=== PATIENT | male | born 1965 | race Caucasian/White ===

== ENCOUNTER 2018-05-07 17:22 | Inpatient (IN) | payer MEDICAID ==
[~2018-05-07] VITALS: Ht 167.6 cm; Wt 65.1 kg
[~2018-05-07 17:22] MED LIST: ASPI-465; DOCU50CA4; GEMF600T; HYDR-906; INSU100I28 SQ; MULT1TAB59; OXYB5TAB7; POLY17PO; PROSTAT; RTATR; RTPRO5; [UNRECOGNIZED DRUG - CODE]; [UNRECOGNIZED DRUG - OTHER]
[2018-05-07] MEDS ORDERED: SODIUM CHLORIDE 0.9% 1L BAG IV* STA (17:25)
[2018-05-07] MEDS ORDERED: ACETAMINOPHEN 650 MG SUPP PR STA (17:25)
[2018-05-07] MEDS ORDERED: PIPER-TAZO 3.375 GM IV (PMX) 100 ML IVPB STA (17:25)
[2018-05-07] MEDS ORDERED: VANCOMYCIN 1 GM (PMX) 250 ML IVPB STA (17:25)
[2018-05-07] MEDS ORDERED: SOD CHLORIDE 0.9% 1,000 ML IV STA (19:55)
--- NOTE | 2018-05-07 19:58 | ERD ---
ER Documentation Chief Complaint Chief Complaint ALOC FROM SNF. FEBRILE AND TACHYCARDIC HPI This is a 52-year-old male with a traumatic brain injury, full code quadriplegia and neurogenic bladder who presents to the emergency department for fever and abnormal outpatient lab work and a fever that occurred several hours prior to arrival. The patient has been tachycardic. The patient has inability to provide any history due to his underlying medical condition. When reviewing previous records the patient has recurrent absent episodes of sepsis. The patient had outpatient laboratory work collected on May 06, 2018 that indica jocelyn the patient's BUN was 90 and creatinine was 2.84. His serum sodium was 170. His primary care physician Dr. Sahara Santoro was aware and he instructed the patient to be transferred to the hospital for admission and definitive treatment. ROS All systems reviewed and are negative except as per history of present illness. Medications Home Meds Reported Medications Hydrocodone Bit-Acetaminophen ([place]) 1 Tab Tablet, PRN 05/03/12 Oxybutynin Chloride* (Ditropan*) 5 Mg Tab, DAILY 05/03/12 Polyethylene Glycol (Miralax) 17 Gm/Pkt Liq, DAILY 05/03/12 Docusate Sodium* (Colace*) 50 Mg Capsule, 100 MG DAILY 05/03/12 Ascorbic Acid (Ascorbic Acid) 1 Gm Granules, 500 MG DAILY 05/03/12 Gemfibrozil* (Lopid*) 600 Mg Tablet, DAILY 05/03/12 [Prostat] No Conflict Check, 30 ML DAILY 05/03/12 [Multivitamins With Minerals] No Conflict Check, 1 TAB DAILY 05/03/12 Ipratropium [place]* (Atrovent*) 2.5 Ml Nebu, PRN 05/03/12 Albuterol Sulfate* (Proventil* Neb) 0.5 Ml Nebu, PRN 05/03/12 Insulin Detemir* (Levemir*) 100 U/Ml Insuln.pen, 70 UNITS SQ DAILY 05/03/12 Aspirin (Adult Low Dose Aspirin) 81 Mg Tablet., DAILY, 0 Refills 03/09/09 Multivitamins* (Multivitamins*) 1 Tab Tablet 03/09/09 Allergies Allergies: Coded Allergies: imipenem (Verified Allergy, Unknown, 05/07/18) PMhx/Soc History of Surgery: Yes (G tube palcement) Hx Neurological Disorder: Yes (traumatic brain injury) Hx Respiratory Disorders: Yes (resp failure) Hx Cardiac Disorders: Yes Hx Psychiatric Problems: No Hx Miscellaneous Medical Probl: Yes (bedbound, neurogenic bladder S/P suprapubic catheter, S/P trach & removal) Hx Alcohol Use: No Hx Substance Use: No Hx Tobacco Use: No Smoking Status: Unknown if ever smoked Physical Exam Vitals Vital Signs Date Temp Pulse Resp B/P (MAP) Pulse Ox O2 O2 Flow FiO2 Time Delivery Rate 05/07/18 100.0 119 41 97/65 (76) 100 Non 10.0 19:16 Rebreathe r 05/07/18 124 45 94/66 (75) 100 Non 15.0 18:25 Rebreathe r 05/07/18 103.0 18:03 05/07/18 Non 15 17:34 Rebreathe r 05/07/18 103.0 140 38 100/60 93 17:24 (73) Physical Exam Constitutional:Well-developed. Debilitated. HEENT:Normocephalic. Atraumatic.Pupils were equal round reactive to light. Very dry mucous membranes.No tonsillar exudates. Neck: No nuchal rigidity. No lymphadenopathy. No posterior cervical spine tenderness or step-offs. His surgical scar from tracheostomy. However ostomy site was closed Respiratory: Not using accessory muscles of respiration.Lungs were clear to auscultation bilaterally. No rhonchi. No rales. No wheezing. Cardiovascular: Tachycardic with regular rhythm.No murmurs. No rubs were appreciated.S1, S2 normal. Distal pulses are palpable 2+ bilaterally. GI: Abdomen was soft. Nontender. Non Distended. No pulsatile abdominal masses or bruits. No rebound. No guarding. Bowel sounds were present and normal. Tube in place with no surrounding erythremia warmth tenderness fluctuance or induration Muscle skeletal: Muscle atrophy of the bilateral lower extremities. Patient is unable to move the upper or lower extremities. Skin: No petechia, no purpura. No lesions on the palms or the soles of the feet. No maculopapular rash. Stage I sacral decubitus ulcer NEURO: Patient was alert, awake, and open eyes in response to pain. Patient aphasic. Gait not observed. Patient is bedbound. Result Diagram: 05/07/18 3850 05/07/18 1749 Results 24 hrs Laboratory Tests Test 05/07/18 17:49 05/07/18 17:51 05/07/18 18:15 White Blood Count 22.1 10^3/ul Red Blood Count 4.78 10^6/ul Hemoglobin 11.9 g/dl Hematocrit 46.0 % Mean Corpuscular Volume 96.2 fl Mean Corpuscular Hemoglobin 24.9 pg Mean Corpuscular 25.9 g/dl Hemoglobin Concent Red Cell Distribution Width 22.2 % Platelet Count 178 10^3/UL Mean Platelet Volume fl Immature Granulocytes % 1.200 % Neutrophils % 86.4 % Lymphocytes % 8.8 % Monocytes % 3.3 % Eosinophils % 0.0 % Basophils % 0.3 % Nucleated Red Blood Cells % 0.6 /100WBC Immature Granulocytes # 0.260 10^3/ul Neutrophils # 19.1 10^3/ul Lymphocytes # 2.0 10^3/ul Monocytes # 0.7 10^3/ul Eosinophils # 0.0 10^3/ul Basophils # 0.1 10^3/ul Nucleated Red Blood Cells # 0.1 10^3/ul Prothrombin Time 14.5 Sec Prothrombin Time Ratio 1.1 INR International 1.12 Normalized Ratio Activated Partial Thromboplast 33.6 Sec Time Sodium Level 174 mmol/L Potassium Level 4.2 mmol/L Chloride Level 140 mmol/L Carbon Dioxide Level 24 mmol/L Anion Gap 10 Blood Urea Nitrogen 115 mg/dl Creatinine 3.50 mg/dl Est Glomerular Filtrat 19 mL/min Rate mL/min Glucose Level 250 mg/dl Calcium Level 9.4 mg/dl Total Bilirubin 0.3 mg/dl Direct Bilirubin 0.00 mg/dl Indirect Bilirubin 0.3 mg/dl Aspartate Amino 31 IU/L Transf (AST/SGOT) Alanine < 6 IU/L Aminotransferase (ALT/SGPT) Alkaline Phosphatase 89 IU/L Troponin I < 0.012 ng/ml B-Type Natriuretic Peptide 918 PG/ML Total Protein 9.1 g/dl Albumin 3.9 g/dl Globulin 5.20 g/dl Albumin/Globulin Ratio 0.75 Amylase Level 132 U/L Lipase 101 U/L POC Venous Lactate 2.3 mmol/L Urine Color MAHSA Urine Clarity CLOUDY Urine pH 7.0 Urine Specific [place] 1.023 Urine Ketones NEGATIVE mg/dL Urine Nitrite NEGATIVE mg/dL Urine Bilirubin NEGATIVE mg/dL Urine Urobilinogen NEGATIVE mg/dL Urine Leukocyte Esterase 3+ Rahul/ul Urine Microscopic RBC 4 /HPF Urine Microscopic WBC > 182 /HPF Urine Squamous Epithelial Cells FEW /HPF Urine Bacteria MODERATE /HPF Urine Mucus FEW /HPF Urine Hemoglobin 2+ mg/dL Urine Glucose NEGATIVE mg/dL Urine Total Protein 3+ mg/dl Current Medications Medications Dose Sig/Jaye Start Time Status Last (Trade) Ordered Route PRN Stop Time Admin Dose Reason Admin Sodium 2,400 ml BOLUS OVER 2 05/07/18 DC 05/07/18 Chloride HOURS STAT 17:25 18:00 (NS) IV* 05/07/18 17:27 650 mg ONCE STAT 05/07/18 DC 05/07/18 Acetaminophen MT 17:25 18:03 (Tylenol 05/07/18 17:27 Supp) Vancomycin 250 ml @ ONCE STAT 05/07/18 DC 05/07/18 HCl 125 mls/hr IVPB 17:25 18:59 05/07/18 19:24 Piperacillin 100 ml @ ONCE STAT 05/07/18 DC 05/07/18 Sod/ 200 mls/hr IVPB 17:25 18:03 Tazobactam 05/07/18 17:54 Sod Lorazepam 1 mg ONCE ONCE 05/07/18 (Ativan) IV 20:00 05/07/18 20:01 Procedures/MDM This is a 52-year-old male that presented to the emergency department with positive Sirs criteria. The patient appeared severely dehydrated. Patient's infectious symptoms have not stabilized and the patient is at risk of rapid decompensation. The patient will be admitted for careful hydration, antibiotic therapy, and infectious source control. Severe Sepsis Assessment: Infectious Source: pyleonephritis End organ damage indicated by: Lactate > 2.0 mmol/L Hypotension( SBP < 90 or >40 mmHG drop or MAP < 65) Acute Resp Failure (sat < 92% w/o oxygen) Severe Sepsis Managment: Blood Cultures X 2 before broad spectrum antibiotics initiated within 3 hours of recognition. 30 ml/kg NS bolus Completed Initial Lactate: 2.3 Repeat Lactate pending Septic Shock Assessment (1 hour post 30 ml/kg fluid bolus): Hypotension (SBP < 90 or 40 mmHg drop, MAP < 65): No Lactic acid > 4.0 No I considered further perfusion assessment with CVP measurement, SCVO2, bedside ultrasound volume assessment, passive leg raise, trial of further fluid bolus. And preceded with IV fluids 12 Lead EKG tracing ordered and reviewed by myself showed: This tach 130 bpm and no arrhythmia. MT interval normal. QRS duration normal. No ST segment elevation No ST segment depression. No changes consistent with acute ischemia. The patient was febrile which he did feel was exacerbating his tachycardia was given antipyretics. The patient's serum sodium was significantly elevated at 174. This appeared to be a hypovolemic hyponatremia. The patient will continue to receive IV fluids. The patient was in acute renal failure. The patient's BUN was 115 and creatinine was 3.50. The BUN to creatinine ratio is greater than 20 and I did feel this was also likely result of prerenal azotemia from dehydration. The patient's blood glucose was 250 with no evidence of ketosis. The patient was treated with IV fluids. The patient will be admitted in serious condition to the hospitalist. The patient will go to the telemetry service with an anticipated stay of greater than 2 midnights. Critical Care: Time: 85 minutes Treatments/Evaluations: Close monitoring and treatment of unstable vital signs, cardiorespiratory, and neurologic status, while maintaining tight balance of flu id, respiratory, and cardiac interventions. Time does not include performing any of the above billable procedures. Departure Diagnosis: Primary Impression: Pyelonephritis Additional Impressions: Sepsis Sepsis type: sepsis due to unspecified organism Qualified Codes: A41.9 - Sepsis, unspecified organism Renal failure Renal failure chronicity: acute Acute renal failure type: unspecified Qualified Codes: N17.9 - Acute kidney failure, unspecified Hypernatremia Condition: Serious MADAY DEE MD May 07, 2018 19:56
[2018-05-07] MEDS ORDERED: LORAZEPAM 2 MG INJ IV ONE (20:00)
[2018-05-07] MEDS ORDERED: ONDANSETRON 4 MG INJ IV PRN ×2 (20:30→23:30)
[2018-05-07] MEDS ORDERED: ACETAMINOPHEN 325 MG TAB PO PRN (20:30)
--- NOTE | 2018-05-07 23:15 | HP ---
Date/Time of Note Date/Time of Note DATE: 05/07/18 TIME: 23:15 Assessment/Plan VTE Prophylaxis Pharmacological prophylaxis: heparin Lines/Catheters IV Catheter Type (from Nrsg): Mid Line Assessment/Plan Assessment/Plan 1. Sepsis, as evidenced by fever, leukocytosis and tachycardia: Secondary to UTI. Early developing pneumonia is also possibility -IV antibiotic, IV fluid was D5W given hypernatremia -Follow-up culture result 2. Severe hypernatremia: Likely secondary to dehydration -Patient had received NS IVF in the ER -Given hypoglycemia, D5W is not appropriate. Will give free water through his NG tube -Urine electrolytes and osmolality 3. Acute renal insufficiency -will hydrate -Renal ultrasound and nephrology consult 4. Quadriplegia, TBI, bedridden -Supportive care 5. Diabetes: Insulin while in-house 6. Dysphagia: Status post G-tube 7. Neurogenic bladder with suprapubic catheter Result Diagram: 05/07/18 1749 05/07/18 1749 Results 24hrs Laboratory Tests Test 05/07/18 17:49 05/07/18 17:51 05/07/18 18:15 05/07/18 20:22 White Blood Count 22.1 #H Red Blood Count 4.78 # Hemoglobin 11.9 L Hematocrit 46.0 # Mean Corpuscular 96.2 Volume Mean Corpuscular 24.9 L Hemoglobin Mean Corpuscular 25.9 #L Hemoglobin Concent Red Cell 22.2 H Distribution Width Platelet Count 178 Mean Platelet Volume Immature 1.200 H Granulocytes % Neutrophils % 86.4 H Lymphocytes % 8.8 L Monocytes % 3.3 Eosinophils % 0.0 Basophils % 0.3 Nucleated Red Blood 0.6 H Cells % Immature 0.260 H Granulocytes # Neutrophils # 19.1 H Lymphocytes # 2.0 Monocytes # 0.7 Eosinophils # 0.0 Basophils # 0.1 Nucleated Red Blood 0.1 H Cells # Prothrombin Time 14.5 Prothrombin Time 1.1 Ratio INR International 1.12 Normalized Ratio Activated 33.6 Partial Thromboplast Time Sodium Level 174 *H Potassium Level 4.2 Chloride Level 140 H Carbon Dioxide Level 24 Anion Gap 10 Blood Urea Nitrogen 115 H Creatinine 3.50 H Est Glomerular 19 L Filtrat Rate mL/min Glucose Level 250 H Calcium Level 9.4 Total Bilirubin 0.3 Direct Bilirubin 0.00 Indirect Bilirubin 0.3 Aspartate Amino 31 Transf (AST/SGOT) Alanine < 6 L Aminotransferase (AL T/SGPT) Alkaline Phosphatase 89 Troponin I < 0.012 B-Type Natriuretic 918 H Peptide Total Protein 9.1 H Albumin 3.9 Globulin 5.20 H Albumin/Globulin 0.75 Ratio Amylase Level 132 H Lipase 101 POC Venous Lactate 2.3 *H 1.9 Urine Color MAHSA Urine Clarity CLOUDY A Urine pH 7.0 Urine Specific 1.023 [place] Urine Ketones NEGATIVE Urine Nitrite NEGATIVE Urine Bilirubin NEGATIVE Urine Urobilinogen NEGATIVE Urine Leukocyte 3+ H Esterase Urine Microscopic 4 RBC Urine Microscopic > 182 H WBC Urine Squamous FEW Epithelial Cells Urine Bacteria MODERATE Urine Mucus FEW A Urine Hemoglobin 2+ H Urine Glucose NEGATIVE Urine Total Protein 3+ H HPI/ROS Admit Date/Time Admit Date/Time Hx of Present Illness This is a 52-year-old male with a history of traumatic brain injury status post craniotomy, chronic encephalopathy, type 2 diabetes (insulin-dependent), dysphagia with G-tube, history of neurogenic bladder with suprapubic catheter, bedridden, dyslipidemia who was sent for fever, tachycardia and abnormal labs. Patient not able to provide history and as such information gathered from chart review and from the ER physician. When he presented to ER, he was febrile with a temperature of 103, heart rate 140, respiratory rate 38. WBC 22,000. Creatinine 3.5. UA consistent with UTI. Chest x-ray shows interval development of opacification in the right lung. Sodium 174. During last admission here in 2014 his sodium was 162. PMH/Family/Social Past Medical History Medical History: other (See HPI) Medications Current Medications Ondansetron HCl (Zofran Inj) 4 mg ER BRIDGE PRN IV NAUSEA/VOMITING; Start 05/07/18 at 20:30; Stop 05/08/18 at 20:29 Acetaminophen (Tylenol Tab) 650 mg ER BRIDGE PRN PO .MILD PAIN 1-3 OR TEMP; Start 05/07/18 at 20:30; Stop 05/08/18 at 20:29 IV Flush (NS 3 ml) 3 ml PER PROTOCOL IV ; Start 05/07/18 at 23:30 Ondansetron HCl (Zofran Inj) 4 mg Q6H PRN IV NAUSEA/VOMITING; Start 05/07/18 at 23:30 Heparin Sodium (Porcine) (Heparin (5000 Units/1ml)) 5,000 unit Q12 SC ; Start 05/08/18 at 09:00 Albuterol/ Ipratropium (Duoneb) 3 ml Q2H RESP THERAPY PRN HHN SHORTNESS OF BREATH; Start 05/07/18 at 23:30 Dextrose 1,000 ml @ 100 mls/hr Q10H IV ; Start 05/07/18 at 23:30 Coded Allergies: imipenem (Verified Allergy, Unknown, 05/07/18) Past Surgical History Past Surgical Hx: other (See HPI) Family History Significant Family History: other (Unknown) Social History Alcohol Use: other (Unknown) Smoking Status: Unknown if ever smoked Drug Use: other (Unknown) Exam/Review of Systems Vital Signs Vitals Vital Signs Date Temp Pulse Resp B/P (MAP) Pulse Ox O2 O2 Flow FiO2 Time Delivery Rate 05/07/18 99.0 103 36 94/62 (73) 99 Nasal 2.0 23:10 Cannula Exam Constitutional: other (Patient is nonverbal. Eyes open. Seems like breathing through his mouth. Dry oral mucosa noted) Head: other (Craniotomy) Respiratory: other (Decreased breath sounds at the bases) Cardiovascular: other (Tachycardic regular rhythm) Gastrointestinal: other (G-tube in place) Extremities: normal pulses ELLA JACKSON MD May 07, 2018 23:15
[2018-05-07] MEDS ORDERED: ALBUTEROL/IPRATROPIUM (NEB) 3 ML AMP HHN PRN (23:30)
[2018-05-07] MEDS ORDERED: NACL 0.9% 3 ML SYG IV SCH (23:30)
[2018-05-07] MEDS ORDERED: DEXTROSE 5% 1,000 ML IV SCH (23:30)
[2018-05-08] VITALS (17 sets, daily range): BP systolic 90–117; BP diastolic 51–64; PULSE 95–112; RESP 20–35
[2018-05-08] MEDS ORDERED: GLUCAGON 1 MG INJ IM PRN (06:00)
[2018-05-08] MEDS ORDERED: GLUCOSE GEL 15 GRAM TUBE BUCCAL PRN (06:00)
[2018-05-08] MEDS ORDERED: INSULIN ASPART [NOVOLOG] 3 ML PEN SC SCH (06:00)
[2018-05-08] MEDS ORDERED: DEXTROSE 50% 50 ML SYRINGE IV PRN ×3 (06:00→13:30)
[2018-05-08] MEDS ORDERED: GLUCOSE GEL 15 GRAM TUBE PO PRN ×2 (06:00)
[2018-05-08] MEDS ORDERED: INSULIN ASPART [NOVOLOG] 3 ML PEN SC ONE (06:30)
[2018-05-08] MEDS ORDERED: DEXTROSE 5% WATER 500 ML BAG IV ONE (06:30)
[2018-05-08] MEDS ORDERED: VANCOMYCIN IV PER PHARMACY XX SCH (07:00)
[2018-05-08] MEDS ORDERED: INSULIN ASP PROT/ASPART (70/30) PEN SC ONE (07:30)
[2018-05-08] MEDS ORDERED: INSULIN GLARGINE [LANTus] (100 UNITS/ML) SYG SC SCH (08:00)
[2018-05-08] MEDS: CEFEPIME 1GM/50 ML (PMX) 50 ML IVPB SCH (10:40)
[2018-05-08] MEDS: morphine 2 MG INJ IV PRN (10:59)
[2018-05-08] MEDS: HEPARIN 5,000 UNIT/1 ML VIAL SC SCH ×2 (11:41→21:30)
[2018-05-08] MEDS: SOD CHLORIDE 0.9% 1,000 ML IV SCH ×3 (11:48→22:24)
--- NOTE | 2018-05-08 13:23 | PN ---
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 Will first replace with NS then correct sodium when circulating volume restored - Transfer to ICU DMII with hyperglycemia: - Transfer to ICU for insulin drip Anemia of chronic disease TBI, chronic encephelopathy is stable Sepsis; - Continue abx Result Diagram: 05/08/1862605/08/18626 Results 24hrs Laboratory Tests Test 05/07/18 17:49 05/07/18 17:51 05/07/18 18:15 05/07/18 20:22 White Blood Count 22.1 #H Red Blood Count 4.78 # Hemoglobin 11.9 L Hematocrit 46.0 # Mean Corpuscular 96.2 Volume Mean Corpuscular 24.9 L Hemoglobin Mean Corpuscular 25.9 #L Hemoglobin Concent Red Cell 22.2 H Distribution Width Platelet Count 178 Mean Platelet Volume Immature 1.200 H Granulocytes % Neutrophils % 86.4 H Lymphocytes % 8.8 L Monocytes % 3.3 Eosinophils % 0.0 Basophils % 0.3 Nucleated Red Blood 0.6 H Cells % Immature 0.260 H Granulocytes # Neutrophils # 19.1 H Lymphocytes # 2.0 Monocytes # 0.7 Eosinophils # 0.0 Basophils # 0.1 Nucleated Red Blood 0.1 H Cells # Prothrombin Time 14.5 Prothrombin Time 1.1 Ratio INR International 1.12 Normalized Ratio Activated 33.6 Partial Thromboplast Time Sodium Level 174 *H Potassium Level 4.2 Chloride Level 140 H Carbon Dioxide Level 24 Anion Gap 10 Blood Urea Nitrogen 115 H Creatinine 3.50 H Est Glomerular 19 L Filtrat Rate mL/min Glucose Level 250 H Calcium Level 9.4 Total Bilirubin 0.3 Direct Bilirubin 0.00 Indirect Bilirubin 0.3 Aspartate Amino 31 Transf (AST/SGOT) Alanine < 6 L Aminotransferase (AL T/SGPT) Alkaline Phosphatase 89 Troponin I < 0.012 B-Type Natriuretic 918 H Peptide Total Protein 9.1 H Albumin 3.9 Globulin 5.20 H Albumin/Globulin 0.75 Ratio Amylase Level 132 H Lipase 101 POC Venous Lactate 2.3 *H 1.9 Urine Color MAHSA Urine Clarity CLOUDY A Urine pH 7.0 Urine Specific 1.023 [place] Urine Ketones NEGATIVE Urine Nitrite NEGATIVE Urine Bilirubin NEGATIVE Urine Urobilinogen NEGATIVE Urine Leukocyte 3+ H Esterase Urine Microscopic 4 RBC Urine Microscopic > 182 H WBC Urine Squamous FEW Epithelial Cells Urine Bacteria MODERATE Urine Mucus FEW A Urine Hemoglobin 2+ H Urine Glucose NEGATIVE Urine Total Protein 3+ H Test 05/07/18 22:44 05/08/18 06:18 05/08/18 06:27 05/08/18 10:30 Lactic Acid Level 1.5 Bedside Glucose 545 *H White Blood Count 16.2 #H Red Blood Count 2.99 #L Hemoglobin 7.6 #L Hematocrit 29.1 #L Mean Corpuscular 97.3 Volume Mean Corpuscular 25.4 L Hemoglobin Mean Corpuscular 26.1 L Hemoglobin Concent Red Cell 22.0 H Distribution Width Platelet Count 107 #L Mean Platelet Volume Immature 1.500 H Granulocytes % Neutrophils % 83.2 H Lymphocytes % 11.6 L Monocytes % 3.5 Eosinophils % 0.0 Basophils % 0.2 Nucleated Red Blood 0.3 H Cells % Immature 0.240 H Granulocytes # Neutrophils # 13.5 H Lymphocytes # 1.9 Monocytes # 0.6 Eosinophils # 0.0 Basophils # 0.0 Nucleated Red Blood 0.1 H Cells # Sodium Level 170 *H Potassium Level 4.1 Chloride Level 141 H Carbon Dioxide Level 21 Anion Gap 8 Blood Urea Nitrogen 97 H Creatinine 3.04 H Est Glomerular 22 L Filtrat Rate mL/min Glucose Level 576 #*H Hemoglobin A1c 10.1 H Osmolality 409 H Uric Acid 12.1 H Calcium Level 7.3 L Magnesium Level 2.6 H Total Bilirubin 0.2 Direct Bilirubin 0.00 Indirect Bilirubin 0.2 Aspartate Amino 22 Transf (AST/SGOT) Alanine < 6 L Aminotransferase (AL T/SGPT) Alkaline Phosphatase 67 Total Protein 6.3 # Albumin 2.9 #L Globulin 3.40 H Albumin/Globulin 0.85 Ratio Triglycerides Level 400 H Cholesterol Level 96 L LDL Cholesterol, Calculated HDL Cholesterol 19 L Cholesterol/HDL 5.0 Ratio Lab Scanned Report LAB Test 05/08/18 10:45 05/08/18 13:18 Bedside Glucose 522 *H 568 *H Subjective 24 Hr Interval Summary Free Text/Dictation Seems a bit more alert than previous Exam/Review of Systems Exam Vitals Vital Signs Date Temp Pulse Resp B/P (MAP) Pulse Ox O2 O2 Flow FiO2 Time Delivery Rate 05/08/18 98.8 112 20 103/55 98 12:11 (71) 05/08/18 2.0 05:38 05/08/18 Nasal 01:38 Cannula Exam Lethargic Responds to commands RRR Very dry MM Results Results 24hrs Laboratory Tests Test 05/07/18 17:49 05/07/18 17:51 05/07/18 18:15 05/07/18 20:22 White Blood Count 22.1 #H Red Blood Count 4.78 # Hemoglobin 11.9 L Hematocrit 46.0 # Mean Corpuscular 96.2 Volume Mean Corpuscular 24.9 L Hemoglobin Mean Corpuscular 25.9 #L Hemoglobin Concent Red Cell 22.2 H Distribution Width Platelet Count 178 Mean Platelet Volume Immature 1.200 H Granulocytes % Neutrophils % 86.4 H Lymphocytes % 8.8 L Monocytes % 3.3 Eosinophils % 0.0 Basophils % 0.3 Nucleated Red Blood 0.6 H Cells % Immature 0.260 H Granulocytes # Neutrophils # 19.1 H Lymphocytes # 2.0 Monocytes # 0.7 Eosinophils # 0.0 Basophils # 0.1 Nucleated Red Blood 0.1 H Cells # Prothrombin Time 14.5 Prothrombin Time 1.1 Ratio INR International 1.12 Normalized Ratio Activated 33.6 Partial Thromboplast Time Sodium Level 174 *H Potassium Level 4.2 Chloride Level 140 H Carbon Dioxide Level 24 Anion Gap 10 Blood Urea Nitrogen 115 H Creatinine 3.50 H Est Glomerular 19 L Filtrat Rate mL/min Glucose Level 250 H Calcium Level 9.4 Total Bilirubin 0.3 Direct Bilirubin 0.00 Indirect Bilirubin 0.3 Aspartate Amino 31 Transf (AST/SGOT) Alanine < 6 L Aminotransferase (AL T/SGPT) Alkaline Phosphatase 89 Troponin I < 0.012 B-Type Natriuretic 918 H Peptide Total Protein 9.1 H Albumin 3.9 Globulin 5.20 H Albumin/Globulin 0.75 Ratio Amylase Level 132 H Lipase 101 POC Venous Lactate 2.3 *H 1.9 Urine Color MAHSA Urine Clarity CLOUDY A Urine pH 7.0 Urine Specific 1.023 [place] Urine Ketones NEGATIVE Urine Nitrite NEGATIVE Urine Bilirubin NEGATIVE Urine Urobilinogen NEGATIVE Urine Leukocyte 3+ H Esterase Urine Microscopic 4 RBC Urine Microscopic > 182 H WBC Urine Squamous FEW Epithelial Cells Urine Bacteria MODERATE Urine Mucus FEW A Urine Hemoglobin 2+ H Urine Glucose NEGATIVE Urine Total Protein 3+ H Test 05/07/18 22:44 05/08/18 06:18 05/08/18 06:27 05/08/18 10:30 Lactic Acid Level 1.5 Bedside Glucose 545 *H White Blood Count 16.2 #H Red Blood Count 2.99 #L Hemoglobin 7.6 #L Hematocrit 29.1 #L Mean Corpuscular 97.3 Volume Mean Corpuscular 25.4 L Hemoglobin Mean Corpuscular 26.1 L Hemoglobin Concent Red Cell 22.0 H Distribution Width Platelet Count 107 #L Mean Platelet Volume Immature 1.500 H Granulocytes % Neutrophils % 83.2 H Lymphocytes % 11.6 L Monocytes % 3.5 Eosinophils % 0.0 Basophils % 0.2 Nucleated Red Blood 0.3 H Cells % Immature 0.240 H Granulocytes # Neutrophils # 13.5 H Lymphocytes # 1.9 Monocytes # 0.6 Eosinophils # 0.0 Basophils # 0.0 Nucleated Red Blood 0.1 H Cells # Sodium Level 170 *H Potassium Level 4.1 Chloride Level 141 H Carbon Dioxide Level 21 Anion Gap 8 Blood Urea Nitrogen 97 H Creatinine 3.04 H Est Glomerular 22 L Filtrat Rate mL/min Glucose Level 576 #*H Hemoglobin A1c 10.1 H Osmolality 409 H Uric Acid 12.1 H Calcium Level 7.3 L Magnesium Level 2.6 H Total Bilirubin 0.2 Direct Bilirubin 0.00 Indirect Bilirubin 0.2 Aspartate Amino 22 Transf (AST/SGOT) Alanine < 6 L Aminotransferase (AL T/SGPT) Alkaline Phosphatase 67 Total Protein 6.3 # Albumin 2.9 #L Globulin 3.40 H Albumin/Globulin 0.85 Ratio Triglycerides Level 400 H Cholesterol Level 96 L LDL Cholesterol, Calculated HDL Cholesterol 19 L Cholesterol/HDL 5.0 Ratio Lab Scanned Report LAB Test 05/08/18 10:45 05/08/18 13:18 Bedside Glucose 522 *H 568 *H Medications Medication Current Medications Acetaminophen (Tylenol Tab) 650 mg ER BRIDGE PRN PO .MILD PAIN 1-3 OR TEMP Last administered on 05/08/18at 06:00; Admin Dose 650 MG; Start 05/07/18 at 20:30; Stop 05/08/18 at 20:29 IV Flush (NS 3 ml) 3 ml PER PROTOCOL IV ; Start 05/07/18 at 23:30 Ondansetron HCl (Zofran Inj) 4 mg Q6H PRN IV NAUSEA/VOMITING; Start 05/07/18 at 23:30 Heparin Sodium (Porcine) (Heparin (5000 Units/1ml)) 5,000 unit Q12 SC Last administered on 05/08/18at 11:41; Admin Dose 5,000 UNIT; Start 05/08/18 at 09:00 Albuterol/ Ipratropium (Duoneb) 3 ml Q2H RESP THERAPY PRN HHN SHORTNESS OF BREATH; Start 05/07/18 at 23:30 Vancomycin HCl (Vanco Iv Per Pharmacy) VANCOMYCIN PER PHARMACY PER PROTOCOL XX ; Start 05/08/18 at 07:00 Cefepime HCl 50 ml @ 100 mls/hr Q24H IVPB Last administered on 05/08/18at 10:40; Admin Dose 100 MLS/HR; Start 05/08/18 at 09:00 Diagnostic Test (Pha) (Accu-Chek) 1 ea 02 XX ; Start 05/09/18 at 02:00 Insulin Aspart (Novolog Insulin Pen) NOVOLOG *MILD* ALGORI... Q6 SC ; Start 05/08/18 at 06:00 Insulin Glargine (Lantus) 12 units DAILY@0800 SC Last administered on 05/08/18at 11:42; Admin Dose 12 UNITS; Start 05/08/18 at 08:00 Miscellaneous Information 1 ea NOTE XX ; Start 05/08/18 at 06:00 Glucose (Glutose) 15 gm Q15M PRN PO DECREASED GLUCOSE; Start 05/08/18 at 06:00 Glucose (Glutose) 22.5 gm Q15M PRN PO DECREASED GLUCOSE; Start 05/08/18 at 06:00 Dextrose (D50w Syringe) 25 ml Q15M PRN IV DECREASED GLUCOSE; Start 05/08/18 at 06:00 Dextrose (D50w Syringe) 50 ml Q15M PRN IV DECREASED GLUCOSE; Start 05/08/18 at 06:00 Glucagon (Glucagen) 1 mg Q15M PRN IM DECREASED GLUCOSE; Start 05/08/18 at 06:00 Glucose (Glutose) 15 gm Q15M PRN BUCCAL DECREASED GLUCOSE; Start 05/08/18 at 06:00 Sodium Chloride 1,000 ml @ 100 mls/hr Q10H IV Last administered on 05/08/18at 11:48; Admin Dose 100 MLS/HR; Start 05/08/18 at 11:00 Morphine Sulfate (morphine) 2 mg Q4H PRN IV SEVERE PAIN LEVEL 7-10 Last admini stered on 05/08/18at 10:59; Admin Dose 2 MG; Start 05/08/18 at 11:00 Miscellaneous Information (*Rx Drug Level Order Reminder*) RANDOM VANCOMYCIN LEVEL 3... ONCE ONCE XX ; Start 05/09/18 at 05:00; Stop 05/09/18 at 05:01 PEGGY RODRIGUEZ MD May 08, 2018 13:23
[2018-05-08] MEDS: ACCU-CHEK XX SCH ×9 (15:13→23:36)
[2018-05-08] MEDS: INSULIN HUMAN REGULAR 100 UNIT in SOD CHLORIDE 0.9% 99 ML IV SCH ×3 (15:29→22:27)
[2018-05-09] VITALS (24 sets, daily range): BP systolic 85–131; BP diastolic 51–77; PULSE 73–101; RESP 19–32
[2018-05-09] MEDS: ACCU-CHEK XX SCH ×14 (00:25→13:16)
[2018-05-09] MEDS ORDERED: DEXTROSE 5% 1,000 ML IV SCH (01:30)
[2018-05-09] MEDS: POTASSIUM CHLORIDE 50 ML IVPB PRN ×3 (01:40→05:33)
[2018-05-09] MEDS ORDERED: ACCU-CHEK XX SCH (02:00)
[2018-05-09] MEDS: ACETAMINOPHEN 650MG/20.3ML CUP GTB PRN ×2 (02:18→12:02)
[2018-05-09] MEDS: SOD CHLORIDE 0.45% 1,000 ML IV SCH ×4 (07:50→23:24)
[2018-05-09] MEDS ORDERED: LIDOCAINE 1% (MPF) 5 ML VIAL SC ONE (09:30)
[2018-05-09] MEDS: CEFEPIME 1GM/50 ML (PMX) 50 ML IVPB SCH (09:40)
[2018-05-09] MEDS: HEPARIN 5,000 UNIT/1 ML VIAL SC SCH ×2 (09:43→20:25)
--- NOTE | 2018-05-09 10:23 | PN ---
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 Will continue 1/2 NS infusion. Serial BMP NINA: - Certainly with prerenal azotemia which we are correcting. Where he settles out is to be determined. May have some ATN DMII with hyperglycemia: - Can transition now to basal insulin with correctional scale Anemia of chronic disease TBI, chronic encephelopathy - stable Sepsis; - Continue abx, monitor cultures Unstageable pressure ulcer present Chronic dysphagia; - Continue tube feeds Result Diagram: 05/09/18 0441 05/09/18 0646 Results 24hrs Laboratory Tests Test 05/08/18 10:30 05/08/18 10:45 05/08/18 13:18 05/08/18 13:50 Lab Scanned Report LAB Bedside Glucose 522 *H 568 *H Urine Osmolality 513 Urine Random Sodium 54 Urine Random 24.6 L Potassium Test 05/08/18 14:09 05/08/18 15:07 05/08/18 15:30 05/08/18 16:26 Sodium Level 167 *H Potassium Level 4.4 Chloride Level 138 H Carbon Dioxide Level 22 Anion Gap 7 Blood Urea Nitrogen 90 H Creatinine 2.72 H Est Glomerular 25 L Filtrat Rate mL/min Glucose Level 573 *H Calcium Level 7.7 L Bedside Glucose 487 *H 502 *H 450 *H Test 05/08/18 17:19 05/08/18 18:20 05/08/18 19:24 05/08/18 20:14 Bedside Glucose 416 *H 348 H 287 H 243 H Test 05/08/18 20:19 05/08/18 21:24 05/08/18 22:35 05/08/18 23:35 Sodium Level 169 *H Potassium Level 3.4 L Chloride Level 141 H Carbon Dioxide Level 24 Anion Gap 4 L Blood Urea Nitrogen 81 H Creatinine 2.53 H Est Glomerular 27 L Filtrat Rate mL/min Glucose Level 258 #H Calcium Level 7.7 L Bedside Glucose 165 126 116 Test 05/09/18 00:24 05/09/18 00:29 05/09/18 01:33 05/09/18 04:28 Bedside Glucose 119 111 154 Sodium Level 172 *H Potassium Level 3.3 L Chloride Level 145 H Carbon Dioxide Level 23 Anion Gap 4 L Blood Urea Nitrogen 73 H Creatinine 2.39 H Est Glomerular 29 L Filtrat Rate mL/min Glucose Level 118 # Calcium Level 7.6 L Test 05/09/18 04:41 05/09/18 05:18 05/09/18 05:55 05/09/18 06:46 White Blood Count 13.2 H Red Blood Count 2.57 L Hemoglobin 6.5 *L Hematocrit 24.5 L Mean Corpuscular 95.3 Volume Mean Corpuscular 25.3 L Hemoglobin Mean Corpuscular 26.5 L Hemoglobin Concent Red Cell 21.9 H Distribution Width Platelet Count 104 L Mean Platelet Volume Immature 1.100 H Granulocytes % Neutrophils % Segmented 54 Neutrophils % (Manual) Band Neutrophils % 28 H (Manual) Lymphocytes % Lymphocytes % 16 (Manual) Monocytes % Monocytes % (Manual) 1 Eosinophils % Eosinophils % 1 (Manual) Basophils % Nucleated Red Blood 0.6 H Cells % Immature 0.150 H Granulocytes # Neutrophils # Neutrophils # 7.6 H (Manual) Band Neutrophils # 3.6 H Lymphocytes (Manual) 2.1 Lymphocytes # Monocytes # Monocytes # (Manual) 0.1 L Eosinophils # Basophils # Nucleated Red Blood Cells # Platelet Estimate DECREASED Platelet Morphology @See below Comment Polychromasia 3+ Poikilocytosis 1+ Anisocytosis 3+ Microcytosis 3+ Stomatocytes 1+ Random Vancomycin 5.5 Level Bedside Glucose 155 151 Sodium Level 163 *H Potassium Level 3.5 Chloride Level 138 H Carbon Dioxide Level 21 Anion Gap 4 L Blood Urea Nitrogen 62 H Creatinine 2.26 H Est Glomerular 31 L Filtrat Rate mL/min Glucose Level 144 Calcium Level 6.9 L Test 05/09/18 06:48 05/09/18 08:13 05/09/18 09:10 05/09/18 10:01 Bedside Glucose 144 138 134 136 Subjective 24 Hr Interval Summary Free Text/Dictation Sugars are improved on insulin drip Sodium level also improving Creatinine coming down UOP increasing to about 40 cc/hr Patient is a bit more alert now. Keeps moaning repeatedly but uanble to converse Exam/Review of Systems Exam Vitals Vital Signs Date Temp Pulse Resp B/P (MAP) Pulse Ox O2 O2 Flow FiO2 Time Delivery Rate 05/09/18 87 26 97/54 (68) 99 Nasal 4.0 09:00 Cannula 05/09/18 98.8 08:00 Intake and Output 05/08/18 05/08/18 05/09/18 1515:00 23:00 07:00 IntakeIntake Total 0 ml 2231 ml 2407 ml OutputOutput Total 200 ml 650 ml 350 ml BalanceBalance -200 ml 1581 ml 2057 ml Exam Alert Unable to converse much. Knows his name Continues to groan repeatedly MM moist now RRR Breathign comfortably Prior trach evident Abd soft nt nd, G tube Ext contracted, atrophied Results Results 24hrs Laboratory Tests Test 05/08/18 10:30 05/08/18 10:45 05/08/18 13:18 05/08/18 13:50 Lab Scanned Report LAB Bedside Glucose 522 *H 568 *H Urine Osmolality 513 Urine Random Sodium 54 Urine Random 24.6 L Potassium Test 05/08/18 14:09 05/08/18 15:07 05/08/18 15:30 05/08/18 16:26 Sodium Level 167 *H Potassium Level 4.4 Chloride Level 138 H Carbon Dioxide Level 22 Anion Gap 7 Blood Urea Nitrogen 90 H Creatinine 2.72 H Est Glomerular 25 L Filtrat Rate mL/min Glucose Level 573 *H Calcium Level 7.7 L Bedside Glucose 487 *H 502 *H 450 *H Test 05/08/18 17:19 05/08/18 18:20 05/08/18 19:24 05/08/18 20:14 Bedside Glucose 416 *H 348 H 287 H 243 H Test 05/08/18 20:19 05/08/18 21:24 05/08/18 22:35 05/08/18 23:35 Sodium Level 169 *H Potassium Level 3.4 L Chloride Level 141 H Carbon Dioxide Level 24 Anion Gap 4 L Blood Urea Nitrogen 81 H Creatinine 2.53 H Est Glomerular 27 L Filtrat Rate mL/min Glucose Level 258 #H Calcium Level 7.7 L Bedside Glucose 165 126 116 Test 05/09/18 00:24 05/09/18 00:29 05/09/18 01:33 05/09/18 04:28 Bedside Glucose 119 111 154 Sodium Level 172 *H Potassium Level 3.3 L Chloride Level 145 H Carbon Dioxide Level 23 Anion Gap 4 L Blood Urea Nitrogen 73 H Creatinine 2.39 H Est Glomerular 29 L Filtrat Rate mL/min Glucose Level 118 # Calcium Level 7.6 L Test 05/09/18 04:41 05/09/18 05:18 05/09/18 05:55 05/09/18 06:46 White Blood Count 13.2 H Red Blood Count 2.57 L Hemoglobin 6.5 *L Hematocrit 24.5 L Mean Corpuscular 95.3 Volume Mean Corpuscular 25.3 L Hemoglobin Mean Corpuscular 26.5 L Hemoglobin Concent Red Cell 21.9 H Distribution Width Platelet Count 104 L Mean Platelet Volume Immature 1.100 H Granulocytes % Neutrophils % Segmented 54 Neutrophils % (Manual) Band Neutrophils % 28 H (Manual) Lymphocytes % Lymphocytes % 16 (Manual) Monocytes % Monocytes % (Manual) 1 Eosinophils % Eosinophils % 1 (Manual) Basophils % Nucleated Red Blood 0.6 H Cells % Immature 0.150 H Granulocytes # Neutrophils # Neutrophils # 7.6 H (Manual) Band Neutrophils # 3.6 H Lymphocytes (Manual) 2.1 Lymphocytes # Monocytes # Monocytes # (Manual) 0.1 L Eosinophils # Basophils # Nucleated Red Blood Cells # Platelet Estimate DECREASED Platelet Morphology @See below Comment Polychromasia 3+ Poikilocytosis 1+ Anisocytosis 3+ Microcytosis 3+ Stomatocytes 1+ Random Vancomycin 5.5 Level Bedside Glucose 155 151 Sodium Level 163 *H Potassium Level 3.5 Chloride Level 138 H Carbon Dioxide Level 21 Anion Gap 4 L Blood Urea Nitrogen 62 H Creatinine 2.26 H Est Glomerular 31 L Filtrat Rate mL/min Glucose Level 144 Calcium Level 6.9 L Test 05/09/18 06:48 05/09/18 08:13 05/09/18 09:10 05/09/18 10:01 Bedside Glucose 144 138 134 136 Medications Medication Current Medications IV Flush (NS 3 ml) 3 ml PER PROTOCOL IV ; Start 05/07/18 at 23:30 Ondansetron HCl (Zofran Inj) 4 mg Q6H PRN IV NAUSEA/VOMITING; Start 05/07/18 at 23:30 Heparin Sodium (Porcine) (Heparin (5000 Units/1ml)) 5,000 unit Q12 SC Last administered on 05/09/18 09:43; Admin Dose 5,000 UNIT; Start 05/08/18 at 09:00 Albuterol/ Ipratropium (Duoneb) 3 ml Q2H RESP THERAPY PRN HHN SHORTNESS OF BREATH; Start 05/07/18 at 23:30 Vancomycin HCl (Vanco Iv Per Pharmacy) VANCOMYCIN PER PHARMACY PER PROTOCOL XX ; Start 05/08/18 at 07:00 Cefepime HCl 50 ml @ 100 mls/hr Q24H IVPB Last administered on 05/09/18 09:40; Admin Dose 100 MLS/HR; Start 05/08/18 at 09:00 Morphine Sulfate (morphine) 2 mg Q4H PRN IV SEVERE PAIN LEVEL 7-10 Last administered on 05/08/18 10:59; Admin Dose 2 MG; Start 05/08/18 at 11:00 Diagnostic Test (Pha) (Accu-Chek) 1 ea Q1H XX Last administered on 05/09/18 10:02; Admin Dose 1 EA; Start 05/08/18 at 15:00 Miscellaneous Information (* Miscellaneous Pharmacy Order) Treatment of Hypoglycemia: 1.BG 51... Per protocol XX ; Start 05/08/18 at 13:30 Dextrose (D50w Syringe) 25 ml Q15M PRN IV .DECREASED GLUCOSE; Start 05/08/18 at 13:30 Potassium Chloride 50 ml @ 50 mls/hr K PROTOCOL PRN IVPB PENDING LAB VALUE Last administered on 05/09/18 05:33; Admin Dose 50 MLS/HR; Start 05/09/18 at 01:30 Acetaminophen (Tylenol Liquid) 650 mg Q4H PRN GTB FEVER Last administered on 05/09/18 02:18; Admin Dose 650 MG; Start 05/09/18 at 01:30 Sodium Chloride 1,000 ml @ 150 mls/hr Q6H40M IV Last administered on 05/09/18 07:50; Admin Dose 150 MLS/HR; Start 05/09/18 at 08:00 Insulin Glargine (Lantus) 25 units DAILY@0800 SC ; Start 05/09/18 at 10:30; Status UNV PEGGY RODRIGUEZ MD May 09, 2018 10:23
[2018-05-09] MEDS: morphine 2 MG INJ IV PRN ×2 (10:45→16:48)
[2018-05-09] MEDS ORDERED: GLUCOSE GEL 15 GRAM TUBE BUCCAL PRN (11:00)
[2018-05-09] MEDS ORDERED: GLUCOSE GEL 15 GRAM TUBE PO PRN ×2 (11:00)
[2018-05-09] MEDS ORDERED: DEXTROSE 50% 50 ML SYRINGE IV PRN (11:00)
[2018-05-09] MEDS ORDERED: GLUCAGON 1 MG INJ IM PRN (11:00)
[2018-05-09] MEDS ORDERED: INSULIN GLARGINE [LANTus] (100 UNITS/ML) SYG SC SCH ×2 (11:30→23:30)
[2018-05-09] MEDS: INSULIN ASPART [NOVOLOG] 3 ML PEN SC SCH ×3 (11:30→20:31)
[2018-05-09] MEDS ORDERED: VANCOMYCIN 1 GM 250 ML IVPB SCH (13:00)
[2018-05-09] MEDS ORDERED: INSULIN ASPART [NOVOLOG] 3 ML PEN SC ONE (17:00)
[2018-05-09] MEDS: COLLAGENASE 5 GM (UD JAR) TOP SCH (20:24)
[2018-05-09] MEDS: BALSAM PERU/CASTOR OIL 60 GM TUBE TOP SCH (20:24)
[2018-05-10] VITALS (12 sets, daily range): BP systolic 97–128; BP diastolic 54–79; PULSE 77–86; RESP 15–22
[2018-05-10] MEDS: INSULIN ASPART [NOVOLOG] 3 ML PEN SC SCH ×6 (01:33→21:06)
[2018-05-10] MEDS: SOD CHLORIDE 0.45% 1,000 ML IV SCH ×3 (07:41→17:20)
[2018-05-10] MEDS: COLLAGENASE 5 GM (UD JAR) TOP SCH (09:46)
[2018-05-10] MEDS: BALSAM PERU/CASTOR OIL 60 GM TUBE TOP SCH ×2 (09:46→21:35)
[2018-05-10] MEDS: HEPARIN 5,000 UNIT/1 ML VIAL SC SCH ×2 (09:47→21:06)
[2018-05-10] MEDS: CEFEPIME 1GM/50 ML (PMX) 50 ML IVPB SCH ×2 (09:50→20:49)
[2018-05-10] MEDS: morphine 2 MG INJ IV PRN ×2 (11:02→15:49)
[2018-05-10] MEDS: INSULIN GLARGINE [LANTus] (100 UNITS/ML) SYG SC SCH (12:24)
[2018-05-10] MEDS: VANCOMYCIN HCL 1.25 GM in SOD CHLORIDE 0.9% 250 ML IVPB SCH (12:56)
[2018-05-10] MEDS ORDERED: VANCOMYCIN HCL 1.5 GM in SOD CHLORIDE 0.9% 250 ML IVPB SCH (13:00)
[2018-05-10] MEDS: POTASSIUM CHLORIDE 100 ML IVPB SCH ×2 (16:27→21:35)
--- NOTE | 2018-05-10 17:28 | PN ---
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 Serial BMP NINA: - Certainly with prerenal azotemia which we are correcting. Where he settles out is to be determined. May have some ATN - continue NS unitl this evening, devleoping pulmonary edema on XR DMII with hyperglycemia: - Increase basal insulin with correctional scale given continued hyperglycemia Anemia of chronic disease TBI, chronic encephelopathy - stable Sepsis from UTI. - Continue abx and complete 1 week course of same given clinical imporvement. Has MRSA in urine Unstageable pressure ulcer present Chronic dysphagia; - Continue tube feeds Dc to NH when stable Result Diagram: 05/10/18 0650 05/10/18 1359 Results 24hrs Laboratory Tests Test 05/09/18 19:24 05/09/18 19:26 05/09/18 20:28 05/09/18 23:28 White Blood Count 11.6 H Red Blood Count 2.81 L Hemoglobin 7.3 L Hematocrit 26.5 L Mean Corpuscular 94.3 Volume Mean Corpuscular 26.0 L Hemoglobin Mean Corpuscular 27.5 L Hemoglobin Concent Red Cell 20.3 H Distribution Width Platelet Count 91 L Mean Platelet Volume Immature 1.100 H Granulocytes % Neutrophils % Segmented 77 Neutrophils % (Manual) Band Neutrophils % 8 H (Manual) Lymphocytes % Lymphocytes % 13 L (Manual) Monocytes % Monocytes % (Manual) 2 Eosinophils % Basophils % Nucleated Red Blood 1 H Cells % Immature 0.130 H Granulocytes # Neutrophils # Neutrophils # 9.0 H (Manual) Band Neutrophils # 0.9 H Lymphocytes (Manual) 1.5 Lymphocytes # Monocytes # Monocytes # (Manual) 0.2 L Eosinophils # Basophils # Nucleated Red Blood Cells # Platelet Estimate NORMAL Hypochromasia 2+ Anisocytosis 1+ Microcytosis 1+ Sodium Level 159 H Potassium Level 3.7 Chloride Level 129 H Carbon Dioxide Level 21 Anion Gap 9 Blood Urea Nitrogen 55 H Creatinine 1.82 H Est Glomerular 40 L Filtrat Rate mL/min Glucose Level 295 H Calcium Level 6.5 L Bedside Glucose 287 H 223 H Test 05/10/18 00:36 05/10/18 01:19 05/10/18 05:27 05/10/18 06:50 Sodium Level 158 H 158 H Potassium Level 3.7 3.5 Chloride Level 129 H 133 H Carbon Dioxide Level 22 21 Anion Gap 7 4 L Blood Urea Nitrogen 51 H 46 H Creatinine 1.63 H 1.55 H Est Glomerular 45 L 48 L Filtrat Rate mL/min Glucose Level 213 213 Calcium Level 6.7 L 6.8 L Bedside Glucose 213 227 H White Blood Count 9.0 # Red Blood Count 2.67 L Hemoglobin 7.0 L Hematocrit 24.5 L Mean Corpuscular 91.8 Volume Mean Corpuscular 26.2 L Hemoglobin Mean Corpuscular 28.6 L Hemoglobin Concent Red Cell 20.0 H Distribution Width Platelet Count 87 L Mean Platelet Volume Immature 1.200 H Granulocytes % Neutrophils % 83.2 H Lymphocytes % 10.4 L Monocytes % 3.9 Eosinophils % 1.2 Basophils % 0.1 Nucleated Red Blood 0.7 H Cells % Immature 0.110 H Granulocytes # Neutrophils # 7.5 Lymphocytes # 0.9 Monocytes # 0.4 Eosinophils # 0.1 Basophils # 0.0 Nucleated Red Blood 0.1 H Cells # Test 05/10/18 09:22 05/10/18 11:55 05/10/18 13:59 05/10/18 17:19 Bedside Glucose 266 H 247 H 240 H Sodium Level 157 H Potassium Level 3.2 L Chloride Level 130 H Carbon Dioxide Level 22 Anion Gap 5 Blood Urea Nitrogen 42 H Creatinine 1.44 H Est Glomerular 52 L Filtrat Rate mL/min Glucose Level 205 Calcium Level 7.0 L Subjective 24 Hr Interval Summary Free Text/Dictation Again more alert today. Interactive but cannot participate in conversation Exam/Review of Systems Exam Vitals Vital Signs Date Temp Pulse Resp B/P (MAP) Pulse Ox O2 O2 Flow FiO2 Time Delivery Rate 05/10/18 83 16:13 05/10/18 101.2 17 107/57 90 15:32 (74) 05/10/18 Nasal 2.0 08:00 Cannula Intake and Output 05/09/18 05/09/18 05/10/18 1515:00 23:00 07:00 IntakeIntake Total 775 ml 1465 ml 1190 ml OutputOutput Total 310 ml 480 ml 200 ml BalanceBalance 465 ml 985 ml 990 ml Exam Alert, interactive tracks Unable to converse Appears comfortable Breahting comfortalby RRR Paraplegia Results Results 24hrs Laboratory Tests Test 05/09/18 19:24 05/09/18 19:26 05/09/18 20:28 05/09/18 23:28 White Blood Count 11.6 H Red Blood Count 2.81 L Hemoglobin 7.3 L Hematocrit 26.5 L Mean Corpuscular 94.3 Volume Mean Corpuscular 26.0 L Hemoglobin Mean Corpuscular 27.5 L Hemoglobin Concent Red Cell 20.3 H Distribution Width Platelet Count 91 L Mean Platelet Volume Immature 1.100 H Granulocytes % Neutrophils % Segmented 77 Neutrophils % (Manual) Band Neutrophils % 8 H (Manual) Lymphocytes % Lymphocytes % 13 L (Manual) Monocytes % Monocytes % (Manual) 2 Eosinophils % Basophils % Nucleated Red Blood 1 H Cells % Immature 0.130 H Granulocytes # Neutrophils # Neutrophils # 9.0 H (Manual) Band Neutrophils # 0.9 H Lymphocytes (Manual) 1.5 Lymphocytes # Monocytes # Monocytes # (Manual) 0.2 L Eosinophils # Basophils # Nucleated Red Blood Cells # Platelet Estimate NORMAL Hypochromasia 2+ Anisocytosis 1+ Microcytosis 1+ Sodium Level 159 H Potassium Level 3.7 Chloride Level 129 H Carbon Dioxide Level 21 Anion Gap 9 Blood Urea Nitrogen 55 H Creatinine 1.82 H Est Glomerular 40 L Filtrat Rate mL/min Glucose Level 295 H Calcium Level 6.5 L Bedside Glucose 287 H 223 H Test 05/10/18 00:36 05/10/18 01:19 05/10/18 05:27 05/10/18 06:50 Sodium Level 158 H 158 H Potassium Level 3.7 3.5 Chloride Level 129 H 133 H Carbon Dioxide Level 22 21 Anion Gap 7 4 L Blood Urea Nitrogen 51 H 46 H Creatinine 1.63 H 1.55 H Est Glomerular 45 L 48 L Filtrat Rate mL/min Glucose Level 213 213 Calcium Level 6.7 L 6.8 L Bedside Glucose 213 227 H White Blood Count 9.0 # Red Blood Count 2.67 L Hemoglobin 7.0 L Hematocrit 24.5 L Mean Corpuscular 91.8 Volume Mean Corpuscular 26.2 L Hemoglobin Mean Corpuscular 28.6 L Hemoglobin Concent Red Cell 20.0 H Distribution Width Platelet Count 87 L Mean Platelet Volume Immature 1.200 H Granulocytes % Neutrophils % 83.2 H Lymphocytes % 10.4 L Monocytes % 3.9 Eosinophils % 1.2 Basophils % 0.1 Nucleated Red Blood 0.7 H Cells % Immature 0.110 H Granulocytes # Neutrophils # 7.5 Lymphocytes # 0.9 Monocytes # 0.4 Eosinophils # 0.1 Basophils # 0.0 Nucleated Red Blood 0.1 H Cells # Test 05/10/18 09:22 05/10/18 11:55 05/10/18 13:59 05/10/18 17:19 Bedside Glucose 266 H 247 H 240 H Sodium Level 157 H Potassium Level 3.2 L Chloride Level 130 H Carbon Dioxide Level 22 Anion Gap 5 Blood Urea Nitrogen 42 H Creatinine 1.44 H Est Glomerular 52 L Filtrat Rate mL/min Glucose Level 205 Calcium Level 7.0 L Medications Medication Current Medications IV Flush (NS 3 ml) 3 ml PER PROTOCOL IV ; Start 05/07/18 at 23:30 Ondansetron HCl (Zofran Inj) 4 mg Q6H PRN IV NAUSEA/VOMITING; Start 05/07/18 at 23:30 Heparin Sodium (Porcine) (Heparin (5000 Units/1ml)) 5,000 unit Q12 SC Last administered on 05/10/18at 09:47; Admin Dose 5,000 UNIT; Start 05/08/18 at 09:00 Albuterol/ Ipratropium (Duoneb) 3 ml Q2H RESP THERAPY PRN HHN SHORTNESS OF BREATH; Start 05/07/18 at 23:30 Vancomycin HCl (Vanco Iv Per Pharmacy) VANCOMYCIN PER PHARMACY PER PROTOCOL XX ; Start 05/08/18 at 07:00 Morphine Sulfate (morphine) 2 mg Q4H PRN IV SEVERE PAIN LEVEL 7-10 Last administered on 05/10/18at 15:49; Admin Dose 2 MG; Start 05/08/18 at 11:00 Miscellaneous Information (* Miscellaneous Pharmacy Order) Treatment of Hyp oglycemia: 1.BG 51... Per protocol XX ; Start 05/08/18 at 13:30 Potassium Chloride 50 ml @ 50 mls/hr K PROTOCOL PRN IVPB PENDING LAB VALUE Last administered on 05/09/18 05:33; Admin Dose 50 MLS/HR; Start 05/09/18 at 01:30 Acetaminophen (Tylenol Liquid) 650 mg Q4H PRN GTB FEVER Last administered on 05/09/18 12:02; Admin Dose 650 MG; Start 05/09/18 at 01:30 Sodium Chloride 1,000 ml @ 150 mls/hr Q6H40M IV Last administered on 05/10/18 07:41; Admin Dose 150 MLS/HR; Start 05/09/18 at 08:00 Miscellaneous Information 1 ea NOTE XX ; Start 05/09/18 at 11:00 Glucose (Glutose) 15 gm Q15M PRN PO DECREASED GLUCOSE; Start 05/09/18 at 11:00 Glucose (Glutose) 22.5 gm Q15M PRN PO DECREASED GLUCOSE; Start 05/09/18 at 11:00 Dextrose (D50w Syringe) 25 ml Q15M PRN IV DECREASED GLUCOSE; Start 05/09/18 at 11:00 Dextrose (D50w Syringe) 50 ml Q15M PRN IV DECREASED GLUCOSE; Start 05/09/18 at 11:00 Glucagon (Glucagen) 1 mg Q15M PRN IM DECREASED GLUCOSE; Start 05/09/18 at 11:00 Glucose (Glutose) 15 gm Q15M PRN BUCCAL DECREASED GLUCOSE; Start 05/09/18 at 11:00 IV Flush (NS 10 ml) 10 ml PRN PRN IV IV PROTOCOL; Start 05/09/18 at 12:30 Collagenase (Santyl) 1 applic DAILY TOP Last administered on 05/10/18at 09:46; Admin Dose 1 APPLIC; Start 05/09/18 at 21:00 Insulin Aspart (Novolog Insulin Pen) NOVOLOG *MODERATE* ALGORI... Q4 SC Last administered on 05/10/18 12:24; Admin Dose 6 UNIT; Start 05/09/18 at 21:00 Insulin Glargine (Lantus) 30 units Q12H SC Last administered on 05/10/18at 12:24; Admin Dose 30 UNITS; Start 05/10/18 at 11:30 Vancomycin HCl 1.25 gm/Sodium Chloride 250 ml @ 83.333 mls/ hr Q24H IVPB Last administered on 05/10/18at 12:56; Admin Dose 83.333 MLS/HR; Start 05/10/18 at 13: 00 Potassium Chloride 100 ml @ 50 mls/hr Q2H IVPB Last administered on 05/10/18at 16:27; Admin Dose 50 MLS/HR; Start 05/10/18 at 15:30; Stop 05/10/18 at 19:29 Cefepime HCl 50 ml @ 100 mls/hr Q12 IVPB ; Start 05/10/18 at 21:00 PEGGY RODRIGUEZ MD May 10, 2018 17:28
[2018-05-11] VITALS (11 sets, daily range): BP systolic 104–118; BP diastolic 58–62; PULSE 72–94; RESP 17–20
[2018-05-11] MEDS: INSULIN ASPART [NOVOLOG] 3 ML PEN SC SCH ×6 (00:35→21:05)
[2018-05-11] MEDS: INSULIN GLARGINE [LANTus] (100 UNITS/ML) SYG SC SCH ×3 (00:35→23:31)
[2018-05-11] MEDS: CEFEPIME 1GM/50 ML (PMX) 50 ML IVPB SCH ×2 (08:44→20:41)
[2018-05-11] MEDS: BALSAM PERU/CASTOR OIL 60 GM TUBE TOP SCH ×2 (08:45→20:42)
[2018-05-11] MEDS: COLLAGENASE 5 GM (UD JAR) TOP SCH (08:45)
[2018-05-11] MEDS: HEPARIN 5,000 UNIT/1 ML VIAL SC SCH (08:59)
[2018-05-11] MEDS: DEXTROSE 5% 1,000 ML IV ONE ×2 (10:00→10:55)
--- NOTE | 2018-05-11 13:23 | PN ---
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 Where he settles out is to be determined. May have some ATN - Will stop NS unitl this evening, appears euvolemic now DMII with hyperglycemia: - Increase basal insulin with correctional scale given continued hyperglycemia, add metfomrin Anemia of chronic disease TBI, chronic encephelopathy - stable Sepsis from UTI. - Continue abx and complete 1 week course of same given clinical imporvement. Has MRSA in urine Unstageable pressure ulcer present Chronic dysphagia; - Continue tube feeds Dc to NH when stable Result Diagram: 05/11/18 0543 05/11/18 0543 Results 24hrs Laboratory Tests Test 05/10/18 13:59 05/10/18 17:19 05/10/18 20:57 05/11/18 00:30 Sodium Level 157 H Potassium Level 3.2 L Chloride Level 130 H Carbon Dioxide 22 Level Anion Gap 5 Blood Urea 42 H Nitrogen Creatinine 1.44 H Est Glomerular 52 L Filtrat Rate mL/min Glucose Level 205 Calcium Level 7.0 L Bedside Glucose 240 H 220 204 Test 05/11/18 05:43 05/11/18 05:55 05/11/18 08:25 05/11/18 08:44 White Blood Count 6.8 # Red Blood Count 3.51 #L Hemoglobin 9.0 #L Hematocrit 31.6 #L Mean Corpuscular 90.0 Volume Mean Corpuscular 25.6 L Hemoglobin Mean Corpuscular 28.5 L Hemoglobin Concen t Red Cell 19.1 H Distribution Width Platelet Count 78 L Mean Platelet Volume Immature 1.200 H Granulocytes % Neutrophils % Segmented 59 Neutrophils % (Manual) Band Neutrophils 15 H % (Manual) Lymphocytes % Lymphocytes % 24 (Manual) Monocytes % Monocytes % 1 (Manual) Eosinophils % Basophils % Promyelocytes % 1 H (Manual) Nucleated Red 1.0 H Blood Cells % Immature 0.080 H Granulocytes # Neutrophils # Neutrophils # 4.1 (Manual) Band Neutrophils 1.0 H # Lymphocytes 1.6 (Manual) Lymphocytes # Monocytes # Monocytes # 0.0 L (Manual) Eosinophils # Basophils # Promyelocytes # 0.0 Nucleated Red Blood Cells # Platelet Estimate DECREASED Giant Platelets 1 H Polychromasia 1+ Hypochromasia 1+ Anisocytosis 2+ Microcytosis 2+ Spherocytes 1+ Sodium Level 159 H Potassium Level 3.7 Chloride Level 134 H Carbon Dioxide 23 Level Anion Gap 2 L Blood Urea 36 H Nitrogen Creatinine 1.21 Est Glomerular > 60 Filtrat Rate mL/min Glucose Level 202 Calcium Level 8.1 L Bedside Glucose 230 H 248 H Lab Scanned BLOOD TRANSFUSIO Report N Test 05/11/18 10:53 Bedside Glucose 242 H Subjective 24 Hr Interval Summary Free Text/Dictation Renal function continues to improve Remains hypernatremic He is comfortable, nonconversant Sugars remain elevated Exam/Review of Systems Exam Vitals Vital Signs Date Temp Pulse Resp B/P (MAP) Pulse Ox O2 O2 Flow FiO2 Time Delivery Rate 05/11/18 90 12:02 05/11/18 Nasal 2.0 08:00 Cannula 05/11/18 97.9 19 104/58 92 07:21 (73) Intake and Output 05/10/18 05/10/18 05/11/18 1515:00 23:00 07:00 IntakeIntake Total 440 ml 3590 ml 686 ml OutputOutput Total 200 ml 1600 ml 1450 ml BalanceBalance 240 ml 1990 ml -764 ml Exam Alert interactive Appears comfortably Breathing comfortably No distress Looks happy RRR Quadraplegia, contracted limbs G tube, klein Results Results 24hrs Laboratory Tests Test 05/10/18 13:59 05/10/18 17:19 05/10/18 20:57 05/11/18 00:30 Sodium Level 157 H Potassium Level 3.2 L Chloride Level 130 H Carbon Dioxide 22 Level Anion Gap 5 Blood Urea 42 H Nitrogen Creatinine 1.44 H Est Glomerular 52 L Filtrat Rate mL/min Glucose Level 205 Calcium Level 7.0 L Bedside Glucose 240 H 220 204 Test 05/11/18 05:43 05/11/18 05:55 05/11/18 08:25 05/11/18 08:44 White Blood Count 6.8 # Red Blood Count 3.51 #L Hemoglobin 9.0 #L Hematocrit 31.6 #L Mean Corpuscular 90.0 Volume Mean Corpuscular 25.6 L Hemoglobin Mean Corpuscular 28.5 L Hemoglobin Concen t Red Cell 19.1 H Distribution Width Platelet Count 78 L Mean Platelet Volume Immature 1.200 H Granulocytes % Neutrophils % Segmented 59 Neutrophils % (Manual) Band Neutrophils 15 H % (Manual) Lymphocytes % Lymphocytes % 24 (Manual) Monocytes % Monocytes % 1 (Manual) Eosinophils % Basophils % Promyelocytes % 1 H (Manual) Nucleated Red 1.0 H Blood Cells % Immature 0.080 H Granulocytes # Neutrophils # Neutrophils # 4.1 (Manual) Band Neutrophils 1.0 H # Lymphocytes 1.6 (Manual) Lymphocytes # Monocytes # Monocytes # 0.0 L (Manual) Eosinophils # Basophils # Promyelocytes # 0.0 Nucleated Red Blood Cells # Platelet Estimate DECREASED Giant Platelets 1 H Polychromasia 1+ Hypochromasia 1+ Anisocytosis 2+ Microcytosis 2+ Spherocytes 1+ Sodium Level 159 H Potassium Level 3.7 Chloride Level 134 H Carbon Dioxide 23 Level Anion Gap 2 L Blood Urea 36 H Nitrogen Creatinine 1.21 Est Glomerular > 60 Filtrat Rate mL/min Glucose Level 202 Calcium Level 8.1 L Bedside Glucose 230 H 248 H Lab Scanned BLOOD TRANSFUSIO Report N Test 05/11/18 10:53 Bedside Glucose 242 H Medications Medication Current Medications IV Flush (NS 3 ml) 3 ml PER PROTOCOL IV ; Start 05/07/18 at 23:30 Ondansetron HCl (Zofran Inj) 4 mg Q6H PRN IV NAUSEA/VOMITING; Start 05/07/18 at 23:30 Heparin Sodium (Porcine) (Heparin (5000 Units/1ml)) 5,000 unit Q12 SC Last administered on 05/11/18at 08:59; Admin Dose 5,000 UNIT; Start 05/08/18 at 09:00 Albuterol/ Ipratropium (Duoneb) 3 ml Q2H RESP THERAPY PRN HHN SHORTNESS OF BREATH; Start 05/07/18 at 23:30 Vancomycin HCl (Vanco Iv Per Pharmacy) VANCOMYCIN PER PHARMACY PER PROTOCOL XX ; Start 05/08/18 at 07:00 Morphine Sulfate (morphine) 2 mg Q4H PRN IV SEVERE PAIN LEVEL 7-10 Last administered on 05/10/18 15:49; Admin Dose 2 MG; Start 05/08/18 at 11:00 Miscellaneous Information (* Miscellaneous Pharmacy Order) Treatment of Hypoglycemia: 1.BG 51... Per protocol XX ; Start 05/08/18 at 13:30 Potassium Chloride 50 ml @ 50 mls/hr K PROTOCOL PRN IVPB PENDING LAB VALUE Last administered on 05/09/18at 05:33; Admin Dose 50 MLS/HR; Start 05/09/18 at 01:30 Acetaminophen (Tylenol Liquid) 650 mg Q4H PRN GTB FEVER Last administered on 05/09/18 12:02; Admin Dose 650 MG; Start 05/09/18 at 01:30 Miscellaneous Information 1 ea NOTE XX ; Start 05/09/18 at 11:00 Glucose (Glutose) 15 gm Q15M PRN PO DECREASED GLUCOSE; Start 05/09/18 at 11:00 Glucose (Glutose) 22.5 gm Q15M PRN PO DECREASED GLUCOSE; Start 05/09/18 at 11:00 Dextrose (D50w Syringe) 25 ml Q15M PRN IV DECREASED GLUCOSE; Start 05/09/18 at 11:00 Dextrose (D50w Syringe) 50 ml Q15M PRN IV DECREASED GLUCOSE; Start 05/09/18 at 11:00 Glucagon (Glucagen) 1 mg Q15M PRN IM DECREASED GLUCOSE; Start 05/09/18 at 11:00 Glucose (Glutose) 15 gm Q15M PRN BUCCAL DECREASED GLUCOSE; Start 05/09/18 at 11:00 IV Flush (NS 10 ml) 10 ml PRN PRN IV IV PROTOCOL; Start 05/09/18 at 12:30 Collagenase (Santyl) 1 applic DAILY TOP Last administered on 05/11/18at 08:45; Admin Dose 1 APPLIC; Start 05/09/18 at 21:00 Insulin Aspart (Novolog Insulin Pen) NOVOLOG *MODERATE* ALGORI... Q4 SC Last administered on 05/11/18at 08:59; Admin Dose 6 UNIT; Start 05/09/18 at 21:00 Vancomycin HCl 1.25 gm/Sodium Chloride 250 ml @ 83.333 mls/ hr Q24H IVPB Last administered on 05/10/18at 12:56; Admin Dose 83.333 MLS/HR; Start 05/10/18 at 13:00 Cefepime HCl 50 ml @ 100 mls/hr Q12 IVPB Last administered on 05/11/18at 08:44; Admin Dose 100 MLS/HR; Start 05/10/18 at 21:00 Insulin Glargine (Lantus) 35 units Q12H SC ; Start 05/11/18 at 23:30 Metformin HCl (Glucophage) 500 mg BID WITH MEALS PO ; Start 05/11/18 at 13:00 PEGGY RODRIGUEZ MD May 11, 2018 13:23
[2018-05-11] MEDS: metFORMIN 500 MG TAB PO SCH ×2 (13:25→17:19)
[2018-05-11] MEDS: VANCOMYCIN HCL 1.25 GM in SOD CHLORIDE 0.9% 250 ML IVPB SCH (13:25)
[2018-05-11] MEDS: MUPIROCIN 2% 22 GM OINT TOP SCH (20:41)
[2018-05-12] VITALS (11 sets, daily range): BP systolic 96–115; BP diastolic 55–63; PULSE 56–79; RESP 17–20
[2018-05-12] MEDS: INSULIN ASPART [NOVOLOG] 3 ML PEN SC SCH ×6 (01:21→20:27)
[2018-05-12] MEDS: COLLAGENASE 5 GM (UD JAR) TOP SCH (08:15)
[2018-05-12] MEDS: metFORMIN 500 MG TAB PO SCH ×2 (08:15→17:55)
[2018-05-12] MEDS: CEFEPIME 1GM/50 ML (PMX) 50 ML IVPB SCH ×2 (08:16→20:21)
[2018-05-12] MEDS: BALSAM PERU/CASTOR OIL 60 GM TUBE TOP SCH ×2 (08:16→20:21)
[2018-05-12] MEDS ORDERED: INSULIN GLARGINE [LANTus] (100 UNITS/ML) SYG SC SCH ×2 (08:30→23:30)
[2018-05-12] MEDS: INSULIN GLARGINE [LANTus] (100 UNITS/ML) SYG SC SCH (08:38)
[2018-05-12] MEDS: MUPIROCIN 2% 22 GM OINT TOP SCH ×2 (08:39→20:21)
[2018-05-12] MEDS ORDERED: DEXTROSE 5% 1,000 ML IV ONE (10:00)
[2018-05-12] MEDS: VANCOMYCIN 750 MG in DEXTROSE 5% 250 ML IVPB SCH (12:52)
[2018-05-12] MEDS ORDERED: VANCOMYCIN 750 MG (PMX) 250 ML IVPB SCH (13:00)
--- NOTE | 2018-05-12 15:41 | PN ---
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 Where he settles out is to be determined. May have some ATN - Will stop NS unitl this evening, appears euvolemic now DMII with hyperglycemia: - Increase basal insulin with correctional scale given continued hyperglycemia, add metfomrin Anemia of chronic disease TBI, chronic encephelopathy - stable Sepsis from UTI. - Continue abx and complete 1 week course of same given clinical imporvement. Has MRSA in urine Unstageable pressure ulcer present Chronic dysphagia; - Continue tube feeds Dc to NH when stable Result Diagram: 05/12/18 0835 05/12/18 0835 Results 24hrs Laboratory Tests Test 05/11/18 17:18 05/11/18 20:47 05/11/18 23:27 05/12/18 01:16 Bedside Glucose 228 H 213 199 236 H Test 05/12/18 04:34 05/12/18 06:58 05/12/18 08:18 05/12/18 08:35 Bedside Glucose 163 204 Lab Scanned Report REFERENCE LAB White Blood Count 8.2 # Red Blood Count 3.28 L Hemoglobin 8.6 L Hematocrit 29.1 L Mean Corpuscular 88.7 Volume Mean Corpuscular 26.2 L Hemoglobin Mean Corpuscular 29.6 L Hemoglobin Concent Red Cell 18.5 H Distribution Width Platelet Count 118 #L Mean Platelet 13.4 H Volume Immature 1.500 H Granulocytes % Neutrophils % 74.7 Lymphocytes % 16.4 Monocytes % 4.6 Eosinophils % 2.7 Basophils % 0.1 Nucleated Red 0.7 H Blood Cells % Immature 0.120 H Granulocytes # Neutrophils # 6.1 Lymphocytes # 1.3 Monocytes # 0.4 Eosinophils # 0.2 Basophils # 0.0 Nucleated Red 0.1 H Blood Cells # Sodium Level 156 H Potassium Level 3.5 Chloride Level 125 H Carbon Dioxide 26 Level Anion Gap 5 Blood Urea 30 H Nitrogen Creatinine 0.95 Est Glomerular > 60 Filtrat Rate mL/min Glucose Level 198 Calcium Level 8.9 Test 05/12/18 12:47 Bedside Glucose 333 H Subjective 24 Hr Interval Summary Free Text/Dictation Renal function normalized Patient comfortable Exam/Review of Systems Exam Vitals Vital Signs Date Temp Pulse Resp B/P (MAP) Pulse Ox O2 O2 Flow FiO2 Time Delivery Rate 05/12/18 97.5 64 18 113/63 96 15:24 (80) 05/12/18 Nasal 2.0 08:15 Cannula Intake and Output 05/11/18 05/11/18 05/12/18 1515:00 23:00 07:00 IntakeIntake Total 1340 ml 1205 ml OutputOutput Total 1820 ml 1500 ml BalanceBalance -480 ml -295 ml Exam Alert interactive Nonconversant No distress MMM RRR Breathing comfortably Abd soft nt nd, G tube Results Results 24hrs Laboratory Tests Test 05/11/18 17:18 05/11/18 20:47 05/11/18 23:27 05/12/18 01:16 Bedside Glucose 228 H 213 199 236 H Test 05/12/18 04:34 05/12/18 06:58 05/12/18 08:18 05/12/18 08:35 Bedside Glucose 163 204 Lab Scanned Report REFERENCE LAB White Blood Count 8.2 # Red Blood Count 3.28 L Hemoglobin 8.6 L Hematocrit 29.1 L Mean Corpuscular 88.7 Volume Mean Corpuscular 26.2 L Hemoglobin Mean Corpuscular 29.6 L Hemoglobin Concent Red Cell 18.5 H Distribution Width Platelet Count 118 #L Mean Platelet 13.4 H Volume Immature 1.500 H Granulocytes % Neutrophils % 74.7 Lymphocytes % 16.4 Monocytes % 4.6 Eosinophils % 2.7 Basophils % 0.1 Nucleated Red 0.7 H Blood Cells % Immature 0.120 H Granulocytes # Neutrophils # 6.1 Lymphocytes # 1.3 Monocytes # 0.4 Eosinophils # 0.2 Basophils # 0.0 Nucleated Red 0.1 H Blood Cells # Sodium Level 156 H Potassium Level 3.5 Chloride Level 125 H Carbon Dioxide 26 Level Anion Gap 5 Blood Urea 30 H Nitrogen Creatinine 0.95 Est Glomerular > 60 Filtrat Rate mL/min Glucose Level 198 Calcium Level 8.9 Test 05/12/18 12:47 Bedside Glucose 333 H Medications Medication Current Medications IV Flush (NS 3 ml) 3 ml PER PROTOCOL IV ; Start 05/07/18 at 23:30 Ondansetron HCl (Zofran Inj) 4 mg Q6H PRN IV NAUSEA/VOMITING; Start 05/07/18 at 23:30 Heparin Sodium (Porcine) (Heparin (5000 Units/1ml)) 5,000 unit Q12 SC Last administered on 05/11/18at 08:59; Admin Dose 5,000 UNIT; Start 05/08/18 at 09:00; Status Hold Albuterol/ Ipratropium (Duoneb) 3 ml Q2H RESP THERAPY PRN HHN SHORTNESS OF BREATH; Start 05/07/18 at 23:30 Vancomycin HCl (Vanco Iv Per Pharmacy) VANCOMYCIN PER PHARMACY PER PROTOCOL XX ; Start 05/08/18 at 07:00 Morphine Sulfate (morphine) 2 mg Q4H PRN IV SEVERE PAIN LEVEL 7-10 Last administered on 05/10/18at 15:49; Admin Dose 2 MG; Start 05/08/18 at 11:00 Miscellaneous Information (* Miscellaneous Pharmacy Order) Treatment of Hypoglycemia: 1.BG 51... Per protocol XX ; Start 05/08/18 at 13:30 Potassium Chloride 50 ml @ 50 mls/hr K PROTOCOL PRN IVPB PENDING LAB VALUE Last administered on 05/09/18at 05:33; Admin Dose 50 MLS/HR; Start 05/09/18 at 01:30 Acetaminophen (Tylenol Liquid) 650 mg Q4H PRN GTB FEVER Last administered on 05/09/18at 12:02; Admin Dose 650 MG; Start 05/09/18 at 01:30 Miscellaneous Information 1 ea NOTE XX ; Start 05/09/18 at 11:00 Glucose (Glutose) 15 gm Q15M PRN PO DECREASED GLUCOSE; Start 05/09/18 at 11:00 Glucose (Glutose) 22.5 gm Q15M PRN PO DECREASED GLUCOSE; Start 05/09/18 at 11:00 Dextrose (D50w Syringe) 25 ml Q15M PRN IV DECREASED GLUCOSE; Start 05/09/18 at 11:00 Dextrose (D50w Syringe) 50 ml Q15M PRN IV DECREASED GLUCOSE; Start 05/09/18 at 11:00 Glucagon (Glucagen) 1 mg Q15M PRN IM DECREASED GLUCOSE; Start 05/09/18 at 11:00 Glucose (Glutose) 15 gm Q15M PRN BUCCAL DECREASED GLUCOSE; Start 05/09/18 at 11:00 IV Flush (NS 10 ml) 10 ml PRN PRN IV IV PROTOCOL; Start 05/09/18 at 12:30 Collagenase (Santyl) 1 applic DAILY TOP Last administered on 05/12/18 08:15; Admin Dose 1 APPLIC; Start 05/09/18 at 21:00 Insulin Aspart (Novolog Insulin Pen) NOVOLOG *MODERATE* ALGORI... Q4 SC Last administered on 05/12/18 13:01; Admin Dose 10 UNIT; Start 05/09/18 at 21:00 Cefepime HCl 50 ml @ 100 mls/hr Q12 IVPB Last administered on 05/12/18 08:16; Admin Dose 100 MLS/HR; Start 05/10/18 at 21:00 Metformin HCl (Glucophage) 500 mg BID WITH MEALS PO Last administered on 05/12/18 08:15; Admin Dose 500 MG; Start 05/11/18 at 13:00 Mupirocin (Bactroban) 1 applic BID TOP Last administered on 05/12/18 08:39; Admin Dose 1 APPLIC; Start 05/11/18 at 21:00 Miscellaneous Information (*Rx Drug Level Order Reminder*) 1 ONCE ONCE XX ; Start 05/13/18 at 12:00; Stop 05/13/18 at 12:01 Vancomycin HCl 750 mg/Dextrose 250 ml @ 125 mls/hr Q12H IVPB Last administered on 05/12/18 12:52; Admin Dose 125 MLS/HR; Start 05/12/18 at 13:00 Insulin Glargine (Lantus) 40 units Q12H SC ; Start 05/12/18 at 23:30 PEGGY RODRIGUEZ MD May 12, 2018 15:41
[2018-05-12] MEDS ORDERED: ALTEPLASE (CATHFLO) 2 MG INJ CATHETER ONE (20:30)
[2018-05-12] MEDS ORDERED: INSULIN GLARGINE [LANTus] (100 UNITS/ML) SYG SC ONE (23:00)
[2018-05-13] VITALS (10 sets, daily range): BP systolic 101–124; BP diastolic 59–63; PULSE 65–77; RESP 17–20
[2018-05-13] MEDS: VANCOMYCIN 750 MG in DEXTROSE 5% 250 ML IVPB SCH ×2 (00:48→13:45)
[2018-05-13] MEDS: INSULIN ASPART [NOVOLOG] 3 ML PEN SC SCH ×6 (00:48→21:00)
[2018-05-13] MEDS: COLLAGENASE 5 GM (UD JAR) TOP SCH (08:14)
[2018-05-13] MEDS: metFORMIN 500 MG TAB PO SCH ×2 (08:14→18:56)
[2018-05-13] MEDS: CEFEPIME 1GM/50 ML (PMX) 50 ML IVPB SCH (08:14)
[2018-05-13] MEDS: BALSAM PERU/CASTOR OIL 60 GM TUBE TOP SCH ×2 (08:15→21:47)
[2018-05-13] MEDS: MUPIROCIN 2% 22 GM OINT TOP SCH ×2 (08:15→21:47)
[2018-05-13] MEDS ORDERED: INSULIN GLARGINE [LANTus] (100 UNITS/ML) SYG SC SCH (09:00)
[2018-05-13] MEDS ORDERED: DEXTROSE 5% 1,000 ML IV ONE (10:30)
--- NOTE | 2018-05-13 14:50 | PN ---
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 - Continue abx and complete 1 week course of same given clinical imporvement. Has MRSA in urine Unstageable pressure ulcer present Chronic dysphagia; - Continue tube feeds Dc to NH when stable Result Diagram: 05/13/1861305/13/18613 Results 24hrs Laboratory Tests Test 05/12/18 17:54 05/12/18 20:27 05/12/18 22:10 05/13/18 00:47 Bedside Glucose 135 70 80 83 Test 05/13/18 04:57 05/13/18 06:14 05/13/18 08:08 05/13/18 12:13 Bedside Glucose 115 115 White Blood Count 6.5 # Red Blood Count 3.18 L Hemoglobin 8.4 L Hematocrit 28.2 L Mean Corpuscular 88.7 Volume Mean Corpuscular 26.4 L Hemoglobin Mean Corpuscular 29.8 L Hemoglobin Concent Red Cell 18.2 H Distribution Width Platelet Count 135 L Mean Platelet Volume Immature 2.000 H Granulocytes % Neutrophils % 64.2 Lymphocytes % 23.8 Monocytes % 6.0 Eosinophils % 3.8 Basophils % 0.2 Nucleated Red Blood 1.1 H Cells % Immature 0.130 H Granulocytes # Neutrophils # 4.2 Lymphocytes # 1.6 Monocytes # 0.4 Eosinophils # 0.3 Basophils # 0.0 Nucleated Red Blood 0.1 H Cells # Sodium Level 150 H Potassium Level 3.5 Chloride Level 115 H Carbon Dioxide Level 28 Anion Gap 7 Blood Urea Nitrogen 29 H Creatinine 0.81 Est Glomerular > 60 Filtrat Rate mL/min Glucose Level 92 # Calcium Level 8.8 Vancomycin Level 14.6 Trough Test 05/13/18 12:14 05/13/18 13:50 Bedside Glucose 244 H 234 H Subjective 24 Hr Interval Summary Free Text/Dictation Sodium almost normalized patinet doing well Exam/Review of Systems Exam Vitals Vital Signs Date Temp Pulse Resp B/P (MAP) Pulse Ox O2 O2 Flow FiO2 Time Delivery Rate 05/13/18 73 12:01 05/13/18 97.7 17 107/62 98 11:13 (77) 05/13/18 2.0 10:00 05/13/18 Nasal 07:44 Cannula Intake and Output 05/12/18 05/12/18 05/13/18 1414:59 22:59 06:59 IntakeIntake Total 245 ml 1590 ml 2250 ml OutputOutput Total 1400 ml 2200 ml BalanceBalance 245 ml 190 ml 50 ml Constitutional: alert, oriented, well developed Psych: no complaints, nl mood/affect Head: normocephalic, atraumatic Eyes: nl conjunctiva, EOMI, nl lids, nl sclera, PERRL ENMT: nl external ears & nose, nl lips & teeth, nl nasal mucosa & septum Neck: supple, non-tender Respiratory: clear to auscultation, normal air movement Cardiovascular: regular rate and rhythm, nl pulses Gastrointestinal: soft, nl liver, spleen, non-tender Musculoskeletal: nl extremities to inspection, nl gait and stance Extremities: normal pulses 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000 H Granulocytes % Neutrophils % 64.2 Lymphocytes % 23.8 Monocytes % 6.0 Eosinophils % 3.8 Basophils % 0.2 Nucleated Red Blood 1.1 H Cells % Immature 0.130 H Granulocytes # Neutrophils # 4.2 Lymphocytes # 1.6 Monocytes # 0.4 Eosinophils # 0.3 Basophils # 0.0 Nucleated Red Blood 0.1 H Cells # Sodium Level 150 H Potassium Level 3.5 Chloride Level 115 H Carbon Dioxide Level 28 Anion Gap 7 Blood Urea Nitrogen 29 H Creatinine 0.81 Est Glomerular > 60 Filtrat Rate mL/min Glucose Level 92 # Calcium Level 8.8 Vancomycin Level 14.6 Trough Test 05/13/18 12:14 05/13/18 13:50 Bedside Glucose 244 H 234 H Medications Medication Current Medications IV Flush (NS 3 ml) 3 ml PER PROTOCOL IV ; Start 05/07/18 at 23:30 Ondansetron HCl (Zofran Inj) 4 mg Q6H PRN IV NAUSEA/VOMITING; Start 05/07/18 at 23:30 Heparin Sodium (Porcine) (Heparin (5000 Units/1ml)) 5,000 unit Q12 SC Last administered on 05/11/18at 08:59; Admin Dose 5,000 UNIT; Start 05/08/18 at 09:00; Status Hold Albuterol/ Ipratropium (Duoneb) 3 ml Q2H RESP THERAPY PRN HHN SHORTNESS OF BREATH; Start 05/07/18 at 23:30 Vancomycin HCl (Vanco Iv Per Pharmacy) VANCOMYCIN PER PHARMACY PER PROTOCOL XX ; Start 05/08/18 at 07:00 Morphine Sulfate (morphine) 2 mg Q4H PRN IV SEVERE PAIN LEVEL 7-10 Last administered on 05/10/18at 15:49; Admin Dose 2 MG; Start 05/08/18 at 11:00 Miscellaneous Information (* Miscellaneous Pharmacy Order) Treatment of Hypoglycemia: 1.BG 51... Per protocol XX ; Start 05/08/18 at 13:30 Potassium Chloride 50 ml @ 50 mls/hr K PROTOCOL PRN IVPB PENDING LAB VALUE Last administered on 05/09/18at 05:33; Admin Dose 50 MLS/HR; Start 05/09/18 at 01:30 Acetaminophen (Tylenol Liquid) 650 mg Q4H PRN GTB FEVER Last administered on 05/09/18at 12:02; Admin Dose 650 MG; Start 05/09/18 at 01:30 Miscellaneous Information 1 ea NOTE XX ; Start 05/09/18 at 11:00 Glucose (Glutose) 15 gm Q15M PRN PO DECREASED GLUCOSE; Start 05/09/18 at 11:00 Glucose (Glutose) 22.5 gm Q15M PRN PO DECREASED GLUCOSE; Start 05/09/18 at 11:00 Dextrose (D50w Syringe) 25 ml Q15M PRN IV DECREASED GLUCOSE; Start 05/09/18 at 11:00 Dextrose (D50w Syringe) 50 ml Q15M PRN IV DECREASED GLUCOSE; Start 05/09/18 at 11:00 Glucagon (Glucagen) 1 mg Q15M PRN IM DECREASED GLUCOSE; Start 05/09/18 at 11:00 Glucose (Glutose) 15 gm Q15M PRN BUCCAL DECREASED GLUCOSE; Start 05/09/18 at 11:00 IV Flush (NS 10 ml) 10 ml PRN PRN IV IV PROTOCOL; Start 05/09/18 at 12:30 Collagenase (Santyl) 1 applic DAILY TOP Last administered on 05/13/18 08:14; Admin Dose 1 APPLIC; Start 05/09/18 at 21:00 Insulin Aspart (Novolog Insulin Pen) NOVOLOG *MODERATE* ALGORI... Q4 SC Last administered on 05/13/18 13:55; Admin Dose 6 UNIT; Start 05/09/18 at 21:00 Cefepime HCl 50 ml @ 100 mls/hr Q12 IVPB Last administered on 05/13/18 08:14; Admin Dose 100 MLS/HR; Start 05/10/18 at 21:00 Metformin HCl (Glucophage) 500 mg BID WITH MEALS PO Last administered on 05/13/18 08:14; Admin Dose 500 MG; Start 05/11/18 at 13:00 Mupirocin (Bactroban) 1 applic BID TOP Last administered on 05/13/18 08:15; Admin Dose 1 APPLIC; Start 05/11/18 at 21:00 Vancomycin HCl 750 mg/Dextrose 250 ml @ 125 mls/hr Q12H IVPB Last administered on 05/13/18 13:45; Admin Dose 125 MLS/HR; Start 05/12/18 at 13:00 Insulin Glargine (Lantus) 35 units Q12H SC ; Start 05/13/18 at 21:00 PEGGY RODRIGUEZ MD May 13, 2018 14:49
[2018-05-13] MEDS: INSULIN GLARGINE [LANTus] (100 UNITS/ML) SYG SC SCH (21:54)
[2018-05-14] VITALS (11 sets, daily range): BP systolic 98–104; BP diastolic 51–70; PULSE 60–80; RESP 2–22
[2018-05-14] MEDS: INSULIN ASPART [NOVOLOG] 3 ML PEN SC SCH ×6 (01:00→21:00)
[2018-05-14] MEDS: metFORMIN 500 MG TAB PO SCH ×2 (08:27→16:59)
[2018-05-14] MEDS: MUPIROCIN 2% 22 GM OINT TOP SCH ×2 (08:28→21:56)
[2018-05-14] MEDS: BALSAM PERU/CASTOR OIL 60 GM TUBE TOP SCH ×2 (08:28→21:56)
[2018-05-14] MEDS: COLLAGENASE 5 GM (UD JAR) TOP SCH (08:28)
[2018-05-14] MEDS: INSULIN GLARGINE [LANTus] (100 UNITS/ML) SYG SC SCH ×2 (08:56→21:52)
[2018-05-14] MEDS: ACETAMINOPHEN 650MG/20.3ML CUP GTB PRN (13:23)
--- NOTE | 2018-05-14 15:04 | PN ---
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 - Completed abx course. Observe off of abx Unstageable pressure ulcer present Chronic dysphagia; - Continue tube feeds Ready for dicahrge to NH when hypernatremia is resolved Result Diagram: 05/13/1814 05/13/1814 Results 24hrs Laboratory Tests Test 05/13/18 17:39 05/13/18 21:16 05/14/18 02:17 05/14/18 02:39 Bedside Glucose 175 140 73 81 Test 05/14/18 03:20 05/14/18 06:19 05/14/18 08:25 05/14/18 13:21 Bedside Glucose 89 163 162 117 Subjective 24 Hr Interval Summary Free Text/Dictation No change to clinical stauts Patient appears comfortable Labs apparently not drawn today Exam/Review of Systems Exam Vitals Vital Signs Date Temp Pulse Resp B/P (MAP) Pulse Ox O2 O2 Flow FiO2 Time Delivery Rate 05/14/18 2.0 13:54 05/14/18 80 12:12 05/14/18 98.3 18 102/51 96 Nasal 11:49 (68) Cannula Intake and Output 05/13/18 05/13/18 05/14/18 1515:00 23:00 07:00 IntakeIntake Total 1050 ml 1050 ml OutputOutput Total 1800 ml 2000 ml BalanceBalance -750 ml -950 ml Constitutional: alert, oriented, well developed Psych: no complaints, nl mood/affect Head: normocephalic, atraumatic Eyes: nl conjunctiva, EOMI, nl lids, nl sclera, PERRL ENMT: nl external ears & nose, nl lips & teeth, nl nasal mucosa & septum Neck: supple, non-tender Respiratory: clear to auscultation, normal air movement Cardiovascular: regular rate and rhythm, nl pulses Gastrointestinal: soft, nl liver, spleen, non-tender Musculoskeletal: nl extremities to inspection, nl gait and stance Extremities: normal pulses 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, nl mental status, nl speech, nl strength Skin: nl turgor; No rash or lesions Lymph: nl lymph nodes Results Results 24hrs Laboratory Tests Test 05/13/18 17:39 05/13/18 21:16 05/14/18 02:17 05/14/18 02:39 Bedside Glucose 175 140 73 81 Test 05/14/18 03:20 05/14/18 06:19 05/14/18 08:25 05/14/18 13:21 Bedside Glucose 89 163 162 117 Medications Medication Current Medications IV Flush (NS 3 ml) 3 ml PER PROTOCOL IV ; Start 05/07/18 at 23:30 Ondansetron HCl (Zofran Inj) 4 mg Q6H PRN IV NAUSEA/VOMITING; Start 05/07/18 at 23:30 Heparin Sodium (Porcine) (Heparin (5000 Units/1ml)) 5,000 unit Q12 SC Last administered on 05/11/18at 08:59; Admin Dose 5,000 UNIT; Start 05/08/18 at 09:00; Status Hold Albuterol/ Ipratropium (Duoneb) 3 ml Q2H RESP THERAPY PRN HHN SHORTNESS OF BREATH; Start 05/07/18 at 23:30 Morphine Sulfate (morphine) 2 mg Q4H PRN IV SEVERE PAIN LEVEL 7-10 Last admin istered on 05/10/18at 15:49; Admin Dose 2 MG; Start 05/08/18 at 11:00 Miscellaneous Information (* Miscellaneous Pharmacy Order) Treatment of Hypoglycemia: 1.BG 51... Per protocol XX ; Start 05/08/18 at 13:30 Potassium Chloride 50 ml @ 50 mls/hr K PROTOCOL PRN IVPB PENDING LAB VALUE Last administered on 05/09/18at 05:33; Admin Dose 50 MLS/HR; Start 05/09/18 at 01:30 Acetaminophen (Tylenol Liquid) 650 mg Q4H PRN GTB FEVER Last administered on 05/14/18 13:23; Admin Dose 650 MG; Start 05/09/18 at 01:30 Miscellaneous Information 1 ea NOTE XX ; Start 05/09/18 at 11:00 Glucose (Glutose) 15 gm Q15M PRN PO DECREASED GLUCOSE; Start 05/09/18 at 11:00 Glucose (Glutose) 22.5 gm Q15M PRN PO DECREASED GLUCOSE; Start 05/09/18 at 11:00 Dextrose (D50w Syringe) 25 ml Q15M PRN IV DECREASED GLUCOSE; Start 05/09/18 at 11:00 Dextrose (D50w Syringe) 50 ml Q15M PRN IV DECREASED GLUCOSE; Start 05/09/18 at 11:00 Glucagon (Glucagen) 1 mg Q15M PRN IM DECREASED GLUCOSE; Start 05/09/18 at 11:00 Glucose (Glutose) 15 gm Q15M PRN BUCCAL DECREASED GLUCOSE; Start 05/09/18 at 11:00 IV Flush (NS 10 ml) 10 ml PRN PRN IV IV PROTOCOL; Start 05/09/18 at 12:30 Collagenase (Santyl) 1 applic DAILY TOP Last administered on 05/14/18 08:28; Admin Dose 1 APPLIC; Start 05/09/18 at 21:00 Insulin Aspart (Novolog Insulin Pen) NOVOLOG *MODERATE* ALGORI... Q4 SC Last administered on 05/14/18 08:56; Admin Dose 2 UNIT; Start 05/09/18 at 21:00 Metformin HCl (Glucophage) 500 mg BID WITH MEALS PO Last administered on 04/22 08:27; Admin Dose 500 MG; Start 05/11/18 at 13:00 Mupirocin (Bactroban) 1 applic BID TOP Last administered on 05/14/18 08:28; Admin Dose 1 APPLIC; Start 05/11/18 at 21:00 Insulin Glargine (Lantus) 35 units Q12H SC Last administered on 05/14/18 08:56; Admin Dose 35 UNITS; Start 05/13/18 at 21:00 PEGGY RODRIGUEZ MD May 14, 2018 15:04
[2018-05-15] VITALS (12 sets, daily range): BP systolic 95–113; BP diastolic 51–63; PULSE 60–82; RESP 18–19
[2018-05-15] MEDS: INSULIN ASPART [NOVOLOG] 3 ML PEN SC SCH ×6 (01:00→21:59)
[2018-05-15] MEDS: DEXTROSE 50% 50 ML SYRINGE IV PRN (02:28)
[2018-05-15] MEDS: metFORMIN 500 MG TAB PO SCH ×2 (08:44→16:59)
[2018-05-15] MEDS: COLLAGENASE 5 GM (UD JAR) TOP SCH (08:44)
[2018-05-15] MEDS: BALSAM PERU/CASTOR OIL 60 GM TUBE TOP SCH ×2 (08:45→21:56)
[2018-05-15] MEDS: MUPIROCIN 2% 22 GM OINT TOP SCH ×2 (08:46→21:57)
[2018-05-15] MEDS: INSULIN GLARGINE [LANTus] (100 UNITS/ML) SYG SC SCH ×2 (08:58→21:58)
[2018-05-15] MEDS: DEXTROSE 5% 1,000 ML IV SCH ×2 (11:33→23:49)
[2018-05-15] MEDS ORDERED: LORAZEPAM 2 MG INJ IV PRN (12:00)
[2018-05-15] MEDS: morphine 2 MG INJ IV PRN ×2 (12:35→23:49)
[2018-05-15] MEDS: POTASSIUM CHLORIDE 50 ML IVPB PRN ×2 (15:03→16:10)
--- NOTE | 2018-05-15 15:32 | PN ---
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 - Completed abx course. 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 Result Diagram: 05/15/18 0644 05/15/18 0644 Results 24hrs Laboratory Tests Test 05/14/18 16:58 05/14/18 21:23 05/15/18 02:13 05/15/18 02:34 Bedside Glucose 79 76 62 L 134 Test 05/15/18 02:41 05/15/18 05:21 05/15/18 06:44 05/15/18 08:43 Bedside Glucose 159 165 127 White Blood Count 6.6 Red Blood Count 3.25 L Hemoglobin 8.6 L Hematocrit 28.9 L Mean Corpuscular 88.9 Volume Mean Corpuscular 26.5 L Hemoglobin Mean Corpuscular 29.8 L Hemoglobin Concent Red Cell 18.2 H Distribution Width Platelet Count 238 # Mean Platelet Volume 12.1 H Immature 3.400 H Granulocytes % Neutrophils % 58.6 Lymphocytes % 29.6 Monocytes % 5.8 Eosinophils % 2.3 Basophils % 0.3 Nucleated Red Blood 0.3 H Cells % Immature 0.220 H Granulocytes # Neutrophils # 3.8 Lymphocytes # 1.9 Monocytes # 0.4 Eosinophils # 0.2 Basophils # 0.0 Nucleated Red Blood 0.0 Cells # Sodium Level 147 H Potassium Level 3.5 Chloride Level 110 Carbon Dioxide Level 28 Anion Gap 9 Blood Urea Nitrogen 28 H Creatinine 0.94 Est Glomerular > 60 Filtrat Rate mL/min Glucose Level 124 Calcium Level 9.0 Test 05/15/18 12:25 Bedside Glucose 148 Subjective 24 Hr Interval Summary Constitutional: disoriented Exam/Review of Systems Exam Vitals Vital Signs Date Temp Pulse Resp B/P (MAP) Pulse Ox O2 O2 Flow FiO2 Time Delivery Rate 05/15/18 97.6 81 18 113/58 97 12:03 (76) 05/15/18 Nasal 08:00 Cannula 05/14/18 2.0 13:54 Intake and Output 05/14/18 05/14/18 05/15/18 1515:00 23:00 07:00 IntakeIntake Total 1500 ml 1700 ml OutputOutput Total 1600 ml 1200 ml BalanceBalance -100 ml 500 ml Psych: confusion Respiratory: clear to auscultation Cardiovascular: regular rate and rhythm Gastrointestinal: soft; No distended Musculoskeletal: nl extremities to inspection Results Results 24hrs Laboratory Tests Test 05/14/18 16:58 05/14/18 21:23 05/15/18 02:13 05/15/18 02:34 Bedside Glucose 79 76 62 L 134 Test 05/15/18 02:41 05/15/18 05:21 05/15/18 06:44 05/15/18 08:43 Bedside Glucose 159 165 127 White Blood Count 6.6 Red Blood Count 3.25 L Hemoglobin 8.6 L Hematocrit 28.9 L Mean Corpuscular 88.9 Volume Mean Corpuscular 26.5 L Hemoglobin Mean Corpuscular 29.8 L Hemoglobin Concent Red Cell 18.2 H Distribution Width Platelet Count 238 # Mean Platelet Volume 12.1 H Immature 3.400 H Granulocytes % Neutrophils % 58.6 Lymphocytes % 29.6 Monocytes % 5.8 Eosinophils % 2.3 Basophils % 0.3 Nucleated Red Blood 0.3 H Cells % Immature 0.220 H Granulocytes # Neutrophils # 3.8 Lymphocytes # 1.9 Monocytes # 0.4 Eosinophils # 0.2 Basophils # 0.0 Nucleated Red Blood 0.0 Cells # Sodium Level 147 H Potassium Level 3.5 Chloride Level 110 Carbon Dioxide Level 28 Anion Gap 9 Blood Urea Nitrogen 28 H Creatinine 0.94 Est Glomerular > 60 Filtrat Rate mL/min Glucose Level 124 Calcium Level 9.0 Test 05/15/18 12:25 Bedside Glucose 148 Medications Medication Current Medications IV Flush (NS 3 ml) 3 ml PER PROTOCOL IV ; Start 05/07/18 at 23:30 Ondansetron HCl (Zofran Inj) 4 mg Q6H PRN IV NAUSEA/VOMITING; Start 05/07/18 at 23:30 Heparin Sodium (Porcine) (Heparin (5000 Units/1ml)) 5,000 unit Q12 SC Last administered on 05/11/18at 08:59; Admin Dose 5,000 UNIT; Start 05/08/18 at 09:00; Status Hold Albuterol/ Ipratropium (Duoneb) 3 ml Q2H RESP THERAPY PRN HHN SHORTNESS OF BREATH; Start 05/07/18 at 23:30 Morphine Sulfate (morphine) 2 mg Q4H PRN IV SEVERE PAIN LEVEL 7-10 Last administered on 05/15/18at 12:35; Admin Dose 2 MG; Start 05/08/18 at 11:00 Miscellaneous Information (* Miscellaneous Pharmacy Order) Treatment of Hy poglycemia: 1.BG 51... Per protocol XX ; Start 05/08/18 at 13:30 Potassium Chloride 50 ml @ 50 mls/hr K PROTOCOL PRN IVPB PENDING LAB VALUE Last administered on 05/15/18 15:03; Admin Dose 50 MLS/HR; Start 05/09/18 at 01:30 Acetaminophen (Tylenol Liquid) 650 mg Q4H PRN GTB FEVER Last administered on 05/14/18 13:23; Admin Dose 650 MG; Start 05/09/18 at 01:30 Miscellaneous Information 1 ea NOTE XX ; Start 05/09/18 at 11:00 Glucose (Glutose) 15 gm Q15M PRN PO DECREASED GLUCOSE; Start 05/09/18 at 11:00 Glucose (Glutose) 22.5 gm Q15M PRN PO DECREASED GLUCOSE; Start 05/09/18 at 11:00 Dextrose (D50w Syringe) 25 ml Q15M PRN IV DECREASED GLUCOSE Last administered on 05/15/18at 02:28; Admin Dose 25 ML; Start 05/09/18 at 11:00 Dextrose (D50w Syringe) 50 ml Q15M PRN IV DECREASED GLUCOSE; Start 05/09/18 at 11:00 Glucagon (Glucagen) 1 mg Q15M PRN IM DECREASED GLUCOSE; Start 05/09/18 at 11:00 Glucose (Glutose) 15 gm Q15M PRN BUCCAL DECREASED GLUCOSE; Start 05/09/18 at 11:00 IV Flush (NS 10 ml) 10 ml PRN PRN IV IV PROTOCOL; Start 05/09/18 at 12:30 Collagenase (Santyl) 1 applic DAILY TOP Last administered on 05/15/18 08:44; Admin Dose 1 APPLIC; Start 05/09/18 at 21:00 Insulin Aspart (Novolog Insulin Pen) NOVOLOG *MODERATE* ALGORI... Q4 SC Last administered on 05/15/18 12:32; Admin Dose 2 UNIT; Start 05/09/18 at 21:00 Metformin HCl (Glucophage) 500 mg BID WITH MEALS PO Last administered on 05/15/18 08:44; Admin Dose 500 MG; Start 05/11/18 at 13:00 Mupirocin (Bactroban) 1 applic BID TOP Last administered on 05/15/18 08:46; Admin Dose 1 APPLIC; Start 05/11/18 at 21:00 Insulin Glargine (Lantus) 35 units Q12H SC Last administered on 05/15/18 08:58; Admin Dose 35 UNITS; Start 05/13/18 at 21:00 Dextrose 1,000 ml @ 75 mls/hr [id number] IV Last administered on 05/15/18 11:33; Admin Dose 75 MLS/HR; Start 05/15/18 at 10:30 Lorazepam (Ativan) 0.5 mg DAILY PRN IV ANXIETY/AGITATION Last administered on 05/15/18 11:49; Admin Dose 0.5 MG; Start 05/15/18 at 12:00 HARINI VALLE May 15, 2018 15:32
[2018-05-16] VITALS (12 sets, daily range): BP systolic 106–139; BP diastolic 58–65; PULSE 60–80; RESP 18–20
[2018-05-16] MEDS: INSULIN ASPART [NOVOLOG] 3 ML PEN SC SCH ×6 (01:00→21:00)
[2018-05-16] MEDS: COLLAGENASE 5 GM (UD JAR) TOP SCH (09:11)
[2018-05-16] MEDS: MUPIROCIN 2% 22 GM OINT TOP SCH ×2 (09:11→21:58)
[2018-05-16] MEDS: metFORMIN 500 MG TAB PO SCH ×2 (09:11→17:48)
[2018-05-16] MEDS: BALSAM PERU/CASTOR OIL 60 GM TUBE TOP SCH ×2 (09:11→21:58)
[2018-05-16] MEDS: INSULIN GLARGINE [LANTus] (100 UNITS/ML) SYG SC SCH ×2 (10:15→22:20)
[2018-05-16] MEDS: morphine 2 MG INJ IV PRN (11:48)
[2018-05-16] MEDS: DEXTROSE 5% 1,000 ML IV SCH ×2 (13:10→21:57)
--- NOTE | 2018-05-16 15:45 | PN ---
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 - Completed abx course. 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 Result Diagram: 05/15/18 0644 05/16/18 0643 Results 24hrs Laboratory Tests Test 05/15/18 17:02 05/15/18 21:56 05/16/18 01:24 05/16/18 05:13 Bedside Glucose 176 170 83 81 Test 05/16/18 06:43 05/16/18 09:10 05/16/18 10:15 05/16/18 11:47 Sodium Level 145 H Potassium Level 3.8 Chloride Level 108 Carbon Dioxide Level 28 Anion Gap 9 Blood Urea Nitrogen 27 H Creatinine 0.97 Est Glomerular > 60 Filtrat Rate mL/min Glucose Level 89 Calcium Level 8.9 Bedside Glucose 101 85 69 L Test 05/16/18 12:30 Bedside Glucose 77 Subjective 24 Hr Interval Summary Constitutional: disoriented Exam/Review of Systems Exam Vitals Vital Signs Date Temp Pulse Resp B/P (MAP) Pulse Ox O2 O2 Flow FiO2 Time Delivery Rate 05/16/18 73 12:01 05/16/18 98.7 18 124/61 99 Nasal 10:58 (82) Cannula 05/16/18 2.0 09:11 05/16/18 28 01:07 Intake and Output 05/15/18 05/15/18 05/16/18 1515:00 23:00 07:00 IntakeIntake Total 2345 ml 3445 ml OutputOutput Total 1100 ml 2900 ml BalanceBalance 1245 ml 545 ml Psych: confusion Respiratory: clear to auscultation Cardiovascular: regular rate and rhythm Gastrointestinal: soft Musculoskeletal: nl extremities to inspection Results Results 24hrs Laboratory Tests Test 05/15/18 17:02 05/15/18 21:56 05/16/18 01:24 05/16/18 05:13 Bedside Glucose 176 170 83 81 Test 05/16/18 06:43 05/16/18 09:10 05/16/18 10:15 05/16/18 11:47 Sodium Level 145 H Potassium Level 3.8 Chloride Level 108 Carbon Dioxide Level 28 Anion Gap 9 Blood Urea Nitrogen 27 H Creatinine 0.97 Est Glomerular > 60 Filtrat Rate mL/min Glucose Level 89 Calcium Level 8.9 Bedside Glucose 101 85 69 L Test 05/16/18 12:30 Bedside Glucose 77 Medications Medication Current Medications IV Flush (NS 3 ml) 3 ml PER PROTOCOL IV ; Start 05/07/18 at 23:30 Ondansetron HCl (Zofran Inj) 4 mg Q6H PRN IV NAUSEA/VOMITING; Start 05/07/18 at 23:30 Heparin Sodium (Porcine) (Heparin (5000 Units/1ml)) 5,000 unit Q12 SC Last administered on 05/11/18at 08:59; Admin Dose 5,000 UNIT; Start 05/08/18 at 09:00; Status Hold Albuterol/ Ipratropium (Duoneb) 3 ml Q2H RESP THERAPY PRN HHN SHORTNESS OF BREATH; Start 05/07/18 at 23:30 Morphine Sulfate (morphine) 2 mg Q4H PRN IV SEVERE PAIN LEVEL 7-10 Last administered on 05/16/18at 11:48; Admin Dose 2 MG; Start 05/08/18 at 11:00 Miscellaneous Information (* Miscellaneous Pharmacy Order) Treatment of Hypoglycemia: 1.BG 51... Per protocol XX ; Start 05/08/18 at 13:30 Potassium Chloride 50 ml @ 50 mls/hr K PROTOCOL PRN IVPB PENDING LAB VALUE Last administered on 05/15/18at 16:10; Admin Dose 50 MLS/HR; Start 05/09/18 at 01:30 Acetaminophen (Tylenol Liquid) 650 mg Q4H PRN GTB FEVER Last administered on 05/14/18at 13:23; Admin Dose 650 MG; Start 05/09/18 at 01:30 Miscellaneous Information 1 ea NOTE XX ; Start 05/09/18 at 11:00 Glucose (Glutose) 15 gm Q15M PRN PO DECREASED GLUCOSE; Start 05/09/18 at 11:00 Glucose (Glutose) 22.5 gm Q15M PRN PO DECREASED GLUCOSE; Start 05/09/18 at 11: 00 Dextrose (D50w Syringe) 25 ml Q15M PRN IV DECREASED GLUCOSE Last administered on 05/15/18 02:28; Admin Dose 25 ML; Start 05/09/18 at 11:00 Dextrose (D50w Syringe) 50 ml Q15M PRN IV DECREASED GLUCOSE; Start 05/09/18 at 11:00 Glucagon (Glucagen) 1 mg Q15M PRN IM DECREASED GLUCOSE; Start 05/09/18 at 11:00 Glucose (Glutose) 15 gm Q15M PRN BUCCAL DECREASED GLUCOSE; Start 05/09/18 at 11:00 IV Flush (NS 10 ml) 10 ml PRN PRN IV IV PROTOCOL; Start 05/09/18 at 12:30 Collagenase (Santyl) 1 applic DAILY TOP Last administered on 05/16/18 09:11; Admin Dose 1 APPLIC; Start 05/09/18 at 21:00 Insulin Aspart (Novolog Insulin Pen) NOVOLOG *MODERATE* ALGORI... Q4 SC Last administered on 05/15/18 21:59; Admin Dose 2 UNIT; Start 05/09/18 at 21:00 Metformin HCl (Glucophage) 500 mg BID WITH MEALS PO Last administered on 05/16/18 09:11; Admin Dose 500 MG; Start 05/11/18 at 13:00 Mupirocin (Bactroban) 1 applic BID TOP Last administered on 05/16/18 09:11; Admin Dose 1 APPLIC; Start 05/11/18 at 21:00 Insulin Glargine (Lantus) 35 units Q12H SC Last administered on 05/16/18 10:15; Admin Dose 35 UNITS; Start 05/13/18 at 21:00 Dextrose 1,000 ml @ 75 mls/hr [id number] IV Last administered on 05/15/18 23:49; Admin Dose 75 MLS/HR; Start 05/15/18 at 10:30 Lorazepam (Ativan) 0.5 mg Q8H PRN IV ANXIETY/AGITATION; Start 3/26/19 at 12:00 HARINI VALLE May 16, 2018 15:45
[2018-05-17] MEDS: INSULIN ASPART [NOVOLOG] 3 ML PEN SC SCH ×6 (01:00→21:00)
[2018-05-17] MEDS: DEXTROSE 5% 1,000 ML IV SCH ×2 (01:22→11:38)
[2018-05-17 01:44] VITALS: BP 101/57; PULSE 89; RESP 18
[2018-05-17] MEDS: morphine 2 MG INJ IV PRN ×2 (05:29→10:25)
[2018-05-17] MEDS: LORAZEPAM 2 MG INJ IV PRN (06:20)
[2018-05-17 07:47] VITALS: BP_SYST 114; BP_SYST 83; BP_DIAS 49; BP_DIAS 61; PULSE 79; PULSE 80; RESP 20
[2018-05-17] MEDS: metFORMIN 500 MG TAB PO SCH ×2 (09:18→18:16)
[2018-05-17] MEDS: MUPIROCIN 2% 22 GM OINT TOP SCH ×2 (09:22→21:03)
[2018-05-17] MEDS: INSULIN GLARGINE [LANTus] (100 UNITS/ML) SYG SC SCH ×2 (09:22→21:00)
--- NOTE | 2018-05-17 13:48 | PN ---
Date/Time of Note Date/Time of Note DATE: 05/17/18 TIME: 13:47 Assessment/Plan VTE [place]axis [place] [facility] [place]: 7 [place] applied [place] 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 - Completed abx course. 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 Result Diagram: 05/15/18 0644 05/17/18 0451 Results 24hrs Laboratory Tests Test 05/16/18 17:25 05/16/18 22:00 05/17/18 01:09 05/17/18 04:51 Bedside Glucose 82 91 119 Sodium Level 141 Potassium Level 4.1 Chloride Level 108 Carbon Dioxide Level 27 Anion Gap 6 Blood Urea Nitrogen 27 H Creatinine 0.99 Est Glomerular > 60 Filtrat Rate mL/min Glucose Level 126 Calcium Level 9.1 Test 05/17/18 05:23 05/17/18 09:17 05/17/18 13:37 Bedside Glucose 145 160 127 Subjective 24 Hr Interval Summary Constitutional: disoriented Exam/Review of Systems Exam Vitals Vital Signs Date Temp Pulse Resp B/P (MAP) Pulse Ox O2 O2 Flow FiO2 Time Delivery Rate 05/17/18 98.7 79 20 114/61 96 Nasal 07:47 (78) Cannula 05/17/18 2.0 05:11 05/16/18 28 01:07 Intake and Output 05/16/18 05/16/18 05/17/18 1515:00 23:00 07:00 IntakeIntake Total 2270 ml 525 ml OutputOutput Total 2000 ml 1100 ml BalanceBalance 270 ml -575 ml Psych: confusion Respiratory: clear to auscultation Cardiovascular: regular rate and rhythm Gastrointestinal: soft; No distended Musculoskeletal: nl extremities to inspection Results Results 24hrs Laboratory Tests Test 05/16/18 17:25 05/16/18 22:00 05/17/18 01:09 05/17/18 04:51 Bedside Glucose 82 91 119 Sodium Level 141 Potassium Level 4.1 Chloride Level 108 Carbon Dioxide Level 27 Anion Gap 6 Blood Urea Nitrogen 27 H Creatinine 0.99 Est Glomerular > 60 Filtrat Rate mL/min Glucose Level 126 Calcium Level 9.1 Test 05/17/18 05:23 05/17/18 09:17 05/17/18 13:37 Bedside Glucose 145 160 127 Medications Medication Current Medications IV Flush (NS 3 ml) 3 ml PER PROTOCOL IV ; Start 05/07/18 at 23:30 Ondansetron HCl (Zofran Inj) 4 mg Q6H PRN IV NAUSEA/VOMITING; Start 05/07/18 at 23:30 Heparin Sodium (Porcine) (Heparin (5000 Units/1ml)) 5,000 unit Q12 SC Last administered on 05/11/18 08:59; Admin Dose 5,000 UNIT; Start 05/08/18 at 09:00; Status Hold Albuterol/ Ipratropium (Duoneb) 3 ml Q2H RESP THERAPY PRN HHN SHORTNESS OF BREATH; Start 05/07/18 at 23:30 Morphine Sulfate (morphine) 2 mg Q4H PRN IV SEVERE PAIN LEVEL 7-10 Last administered on 05/17/18at 10:25; Admin Dose 2 MG; Start 05/08/18 at 11:00 Miscellaneous Information (* Miscellaneous Pharmacy Order) Treatment of Hypoglycemia: 1.BG 51... Per protocol XX ; Start 05/08/18 at 13:30 Acetaminophen (Tylenol Liquid) 650 mg Q4H PRN GTB FEVER Last administered on 05/14/18at 13:23; Admin Dose 650 MG; Start 05/09/18 at 01:30 Miscellaneous Information 1 ea NOTE XX ; Start 05/09/18 at 11:00 Glucose (Glutose) 15 gm Q15M PRN PO DECREASED GLUCOSE; Start 05/09/18 at 11:00 Glucose (Glutose) 22.5 gm Q15M PRN PO DECREASED GLUCOSE; Start 05/09/18 at 11:00 Dextrose (D50w Syringe) 25 ml Q15M PRN IV DECREASED GLUCOSE Last administered on 05/15/18at 02:28; Admin Dose 25 ML; Start 05/09/18 at 11:00 Dextrose (D50w Syringe) 50 ml Q15M PRN IV DECREASED GLUCOSE; Start 05/09/18 at 11:00 Glucagon (Glucagen) 1 mg Q15M PRN IM DECREASED GLUCOSE; Start 05/09/18 at 11:00 Glucose (Glutose) 15 gm Q15M PRN BUCCAL DECREASED GLUCOSE; Start 05/09/18 at 11:00 IV Flush (NS 10 ml) 10 ml PRN PRN IV IV PROTOCOL; Start 05/09/18 at 12:30 Collagenase (Santyl) 1 applic DAILY TOP Last administered on 05/16/18 09:11; Admin Dose 1 APPLIC; Start 05/09/18 at 21:00 Insulin Aspart (Novolog Insulin Pen) NOVOLOG *MODERATE* ALGORI... Q4 SC Last administered on 05/17/18 09:20; Admin Dose 2 UNIT; Start 05/09/18 at 21:00 Metformin HCl (Glucophage) 500 mg BID WITH MEALS PO Last administered on 05/17/18 09:18; Admin Dose 500 MG; Start 05/11/18 at 13:00 Mupirocin (Bactroban) 1 applic BID TOP Last administered on 05/17/18 09:22; Admin Dose 1 APPLIC; Start 05/11/18 at 21:00 Insulin Glargine (Lantus) 35 units Q12H SC Last administered on 05/17/18 09:22; Admin Dose 35 UNITS; Start 05/13/18 at 21:00 Dextrose 1,000 ml @ 75 mls/hr [id number] IV Last administered on 05/17/18 11:38; Admin Dose 75 MLS/HR; Start 05/15/18 at 10:30 Lorazepam (Ativan) 0.5 mg Q8H PRN IV ANXIETY/AGITATION Last administered on 05/17/18 06:20; Admin Dose 0.5 MG; Start 05/16/18 at 12:00 HARINI VALLE May 17, 2018 13:48
[2018-05-17 14:03] VITALS: BP 96/51; PULSE 82; RESP 24
[2018-05-17] MEDS: BALSAM PERU/CASTOR OIL 60 GM TUBE TOP SCH ×2 (17:39→21:02)
[2018-05-17] MEDS: COLLAGENASE 5 GM (UD JAR) TOP SCH (17:39)
[2018-05-17 20:06] VITALS: BP 104/57; PULSE 80; RESP 16
[2018-05-18 02:00] VITALS: BP 93/55; PULSE 70; RESP 18
[2018-05-18] MEDS: INSULIN ASPART [NOVOLOG] 3 ML PEN SC SCH ×6 (02:00→22:11)
[2018-05-18] MEDS: DEXTROSE 5% 1,000 ML IV SCH ×3 (02:02→18:11)
[2018-05-18 08:30] VITALS: BP 102/52; PULSE 83; RESP 20
[2018-05-18] MEDS: MUPIROCIN 2% 22 GM OINT TOP SCH ×2 (08:54→22:05)
[2018-05-18] MEDS: COLLAGENASE 5 GM (UD JAR) TOP SCH (08:54)
[2018-05-18] MEDS: BALSAM PERU/CASTOR OIL 60 GM TUBE TOP SCH ×2 (08:54→22:11)
[2018-05-18] MEDS: metFORMIN 500 MG TAB PO SCH ×2 (08:54→16:57)
[2018-05-18] MEDS: INSULIN GLARGINE [LANTus] (100 UNITS/ML) SYG SC SCH ×2 (08:57→22:07)
[2018-05-18 14:08] VITALS: BP 108/61; PULSE 78
--- NOTE | 2018-05-18 14:36 | PN ---
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 - Completed abx course. 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 Result Diagram: 05/15/18 0644 05/17/18 0451 Results 24hrs Laboratory Tests Test 05/17/18 17:37 05/17/18 20:58 05/18/18 02:05 05/18/18 02:25 Bedside Glucose 126 127 102 98 Test 05/18/18 05:18 05/18/18 08:53 05/18/18 13:53 Bedside Glucose 94 111 80 Subjective 24 Hr Interval Summary Constitutional: disoriented Exam/Review of Systems Exam Vitals Vital Signs Date Temp Pulse Resp B/P (MAP) Pulse Ox O2 O2 Flow FiO2 Time Delivery Rate 05/18/18 98.9 78 108/61 94 Nasal 14:08 (77) Cannula 05/18/18 20 08:30 05/18/18 2.0 08:00 05/16/18 28 01:07 Intake and Output 05/17/18 05/17/18 05/18/18 1515:00 23:00 07:00 IntakeIntake Total 445 ml 2520 ml 3095 ml OutputOutput Total 1000 ml 1000 ml 2000 ml BalanceBalance -555 ml 1520 ml 1095 ml Psych: confusion Respiratory: clear to auscultation Cardiovascular: regular rate and rhythm Gastrointestinal: soft; No distended Musculoskeletal: nl extremities to inspection Results Results 24hrs Laboratory Tests Test 05/17/18 17:37 05/17/18 20:58 05/18/18 02:05 05/18/18 02:25 Bedside Glucose 126 127 102 98 Test 05/18/18 05:18 05/18/18 08:53 05/18/18 13:53 Bedside Glucose 94 111 80 Medications Medication Current Medications IV Flush (NS 3 ml) 3 ml PER PROTOCOL IV ; Start 05/07/18 at 23:30 Ondansetron HCl (Zofran Inj) 4 mg Q6H PRN IV NAUSEA/VOMITING; Start 05/07/18 at 23:30 Heparin Sodium (Porcine) (Heparin (5000 Units/1ml)) 5,000 unit Q12 SC Last administered on 05/11/18at 08:59; Admin Dose 5,000 UNIT; Start 05/08/18 at 09:00; Status Hold Albuterol/ Ipratropium (Duoneb) 3 ml Q2H RESP THERAPY PRN HHN SHORTNESS OF BREATH; Start 05/07/18 at 23:30 Morphine Sulfate (morphine) 2 mg Q4H PRN IV SEVERE PAIN LEVEL 7-10 Last administered on 05/17/18at 10:25; Admin Dose 2 MG; Start 05/08/18 at 11:00 Miscellaneous Information (* Miscellaneous Pharmacy Order) Treatment of Hypoglycemia: 1.BG 51... Per protocol XX ; Start 05/08/18 at 13:30 Acetaminophen (Tylenol Liquid) 650 mg Q4H PRN GTB FEVER Last administered on 05/14/18at 13:23; Admin Dose 650 MG; Start 05/09/18 at 01:30 Miscellaneous Information 1 ea NOTE XX ; Start 05/09/18 at 11:00 Glucose (Glutose) 15 gm Q15M PRN PO DECREASED GLUCOSE; Start 05/09/18 at 11:00 Glucose (Glutose) 22.5 gm Q15M PRN PO DECREASED GLUCOSE; Start 05/09/18 at 11: 00 Dextrose (D50w Syringe) 25 ml Q15M PRN IV DECREASED GLUCOSE Last administered on 05/15/18at 02:28; Admin Dose 25 ML; Start 05/09/18 at 11:00 Dextrose (D50w Syringe) 50 ml Q15M PRN IV DECREASED GLUCOSE; Start 05/09/18 at 11:00 Glucagon (Glucagen) 1 mg Q15M PRN IM DECREASED GLUCOSE; Start 05/09/18 at 11:00 Glucose (Glutose) 15 gm Q15M PRN BUCCAL DECREASED GLUCOSE; Start 05/09/18 at 11:00 IV Flush (NS 10 ml) 10 ml PRN PRN IV IV PROTOCOL; Start 05/09/18 at 12:30 Collagenase (Santyl) 1 applic DAILY TOP Last administered on 05/18/18 08:54; Admin Dose 1 APPLIC; Start 05/09/18 at 21:00 Insulin Aspart (Novolog Insulin Pen) NOVOLOG *MODERATE* ALGORI... Q4 SC Last administered on 05/17/18 09:20; Admin Dose 2 UNIT; Start 05/09/18 at 21:00 Metformin HCl (Glucophage) 500 mg BID WITH MEALS PO Last administered on 05/18/18 08:54; Admin Dose 500 MG; Start 05/11/18 at 13:00 Mupirocin (Bactroban) 1 applic BID TOP Last administered on 05/18/18 08:54; Admin Dose 1 APPLIC; Start 05/11/18 at 21:00 Insulin Glargine (Lantus) 35 units Q12H SC Last administered on 05/18/18 08:57; Admin Dose 35 UNITS; Start 05/13/18 at 21:00 Dextrose 1,000 ml @ 75 mls/hr [id number] IV Last administered on 05/18/18 02:02; Admin Dose 75 MLS/HR; Start 05/15/18 at 10:30 Lorazepam (Ativan) 0.5 mg Q8H PRN IV ANXIETY/AGITATION Last administered on 05/17/18 06:20; Admin Dose 0.5 MG; Start 05/16/18 at 12:00 Nystatin (Nystatin Powder) 1 applic BID TOP ; Start 05/18/18 at 21:00 HARINI VALLE May 18, 2018 14:36
[2018-05-18] MEDS: LORAZEPAM 2 MG INJ IV PRN (17:07)
[2018-05-18] MEDS ORDERED: LORAZEPAM 2 MG INJ IV ONE (19:00)
[2018-05-18 20:15] VITALS: BP 114/60; PULSE 86; RESP 16
[2018-05-18] MEDS: NYSTATIN 30 GM POWDER BTL TOP SCH (22:04)
[2018-05-18] MEDS: ACETAMINOPHEN 650MG/20.3ML CUP GTB PRN (22:04)
[2018-05-19] MEDS: INSULIN ASPART [NOVOLOG] 3 ML PEN SC SCH ×6 (01:00→22:20)
[2018-05-19 02:00] VITALS: BP 99/64; PULSE 66; RESP 16
[2018-05-19] MEDS: LORAZEPAM 2 MG INJ IV PRN ×2 (06:18→15:03)
[2018-05-19 07:32] VITALS: BP 112/68; PULSE 74; RESP 17
[2018-05-19] MEDS: MUPIROCIN 2% 22 GM OINT TOP SCH ×2 (08:21→22:22)
[2018-05-19] MEDS: metFORMIN 500 MG TAB PO SCH ×2 (08:21→18:15)
[2018-05-19] MEDS: COLLAGENASE 5 GM (UD JAR) TOP SCH (08:22)
[2018-05-19] MEDS: BALSAM PERU/CASTOR OIL 60 GM TUBE TOP SCH ×2 (08:22→23:47)
[2018-05-19] MEDS: NYSTATIN 30 GM POWDER BTL TOP SCH ×2 (08:22→22:17)
[2018-05-19] MEDS: INSULIN GLARGINE [LANTus] (100 UNITS/ML) SYG SC SCH ×3 (08:26→22:19)
--- NOTE | 2018-05-19 11:49 | PN ---
Date/Time of Note Date/Time of Note DATE: 05/19/18 TIME: 11:49 Assessment/Plan VTE Prophylaxis Risk score (from [facility] [place])>0 risk: 7 SCD applied (from 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 - Completed abx course. 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 [facility] Result Diagram: 05/15/18 0644 05/17/18 0451 Results 24hrs Laboratory Tests Test 05/18/18 13:53 05/18/18 16:57 05/18/18 21:58 05/19/18 01:16 Bedside Glucose 80 97 145 124 Test 05/19/18 05:47 05/19/18 08:12 Bedside Glucose 135 151 Subjective 24 Hr Interval Summary Constitutional: disoriented Exam/Review of Systems Exam Vitals Vital Signs Date Temp Pulse Resp B/P (MAP) Pulse Ox O2 O2 Flow FiO2 Time Delivery Rate 05/19/18 Nasal 2.0 08:00 Cannula 05/19/18 98.0 74 17 112/68 98 07:32 (83) 05/16/18 28 01:07 Intake and Output 05/18/18 05/18/18 05/19/18 1515:00 23:00 07:00 IntakeIntake Total 2345 ml 1220 ml OutputOutput Total 3150 ml 900 ml BalanceBalance -3150 ml 1445 ml 1220 ml Psych: confusion Respiratory: clear to auscultation Cardiovascular: regular rate and rhythm Gastrointestinal: soft; No distended Musculoskeletal: nl extremities to inspection Results Results 24hrs Laboratory Tests Test 05/18/18 13:53 05/18/18 16:57 05/18/18 21:58 05/19/18 01:16 Bedside Glucose 80 97 145 124 Test 05/19/18 05:47 05/19/18 08:12 Bedside Glucose 135 151 Medications Medication Current Medications IV Flush (NS 3 ml) ml PER PROTOCOL IV ; Start 05/07/18 at 23:30 Ondansetron HCl (Zofran Inj) 4 mg Q6H PRN IV NAUSEA/VOMITING; Start 05/07/18 at 23:30 Heparin Sodium (Porcine) (Heparin (5000 Units/1ml)) 5,000 unit Q12 SC Last administered on 05/11/18 08:59; Admin Dose 5,000 UNIT; Start 05/08/18 at 09:00; Status Hold Albuterol/ Ipratropium (Duoneb) 3 ml Q2H RESP THERAPY PRN HHN SHORTNESS OF BREATH; Start 05/07/18 at 23:30 Morphine Sulfate (morphine) 2 mg Q4H PRN IV SEVERE PAIN LEVEL 7-10 Last administered on 05/17/18 10:25; Admin Dose 2 MG; Start 05/08/18 at 11:00 Miscellaneous Information (* Miscellaneous Pharmacy Order) Treatment of Hypoglycemia: 1.BG 51... Per protocol XX ; Start 05/08/18 at 13:30 Acetaminophen (Tylenol Liquid) 650 mg Q4H PRN GTB FEVER Last administered on 05/18/18 22:04; Admin Dose 650 MG; Start 05/09/18 at 01:30 Miscellaneous Information 1 ea NOTE XX ; Start 05/09/18 at 11:00 Glucose (Glutose) 15 gm Q15M PRN PO DECREASED GLUCOSE; Start 05/09/18 at 11:00 Glucose (Glutose) 22.5 gm Q15M PRN PO DECREASED GLUCOSE; Start 05/09/18 at 11:00 Dextrose (D50w Syringe) 25 ml Q15M PRN IV DECREASED GLUCOSE Last administered on 05/15/18at 02:28; Admin Dose 25 ML; Start 05/09/18 at 11:00 Dextrose (D50w Syringe) 50 ml Q15M PRN IV DECREASED GLUCOSE; Start 05/09/18 at 11:00 Glucagon (Glucagen) 1 mg Q15M PRN IM DECREASED GLUCOSE; Start 05/09/18 at 11:00 Glucose (Glutose) 15 gm Q15M PRN BUCCAL DECREASED GLUCOSE; Start 05/09/18 at 11:00 IV Flush (NS 10 ml) 10 ml PRN PRN IV IV PROTOCOL; Start 05/09/18 at 12:30 Collagenase (Santyl) 1 applic DAILY TOP Last administered on 05/19/18 08:22; Admin Dose 1 APPLIC; Start 05/09/18 at 21:00 Insulin Aspart (Novolog Insulin Pen) NOVOLOG *MODERATE* ALGORI... Q4 SC Last administered on 05/19/18 08:26; Admin Dose 2 UNIT; Start 05/09/18 at 21:00 Metformin HCl (Glucophage) 500 mg BID WITH MEALS PO Last administered on 05/19/18 08:21; Admin Dose 500 MG; Start 05/11/18 at 13:00 Mupirocin (Bactroban) 1 applic BID TOP Last administered on 05/19/18 08:21; Admin Dose 1 APPLIC; Start 05/11/18 at 21:00 Insulin Glargine (Lantus) 35 units Q12H SC Last administered on 05/19/18 08:26; Admin Dose 35 UNITS; Start 05/13/18 at 21:00 Nystatin (Nystatin Powder) 1 applic BID TOP Last administered on 05/19/18 08:22; Admin Dose 1 APPLIC; Start 05/18/18 at 21:00 Lorazepam (Ativan) 1 mg Q4H PRN IV AGITATION; Start 05/19/18 at 11:00 HARINI VALLE May 19, 2018 11:49
[2018-05-19] MEDS: DEXTROSE 50% 50 ML SYRINGE IV PRN (12:41)
[2018-05-19 13:56] VITALS: BP 92/52; PULSE 83; RESP 17
[2018-05-19 19:55] VITALS: BP 113/65; PULSE 97; RESP 16
[2018-05-20] MEDS: INSULIN ASPART [NOVOLOG] 3 ML PEN SC SCH ×6 (01:00→21:33)
[2018-05-20 02:00] VITALS: BP 99/55; PULSE 86; RESP 16
[2018-05-20 07:53] VITALS: BP 101/55; PULSE 84; RESP 20
[2018-05-20] MEDS: MUPIROCIN 2% 22 GM OINT TOP SCH ×2 (08:46→20:47)
[2018-05-20] MEDS: NYSTATIN 30 GM POWDER BTL TOP SCH ×2 (08:46→20:47)
[2018-05-20] MEDS: BALSAM PERU/CASTOR OIL 60 GM TUBE TOP SCH ×2 (08:46→20:47)
[2018-05-20] MEDS: metFORMIN 500 MG TAB PO SCH ×2 (08:46→17:57)
[2018-05-20] MEDS: COLLAGENASE 5 GM (UD JAR) TOP SCH (08:47)
[2018-05-20] MEDS: morphine 2 MG INJ IV PRN (09:42)
[2018-05-20] MEDS: LORAZEPAM 2 MG INJ IV PRN (10:08)
--- NOTE | 2018-05-20 11:28 | PN ---
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 - Completed abx course. 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 Result Diagram: 05/17/18 0451 Results 24hrs Laboratory Tests Test 05/19/18 12:35 05/19/18 13:07 05/19/18 17:37 05/19/18 22:16 Bedside Glucose 61 L 170 90 111 Test 05/20/18 01:38 05/20/18 05:54 05/20/18 08:43 Bedside Glucose 107 149 169 Subjective 24 Hr Interval Summary Constitutional: disoriented Exam/Review of Systems Exam Vitals Vital Signs Date Temp Pulse Resp B/P (MAP) Pulse Ox O2 O2 Flow FiO2 Time Delivery Rate 05/20/18 Nasal 2.0 07:54 Cannula 05/20/18 98.9 84 20 101/55 94 07:53 (70) Intake and Output 05/19/18 05/19/18 05/20/18 1515:00 23:00 07:00 IntakeIntake Total 1520 ml OutputOutput Total 1900 ml 900 ml BalanceBalance -1900 ml -900 ml 1520 ml Psych: confusion Respiratory: clear to auscultation Cardiovascular: regular rate and rhythm Gastrointestinal: soft Musculoskeletal: nl extremities to inspection Results Results 24hrs Laboratory Tests Test 05/19/18 12:35 05/19/18 13:07 05/19/18 17:37 05/19/18 22:16 Bedside Glucose 61 L 170 90 111 Test 05/20/18 01:38 05/20/18 05:54 05/20/18 08:43 Bedside Glucose 107 149 169 Medications Medication Current Medications IV Flush (NS 3 ml) 3 ml PER PROTOCOL IV ; Start 05/07/18 at 23:30 Ondansetron HCl (Zofran Inj) 4 mg Q6H PRN IV NAUSEA/VOMITING; Start 05/07/18 at 23:30 Heparin Sodium (Porcine) (Heparin (5000 Units/1ml)) 5,000 unit Q12 SC Last administered on 05/11/18 08:59; Admin Dose 5,000 UNIT; Start 05/08/18 at 09:00; Status Hold Albuterol/ Ipratropium (Duoneb) 3 ml Q2H RESP THERAPY PRN HHN SHORTNESS OF BREATH; Start 05/07/18 at 23:30 Morphine Sulfate (morphine) 2 mg Q4H PRN IV SEVERE PAIN LEVEL 7-10 Last administered on 05/20/18 09:42; Admin Dose 2 MG; Start 05/08/18 at 11:00 Miscellaneous Information (* Miscellaneous Pharmacy Order) Treatment of Hyp oglycemia: 1.BG 51... Per protocol XX ; Start 05/08/18 at 13:30 Acetaminophen (Tylenol Liquid) 650 mg Q4H PRN GTB FEVER Last administered on 05/18/18 22:04; Admin Dose 650 MG; Start 05/09/18 at 01:30 Miscellaneous Information 1 ea NOTE XX ; Start 05/09/18 at 11:00 Glucose (Glutose) 15 gm Q15M PRN PO DECREASED GLUCOSE; Start 05/09/18 at 11:00 Glucose (Glutose) 22.5 gm Q15M PRN PO DECREASED GLUCOSE; Start 05/09/18 at 11:00 Dextrose (D50w Syringe) 25 ml Q15M PRN IV DECREASED GLUCOSE Last administered on 05/19/18at 12:41; Admin Dose 25 ML; Start 05/09/18 at 11:00 Dextrose (D50w Syringe) 50 ml Q15M PRN IV DECREASED GLUCOSE; Start 05/09/18 at 11:00 Glucagon (Glucagen) 1 mg Q15M PRN IM DECREASED GLUCOSE; Start 05/09/18 at 11:00 Glucose (Glutose) 15 gm Q15M PRN BUCCAL DECREASED GLUCOSE; Start 05/09/18 at 11:00 IV Flush (NS 10 ml) 10 ml PRN PRN IV IV PROTOCOL; Start 05/09/18 at 12:30 Collagenase (Santyl) 1 applic DAILY TOP Last administered on 05/20/18 08:47; Admin Dose 1 APPLIC; Start 05/09/18 at 21:00 Insulin Aspart (Novolog Insulin Pen) NOVOLOG *MODERATE* ALGORI... Q4 SC Last ad ministered on 05/20/18 08:50; Admin Dose 2 UNIT; Start 05/09/18 at 21:00 Metformin HCl (Glucophage) 500 mg BID WITH MEALS PO Last administered on 05/20/18 08:46; Admin Dose 500 MG; Start 05/11/18 at 13:00 Mupirocin (Bactroban) 1 applic BID TOP Last administered on 05/20/18 08:46; Admin Dose 1 APPLIC; Start 05/11/18 at 21:00 Insulin Glargine (Lantus) 35 units Q12H SC Last administered on 05/19/18 22:19; Admin Dose 35 UNITS; Start 05/13/18 at 21:00 Nystatin (Nystatin Powder) 1 applic BID TOP Last administered on 05/20/18 08:46; Admin Dose 1 APPLIC; Start 05/18/18 at 21:00 Lorazepam (Ativan) 1 mg Q4H PRN IV AGITATION Last administered on 05/20/18 10:08; Admin Dose 1 MG; Start 05/19/18 at 11:00 HARINI VALLE May 20, 2018 11:28
[2018-05-20 13:46] VITALS: BP 108/63; PULSE 86; RESP 20
[2018-05-20 20:14] VITALS: BP 105/56; PULSE 90; RESP 20
[2018-05-20] MEDS: INSULIN GLARGINE [LANTus] (100 UNITS/ML) SYG SC SCH (20:46)
[2018-05-21] MEDS: INSULIN ASPART [NOVOLOG] 3 ML PEN SC SCH ×6 (01:00→21:00)
[2018-05-21] MEDS: morphine 2 MG INJ IV PRN (01:32)
[2018-05-21] MEDS: LORAZEPAM 2 MG INJ IV PRN ×3 (01:37→21:04)
[2018-05-21 02:00] VITALS: BP 90/56; PULSE 87; RESP 19
[2018-05-21 07:39] VITALS: BP 103/58; PULSE 83; RESP 20
[2018-05-21] MEDS: COLLAGENASE 5 GM (UD JAR) TOP SCH (09:08)
[2018-05-21] MEDS: NYSTATIN 30 GM POWDER BTL TOP SCH ×2 (09:08→22:00)
[2018-05-21] MEDS: metFORMIN 500 MG TAB PO SCH ×2 (09:08→18:13)
[2018-05-21] MEDS: BALSAM PERU/CASTOR OIL 60 GM TUBE TOP SCH ×2 (09:09→22:01)
[2018-05-21] MEDS: INSULIN GLARGINE [LANTus] (100 UNITS/ML) SYG SC SCH ×2 (09:09→21:59)
[2018-05-21] MEDS: MUPIROCIN 2% 22 GM OINT TOP SCH ×2 (09:13→22:00)
[2018-05-21 14:27] VITALS: BP 112/61; PULSE 81; RESP 20
--- NOTE | 2018-05-21 16:11 | PN ---
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 - Completed abx course. 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 Result Diagram: 05/17/18 0451 Results 24hrs Laboratory Tests Test 05/20/18 17:35 05/20/18 20:43 05/20/18 21:30 05/21/18 01:32 Bedside Glucose 152 151 165 112 Test 05/21/18 05:37 05/21/18 09:04 05/21/18 13:23 Bedside Glucose 195 181 165 Subjective 24 Hr Interval Summary Constitutional: disoriented Exam/Review of Systems Exam Vitals Vital Signs Date Temp Pulse Resp B/P (MAP) Pulse Ox O2 O2 Flow FiO2 Time Delivery Rate 05/21/18 98.8 81 20 112/61 97 14:27 (78) 05/21/18 2.0 01:36 05/20/18 Nasal 21:41 Cannula Intake and Output 05/20/18 05/20/18 05/21/18 1515:00 23:00 07:00 IntakeIntake Total 1120 ml 1220 ml OutputOutput Total 650 ml 650 ml 600 ml BalanceBalance -650 ml 470 ml 620 ml Psych: confusion Respiratory: clear to auscultation Cardiovascular: regular rate and rhythm Gastrointestinal: soft; No distended Musculoskeletal: nl extremities to inspection Results Results 24hrs Laboratory Tests Test 05/20/18 17:35 05/20/18 20:43 05/20/18 21:30 05/21/18 01:32 Bedside Glucose 152 151 165 112 Test 05/21/18 05:37 05/21/18 09:04 05/21/18 13:23 Bedside Glucose 195 181 165 Medications Medication Current Medications IV Flush (NS 3 ml) 3 ml PER PROTOCOL IV ; Start 05/07/18 at 23:30 Ondansetron HCl (Zofran Inj) 4 mg Q6H PRN IV NAUSEA/VOMITING; Start 05/07/18 at 23:30 Heparin Sodium (Porcine) (Heparin (5000 Units/1ml)) 5,000 unit Q12 SC Last administered on 05/11/18at 08:59; Admin Dose 5,000 UNIT; Start 05/08/18 at 09:00; Status Hold Albuterol/ Ipratropium (Duoneb) 3 ml Q2H RESP THERAPY PRN HHN SHORTNESS OF SUNSHINE ATH; Start 05/07/18 at 23:30 Morphine Sulfate (morphine) 2 mg Q4H PRN IV SEVERE PAIN LEVEL 7-10 Last administered on 05/21/18at 01:32; Admin Dose 2 MG; Start 05/08/18 at 11:00 Miscellaneous Information (* Miscellaneous Pharmacy Order) Treatment of Hypoglycemia: 1.BG 51... Per protocol XX ; Start 05/08/18 at 13:30 Acetaminophen (Tylenol Liquid) 650 mg Q4H PRN GTB FEVER Last administered on 05/18/18at 22:04; Admin Dose 650 MG; Start 05/09/18 at 01:30 Miscellaneous Information 1 ea NOTE XX ; Start 05/09/18 at 11:00 Glucose (Glutose) 15 gm Q15M PRN PO DECREASED GLUCOSE; Start 05/09/18 at 11:00 Glucose (Glutose) 22.5 gm Q15M PRN PO DECREASED GLUCOSE; Start 05/09/18 at 11:00 Dextrose (D50w Syringe) 25 ml Q15M PRN IV DECREASED GLUCOSE Last administered on 05/19/18at 12:41; Admin Dose 25 ML; Start 05/09/18 at 11:00 Dextrose (D50w Syringe) 50 ml Q15M PRN IV DECREASED GLUCOSE; Start 05/09/18 at 11:00 Glucagon (Glucagen) 1 mg Q15M PRN IM DECREASED GLUCOSE; Start 05/09/18 at 11:00 Glucose (Glutose) 15 gm Q15M PRN BUCCAL DECREASED GLUCOSE; Start 05/09/18 at 11:00 IV Flush (NS 10 ml) 10 ml PRN PRN IV IV PROTOCOL; Start 05/09/18 at 12:30 Collagenase (Santyl) 1 applic DAILY TOP Last administered on 05/21/18 09:08; Admin Dose 1 APPLIC; Start 05/09/18 at 21:00 Insulin Aspart (Novolog Insulin Pen) NOVOLOG *MODERATE* ALGORI... Q4 SC Last administered on 05/21/18 13:25; Admin Dose 2 UNIT; Start 05/09/18 at 21:00 Metformin HCl (Glucophage) 500 mg BID WITH MEALS PO Last administered on 05/21/18 09:08; Admin Dose 500 MG; Start 05/11/18 at 13:00 Mupirocin (Bactroban) 1 applic BID TOP Last administered on 05/21/18 09:13; Admin Dose 1 APPLIC; Start 05/11/18 at 21:00 Insulin Glargine (Lantus) 35 units Q12H SC Last administered on 05/21/18 09:09; Admin Dose 35 UNITS; Start 05/13/18 at 21:00 Nystatin (Nystatin Powder) 1 applic BID TOP Last administered on 05/21/18 09:08; Admin Dose 1 APPLIC; Start 05/18/18 at 21:00 Lorazepam (Ativan) 1 mg Q4H PRN IV AGITATION Last administered on 05/21/18 11:12; Admin Dose 1 MG; Start 05/19/18 at 11:00 HARINI VALLE May 21, 2018 16:11
[2018-05-21 19:30] VITALS: BP 111/65; PULSE 73; RESP 18
[2018-05-21 20:15] VITALS: BP 107/64; PULSE 74; RESP 20
[2018-05-22] MEDS: INSULIN ASPART [NOVOLOG] 3 ML PEN SC SCH ×4 (01:00→18:00)
[2018-05-22 02:20] VITALS: BP 118/60; PULSE 68; RESP 20
[2018-05-22] MEDS ORDERED: PENDING SANTYL ORDER FOR WOUND CARE XX PRN (04:30)
[2018-05-22] MEDS: LORAZEPAM 2 MG INJ IV PRN ×2 (06:45→15:25)
[2018-05-22 08:40] VITALS: BP 116/60; PULSE 75; RESP 20
[2018-05-22] MEDS: metFORMIN 500 MG TAB PO SCH ×2 (09:21→18:51)
[2018-05-22] MEDS: COLLAGENASE 5 GM (UD JAR) TOP SCH (09:21)
[2018-05-22] MEDS: MULTIVITAMINS 30 ML CUP GTB SCH (09:21)
[2018-05-22] MEDS: BALSAM PERU/CASTOR OIL 60 GM TUBE TOP SCH ×2 (09:22→20:35)
[2018-05-22] MEDS: ZINC SULFATE 220 MG CAP GTB SCH (09:22)
[2018-05-22] MEDS: NYSTATIN 30 GM POWDER BTL TOP SCH ×2 (09:22→20:34)
[2018-05-22] MEDS: FOLIC ACID 1 MG TAB GTB SCH (09:22)
[2018-05-22] MEDS: ASCORBIC ACID 250 MG TAB GTB SCH (09:22)
[2018-05-22] MEDS: MUPIROCIN 2% 22 GM OINT TOP SCH ×2 (09:22→20:35)
[2018-05-22] MEDS: INSULIN GLARGINE [LANTus] (100 UNITS/ML) SYG SC SCH ×2 (09:23→20:33)
--- NOTE | 2018-05-22 14:25 | PN ---
Date/Time of Note Date/Time of Note DATE: 05/22/18 TIME: 14:25 Assessment/Plan VTE Prophylaxis Risk score (from [facility])>0 risk: 4 SCD applied (from [facility]): Yes Pharmacological prophylaxis: heparin Lines/Catheters IV Catheter Type (from Nrsg): PICC Line Central line still needed: Yes Assessment/Plan Hospital Course 52 yo male with chronic encephelopathy from TBI, DMII who presents with sepsis, NINA, marked hypernatremia and hyperglycemia Hypernatremia: - Resolved NINA: - Resolved DMII with hyperglycemia: - Continue basal insulin Anemia of chronic disease TBI, chronic encephelopathy - stable Sepsis from UTI. - Completed abx course. Observe off of abx Unstageable pressure ulcer present Chronic dysphagia; - Continue tube feeds Ready for dicahrge to [place] when hypernatremia is resolved Results 24hrs Laboratory Tests Test 05/21/18 18:14 05/21/18 21:57 05/22/18 01:25 05/22/18 06:09 Bedside Glucose 111 125 114 161 Test 05/22/18 12:14 Bedside Glucose 156 Subjective 24 Hr Interval Summary Free Text/Dictation Comfortable Awaiting placement Exam/Review of Systems Exam Vitals Vital Signs Date Temp Pulse Resp B/P (MAP) Pulse Ox O2 O2 Flow FiO2 Time Delivery Rate 05/22/18 97.9 75 20 116/60 97 Nasal 2.0 08:40 (78) Cannula Intake and Output 05/21/18 05/21/18 05/22/18 1515:00 23:00 07:00 IntakeIntake Total 1120 ml OutputOutput Total 950 ml 1100 ml BalanceBalance 170 ml -1100 ml Constitutional: alert, oriented, well developed Psych: no complaints, nl mood/affect Head: normocephalic, atraumatic Eyes: nl conjunctiva, EOMI, nl lids, nl sclera, PERRL ENMT: nl external ears & nose, nl lips & teeth, nl nasal mucosa & septum Neck: supple, non-tender Respiratory: clear to auscultation, normal air movement Cardiovascular: regular rate and rhythm, nl pulses Gastrointestinal: soft, nl liver, spleen, non-tender Musculoskeletal: nl extremities to inspection, nl gait and stance Extremities: normal pulses 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, nl mental status, nl speech, nl strength Skin: nl turgor; No rash or lesions Lymph: nl lymph nodes Results Results 24hrs Laboratory Tests Test 05/21/18 18:14 05/21/18 21:57 05/22/18 01:25 05/22/18 06:09 Bedside Glucose 111 125 114 161 Test 05/22/18 12:14 Bedside Glucose 156 Medications Medication Current Medications IV Flush (NS 3 ml) 3 ml PER PROTOCOL IV ; Start 05/07/18 at 23:30 Ondansetron HCl (Zofran Inj) 4 mg Q6H PRN IV NAUSEA/VOMITING; Start 05/07/18 at 23:30 Heparin Sodium (Porcine) (Heparin (5000 Units/1ml)) 5,000 unit Q12 SC Last administered on 05/11/18at 08:59; Admin Dose 5,000 UNIT; Start 05/08/18 at 09:00; Status Hold Albuterol/ Ipratropium (Duoneb) 3 ml Q2H RESP THERAPY PRN HHN SHORTNESS OF BREATH; Start 05/07/18 at 23:30 Morphine Sulfate (morphine) 2 mg Q4H PRN IV SEVERE PAIN LEVEL 7-10 Last administered on 05/21/18at 01:32; Admin Dose 2 MG; Start 05/08/18 at 11:00 Miscellaneous Information (* Miscellaneous Pharmacy Order) Treatment of Hypoglycemia: 1.BG 51... Per protocol XX ; Start 05/08/18 at 13:30 Acetaminophen (Tylenol Liquid) 650 mg Q4H PRN GTB FEVER Last administered on 05/18/18at 22:04; Admin Dose 650 MG; Start 05/09/18 at 01:30 Miscellaneous Information 1 ea NOTE XX ; Start 05/09/18 at 11:00 Glucose (Glutose) 15 gm Q15M PRN PO DECREASED GLUCOSE; Start 05/09/18 at 11:00 Glucose (Glutose) 22.5 gm Q15M PRN PO DECREASED GLUCOSE; Start 05/09/18 at 11:00 Dextrose (D50w Syringe) 25 ml Q15M PRN IV DECREASED GLUCOSE Last administered on 05/19/18at 12:41; Admin Dose 25 ML; Start 05/09/18 at 11:00 Dextrose (D50w Syringe) 50 ml Q15M PRN IV DECREASED GLUCOSE; Start 05/09/18 at 11:00 Glucagon (Glucagen) 1 mg Q15M PRN IM DECREASED GLUCOSE; Start 05/09/18 at 11:00 Glucose (Glutose) 15 gm Q15M PRN BUCCAL DECREASED GLUCOSE; Start 05/09/18 at 11:00 IV Flush (NS 10 ml) 10 ml PRN PRN IV IV PROTOCOL; Start 05/09/18 at 12:30 Collagenase (Santyl) 1 applic DAILY TOP Last administered on 05/22/18 09:21; Admin Dose 1 APPLIC; Start 05/09/18 at 21:00 Metformin HCl (Glucophage) 500 mg BID WITH MEALS PO Last administered on 05/22/18 09:21; Admin Dose 500 MG; Start 05/11/18 at 13:00 Mupirocin (Bactroban) 1 applic BID TOP Last administered on 05/22/18:22; Admin Dose 1 APPLIC; Start 05/11/18 at 21:00 Insulin Glargine (Lantus) 35 units Q12H SC Last administered on 05/22/18:23; Admin Dose 35 UNITS; Start 05/13/18 at 21:00 Nystatin (Nystatin Powder) 1 applic BID TOP Last administered on 05/22/18:22; Admin Dose 1 APPLIC; Start 05/18/18 at 21:00 Lorazepam (Ativan) 1 mg Q4H PRN IV AGITATION Last administered on 05/22/18 06:45; Admin Dose 1 MG; Start 05/19/18 at 11:00 Multivitamins (Multivitamin) 30 ml DAILY GTB Last administered on 05/22/18 09:21; Admin Dose 30 ML; Start 05/22/18 at 09:00 Folic Acid (Folic Acid) 1 mg DAILY GTB Last administered on 05/22/18:22; Admin Dose 1 MG; Start 05/22/18 at 09:00 Zinc Sulfate (Zinc Sulfate) 220 mg DAILY GTB Last administered on 05/22/18:22; Admin Dose 220 MG; Start 05/22/18 at 09:00 Ascorbic Acid (Vitamin C) 250 mg DAILY GTB Last administered on 05/22/18 09:22; Admin Dose 250 MG; Start 05/22/18 at 09:00 Insulin Aspart (Novolog Insulin Pen) NOVOLOG *MODERATE* ALGORI... Q6 SC Last administered on 05/22/18at 12:59; Admin Dose 2 UNIT; Start 05/22/18 at 06:00 Miscellaneous Information (Pending Santyl Order For Wound Care) This patient young... PRN PRN XX WOUND CARE; Start 05/22/18 at 04:30 PEGGY RODRIGUEZ MD May 22, 2018 14:25
[2018-05-22 15:04] VITALS: BP 118/60; PULSE 78; RESP 20
[2018-05-22] MEDS: ACETAMINOPHEN 650MG/20.3ML CUP GTB PRN (15:25)
[2018-05-22 20:25] VITALS: BP 97/55; PULSE 71; RESP 17
[2018-05-23 02:13] VITALS: BP 120/69; PULSE 76; RESP 18
[2018-05-23] MEDS: LORAZEPAM 2 MG INJ IV PRN ×4 (02:40→22:55)
[2018-05-23] MEDS: INSULIN ASPART [NOVOLOG] 3 ML PEN SC SCH ×4 (05:50→17:49)
[2018-05-23 08:10] VITALS: BP 131/65; PULSE 74; RESP 20
[2018-05-23] MEDS: ASCORBIC ACID 250 MG TAB GTB SCH (08:16)
[2018-05-23] MEDS: metFORMIN 500 MG TAB PO SCH ×2 (08:16→17:49)
[2018-05-23] MEDS: MULTIVITAMINS 30 ML CUP GTB SCH (08:16)
[2018-05-23] MEDS: FOLIC ACID 1 MG TAB GTB SCH (08:16)
[2018-05-23] MEDS: ZINC SULFATE 220 MG CAP GTB SCH (08:16)
[2018-05-23] MEDS: MUPIROCIN 2% 22 GM OINT TOP SCH ×2 (08:17→20:49)
[2018-05-23] MEDS: COLLAGENASE 5 GM (UD JAR) TOP SCH (08:17)
[2018-05-23] MEDS: BALSAM PERU/CASTOR OIL 60 GM TUBE TOP SCH ×2 (08:17→20:48)
[2018-05-23] MEDS: NYSTATIN 30 GM POWDER BTL TOP SCH ×2 (08:17→20:48)
[2018-05-23] MEDS: INSULIN GLARGINE [LANTus] (100 UNITS/ML) SYG SC SCH ×2 (08:21→20:53)
[2018-05-23 14:43] VITALS: BP 128/64; PULSE 78; RESP 20
--- NOTE | 2018-05-23 17:08 | PN ---
Date/Time of Note Date/Time of Note DATE: 05/23/18 TIME: 17:08 Assessment/Plan VTE Prophylaxis Risk score (from Nsg)>0 risk: 7 SCD applied (from Nsg): Yes Pharmacological prophylaxis: heparin Lines/Catheters IV Catheter Type (from Nrsg): PICC Line Central line still needed: Yes Assessment/Plan Hospital Course 52 yo male with chronic encephelopathy from TBI, DMII who presents with sepsis, NINA, marked hypernatremia and hyperglycemia Hypernatremia: - Resolved NINA: - Resolved DMII with hyperglycemia: - Continue basal insulin Anemia of chronic disease TBI, chronic encephelopathy - stable Sepsis from UTI. - Completed abx course. Observe off of abx Unstageable pressure ulcer present Chronic dysphagia; - Continue tube feeds Ready for dicahrge to [place] when arranged Results 24hrs Laboratory Tests Test 05/22/18 18:15 05/22/18 20:31 05/23/18 00:30 05/23/18 05:50 Bedside Glucose 126 134 107 107 Test 05/23/18 08:13 05/23/18 11:38 Bedside Glucose 134 129 Subjective 24 Hr Interval Summary Free Text/Dictation No change to clinical status Awaiting placement Exam/Review of Systems Exam Vitals Vital Signs Date Temp Pulse Resp B/P (MAP) Pulse Ox O2 O2 Flow FiO2 Time Delivery Rate 05/23/18 98.0 78 20 128/64 97 Nasal 2.0 14:43 (85) Cannula Intake and Output 05/22/18 05/22/18 05/23/18 1515:00 23:00 07:00 OutputOutput Total 375 ml 350 ml BalanceBalance -375 ml -350 ml Constitutional: alert, oriented, well developed Psych: no complaints, nl mood/affect Head: normocephalic, atraumatic Eyes: nl conjunctiva, EOMI, nl lids, nl sclera, PERRL ENMT: nl external ears & nose, nl lips & teeth, nl nasal mucosa & septum Neck: supple, non-tender Respiratory: clear to auscultation, normal air movement Cardiovascular: regular rate and rhythm, nl pulses Gastrointestinal: soft, nl liver, spleen, non-tender Musculoskeletal: nl extremities to inspection, nl gait and stance Extremities: normal pulses 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, nl mental status, nl speech, nl strength Skin: nl turgor; No rash or lesions Lymph: nl lymph nodes Results Results 24hrs Laboratory Tests Test 05/22/18 18:15 05/22/18 20:31 05/23/18 00:30 05/23/18 05:50 Bedside Glucose 126 134 107 107 Test 05/23/18 08:13 05/23/18 11:38 Bedside Glucose 134 129 Medications Medication Current Medications IV Flush (NS 3 ml) 3 ml PER PROTOCOL IV ; Start 05/07/18 at 23:30 Ondansetron HCl (Zofran Inj) 4 mg Q6H PRN IV NAUSEA/VOMITING; Start 05/07/18 at 23:30 Albuterol/ Ipratropium (Duoneb) 3 ml Q2H RESP THERAPY PRN HHN SHORTNESS OF BREATH; Start 05/07/18 at 23:30 Morphine Sulfate (morphine) 2 mg Q4H PRN IV SEVERE PAIN LEVEL 7-10 Last administered on 05/21/18at 01:32; Admin Dose 2 MG; Start 05/08/18 at 11:00 Miscellaneous Information (* Miscellaneous Pharmacy Order) Treatment of Hypoglycemia: 1.BG 51... Per protocol XX ; Start 05/08/18 at 13:30 Acetaminophen (Tylenol Liquid) 650 mg Q4H PRN GTB FEVER Last administered on 05/22/18at 15:25; Admin Dose 650 MG; Start 05/09/18 at 01:30 Miscellaneous Information 1 ea NOTE XX ; Start 05/09/18 at 11:00 Glucose (Glutose) 15 gm Q15M PRN PO DECREASED GLUCOSE; Start 05/09/18 at 11:00 Glucose (Glutose) 22.5 gm Q15M PRN PO DECREASED GLUCOSE; Start 05/09/18 at 11:00 Dextrose (D50w Syringe) 25 ml Q15M PRN IV DECREASED GLUCOSE Last administered on 05/19/18at 12:41; Admin Dose 25 ML; Start 05/09/18 at 11:00 Dextrose (D50w Syringe) 50 ml Q15M PRN IV DECREASED GLUCOSE; Start 05/09/18 at 11:00 Glucagon (Glucagen) 1 mg Q15M PRN IM DECREASED GLUCOSE; Start 05/09/18 at 11:00 Glucose (Glutose) 15 gm Q15M PRN BUCCAL DECREASED GLUCOSE; Start 05/09/18 at 11:00 IV Flush (NS 10 ml) 10 ml PRN PRN IV IV PROTOCOL; Start 05/09/18 at 12:30 Collagenase (Santyl) 1 applic DAILY TOP Last administered on 05/23/18 08:17; Admin Dose 1 APPLIC; Start 05/09/18 at 21:00 Metformin HCl (Glucophage) 500 mg BID WITH MEALS PO Last administered on 05/23/18 08:16; Admin Dose 500 MG; Start 05/11/18 at 13:00 Mupirocin (Bactroban) 1 applic BID TOP Last administered on 05/23/18 08:17; Admin Dose 1 APPLIC; Start 05/11/18 at 21:00 Insulin Glargine (Lantus) 35 units Q12H SC Last administered on 05/23/18 08:21; Admin Dose 35 UNITS; Start 05/13/18 at 21:00 Nystatin (Nystatin Powder) 1 applic BID TOP Last administered on 05/23/18 08:17; Admin Dose 1 APPLIC; Start 05/18/18 at 21:00 Lorazepam (Ativan) 1 mg Q4H PRN IV AGITATION Last administered on 05/23/18 15:36; Admin Dose 1 MG; Start 05/19/18 at 11:00 Multivitamins (Multivitamin) 30 ml DAILY GTB Last administered on 05/23/18 08:16; Admin Dose 30 ML; Start 05/22/18 at 09:00 Folic Acid (Folic Acid) 1 mg DAILY GTB Last administered on 05/23/18 08:16; Admin Dose 1 MG; Start 05/22/18 at 09:00 Zinc Sulfate (Zinc Sulfate) 220 mg DAILY GTB Last administered on 05/23/18 08:16; Admin Dose 220 MG; Start 05/22/18 at 09:00 Ascorbic Acid (Vitamin C) 250 mg DAILY GTB Last administered on 05/23/18 08:16; Admin Dose 250 MG; Start 05/22/18 at 09:00 Insulin Aspart (Novolog Insulin Pen) NOVOLOG *MODERATE* ALGORI... Q6 SC Last administered on 05/22/18 12:59; Admin Dose 2 UNIT; Start 05/22/18 at 06:00 Miscellaneous Information (Pending Santyl Order For Wound Care) This patient young... PRN PRN XX WOUND CARE; Start 05/22/18 at 04:30 PEGGY RODRIGUEZ MD May 23, 2018 17:08
[2018-05-23] MEDS: ACETAMINOPHEN 650MG/20.3ML CUP GTB PRN (18:37)
[2018-05-23 20:00] VITALS: BP 120/58; PULSE 77
[2018-05-24 02:00] VITALS: BP 115/57; PULSE 76; RESP 18
[2018-05-24] MEDS: INSULIN ASPART [NOVOLOG] 3 ML PEN SC SCH ×4 (06:00→17:55)
[2018-05-24 08:00] VITALS: BP 115/61; PULSE 68; RESP 18
[2018-05-24] MEDS: metFORMIN 500 MG TAB PO SCH ×2 (08:31→17:59)
[2018-05-24] MEDS: FOLIC ACID 1 MG TAB GTB SCH (08:32)
[2018-05-24] MEDS: ZINC SULFATE 220 MG CAP GTB SCH (08:33)
[2018-05-24] MEDS: COLLAGENASE 5 GM (UD JAR) TOP SCH (08:33)
[2018-05-24] MEDS: MULTIVITAMINS 30 ML CUP GTB SCH (08:33)
[2018-05-24] MEDS: INSULIN GLARGINE [LANTus] (100 UNITS/ML) SYG SC SCH ×2 (08:34→21:37)
[2018-05-24] MEDS: MUPIROCIN 2% 22 GM OINT TOP SCH ×2 (08:36→21:38)
[2018-05-24] MEDS: BALSAM PERU/CASTOR OIL 60 GM TUBE TOP SCH ×2 (08:37→21:38)
[2018-05-24] MEDS: NYSTATIN 30 GM POWDER BTL TOP SCH ×2 (08:37→21:38)
[2018-05-24] MEDS: LORAZEPAM 2 MG INJ IV PRN (09:33)
[2018-05-24] MEDS ORDERED: SOD CHLORIDE 0.9% 1,000 ML IV ONE (11:00)
[2018-05-24] MEDS: ASCORBIC ACID 250 MG TAB GTB SCH (12:20)
[2018-05-24 14:00] VITALS: BP 120/64; PULSE 96; RESP 18
--- NOTE | 2018-05-24 16:56 | PN ---
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 - Completed abx course. Observe off of abx pressure ulcer present Chronic dysphagia; - Continue tube feeds Ready for discharge to [place] when arranged Result Diagram: 05/24/18 0610 05/24/18 0610 Results 24hrs Laboratory Tests Test 05/23/18 17:48 05/23/18 20:46 05/24/18 00:04 05/24/18 06:01 Bedside Glucose 106 143 101 113 Test 05/24/18 06:10 05/24/18 12:05 White Blood Count 8.4 # Red Blood Count 3.54 L Hemoglobin 9.1 L Hematocrit 31.0 L Mean Corpuscular Volume 87.6 Mean Corpuscular 25.7 L Hemoglobin Mean Corpuscular 29.4 L Hemoglobin Concent Red Cell Distribution 17.0 H Width Platelet Count 215 Mean Platelet Volume 12.4 H Immature Granulocytes % 1.200 H Neutrophils % 60.8 Lymphocytes % 28.2 Monocytes % 6.6 Eosinophils % 2.6 Basophils % 0.6 Nucleated Red Blood 0.0 Cells % Immature Granulocytes # 0.100 H Neutrophils # 5.1 Lymphocytes # 2.4 Monocytes # 0.6 Eosinophils # 0.2 Basophils # 0.1 Nucleated Red Blood 0.0 Cells # Sodium Level 142 Potassium Level 4.8 Chloride Level 107 Carbon Dioxide Level 23 Anion Gap 12 Blood Urea Nitrogen 38 H Creatinine 0.96 Est Glomerular Filtrat > 60 Rate mL/min Glucose Level 96 Calcium Level 9.2 Bedside Glucose 103 Subjective 24 Hr Interval Summary Free Text/Dictation No change to clinical status Awaiting placement Continuously groaning Exam/Review of Systems Exam Vitals Vital Signs Date Temp Pulse Resp B/P (MAP) Pulse Ox O2 O2 Flow FiO2 Time Delivery Rate 05/24/18 98.6 96 18 120/64 96 14:00 (82) 05/24/18 Nasal 2.0 08:35 Cannula Intake and Output 05/23/18 05/23/18 05/24/18 1414:59 22:59 06:59 IntakeIntake Total 1320 ml 800 ml OutputOutput Total 1400 ml 800 ml 1000 ml BalanceBalance -1400 ml 520 ml -200 ml Constitutional: alert, oriented, well developed Psych: no complaints, nl mood/affect Head: normocephalic, atraumatic Eyes: nl conjunctiva, EOMI, nl lids, nl sclera, PERRL ENMT: nl external ears & nose, nl lips & teeth, nl nasal mucosa & septum Neck: supple, non-tender Respiratory: clear to auscultation, normal air movement Cardiovascular: regular rate and rhythm, nl pulses Gastrointestinal: soft, nl liver, spleen, non-tender Musculoskeletal: nl extremities to inspection, nl gait and stance Extremities: normal pulses 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, nl mental status, nl speech, nl strength Skin: nl turgor; No rash or lesions Lymph: nl lymph nodes Results Results 24hrs Laboratory Tests Test 05/23/18 17:48 05/23/18 20:46 05/24/18 00:04 05/24/18 06:01 Bedside Glucose 106 143 101 113 Test 05/24/18 06:10 05/24/18 12:05 White Blood Count 8.4 # Red Blood Count 3.54 L Hemoglobin 9.1 L Hematocrit 31.0 L Mean Corpuscular Volume 87.6 Mean Corpuscular 25.7 L Hemoglobin Mean Corpuscular 29.4 L Hemoglobin Concent Red Cell Distribution 17.0 H Width Platelet Count 215 Mean Platelet Volume 12.4 H Immature Granulocytes % 1.200 H Neutrophils % 60.8 Lymphocytes % 28.2 Monocytes % 6.6 Eosinophils % 2.6 Basophils % 0.6 Nucleated Red Blood 0.0 Cells % Immature Granulocytes # 0.100 H Neutrophils # 5.1 Lymphocytes # 2.4 Monocytes # 0.6 Eosinophils # 0.2 Basophils # 0.1 Nucleated Red Blood 0.0 Cells # Sodium Level 142 Potassium Level 4.8 Chloride Level 107 Carbon Dioxide Level 23 Anion Gap 12 Blood Urea Nitrogen 38 H Creatinine 0.96 Est Glomerular Filtrat > 60 Rate mL/min Glucose Level 96 Calcium Level 9.2 Bedside Glucose 103 Medications Medication Current Medications IV Flush (NS 3 ml) 3 ml PER PROTOCOL IV ; Start 05/07/18 at 23:30 Ondansetron HCl (Zofran Inj) 4 mg Q6H PRN IV NAUSEA/VOMITING; Start 05/07/18 at 23:30 Albuterol/ Ipratropium (Duoneb) 3 ml Q2H RESP THERAPY PRN HHN SHORTNESS OF BREATH; Start 05/07/18 at 23:30 Morphine Sulfate (morphine) 2 mg Q4H PRN IV SEVERE PAIN LEVEL 7-10 Last administered on 05/21/18at 01:32; Admin Dose 2 MG; Start 05/08/18 at 11:00 Miscellaneous Information (* Miscellaneous Pharmacy Order) Treatment of Hypoglycemia: 1.BG 51... Per protocol XX ; Start 05/08/18 at 13:30 Acetaminophen (Tylenol Liquid) 650 mg Q4H PRN GTB FEVER Last administered on 05/23/18at 18:37; Admin Dose 650 MG; Start 05/09/18 at 01:30 Miscellaneous Information 1 ea NOTE XX ; Start 05/09/18 at 11:00 Glucose (Glutose) 15 gm Q15M PRN PO DECREASED GLUCOSE; Start 05/09/18 at 11:00 Glucose (Glutose) 22.5 gm Q15M PRN PO DECREASED GLUCOSE; Start 05/09/18 at 11:00 Dextrose (D50w Syringe) 25 ml Q15M PRN IV DECREASED GLUCOSE Last administered on 05/19/18at 12:41; Admin Dose 25 ML; Start 05/09/18 at 11:00 Dextrose (D50w Syringe) 50 ml Q15M PRN IV DECREASED GLUCOSE; Start 05/09/18 at 11:00 Glucagon (Glucagen) 1 mg Q15M PRN IM DECREASED GLUCOSE; Start 05/09/18 at 11:00 Glucose (Glutose) 15 gm Q15M PRN BUCCAL DECREASED GLUCOSE; Start 05/09/18 at 11:00 IV Flush (NS 10 ml) 10 ml PRN PRN IV IV PROTOCOL; Start 05/09/18 at 12:30 Collagenase (Santyl) 1 applic DAILY TOP Last administered on 05/24/18at 08:33; Admin Dose 1 APPLIC; Start 05/09/18 at 21:00 Metformin HCl (Glucophage) 500 mg BID WITH MEALS PO Last administered on 05/24/18 08:31; Admin Dose 500 MG; Start 05/11/18 at 13:00 Mupirocin (Bactroban) 1 applic BID TOP Last administered on 05/24/18 08:36; Admin Dose 1 APPLIC; Start 05/11/18 at 21:00 Insulin Glargine (Lantus) 35 units Q12H SC Last administered on 05/24/18 08:34; Admin Dose 35 UNITS; Start 05/13/18 at 21:00 Nystatin (Nystatin Powder) 1 applic BID TOP Last administered on 05/24/18 08:37; Admin Dose 1 APPLIC; Start 05/18/18 at 21:00 Multivitamins (Multivitamin) 30 ml DAILY GTB Last administered on 05/24/18 08:33; Admin Dose 30 ML; Start 05/22/18 at 09:00 Folic Acid (Folic Acid) 1 mg DAILY GTB Last administered on 05/24/18 08:32; Admin Dose 1 MG; Start 05/22/18 at 09:00 Zinc Sulfate (Zinc Sulfate) 220 mg DAILY GTB Last administered on 05/24/18 08:33; Admin Dose 220 MG; Start 05/22/18 at 09:00 Ascorbic Acid (Vitamin C) 250 mg DAILY GTB Last administered on 05/24/18 12:20; Admin Dose 250 MG; Start 05/22/18 at 09:00 Insulin Aspart (Novolog Insulin Pen) NOVOLOG *MODERATE* ALGORI... Q6 SC Last administered on 05/22/18 12:59; Admin Dose 2 UNIT; Start 05/22/18 at 06:00 Miscellaneous Information (Pending Santyl Order For Wound Care) This patient young... PRN PRN XX WOUND CARE; Start 05/22/18 at 04:30 Lorazepam (Ativan) 1 mg Q4H PRN IV agitation Last administered on 05/24/18 09:33; Admin Dose 1 MG; Start 05/23/18 at 23:00 PEGGY RODRIGUEZ MD May 24, 2018 16:56
[2018-05-24 20:00] VITALS: BP 100/62; PULSE 95; RESP 18
[2018-05-24] MEDS: morphine 2 MG INJ IV PRN (21:43)
[2018-05-25 02:00] VITALS: BP 130/70; PULSE 80; RESP 17
[2018-05-25] MEDS: INSULIN ASPART [NOVOLOG] 3 ML PEN SC SCH ×4 (06:00→17:09)
[2018-05-25 08:38] VITALS: BP 107/64; PULSE 80; RESP 17
[2018-05-25] MEDS: ASCORBIC ACID 250 MG TAB GTB SCH (09:57)
[2018-05-25] MEDS: COLLAGENASE 5 GM (UD JAR) TOP SCH (09:57)
[2018-05-25] MEDS: FOLIC ACID 1 MG TAB GTB SCH (09:57)
[2018-05-25] MEDS: ZINC SULFATE 220 MG CAP GTB SCH (09:58)
[2018-05-25] MEDS: metFORMIN 500 MG TAB PO SCH ×2 (09:58→17:09)
[2018-05-25] MEDS: MULTIVITAMINS 30 ML CUP GTB SCH (09:58)
[2018-05-25] MEDS: INSULIN GLARGINE [LANTus] (100 UNITS/ML) SYG SC SCH (09:59)
[2018-05-25] MEDS: BALSAM PERU/CASTOR OIL 60 GM TUBE TOP SCH ×2 (10:00→21:18)
[2018-05-25] MEDS: MUPIROCIN 2% 22 GM OINT TOP SCH ×2 (10:01→21:19)
[2018-05-25] MEDS: NYSTATIN 30 GM POWDER BTL TOP SCH ×2 (10:01→21:18)
[2018-05-25 13:56] VITALS: BP 103/59; PULSE 77; RESP 18
[2018-05-25] MEDS: morphine 2 MG INJ IV PRN (15:20)
[2018-05-25 16:28] VITALS: Ht 167.6 cm; Wt 65.1 kg
--- NOTE | 2018-05-25 16:32 | PN ---
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 - Completed abx course. Observe off of abx pressure ulcer present Chronic dysphagia; - Continue tube feeds Ready for discharge to [place] when arranged Result Diagram: 05/24/1860905/24/1810 Results 24hrs Laboratory Tests Test 05/24/18 16:56 05/24/18 21:35 05/25/18 00:49 05/25/18 05:48 Bedside Glucose 104 93 109 77 Test 05/25/18 09:57 05/25/18 11:45 Bedside Glucose 109 116 Subjective 24 Hr Interval Summary Free Text/Dictation No change to condition Comfortable Exam/Review of Systems Exam Vitals Vital Signs Date Temp Pulse Resp B/P (MAP) Pulse Ox O2 O2 Flow FiO2 Time Delivery Rate 05/25/18 97.6 77 18 103/59 96 13:56 (74) 05/25/18 2.0 06:13 05/24/18 Nasal 21:00 Cannula Intake and Output 05/24/18 05/24/18 05/25/18 1515:00 23:00 07:00 IntakeIntake Total 1000 ml OutputOutput Total 1200 ml 300 ml BalanceBalance 1000 ml -1200 ml -300 ml Results Results 24hrs Laboratory Tests Test 05/24/18 16:56 05/24/18 21:35 05/25/18 00:49 05/25/18 05:48 Bedside Glucose 104 93 109 77 Test 05/25/18 09:57 05/25/18 11:45 Bedside Glucose 109 116 Medications Medication Current Medications IV Flush (NS 3 ml) 3 ml PER PROTOCOL IV ; Start 05/07/18 at 23:30 Ondansetron HCl (Zofran Inj) 4 mg Q6H PRN IV NAUSEA/VOMITING; Start 05/07/18 at 23:30 Albuterol/ Ipratropium (Duoneb) 3 ml Q2H RESP THERAPY PRN HHN SHORTNESS OF BREATH; Start 05/07/18 at 23:30 Morphine Sulfate (morphine) 2 mg Q4H PRN IV SEVERE PAIN LEVEL 7-10 Last admin istered on 05/25/18 15:20; Admin Dose 2 MG; Start 05/08/18 at 11:00 Miscellaneous Information (* Miscellaneous Pharmacy Order) Treatment of Hypoglycemia: 1.BG 51... Per protocol XX ; Start 05/08/18 at 13:30 Acetaminophen (Tylenol Liquid) 650 mg Q4H PRN GTB FEVER Last administered on 05/23/18 18:37; Admin Dose 650 MG; Start 05/09/18 at 01:30 Miscellaneous Information 1 ea NOTE XX ; Start 05/09/18 at 11:00 Glucose (Glutose) 15 gm Q15M PRN PO DECREASED GLUCOSE; Start 05/09/18 at 11:00 Glucose (Glutose) 22.5 gm Q15M PRN PO DECREASED GLUCOSE; Start 05/09/18 at 11:00 Dextrose (D50w Syringe) 25 ml Q15M PRN IV DECREASED GLUCOSE Last administered on 05/19/18 12:41; Admin Dose 25 ML; Start 05/09/18 at 11:00 Dextrose (D50w Syringe) 50 ml Q15M PRN IV DECREASED GLUCOSE; Start 05/09/18 at 11:00 Glucagon (Glucagen) 1 mg Q15M PRN IM DECREASED GLUCOSE; Start 05/09/18 at 11:00 Glucose (Glutose) 15 gm Q15M PRN BUCCAL DECREASED GLUCOSE; Start 05/09/18 at 11:00 IV Flush (NS 10 ml) 10 ml PRN PRN IV IV PROTOCOL; Start 05/09/18 at 12:30 Collagenase (Santyl) 1 applic DAILY TOP Last administered on 05/25/18 09:57; Admin Dose 1 APPLIC; Start 05/09/18 at 21:00 Metformin HCl (Glucophage) 500 mg BID WITH MEALS PO Last administered on 05/25/18 09:58; Admin Dose 500 MG; Start 05/11/18 at 13:00 Mupirocin (Bactroban) 1 applic BID TOP Last administered on 05/25/18 10:01; Admin Dose 1 APPLIC; Start 05/11/18 at 21:00 Insulin Glargine (Lantus) 35 units Q12H SC Last administered on 05/25/18 09:59; Admin Dose 35 UNITS; Start 05/13/18 at 21:00 Nystatin (Nystatin Powder) 1 applic BID TOP Last administered on 05/25/18 10:01; Admin Dose 1 APPLIC; Start 05/18/18 at 21:00 Multivitamins (Multivitamin) 30 ml DAILY GTB Last administered on 05/25/18 09:58; Admin Dose 30 ML; Start 05/22/18 at 09:00 Folic Acid (Folic Acid) 1 mg DAILY GTB Last administered on 05/25/18 09:57; Admin Dose 1 MG; Start 05/22/18 at 09:00 Zinc Sulfate (Zinc Sulfate) 220 mg DAILY GTB Last administered on 05/25/18 09:58; Admin Dose 220 MG; Start 05/22/18 at 09:00 Ascorbic Acid (Vitamin C) 250 mg DAILY GTB Last administered on 05/25/18 09:57; Admin Dose 250 MG; Start 05/22/18 at 09:00 Insulin Aspart (Novolog Insulin Pen) NOVOLOG *MODERATE* ALGORI... Q6 SC Last administered on 05/22/18 12:59; Admin Dose 2 UNIT; Start 05/22/18 at 06:00 Miscellaneous Information (Pending [facility] Order For Wound Care) This patient young... PRN PRN XX WOUND CARE; Start 05/22/18 at 04:30 Lorazepam (Ativan) 1 mg Q4H PRN IV agitation Last administered on 05/24/18 09:33; Admin Dose 1 MG; Start 05/23/18 at 23:00 PEGGY RODRIGUEZ MD May 25, 2018 16:32
[2018-05-25 20:43] VITALS: BP 112/64; PULSE 83; RESP 18
[2018-05-26] MEDS: INSULIN GLARGINE [LANTus] (100 UNITS/ML) SYG SC SCH ×3 (00:03→22:16)
[2018-05-26 02:00] VITALS: BP 118/66; PULSE 69; RESP 18
[2018-05-26] MEDS: INSULIN ASPART [NOVOLOG] 3 ML PEN SC SCH ×4 (06:00→18:00)
[2018-05-26] MEDS: morphine 2 MG INJ IV PRN (06:31)
[2018-05-26 08:26] VITALS: BP 124/67; PULSE 71; RESP 17
[2018-05-26] MEDS: ASCORBIC ACID 250 MG TAB GTB SCH (08:38)
[2018-05-26] MEDS: COLLAGENASE 5 GM (UD JAR) TOP SCH (08:38)
[2018-05-26] MEDS: MULTIVITAMINS 30 ML CUP GTB SCH (08:38)
[2018-05-26] MEDS: ZINC SULFATE 220 MG CAP GTB SCH (08:39)
[2018-05-26] MEDS: FOLIC ACID 1 MG TAB GTB SCH (08:39)
[2018-05-26] MEDS: metFORMIN 500 MG TAB PO SCH ×2 (08:39→18:27)
[2018-05-26] MEDS: BALSAM PERU/CASTOR OIL 60 GM TUBE TOP SCH ×2 (08:41→22:17)
[2018-05-26] MEDS: NYSTATIN 30 GM POWDER BTL TOP SCH ×2 (08:41→22:17)
[2018-05-26] MEDS: MUPIROCIN 2% 22 GM OINT TOP SCH ×2 (08:41→22:17)
--- NOTE | 2018-05-26 12:36 | PN ---
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 - Completed abx course. Observe off of abx pressure ulcer present Chronic dysphagia; - Continue tube feeds Ready for discharge to [place] when arranged Result Diagram: 05/24/18 0610 05/24/18 0610 Results 24hrs Laboratory Tests Test 05/25/18 17:08 05/26/18 00:01 05/26/18 05:34 05/26/18 08:37 Bedside Glucose 137 122 123 117 Test 05/26/18 11:57 Bedside Glucose 90 Subjective 24 Hr Interval Summary Free Text/Dictation Moaning in pain, requests to be turned frequently Exam/Review of Systems Exam Vitals Vital Signs Date Temp Pulse Resp B/P (MAP) Pulse Ox O2 O2 Flow FiO2 Time Delivery Rate 05/26/18 98.0 71 17 124/67 96 08:26 (86) 05/26/18 2.0 05:45 05/24/18 Nasal 21:00 Cannula Intake and Output 05/25/18 05/25/18 05/26/18 1515:00 23:00 07:00 IntakeIntake Total 1060 ml OutputOutput Total 700 ml 800 ml BalanceBalance -700 ml 260 ml Results Results 24hrs Laboratory Tests Test 05/25/18 17:08 05/26/18 00:01 05/26/18 05:34 05/26/18 08:37 Bedside Glucose 137 122 123 117 Test 05/26/18 11:57 Bedside Glucose 90 Medications Medication Current Medications IV Flush (NS 3 ml) 3 ml PER PROTOCOL IV ; Start 05/07/18 at 23:30 Ondansetron HCl (Zofran Inj) 4 mg Q6H PRN IV NAUSEA/VOMITING; Start 05/07/18 at 23:30 Albuterol/ Ipratropium (Duoneb) 3 ml Q2H RESP THERAPY PRN HHN SHORTNESS OF BREATH; Start 05/07/18 at 23:30 Morphine Sulfate (morphine) 2 mg Q4H PRN IV SEVERE PAIN LEVEL 7-10 Last administered on 05/26/18 06:31; Admin Dose 2 MG; Start 05/08/18 at 11:00 Miscellaneous Information (* Miscellaneous Pharmacy Order) Treatment of Hypoglycemia: 1.BG 51... Per protocol XX ; Start 05/08/18 at 13:30 Acetaminophen (Tylenol Liquid) 650 mg Q4H PRN GTB FEVER Last administered on 05/23/18 18:37; Admin Dose 650 MG; Start 05/09/18 at 01:30 Miscellaneous Information 1 ea NOTE XX ; Start 05/09/18 at 11:00 Glucose (Glutose) 15 gm Q15M PRN PO DECREASED GLUCOSE; Start 05/09/18 at 11:00 Glucose (Glutose) 22.5 gm Q15M PRN PO DECREASED GLUCOSE; Start 05/09/18 at 11:00 Dextrose (D50w Syringe) 25 ml Q15M PRN IV DECREASED GLUCOSE Last administered on 05/19/18 12:41; Admin Dose 25 ML; Start 05/09/18 at 11:00 Dextrose (D50w Syringe) 50 ml Q15M PRN IV DECREASED GLUCOSE; Start 05/09/18 at 11:00 Glucagon (Glucagen) 1 mg Q15M PRN IM DECREASED GLUCOSE; Start 05/09/18 at 11:00 Glucose (Glutose) 15 gm Q15M PRN BUCCAL DECREASED GLUCOSE; Start 05/09/18 at 11:00 IV Flush (NS 10 ml) 10 ml PRN PRN IV IV PROTOCOL; Start 05/09/18 at 12:30 Collagenase (Santyl) 1 applic DAILY TOP Last administered on 05/26/18 08:38; Admin Dose 1 APPLIC; Start 05/09/18 at 21:00 Metformin HCl (Glucophage) 500 mg BID WITH MEALS PO Last administered on 05/26/18 08:39; Admin Dose 500 MG; Start 05/11/18 at 13:00 Mupirocin (Bactroban) 1 applic BID TOP Last administered on 05/26/18 08:41; Admin Dose 1 APPLIC; Start 05/11/18 at 21:00 Insulin Glargine (Lantus) 35 units Q12H SC Last administered on 05/26/18 08:40; Admin Dose 35 UNITS; Start 05/13/18 at 21:00 Nystatin (Nystatin Powder) 1 applic BID TOP Last administered on 05/26/18 08:41; Admin Dose 1 APPLIC; Start 05/18/18 at 21:00 Multivitamins (Multivitamin) 30 ml DAILY GTB Last administered on 05/26/18 08:38; Admin Dose 30 ML; Start 05/22/18 at 09:00 Folic Acid (Folic Acid) 1 mg DAILY GTB Last administered on 05/26/18 08:39; Admin Dose 1 MG; Start 05/22/18 at 09:00 Zinc Sulfate (Zinc Sulfate) 220 mg DAILY GTB Last administered on 05/26/18 08:39; Admin Dose 220 MG; Start 05/22/18 at 09:00 Ascorbic Acid (Vitamin C) 250 mg DAILY GTB Last administered on 05/26/18 08:38; Admin Dose 250 MG; Start 05/22/18 at 09:00 Insulin Aspart (Novolog Insulin Pen) NOVOLOG *MODERATE* ALGORI... Q6 SC Last administered on 05/22/18 12:59; Admin Dose 2 UNIT; Start 05/22/18 at 06:00 Miscellaneous Information (Pending Santyl Order For Wound Care) This patient young... PRN PRN XX WOUND CARE; Start 05/22/18 at 04:30 Lorazepam (Ativan) 1 mg Q4H PRN IV agitation Last administered on 05/24/18 09:33; Admin Dose 1 MG; Start 05/23/18 at 23:00 PEGGY RODRIGUEZ MD May 26, 2018 12:35
[2018-05-26 14:59] VITALS: BP 118/62; PULSE 86; RESP 18
[2018-05-26 20:00] VITALS: BP 124/59; PULSE 77; RESP 18
[2018-05-27] MEDS: LORAZEPAM 2 MG INJ IV PRN (00:49)
[2018-05-27 02:00] VITALS: BP 98/60; PULSE 76; RESP 18
[2018-05-27] MEDS: INSULIN ASPART [NOVOLOG] 3 ML PEN SC SCH ×3 (06:27→12:19)
[2018-05-27 08:00] VITALS: BP 122/65; PULSE 61; RESP 18
[2018-05-27] MEDS: INSULIN GLARGINE [LANTus] (100 UNITS/ML) SYG SC SCH (08:46)
[2018-05-27] MEDS: COLLAGENASE 5 GM (UD JAR) TOP SCH (08:47)
[2018-05-27] MEDS: ZINC SULFATE 220 MG CAP GTB SCH (08:47)
[2018-05-27] MEDS: metFORMIN 500 MG TAB PO SCH (08:47)
[2018-05-27] MEDS: MULTIVITAMINS 30 ML CUP GTB SCH (08:47)
[2018-05-27] MEDS: FOLIC ACID 1 MG TAB GTB SCH (08:47)
[2018-05-27] MEDS: ASCORBIC ACID 250 MG TAB GTB SCH (08:47)
[2018-05-27] MEDS: BALSAM PERU/CASTOR OIL 60 GM TUBE TOP SCH (08:48)
[2018-05-27] MEDS: MUPIROCIN 2% 22 GM OINT TOP SCH (08:48)
[2018-05-27] MEDS: NYSTATIN 30 GM POWDER BTL TOP SCH (08:49)
[2018-05-27] MEDS ORDERED: POLYETHYLENE GLYCOL 17 GM PACKET GTB SCH (11:00)
[2018-05-27 14:54] VITALS: BP 130/74; PULSE 72; RESP 18
--- NOTE | 2018-05-27 16:39 | DS ---
Date/Time of Note Date/Time of Note DATE: 05/27/18 TIME: 16:38 Discharge Summary Admission/Discharge Info Admit Date/Time May 07, 2018 at 20:23 Discharge Date/Time Discharge Diagnosis Hypernatremia NINA Hyperglycemia Sacral decubitus ulceration Encephelopathy Paraplegia Patient Condition: Stable Hospital Course Presented with sepsis and foudn to be with severe hyperglycemia, hypernatremia, and NINA. He was treated wtih IV NS and antibitoics. His NINA and sepsis resolved. He remained hypernatremic and this eventually resolved with D5W infusion. He was found to have severe sacral decubitus ulceration causing pain. Wound care was provided. He was conintued on insulin for diabetes. He received tube feeds. [facility] Meds Reported Medications Hydrocodone Bit-Acetaminophen ([place]) 1 Tab Tablet, PRN 05/03/12 Oxybutynin Chloride* (Ditropan*) 5 Mg Tab, DAILY 05/03/12 Polyethylene Glycol (Miralax) 17 Gm/Pkt Liq, DAILY 05/03/12 Docusate Sodium* (Colace*) 50 Mg Capsule, 100 MG DAILY 05/03/12 Ascorbic Acid (Ascorbic Acid) 1 Gm Granules, 500 MG DAILY 05/03/12 Gemfibrozil* (Lopid*) 600 Mg Tablet, DAILY 05/03/12 [Prostat] No Conflict Check, 30 ML DAILY 05/03/12 [Multivitamins With Minerals] No Conflict Check, 1 TAB DAILY 05/03/12 Ipratropium [place]* (Atrovent*) 2.5 Ml Nebu, PRN 05/03/12 Albuterol Sulfate* (Proventil* Neb) 0.5 Ml Nebu, PRN 05/03/12 Insulin Detemir* (Levemir*) 100 U/Ml Insuln.pen, 70 UNITS SQ DAILY 05/03/12 Aspirin (Adult Low Dose Aspirin) 81 Mg Tablet.dr, DAILY, 0 Refills 03/09/09 Multivitamins* (Multivitamins*) 1 Tab Tablet 03/09/09 Primary Care Provider Juan Wyman MD Pending Labs Laboratory Tests Test 05/26/18 18:26 05/26/18 22:13 05/27/18 00:51 05/27/18 06:19 Bedside 100 107 140 184 Glucose mg/dL (70-220) mg/dL (70-220) mg/dL (70-220) mg/dL (70-220) Test 05/27/18 12:09 Bedside 155 Glucose mg/dL (70-220) PEGGY RODRIGUEZ MD May 27, 2018 16:39
== END 2018-05-27 16:33 | DRG 871 ==
LOC: E/R 17:22 → TEL 20:23 → ICU 23:47 → TEL 05-10 01:44 → 2NE 05-16 20:18 → PP2 05-21 19:51
PROVIDERS: ADMIT Internal Medicine; ATTEND Internal Medicine
PROC: 02HV33Z Insertion of Infusion Device into Superior Vena Cava, Percutaneous Approach (ICD-10-PCS; principal; 2018-05-09)
PROC: 30233N1 Transfusion of Nonautologous Red Blood Cells into Peripheral Vein, Percutaneous Approach (ICD-10-PCS; 2018-05-09)
DX: A41.9 Sepsis, unspecified organism (principal); L89.153 Pressure ulcer of sacral region, stage 3; G82.50 Quadriplegia, unspecified; N39.0 Urinary tract infection, site not specified; E87.0 Hyperosmolality and hypernatremia; N17.9 Acute kidney failure, unspecified; G93.49 Other encephalopathy; E11.65 Type 2 diabetes mellitus with hyperglycemia; N31.9 Neuromuscular dysfunction of bladder, unspecified; B96.20 Unspecified Escherichia coli [E. coli] as the cause of diseases classified elsewhere; D63.8 Anemia in other chronic diseases classified elsewhere; R65.20 Severe sepsis without septic shock; R13.10 Dysphagia, unspecified; Z74.01 Bed confinement status; Z93.1 Gastrostomy status; Z87.820 Personal history of traumatic brain injury
CPT/HCPCS: 36430; 36569; 71045; 76775; 80048; 80053; 80061; 80202; 81001; 82150; 82436; 82962; 83036; 83605; 83690; 83735; 83880; 83930; 83935; 84133; 84300; 84484; 84560; 85025; 85610; 85730; 86850; 86900; 86901; 86920; 87070; 87081; 87086; 87400; 93005; 96365; 96366; 96368; 96375; C1769; J0692; J1644; J1815; J1817; J2060; J2270; J2543; J2997; J3370; J3480; J7030; J7050; J7060; J7070; P9016

== ENCOUNTER 2018-07-17 21:51 | Inpatient (IN) | payer MEDICAID, OTHER ==
[~2018-07-17] VITALS: Ht 172.7 cm; Wt 67.0 kg
[2018-07-17] MEDS ORDERED: SOD CHLORIDE 0.9% 500 ML IV STA (22:03)
[2018-07-17] MEDS ORDERED: SODIUM CHLORIDE 0.9% 1L BAG IV* STA (23:35)
[2018-07-17] MEDS ORDERED: LORAZEPAM 2 MG INJ ONE (23:36)
[2018-07-18] VITALS (32 sets, daily range): BP systolic 80–134; BP diastolic 51–78; PULSE 70–98; RESP 15–37; Ht 172.7 cm; Wt 67.0 kg
[2018-07-18] MEDS ORDERED: LORAZEPAM 2 MG INJ IM ONE
[2018-07-18] MEDS ORDERED: ACETAMINOPHEN 650MG/20.3ML CUP NGT ONE
[2018-07-18] MEDS ORDERED: SOD CHLORIDE 0.9% IV ONE
[2018-07-18] MEDS ORDERED: AZTREONAM 2 GM in DEXTROSE 5% 100 ML IVPB ONE ×2
[2018-07-18] MEDS ORDERED: SOD CHLORIDE 0.9% 1,000 ML IV SCH (01:05)
[2018-07-18] MEDS ORDERED: VANCOMYCIN IV PER PHARMACY XX SCH (01:30)
[2018-07-18] MEDS ORDERED: MEROPENEM 1 GM/50ML(PMX) 50 ML IVPB SCH (01:30)
[2018-07-18] MEDS ORDERED: ONDANSETRON 4 MG INJ IV PRN (01:30)
[2018-07-18] MEDS ORDERED: morphine 2 MG INJ IV STA (01:32)
--- NOTE | 2018-07-18 01:36 | HP ---
Date/Time of Note Date/Time of Note DATE: 07/18/18 TIME: 01:34 Assessment/Plan VTE Prophylaxis SCD applied (from Nsg): Yes Pharmacological prophylaxis: NA/contraindicated Pharm contraindication: low risk/ambulating Lines/Catheters IV Catheter Type (from Nrsg): Saline Lock Assessment/Plan Hospital Course This is a 52-year-old male being admitted to the ICU floor for: 1. Septic shock: Likely secondary to underlying urinary tract infection, possible pneumonia. Patient initially presented with normotensive blood pressures however throughout his course in the ICU he did become hypotensive. Patient had a central line placed. He did receive IV fluid resuscitation and required initiation of levophed for blood pressure support. Initial lactate on presentation was 6. Will trend lactic acid. IV fluid hydration currently with D5 water given patient's hyponatremia. Broad-spectrum antibiotics of vancomycin and aztreonam. Will consult infectious disease Dr. schroeder. 2. Suspect catheter related urinary tract infection: We will need to obtain urinalysis and urine culture. Broad-spectrum robotics of vancomycin and aztreonam at the current time. Will consult ID 3. Suspect healthcare associated pneumonia: Chest x-ray shows signs of possible pneumonia. Vancomycin and aztreonam at the current time. Will consult ID 4. Severe hypernatremia: Likely secondary to dehydration, underlying infection. D5 water. 5. Abdominal distention: Given patient's abdominal distention along with hematuria we will also order a CT of the abdomen pelvis without contrast to further evaluate. 6. Acute renal insufficiency: Likely secondary to underlying dehydration, septic shock. IV fluid hydration. 7. Hematuria: From suprapubic catheter, will consult urology for further evaluation and management. 8. 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 Supportive care. Will check a CT of the brain given 9. Quadriplegia, TBI: Supportive care 10. Diabetes: Insulin sliding scale, nutrition consult. 11. Dysphagia: Status post G-tube, dietary consult for G-tube recommendations 12. Neurogenic bladder with suprapubic catheter: Hematuria in the suprapubic catheter, will consult urology for further evaluation. DVT GI prophylaxis: SCDs, Protonix Further treatment strategy will be implemented as per the clinical course Greater than 45 minutes of critical care time was spent on the care management this patient. Result Diagram: 07/17/18222807/17/189 Results 24hrs Laboratory Tests Test 07/17/18 22:29 07/18/18 00:23 White Blood Count 10.8 # Red Blood Count 5.37 # Hemoglobin 13.9 #L Hematocrit 47.1 # Mean Corpuscular Volume 87.7 Mean Corpuscular Hemoglobin 25.9 L Mean Corpuscular Hemoglobin Concent 29.5 L Red Cell Distribution Width 16.8 H Platelet Count 190 Mean Platelet Volume 11.3 H Immature Granulocytes % 0.700 H Neutrophils % 94.6 H Lymphocytes % 4.2 L Monocytes % 0.2 Eosinophils % 0.0 Basophils % 0.3 Nucleated Red Blood Cells % 0.0 Immature Granulocytes # 0.080 H Neutrophils # 10.3 H Lymphocytes # 0.5 L Monocytes # 0.0 L Eosinophils # 0.0 Basophils # 0.0 Nucleated Red Blood Cells # 0.0 Prothrombin Time 12.8 Prothrombin Time Ratio 1.0 INR International Normalized Ratio 0.95 Activated Partial Thromboplast Time 26.6 Sodium Level 149 H Potassium Level 4.6 Chloride Level 110 Carbon Dioxide Level 26 Anion Gap 13 Blood Urea Nitrogen 45 H Creatinine 1.18 Est Glomerular Filtrat Rate mL/min > 60 Glucose Level 106 Calcium Level 9.8 Total Bilirubin 0.6 Direct Bilirubin 0.00 Indirect Bilirubin 0.6 Aspartate Amino Transf (AST/SGOT) 23 Alanine Aminotransferase (ALT/SGPT) 26 Alkaline Phosphatase 140 H Troponin I 0.014 Total Protein 8.3 H Albumin 4.3 Globulin 4.00 H Albumin/Globulin Ratio 1.07 Lipase 130 POC Venous Lactate 6.1 *H HPI/ROS Admit Date/Time Admit Date/Time Hx of Present Illness Chief complaint: Brought in from [place] for hematuria via suprapubic catheter History is limited secondary to patient's traumatic brain injury and clinical condition. 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 Patient was noted to have blood in his catheter. He is a quadriplegic with a gastrostomy tube, history of tracheostomy roodhouse for hematuria via the suprapubic catheter. Hx of quadraplegia with suprapubic catheter for neurogenic bladder, g tube, history of tracheostomy. Patient has multiple decubitus ulcers. Allergies: Imipenem Medications: See MAR ROS Const: Negative for fever, chills, weight gain or weight loss, fatigue, or diaphoresis Eyes : No pain discharge or redness or change in visual acuity ENT: No pain, sore throat, congestion, congestion, dysphagia or discharge Respiratory: No shortness of breath, cough, sputum, wheezing, or pleuritic pain Cardiovascular: No chest pain, palpitation, PND, or edema GI : no change in appetite, abdominal pain, nausea, vomiting, diarrhea, con stipation, or change in the color his stool Genitourinary: No dysuria, hematuria, flank pain , discharge or CVA tenderness Musculoskeletal: No joint pain, back pain, neck pain, restricted range of motion in neck or joints Skin: No rash, bruising or hives Neuro: No headache, dizziness, syncope, seizure, focal weakness Endocrine: No polyuria, polydipsia, temperature intolerance Psych: No hallucination, depression, anxiety or suicidal ideation Subjective hx not possible: other (Encephalopathy secondary to TBI) PMH/Family/Social Past Medical History Traumatic brain injury resulting in quadriplegia, chronic encephalopathy, dysphagia, respiratory failure, neurogenic bladder, DM Medications Current Medications Vancomycin HCl 250 ml @ 125 mls/hr ONCE ONCE IVPB ; Start 07/18/18 at 00:00; Stop 07/18/18 at 01:59 Sodium Chloride 1,000 ml @ 70 mls/hr [id number] IV ; Start 07/18/18 at 01:05 Ondansetron HCl (Zofran Inj) 4 mg Q6H PRN IV NAUSEA AND/OR VOMITING; Start 07/18/18 at 01:30 Acetaminophen (Tylenol Liquid) 650 mg Q6H PRN GTB PAIN LEVEL 1-3 OR FEVER; Start 07/18/18 at 01:30 Morphine Sulfate (morphine) 2 mg Q4H PRN IV PAIN LEVEL 7-10; Start 07/18/18 at 01:30 Pantoprazole (Protonix Iv) 40 mg DAILY@06 IV ; Start 07/18/18 at 06:00 Dextrose 1,000 ml @ 80 mls/hr [id number] IV ; Start 07/18/18 at 01:30; Stop 07/19/18 at 01:29 Meropenem/Sodium Chloride 50 ml @ 100 mls/hr Q12 IVPB ; Start 07/18/18 at 01:30; Status UNV Vancomycin HCl (Vanco Iv Per Pharmacy) VANCOMYCIN PER PHARMACY PER PROTOCOL XX ; Start 07/18/18 at 01:30; Status UNV Morphine Sulfate (morphine) 1 mg ONCE STAT IV ; Start 07/18/18 at 01:32; Stop 07/18/18 at 01:33; Status UNV Coded Allergies: imipenem (Verified Allergy, Unknown, 07/18/18) Past Surgical History Ventriculoperitoneal shunt?, History of tracheostomy, G-tube, suprapubic cat heter Past Surgical Hx: other Family History Significant Family History: other (Unknown, unable to obtain) Social History Unknown, unable to obtain Smoking Status: Unknown if ever smoked Exam/Review of Systems Vital Signs Vitals Vital Signs Date Temp Pulse Resp B/P (MAP) Pulse Ox O2 O2 Flow FiO2 Time Delivery Rate 07/18/18 145 26 142/68 99 Room Air 00:44 (92) 07/18/18 101.3 00:41 Exam Exam General: Patient is currently lying in bed he does appear to be moaning on and off, mucous membranes dry HEENT: Atraumatic, normocephalic. The pupils are equal, round and reactive. Extraocular motor are intact, mucous membranes dry Neck: Supple with full range of motion. No rigidity or meningismus Chest: Nontender Lungs: Clear to auscultation bilaterally no crackles rales or wheezing Heart: Normal S1-S2, Regular rhythm and rate. No murmur, S3, or S4 Abdomen: Distended, G-tube in place, suprapubic catheter in place draining hematuria Extremities: Bilateral lower extremity boots Neurologic: Altered, moaning Limited neurological exam given patient's chronic encephalopathy secondary to TBI Additional Comments PROCEDURE: Single view chest. CLINICAL INDICATION: Sepsis TECHNIQUE: Single view of the chest was obtained COMPARISON: CR CHEST 05/22/2014; CR CHEST 05/18/2014; CR CHEST 05/17/2014 FINDINGS: There is mild heterogeneous opacity in the left lung base. No definite effusion or evidence of a pneumothorax. The right lung is clear. Cardiac silhouette and mediastinal contours are unremarkable. The pulmonary vasculature appears normal. There is focal discontinuity in catheter tubing overlying the right thorax. Regional bones are unremarkable. IMPRESSION: 1. Mild heterogeneous density in the left lung base compatible with atelectasis or pneumonia. 2. Discontinuity in catheter tubing overlying the right hemithorax, possibly indicating a disrupted ventriculoperitoneal shunt. RPTAT: [facility] Physician Asha Date Time Electronically viewed and signed by Physician Asha on 07/18/2018 02:42 xB/ CC: ELLA BERGER [phone] Telemetry monitoring: Sinus tachycardia MERARY SORENSEN July 18, 2018 01:36
[2018-07-18] MEDS ORDERED: NORepinephrine 8MG/250 ML (PMX 250 ML IV SCH (02:30)
[2018-07-18] MEDS: VANCOMYCIN 1 GM (PMX) 250 ML IVPB ONE ×2 (03:00)
[2018-07-18] MEDS: DEXTROSE 5% 1,000 ML IV SCH ×2 (03:29→13:41)
--- NOTE | 2018-07-18 04:16 | ERD ---
ER Documentation Chief Complaint Chief Complaint bib private amb from [facility]; blood in urine(klein); quadraplegic HPI This is a 52-year-old quadriplegic brought in from [facility] with complaints of hematuria today. Patient denies any medical history significant anoxic brain injury.. History is per EMS run sheet and halfway transfer sheet. History is obviously very limited. ROS All systems reviewed and are negative except as per history of present illness. Medications Home Meds Reported Medications Hydrocodone Bit-Acetaminophen ([place]) 1 Tab Tablet, PRN 05/03/12 Oxybutynin Chloride* (Ditropan*) 5 Mg Tab, DAILY 05/03/12 Polyethylene Glycol (Miralax) 17 Gm/Pkt Liq, DAILY 05/03/12 Docusate Sodium* (Colace*) 50 Mg Capsule, 100 MG DAILY 05/03/12 Ascorbic Acid (Ascorbic Acid) 1 Gm Granules, 500 MG DAILY 05/03/12 Gemfibrozil* (Lopid*) 600 Mg Tablet, DAILY 05/03/12 [Prostat] No Conflict Check, 30 ML DAILY 05/03/12 [Multivitamins With Minerals] No Conflict Check, 1 TAB DAILY 05/03/12 Ipratropium Orange* (Atrovent*) 2.5 Ml Nebu, PRN 05/03/12 Albuterol Sulfate* (Proventil* Neb) 0.5 Ml Nebu, PRN 05/03/12 Insulin Detemir* (Levemir*) 100 U/Ml Insuln.pen, 70 UNITS SQ DAILY 05/03/12 Aspirin (Adult Low Dose Aspirin) 81 Mg Tablet.dr, DAILY, 0 Refills 03/09/09 Multivitamins* (Multivitamins*) 1 Tab Tablet 03/09/09 Allergies Allergies: Coded Allergies: imipenem (Verified Allergy, Unknown, 05/07/18) PMhx/Soc History of Surgery: Yes (TRACH, GT, SUPRAPUBIC CATH) Hx Neurological Disorder: Yes (TRAUMATIC BRAIN INURY, QUADRAPLEGIC, ENCEPHALOPATHY) Hx Respiratory Disorders: Yes Hx Cardiac Disorders: Yes (HEART FAILURE) Hx Psychiatric Problems: No Hx Miscellaneous Medical Probl: Yes (bedbound, neurogenic bladder S/P suprapubic catheter, S/P trach & removal) Hx Alcohol Use: No (unk) Hx Substance Use: No (unk) Hx Tobacco Use: No (unk) Smoking Status: Unknown if ever smoked Physical Exam Vitals Vital Signs Date Temp Pulse Resp B/P (MAP) Pulse Ox O2 O2 Flow FiO2 Time Delivery Rate 07/18/18 99 22 83/61 (68) 97 Nasal 03:45 Cannula 07/18/18 99.4 106 25 90/57 (68) 100 Nasal 3.0 02:57 Cannula 07/18/18 105 14 91/60 (70) 100 Nasal 3.0 02:38 Cannula 07/18/18 101.1 121 31 91/62 (72) 99 Nasal 3.0 01:30 Cannula 07/18/18 145 26 142/68 99 Room Air 00:44 (92) 07/18/18 101.3 00:41 07/17/18 101.4 145 27 117/86 100 Room Air 23:30 (96) 07/17/18 98.9 106 18 109/69 98 22:00 (82) Physical Exam Const: No acute distress Head: Atraumatic Eyes: Normal Conjunctiva ENT: Normal External Ears, Nose and Mouth. Neck: Full range of motion. No meningismus. Resp: Clear to auscultation bilaterally Cardio: Regular rate and rhythm, no murmurs Abd: Soft, non tender, non distended. Normal bowel sounds. Suprapubic catheter with mild leaking around the site and mild erythema and induration. Blood noted in tube Skin: No petechiae or rashes Back: No midline or flank tenderness Ext: No cyanosis, or edema Neur: Awake and alert Psych: Normal Mood and Affect Result Diagram: 07/17/18222807/17/182228 Results 24 hrs Laboratory Tests Test 07/17/18 22:22 07/17/18 22:29 07/18/18 00:23 07/18/18 02:18 Hemoglobin A1c 4.9 % White Blood Count 10.8 10^3/ul Red Blood Count 5.37 10^6/ul Hemoglobin 13.9 g/dl Hematocrit 47.1 % Mean Corpuscular 87.7 fl Volume Mean Corpuscular 25.9 pg Hemoglobin Mean Corpuscular 29.5 g/dl Hemoglobin Concent Red Cell 16.8 % Distribution Width Platelet Count 190 10^3/UL Mean Platelet 11.3 fl Volume Immature 0.700 % Granulocytes % Neutrophils % 94.6 % Lymphocytes % 4.2 % Monocytes % 0.2 % Eosinophils % 0.0 % Basophils % 0.3 % Nucleated Red Blood 0.0 /100WBC Cells % Immature 0.080 10^3/ul Granulocytes # Neutrophils # 10.3 10^3/ul Lymphocytes # 0.5 10^3/ul Monocytes # 0.0 10^3/ul Eosinophils # 0.0 10^3/ul Basophils # 0.0 10^3/ul Nucleated Red Blood 0.0 10^3/ul Cells # Prothrombin Time 12.8 Sec Prothrombin Time 1.0 Ratio INR International 0.95 Normalized Ratio Activated 26.6 Sec Partial Thromboplas t Time Sodium Level 149 mmol/L Potassium Level 4.6 mmol/L Chloride Level 110 mmol/L Carbon Dioxide 26 mmol/L Level Anion Gap 13 Blood Urea Nitrogen 45 mg/dl Creatinine 1.18 mg/dl Est Glomerular > 60 mL/min Filtrat Rate mL/min Glucose Level 106 mg/dl Calcium Level 9.8 mg/dl Total Bilirubin 0.6 mg/dl Direct Bilirubin 0.00 mg/dl Indirect Bilirubin 0.6 mg/dl Aspartate Amino 23 IU/L Transf (AST/SGOT) Alanine 26 IU/L Aminotransferase (A LT/SGPT) Alkaline 140 IU/L Phosphatase Troponin I 0.014 ng/ml Total Protein 8.3 g/dl Albumin 4.3 g/dl Globulin 4.00 g/dl Albumin/Globulin 1.07 Ratio Lipase 130 U/L POC Venous Lactate 6.1 mmol/L Lactic Acid Level 5.7 mmol/L Current Medications Medications Dose Sig/Jaye Start Time Status Last (Trade) Ordered Route PRN Stop Time Admin Dose Reason Admin Sodium 500 ml @ Q1H STAT 07/17/18 DC 07/17/18 Chloride 500 mls/hr IV 22:03 23:30 07/17/18 23:02 Lorazepam 2 mg ONCE ONCE 07/18/18 DC 07/18/18 (Ativan) IM 00:00 01:29 07/18/18 00:01 Sodium 2,550 ml BOLUS OVER 2 07/17/18 DC 07/18/18 Chloride HOURS STAT 23:35 00:09 (NS) IV* 07/17/18 23:37 Lorazepam 2 mg STK-MED 07/17/18 DC (Ativan) ONCE .ROUTE 23:36 07/17/18 23:37 Sodium 2,550 ml @ BOLUS X1 07/18/18 DC 07/18/18 Chloride 2,550 mls/hr ONCE IV 00:00 00:16 07/18/18 00:59 Vancomycin 250 ml @ ONCE ONCE 07/18/18 DC 07/18/18 HCl 125 mls/hr IVPB 00:00 03:00 07/18/18 01:59 Aztreonam 2 100 ml @ ONCE ONCE 07/18/18 DC 07/18/18 gm/ Dextrose 100 mls/hr IVPB 00:00 00:57 07/18/18 01:30 650 mg ONCE ONCE 07/18/18 DC 07/18/18 Acetaminophen NGT 00:00 00:41 (Tylenol 07/18/18 00:01 Liquid) Sodium 1,000 ml @ [id number] IV 07/18/18 DC Chloride 70 mls/hr 01:05 07/18/18 01:36 Ondansetron 4 mg Q6H PRN 07/18/18 HCl (Zofran IV NAUSEA 01:30 Inj) AND/OR VOMITING 650 mg Q6H PRN 07/18/18 Acetaminophen GTB PAIN 01:30 (Tylenol LEVEL 1-3 OR Liquid) FEVER Morphine 2 mg Q4H PRN 07/18/18 Sulfate IV PAIN 01:30 (morphine) LEVEL 7-10 40 mg DAILY@06 07/18/18 Pantoprazole IV 06:00 (Protonix Iv) Dextrose 1,000 ml @ [id number] IV 07/18/18 07/18/18 80 mls/hr 01:30 03:29 07/19/18 01:29 50 ml @ Q12 IVPB 07/18/18 DC Meropenem/Sod 100 mls/hr 01:30 ium Chloride 07/18/18 02:05 Vancomycin VANCOMYCIN PER 07/18/18 HCl (Vanco PER PHARMACY PROTOCOL XX 01:30 Iv Per Pharmacy) Morphine 1 mg ONCE STAT 07/18/18 DC 07/18/18 Sulfate IV 01:32 01:41 (morphine) 07/18/18 01:35 Aztreonam 50 ml @ Q12 IVPB 07/18/18 100 mls/hr 09:00 250 ml @ TITRATE IV 07/18/18 07/18/18 Norepinephrin 1.875 mls/ 02:30 03:44 e hr 250 ml @ Q12H IVPB 07/18/18 Vancomycin/So 125 mls/hr 15:00 dium Chloride Procedures/MDM EKG: Rate/Rhythm: [Normal Sinus Rhythm] QRS, ST, T-waves: [No changes consistent w/ acute ischemia] Impression: [No evidence of ischemia or arrhythmia] Chest X-ray 1V Interpreted by me: Soft Tissue: No acute abnormalities Bones: No acute abnormalities Mediastinum/Cardiac Silhouette/Lungs: [No acute abnormalities] Patient's infectious symptoms have not stabilized and the patient is at risk of rapid decompensation. The patient will be admitted for careful hydration, antibiotic therapy, and infectious source control. Severe Sepsis Assessment: Infectious Source: [pyleonephritis] End organ damage indicated by: [Lactate > 2.0 mmol/L Hypotension( SBP < 90 or >40 mmHG drop or MAP < 65) Severe Sepsis Managment: Blood Cultures X 2 before broad spectrum antibiotics initiated within 3 hours of recognition which was recognized at 2335 30 ml/kg NS bolus Completed Initial Lactate: 6.1 Repeat Lactate pending Critical Care: Time: 45 minutes Treatments/Evaluations: Emergent fluid management, while maintaining close respiratory support. Immediate broad spectrum antibiotic therapy. Simultaneous assessment for possible sources in order to direct therapy. Consideration for invasive and chemical support to prevent respiratory or cardiac collapse. Septic Shock Assessment (1 hour post 30 ml/kg fluid bolus): Hypotension (SBP < 90 or 40 mmHg drop, MAP < 65): Yes Lactic acid > 4.0 yes Perfusion Reassessment for Septic Shock: Temp 99.1 pulse 111, RR 18, BP 97/71 Heart Exam: [Tachycardic] Lung Exam: [No Crackles] Capillary Refill: [Delayed] Peripheral Pulses: [Radially present] Skin: [Mottled, pale] Hypotensive Treatment (not required for isolated lactic acid elevation): Comfort Care: No Central LIne: Right femoral Vasopressor started: [norepinephrine] Accepting Care Team: Current data and ongoing care discussed. Time: 2:30 AM Primary Provider: Hospitalist Consulting: Deferred to hospitalist team Outstanding Data: none Central Line Placement by me: Patient consented, sterilely draped, full prep, gown, glove, mask, time out performed. Anesthesia: 1% lidocaine locally Location: Right femoral Device: Multiple lumen Technique: Seldinger technique. Secured with suture. Results: Venous return from all ports with easy saline flush. No complications. Departure Diagnosis: Primary Impression: Hematuria Hematuria type: unspecified type Qualified Codes: R31.9 - Hematuria, unspecified Additional Impression: Sepsis Sepsis type: sepsis due to unspecified organism Qualified Codes: A41.9 - Sepsis, unspecified organism Condition: Critical ELLA BERGER July 18, 2018 04:15
[2018-07-18] MEDS ORDERED: PANTOPRAZOLE 40 MG INJ IV SCH (06:00)
[2018-07-18] MEDS ORDERED: FOLI-49 GTB (06:48)
[2018-07-18] MEDS ORDERED: MULTI GTB (06:49)
[2018-07-18] MEDS ORDERED: IPRA3AMP29 INHALATION (06:49)
[2018-07-18] MEDS ORDERED: LANT3I SC (06:49)
[2018-07-18] MEDS ORDERED: METF500T24 GTB (06:50)
[2018-07-18] MEDS ORDERED: ZINC220T GTB (06:51)
[2018-07-18] MEDS ORDERED: AMIN30LI PO (06:51)
[2018-07-18] MEDS ORDERED: NOVO3I SC (06:55)
[2018-07-18] MEDS ORDERED: SOD CHLORIDE 0.9% 1,000 ML IV ONE (08:00)
[2018-07-18] MEDS: morphine 2 MG INJ IV PRN ×2 (08:44→18:48)
[2018-07-18] MEDS ORDERED: AZTREONAM 1 GM/NS (PMX) 50 ML IVPB SCH (09:00)
--- NOTE | 2018-07-18 09:21 | CONS ---
Assessment/Plan Assessment/Plan Hospital Course (Demo Recall) 1) UTI with sepsis in pt with suprapubic cath due to neurogenic bladder pt was in hospital in april of this year with urosepsis and had e.coli +ESBL and MRSA present continue with vanco, change aztreanom to zosyn (e.coli was sensitive to it) await final ID and sensi's of urine CT abd did not show hydronephrosis but there is some mass/cyst around the L kidney, u/s could not visualize the L kidney 2) L base effusion with atelectasis vs consolidation check procalcitonin and get nasal for MRSA vanco/zosyn should cover but pt does not seem to have respiratory distress and is resting comfortable without cough on 2L of O2 3) sacral ulcer get wound cx vanco/zosyn will cover 4) TBI with quadriplegia 5) DM 6) constipation with enlarged colon and to my eyes some thickening of colon wall pt will likely need bowel evacuants vanco/zosyn will cover for lower GI infection if present 7) ARF likely due to sepsis this has been his pattern with infection and his creatinine goes back to baseli ne 8) hypernatremia again this is not uncommon for this pt and it had resolved in the past with D5W Consultation Date/Type/Reason Admit Date/Time Date of Consultation: July 18, 2018 Type of Consult ID Date/Time of Note DATE: 07/18/18 TIME: 09:05 Hx of Present Illness Pt was admitted due to hematuria pt has found to have in ER elevated lactic acid, pyuria and leukocytosis he comes from a SNF he is unable to give any hx due to TBI he has a suprapubic cath due to neurogenic bladder and a g-tube in place no V, D has been reported Past Medical History DM, TBI, neurogenic bladder, quadriplegic Home Meds Reported Medications Insulin Aspart* (Novolog Insulin Pen*) 100 Unit/Ml Soln, 0 SC .SLIDING SCALE AC, EA 70-150 =0 units 151-200 = 2 units 201-250 = 4 units 251-300 - 6 units 301-350 = 8 units 351-400 =10 units under 60 or over 400 call 07/18/18 Zinc Sulfate* (Zinc Sulfate*) 220 Mg Tablet, 220 MG GTB DAILY, TAB 07/18/18 Amino Acids/Protein Hydrolys (PRO-STAT LIQUID) 30 Ml Liquid.pkt, 30 ML PO BID 07/18/18 Metformin Hcl* (Metformin Hcl*) 500 Mg Tablet, 500 MG GTB WITH BREAKFAST DINNE, #60 TAB 07/18/18 Multivitamins* (Theragran*) 1 Tab Tab, 1 TAB GTB DAILY, TAB 07/18/18 Insulin Glargine* (Lantus*) 100 Unit/Ml Soln, 35 UNIT SC QHS, #1 VIAL 07/18/18 Ipratropium-Albuterol (Ipratropium-Albuterol) 0.5-3 Mg/3 Ml Ampul.neb, 3 ML INHALATION Q4 PRN for WHEEZING AND SOB, #30 VIAL 07/18/18 Folic Acid* (Folic Acid*) 1 Mg Tablet, 1 MG GTB DAILY, TAB 07/18/18 Discontinued Reported Medications Hydrocodone Bit-Acetaminophen ([place]) 1 Tab Tablet, PRN 05/03/12 Oxybutynin Chloride* (Ditropan*) 5 Mg Tab, DAILY 05/03/12 Polyethylene Glycol (Miralax) 17 Gm/Pkt Liq, DAILY 05/03/12 Docusate Sodium* (Colace*) 50 Mg Capsule, 100 MG DAILY 05/03/12 Ascorbic Acid (Ascorbic Acid) 1 Gm Granules, 500 MG DAILY 05/03/12 Gemfibrozil* (Lopid*) 600 Mg Tablet, DAILY 05/03/12 [Prostat] No Conflict Check, 30 ML DAILY 05/03/12 [Multivitamins With Minerals] No Conflict Check, 1 TAB DAILY 05/03/12 Ipratropium [place]* (Atrovent*) 2.5 Ml Nebu, PRN 05/03/12 Albuterol Sulfate* (Proventil* Neb) 0.5 Ml Nebu, PRN 05/03/12 Insulin Detemir* (Levemir*) 100 U/Ml Insuln.pen, 70 UNITS SQ DAILY 05/03/12 Aspirin (Adult Low Dose Aspirin) 81 Mg Tablet.dr, DAILY, 0 Refills 03/09/09 Multivitamins* (Multivitamins*) 1 Tab Tablet 03/09/09 Medications Current Medications Ondansetron HCl (Zofran Inj) 4 mg Q6H PRN IV NAUSEA AND/OR VOMITING; Start 07/18/18 at 01:30 Acetaminophen (Tylenol Liquid) 650 mg Q6H PRN GTB PAIN LEVEL 1-3 OR FEVER; Start 07/18/18 at 01:30 Morphine Sulfate (morphine) 2 mg Q4H PRN IV PAIN LEVEL 7-10 Last administered on 07/18/18at 08:44; Admin Dose 2 MG; Start 07/18/18 at 01:30 Pantoprazole (Protonix Iv) 40 mg DAILY@06 IV Last administered on 07/18/18at 06:00; Admin Dose 40 MG; Start 07/18/18 at 06:00 Dextrose 1,000 ml @ 80 mls/hr [id number] IV Last administered on 07/18/18at 03:29; Admin Dose 80 MLS/HR; Start 07/18/18 at 01:30; Stop 07/19/18 at 01:29 Vancomycin HCl (Vanco Iv Per Pharmacy) VANCOMYCIN PER PHARMACY PER PROTOCOL XX ; Start 07/18/18 at 01:30 Aztreonam 50 ml @ 100 mls/hr Q12 IVPB ; Start 07/18/18 at 09:00 Norepinephrine 250 ml @ 1.875 mls/ hr TITRATE IV Last administered on 07/18/18at 03:44; Admin Dose 1.875 MLS/HR; Start 07/18/18 at 02:30 Vancomycin/Sodium Chloride 250 ml @ 125 mls/hr Q12H IVPB ; Start 07/18/18 at 15:00 Potassium Chloride 50 ml @ 25 mls/hr Q2H IVPB ; Start 07/18/18 at 09:30; Stop 07/18/18 at 13:29; Status UNV Allergies: Coded Allergies: imipenem (Verified Allergy, Unknown, 07/18/18) Past Surgical History g-tube, suprapubic cath Past Surgical Hx: other Social History Smoking Status: Unknown if ever smoked Exam/Review of Systems Exam Vitals Vital Signs Date Temp Pulse Resp B/P (MAP) Pulse Ox O2 O2 Flow FiO2 Time Delivery Rate 07/18/18 98 22 119/73 100 Nasal 3.0 07:45 (88) Cannula 07/18/18 98.6 07:00 Exam pt seems to shake head no when asked if he had pain he falls back to sleep easily but he was smiling Constitutional: alert Eyes: nl sclera Respiratory: clear to auscultation Cardiovascular: regular rate and rhythm Gastrointestinal: soft, non-tender Extremities: other (no edema, pics of sacrum show an ulcer, not appearing deep but general redness around ulcer ) Results Result Diagram: 07/18/18 0423 07/18/18 0423 Results 24hrs Laboratory Tests Test 07/17/18 22:22 07/17/18 22:29 07/18/18 00:23 07/18/18 02:18 Hemoglobin A1c 4.9 White Blood Count 10.8 # Red Blood Count 5.37 # Hemoglobin 13.9 #L Hematocrit 47.1 # Mean Corpuscular 87.7 Volume Mean Corpuscular 25.9 L Hemoglobin Mean Corpuscular 29.5 L Hemoglobin Concent Red Cell 16.8 H Distribution Width Platelet Count 190 Mean Platelet Volume 11.3 H Immature 0.700 H Granulocytes % Neutrophils % 94.6 H Lymphocytes % 4.2 L Monocytes % 0.2 Eosinophils % 0.0 Basophils % 0.3 Nucleated Red Blood 0.0 Cells % Immature 0.080 H Granulocytes # Neutrophils # 10.3 H Lymphocytes # 0.5 L Monocytes # 0.0 L Eosinophils # 0.0 Basophils # 0.0 Nucleated Red Blood 0.0 Cells # Prothrombin Time 12.8 Prothrombin Time 1.0 Ratio INR International 0.95 Normalized Ratio Activated 26.6 Partial Thromboplast Time Sodium Level 149 H Potassium Level 4.6 Chloride Level 110 Carbon Dioxide Level 26 Anion Gap 13 Blood Urea Nitrogen 45 H Creatinine 1.18 Est Glomerular > 60 Filtrat Rate mL/min Glucose Level 106 Calcium Level 9.8 Total Bilirubin 0.6 Direct Bilirubin 0.00 Indirect Bilirubin 0.6 Aspartate Amino 23 Transf (AST/SGOT) Alanine 26 Aminotransferase (AL T/SGPT) Alkaline Phosphatase 140 H Troponin I 0.014 Total Protein 8.3 H Albumin 4.3 Globulin 4.00 H Albumin/Globulin 1.07 Ratio Lipase 130 POC Venous Lactate 6.1 *H Lactic Acid Level 5.7 *H Test 07/18/18 04:23 07/18/18 08:28 White Blood Count 34.2 #H Red Blood Count 3.82 #L Hemoglobin 10.1 #L Hematocrit 33.3 #L Mean Corpuscular 87.2 Volume Mean Corpuscular 26.4 L Hemoglobin Mean Corpuscular 30.3 L Hemoglobin Concent Red Cell 17.0 H Distribution Width Platelet Count 150 # Mean Platelet Volume 12.4 H Immature 1.000 H Granulocytes % Neutrophils % Segmented 47 Neutrophils % (Manual) Band Neutrophils % 45 H (Manual) Lymphocytes % Lymphocytes % 2 L (Manual) Monocytes % Monocytes % (Manual) 3 Eosinophils % Eosinophils % 2 (Manual) Basophils % Metamyelocytes % 1 H (manual) Nucleated Red Blood 0.0 Cells % Immature 0.350 H Granulocytes # Neutrophils # Neutrophils # 21.3 H (Manual) Band Neutrophils # 15.3 H Lymphocytes (Manual) 0.6 L Lymphocytes # Monocytes # Monocytes # (Manual) 1.0 H Eosinophils # Basophils # Metamyelocytes # 0.3 H Nucleated Red Blood Cells # Platelet Estimate NORMAL Polychromasia 2+ Anisocytosis 2+ Microcytosis 2+ Sodium Level 147 H Potassium Level 3.2 L Chloride Level 116 H Carbon Dioxide Level 23 Anion Gap 8 Blood Urea Nitrogen 44 H Creatinine 1.35 H Est Glomerular 56 L Filtrat Rate mL/min Glucose Level 52 #L Lactic Acid Level 4.7 *H Calcium Level 8.1 L Magnesium Level 1.9 Total Bilirubin 0.5 Direct Bilirubin 0.00 Indirect Bilirubin 0.5 Aspartate Amino 22 Transf (AST/SGOT) Alanine 16 Aminotransferase (AL T/SGPT) Alkaline Phosphatase 62 # Total Protein 5.7 #L Albumin 2.9 #L Globulin 2.80 Albumin/Globulin 1.03 Ratio Triglycerides Level 196 H Cholesterol Level 90 L LDL Cholesterol, 29 Calculated HDL Cholesterol 22 L Cholesterol/HDL 4.0 Ratio Thyroid Stimulating 1.010 Hormone (TSH) Bedside Glucose 90 Medications Medication Current Medications Ondansetron HCl (Zofran Inj) 4 mg Q6H PRN IV NAUSEA AND/OR VOMITING; Start 07/18/18 at 01:30 Acetaminophen (Tylenol Liquid) 650 mg Q6H PRN GTB PAIN LEVEL 1-3 OR FEVER; Start 07/18/18 at 01:30 Morphine Sulfate (morphine) 2 mg Q4H PRN IV PAIN LEVEL 7-10 Last administered on 07/18/18at 08:44; Admin Dose 2 MG; Start 07/18/18 at 01:30 Pantoprazole (Protonix Iv) 40 mg DAILY@06 IV Last administered on 07/18/18at 06:00; Admin Dose 40 MG; Start 07/18/18 at 06:00 Dextrose 1,000 ml @ 80 mls/hr [id number] IV Last administered on 07/18/18at 03:29; Admin Dose 80 MLS/HR; Start 07/18/18 at 01:30; Stop 07/19/18 at 01:29 Vancomycin HCl (Vanco Iv Per Pharmacy) VANCOMYCIN PER PHARMACY PER PROTOCOL XX ; Start 07/18/18 at 01:30 Aztreonam 50 ml @ 100 mls/hr Q12 IVPB ; Start 07/18/18 at 09:00 Norepinephrine 250 ml @ 1.875 mls/ hr TITRATE IV Last administered on 07/18/18at 03:44; Admin Dose 1.875 MLS/HR; Start 07/18/18 at 02:30 Vancomycin/Sodium Chloride 250 ml @ 125 mls/hr Q12H IVPB ; Start 07/18/18 at 15:00 Potassium Chloride 50 ml @ 25 mls/hr Q2H IVPB ; Start 07/18/18 at 09:30; Stop 07/18/18 at 13:29; Status UNZAHEER WAN MD July 18, 2018 09:15
[2018-07-18] MEDS ORDERED: GLUCOSE GEL 15 GRAM TUBE PO PRN ×2 (09:30)
[2018-07-18] MEDS ORDERED: DEXTROSE 50% 50 ML SYRINGE IV PRN ×2 (09:30)
[2018-07-18] MEDS ORDERED: GLUCAGON 1 MG INJ IM PRN (09:30)
[2018-07-18] MEDS ORDERED: GLUCOSE GEL 15 GRAM TUBE BUCCAL PRN (09:30)
[2018-07-18] MEDS: POTASSIUM CHLORIDE 50 ML IVPB SCH ×2 (11:05→13:40)
[2018-07-18] MEDS: PIPER-TAZO 3.375 GM IV (PMX) 100 ML IVPB SCH ×3 (11:05→22:02)
[2018-07-18] MEDS: DOCUSATE SODIUM 100 MG CAP PO SCH ×2 (12:02→21:58)
[2018-07-18] MEDS: ENOXAPARIN 30 MG/0.3 ML SYG SC SCH (12:05)
[2018-07-18] MEDS: INSULIN ASPART [NOVOLOG] 3 ML PEN SC SCH ×3 (13:00→21:00)
--- NOTE | 2018-07-18 14:26 | PN ---
DATE: 07/18/2018 REASON FOR FOLLOWUP: UTI with septic shock. The patient was transferred to Intensive care unit over night on continuous vasopressor support. This morning, he is awake, alert, appears at baseline neuro logical status on the low dose Levophed. PHYSICAL EXAMINATION: VITAL SIGNS: Temperature 98, pulse is 84, blood pressure 120/73, on Levophed. NECK: Supple. No JVD or lymphadenopathy. CARDIAC: S1, S2. No added sounds or murmurs. CHEST: Diminished air entry bilaterally. No rales or wheezes. ABDOMEN: Soft, nontender. No guarding or rebound. EXTREMITIES: No cyanosis, clubbing, edema. NEUROLOGIC: Generalized weakness with contractures. LABORATORY DATA: White count 32.2, hemoglobin 10.1, platelets of 150. BUN 44, creatinine 1.35, pota ssium 3.2, sodium 147. INR 0.95. IMAGING: Chest x-ray was reviewed, which showed heterogeneous density in left base consistent with p neumonia or atelectasis. CT abdomen and pelvis shows significant stool in the bowel with evidence of fecal impaction, suprapubic catheter in place, small left pleural effusions. IMPRESSION AND PLAN: 1. Urinary tract infection with subsequent septic shock. 2. Quadriplegia with traumatic brain injury. 3. Neurogenic bladder. 4. Acute renal insufficiency, likely prerenal. 5. Significant constipation. 6. Dysphagia with G-tube. PLAN: 1. Continue broad-spectrum antibiotics per infectious diseases, currently on vancomycin and piperaci llin/tazobactam, pending culture results. 2. Continue vasopressor support. 3. Triple lumen catheter in femoral vein. 4. Aspiration precautions. 5. Tube feeding. 6. Stool softeners. 7. DVT and GI prophylaxis. Dictated By: ILEANA MARTINO MD SV/NTS Conf#: [id number] DID#: [id number] CC: MERARY SORENSEN MD; ASHLEY COLEMAN MD;*EndCC*
--- NOTE | 2018-07-18 14:58 | CONS ---
Assessment/Plan Assessment/Plan Hospital Course (Demo Recall) Summary Assessment and Plan: Assessment: Fecal impaction - Abundant retained stool throughout the colon. Stool distended sigmoid colon measuring up to 10 cm in diameter consistent with fecal impaction Sepsis 2/2/ to UTI -Leukocytosis -Elevated Lactic acid -Tachycardia on arrival- now HR WNL Query left lung base PNA CXR findings compatible with atelectasis or pneumonia. Neurogenic bladder with suprapubic catheter Chronic encephalopathy secondary to TBI -Status post prior left frontotemporal craniectomy/cranioplasty - Right frontal approach TELEMETRY RN shunt with tip anterolateral to the third ventricle TBI with quadriplegia NINA Kidney which may represent complex cyst versus mass -Work-up per hospitalist Sacral ulcer- will order wound consult Plan: Mineral oil enema /Tap water enema x1- mixed together lactulose 20gm q2 hrs x4 doses Continue to monitor Antibiotics per [employer] for g-tube feedings Patient seen in collaboration with Dr. De Dios CC: CLARK DE DIOS MD ; Consultation Date/Type/Reason Admit Date/Time Date of Consultation: July 18, 2018 Type of Consult GI Reason for Consultation Fecal impaction Date/Time of Note DATE: 07/18/18 TIME: 14:15 Hx of Present Illness This is a 52 year old male with PMH of TBI with quadriplegia, DM who was admitted for UTI with sepsis. With work-up in the ED imaging was obtained showing abundant retained stool throughout the colon. Stool distended sigmoid colon measuring up to 10 cm in diameter consistent with fecal impaction. At time of evaluation pt had x1 moderate sized soft/loose stool, greenish in color. Given findings on CT scan will continue aggressive treatment for bowel evacuation Subjective hx not possible: other (confused) Past Medical History Home Meds Reported Medications Insulin Aspart* (Novolog Insulin Pen*) 100 Unit/Ml Soln, 0 SC .SLIDING SCALE AC, EA 70-150 =0 units 151-200 = 2 units 201-250 = 4 units 251-300 - 6 units 301-350 = 8 units 351-400 =10 units under 60 or over 400 call 07/18/18 Zinc Sulfate* (Zinc Sulfate*) 220 Mg Tablet, 220 MG GTB DAILY, TAB 07/18/18 Amino Acids/Protein Hydrolys (PRO-STAT LIQUID) 30 Ml Liquid.pkt, 30 ML PO BID 07/18/18 Metformin Hcl* (Metformin Hcl*) 500 Mg Tablet, 500 MG GTB WITH BREAKFAST DINNE, #60 TAB 07/18/18 Multivitamins* (Theragran*) 1 Tab Tab, 1 TAB GTB DAILY, TAB 07/18/18 Insulin Glargine* (Lantus*) 100 Unit/Ml Soln, 35 UNIT SC QHS, #1 VIAL 07/18/18 Ipratropium-Albuterol (Ipratropium-Albuterol) 0.5-3 Mg/3 Ml Ampul.neb, 3 ML INHALATION Q4 PRN for WHEEZING AND SOB, #30 VIAL 07/18/18 Folic Acid* (Folic Acid*) 1 Mg Tablet, 1 MG GTB DAILY, TAB 07/18/18 Discontinued Reported Medications Hydrocodone Bit-Acetaminophen ([place]) 1 Tab Tablet, PRN 05/03/12 Oxybutynin Chloride* (Ditropan*) 5 Mg Tab, DAILY 05/03/12 Polyethylene Glycol (Miralax) 17 Gm/Pkt Liq, DAILY 05/03/12 Docusate Sodium* (Colace*) 50 Mg Capsule, 100 MG DAILY 05/03/12 Ascorbic Acid (Ascorbic Acid) 1 Gm Granules, 500 MG DAILY 05/03/12 Gemfibrozil* (Lopid*) 600 Mg Tablet, DAILY 05/03/12 [Prostat] No Conflict Check, 30 ML DAILY 05/03/12 [Multivitamins With Minerals] No Conflict Check, 1 TAB DAILY 05/03/12 Ipratropium [place]* (Atrovent*) 2.5 Ml Nebu, PRN 05/03/12 Albuterol Sulfate* (Proventil* Neb) 0.5 Ml Nebu, PRN 05/03/12 Insulin Detemir* (Levemir*) 100 U/Ml Insuln.pen, 70 UNITS SQ DAILY 05/03/12 Aspirin (Adult Low Dose Aspirin) 81 Mg Tablet.dr, DAILY, 0 Refills 03/09/09 Multivitamins* (Multivitamins*) 1 Tab Tablet 03/09/09 Medications Current Medications Ondansetron HCl (Zofran Inj) 4 mg Q6H PRN IV NAUSEA AND/OR VOMITING; Start 07/18/18 at 01:30 Acetaminophen (Tylenol Liquid) 650 mg Q6H PRN GTB PAIN LEVEL 1-3 OR FEVER; Start 07/18/18 at 01:30 Morphine Sulfate (morphine) 2 mg Q4H PRN IV PAIN LEVEL 7-10 Last administered on 07/18/18at 08:44; Admin Dose 2 MG; Start 07/18/18 at 01:30 Dextrose 1,000 ml @ 80 mls/hr [id number] IV Last administered on 07/18/18at 13:41; Admin Dose 80 MLS/HR; Start 07/18/18 at 01:30; Stop 07/19/18 at 01:29 Vancomycin HCl (Vanco Iv Per Pharmacy) VANCOMYCIN PER PHARMACY PER PROTOCOL XX ; Start 07/18/18 at 01:30 Norepinephrine 250 ml @ 1.875 mls/ hr TITRATE IV Last administered on 07/18/18at 03:44; Admin Dose 1.875 MLS/HR; Start 07/18/18 at 02:30 Vancomycin/Sodium Chloride 250 ml @ 125 mls/hr Q12H IVPB ; Start 07/18/18 at 15:00 Piperacillin Sod/ Tazobactam Sod 100 ml @ 200 mls/hr Q6H IVPB Last administered on 07/18/18at 11:05; Admin Dose 200 MLS/HR; Start 07/18/18 at 09:30 Diagnostic Test (Pha) (Accu-Chek) 1 ea 02 XX ; Start 07/19/18 at 02:00 Insulin Aspart (Novolog Insulin Pen) NOVOLOG *MILD* ALGORI... Q4 SC ; Start 07/18/18 at 13:00 Miscellaneous Information 1 ea NOTE XX ; Start 07/18/18 at 09:30 Glucose (Glutose) 15 gm Q15M PRN PO DECREASED GLUCOSE; Start 07/18/18 at 09:30 Glucose (Glutose) 22.5 gm Q15M PRN PO DECREASED GLUCOSE; Start 07/18/18 at 09:30 Dextrose (D50w Syringe) 25 ml Q15M PRN IV DECREASED GLUCOSE; Start 07/18/18 at 09:30 Dextrose (D50w Syringe) 50 ml Q15M PRN IV DECREASED GLUCOSE; Start 07/18/18 at 09:30 Glucagon (Glucagen) 1 mg Q15M PRN IM DECREASED GLUCOSE; Start 07/18/18 at 09:30 Glucose (Glutose) 15 gm Q15M PRN BUCCAL DECREASED GLUCOSE; Start 07/18/18 at 09:30 Docusate Sodium (Colace) 100 mg BID PO Last administered on 07/18/18at 12:02; Admin Dose 100 MG; Start 07/18/18 at 10:00 Enoxaparin Sodium (Lovenox) 30 mg DAILY SC Last administered on 07/18/18at 12:05; Admin Dose 30 MG; Start 07/18/18 at 10:00 Famotidine (Pepcid Iv) 20 mg BID IV ; Start 07/19/18 at 09:00 Miscellaneous Information (*Rx Drug Level Order Reminder*) VANCO TROUGH @ 1,400 1400 ONCE XX ; Start 07/19/18 at 14:00; Stop 07/19/18 at 14:01 Allergies: Coded Allergies: imipenem (Verified Allergy, Unknown, 07/18/18) Past Surgical History Past Surgical Hx: other Social History Smoking Status: Unknown if ever smoked Exam/Review of Systems Exam Vitals Vital Signs Date Temp Pulse Resp B/P (MAP) Pulse Ox O2 O2 Flow FiO2 Time Delivery Rate 07/18/18 77 12:00 07/18/18 97.5 12:00 07/18/18 23 120/73 100 09:00 (89) 07/18/18 Nasal 2.0 08:15 Cannula Exam PHYSICAL EXAMINATION: GENERAL: Well developed, well nourished, alert & oriented x 1 SKIN: No lesions HEAD: Normocephalic, atraumatic, no tenderness. EYES: Pupils equal reactive to light and accommodation, no discharge. EARS/NOSE AND THROAT: Ears normal, nose normal. NECK: Supple, no masses. CHEST: Inspection within normal limits. CARDIOVASCULAR: Heart: Regular rate and rhythm RESPIRATORY: Lungs clear to auscultation GASTROINTESTINAL AND LIVER: Abdomen: Soft, non tenderness, non-distended, no hernias, no masses, no organomegaly, no ascites, no guarding, no rebound tenderness, normoactive bowel sounds. Rectal: Deferred. EXTREMITIES: No cyanosis, clubbing or edema. Results Result Diagram: 07/18/18 0423 07/18/18 0423 Results 24hrs Laboratory Tests Test 07/17/18 22:22 07/17/18 22:29 07/18/18 00:23 07/18/18 02:18 Hemoglobin A1c 4.9 White Blood Count 10.8 # Red Blood Count 5.37 # Hemoglobin 13.9 #L Hematocrit 47.1 # Mean Corpuscular 87.7 Volume Mean Corpuscular 25.9 L Hemoglobin Mean Corpuscular 29.5 L Hemoglobin Concent Red Cell 16.8 H Distribution Width Platelet Count 190 Mean Platelet Volume 11.3 H Immature 0.700 H Granulocytes % Neutrophils % 94.6 H Lymphocytes % 4.2 L Monocytes % 0.2 Eosinophils % 0.0 Basophils % 0.3 Nucleated Red Blood 0.0 Cells % Immature 0.080 H Granulocytes # Neutrophils # 10.3 H Lymphocytes # 0.5 L Monocytes # 0.0 L Eosinophils # 0.0 Basophils # 0.0 Nucleated Red Blood 0.0 Cells # Prothrombin Time 12.8 Prothrombin Time 1.0 Ratio INR International 0.95 Normalized Ratio Activated 26.6 Partial Thromboplast Time Sodium Level 149 H Potassium Level 4.6 Chloride Level 110 Carbon Dioxide Level 26 Anion Gap 13 Blood Urea Nitrogen 45 H Creatinine 1.18 Est Glomerular > 60 Filtrat Rate mL/min Glucose Level 106 Calcium Level 9.8 Total Bilirubin 0.6 Direct Bilirubin 0.00 Indirect Bilirubin 0.6 Aspartate Amino 23 Transf (AST/SGOT) Alanine 26 Aminotransferase (AL T/SGPT) Alkaline Phosphatase 140 H Troponin I 0.014 Total Protein 8.3 H Albumin 4.3 Globulin 4.00 H Albumin/Globulin 1.07 Ratio Lipase 130 POC Venous Lactate 6.1 *H Lactic Acid Level 5.7 *H Test 07/18/18 04:23 07/18/18 08:28 07/18/18 13:35 White Blood Count 34.2 #H Red Blood Count 3.82 #L Hemoglobin 10.1 #L Hematocrit 33.3 #L Mean Corpuscular 87.2 Volume Mean Corpuscular 26.4 L Hemoglobin Mean Corpuscular 30.3 L Hemoglobin Concent Red Cell 17.0 H Distribution Width Platelet Count 150 # Mean Platelet Volume 12.4 H Immature 1.000 H Granulocytes % Neutrophils % Segmented 47 Neutrophils % (Manual) Band Neutrophils % 45 H (Manual) Lymphocytes % Lymphocytes % 2 L (Manual) Monocytes % Monocytes % (Manual) 3 Eosinophils % Eosinophils % 2 (Manual) Basophils % Metamyelocytes % 1 H (manual) Nucleated Red Blood 0.0 Cells % Immature 0.350 H Granulocytes # Neutrophils # Neutrophils # 21.3 H (Manual) Band Neutrophils # 15.3 H Lymphocytes (Manual) 0.6 L Lymphocytes # Monocytes # Monocytes # (Manual) 1.0 H Eosinophils # Basophils # Metamyelocytes # 0.3 H Nucleated Red Blood Cells # Platelet Estimate NORMAL Polychromasia 2+ Anisocytosis 2+ Microcytosis 2+ Sodium Level 147 H Potassium Level 3.2 L Chloride Level 116 H Carbon Dioxide Level 23 Anion Gap 8 Blood Urea Nitrogen 44 H Creatinine 1.35 H Est Glomerular 56 L Filtrat Rate mL/min Glucose Level 52 #L Lactic Acid Level 4.7 *H Calcium Level 8.1 L Magnesium Level 1.9 Total Bilirubin 0.5 Direct Bilirubin 0.00 Indirect Bilirubin 0.5 Aspartate Amino 22 Transf (AST/SGOT) Alanine 16 Aminotransferase (AL T/SGPT) Alkaline Phosphatase 62 # Total Protein 5.7 #L Albumin 2.9 #L Globulin 2.80 Albumin/Globulin 1.03 Ratio Triglycerides Level 196 H Cholesterol Level 90 L LDL Cholesterol, 29 Calculated HDL Cholesterol 22 L Cholesterol/HDL 4.0 Ratio Thyroid Stimulating 1.010 Hormone (TSH) Bedside Glucose 90 83 Medications Medication Current Medications Ondansetron HCl (Zofran Inj) 4 mg Q6H PRN IV NAUSEA AND/OR VOMITING; Start 07/18/18 at 01:30 Acetaminophen (Tylenol Liquid) 650 mg Q6H PRN GTB PAIN LEVEL 1-3 OR FEVER; Start 07/18/18 at 01:30 Morphine Sulfate (morphine) 2 mg Q4H PRN IV PAIN LEVEL 7-10 Last administered on 07/18/18at 08:44; Admin Dose 2 MG; Start 07/18/18 at 01:30 Dextrose 1,000 ml @ 80 mls/hr [id number] IV Last administered on 07/18/18at 13:41; Admin Dose 80 MLS/HR; Start 07/18/18 at 01:30; Stop 07/19/18 at 01:29 Vancomycin HCl (Vanco Iv Per Pharmacy) VANCOMYCIN PER PHARMACY PER PROTOCOL XX ; Start 07/18/18 at 01:30 Norepinephrine 250 ml @ 1.875 mls/ hr TITRATE IV Last administered on 07/18/18at 03:44; Admin Dose 1.875 MLS/HR; Start 07/18/18 at 02:30 Vancomycin/Sodium Chloride 250 ml @ 125 mls/hr Q12H IVPB ; Start 07/18/18 at 15:00 Piperacillin Sod/ Tazobactam Sod 100 ml @ 200 mls/hr Q6H IVPB Last admin istered on 07/18/18at 11:05; Admin Dose 200 MLS/HR; Start 07/18/18 at 09:30 Diagnostic Test (Pha) (Accu-Chek) 1 ea 02 XX ; Start 07/19/18 at 02:00 Insulin Aspart (Novolog Insulin Pen) NOVOLOG *MILD* [place]I... Q4 SC ; Start 07/18/18 at 13:00 Miscellaneous Information 1 ea NOTE XX ; Start 07/18/18 at 09:30 Glucose (Glutose) 15 gm Q15M PRN PO DECREASED GLUCOSE; Start 07/18/18 at 09:30 Glucose (Glutose) 22.5 gm Q15M PRN PO DECREASED GLUCOSE; Start 07/18/18 at 09:30 Dextrose (D50w Syringe) 25 ml Q15M PRN IV DECREASED GLUCOSE; Start 07/18/18 at 09:30 Dextrose (D50w Syringe) 50 ml Q15M PRN IV DECREASED GLUCOSE; Start 07/18/18 at 09:30 Glucagon (Glucagen) 1 mg Q15M PRN IM DECREASED GLUCOSE; Start 07/18/18 at 09:30 Glucose (Glutose) 15 gm Q15M PRN BUCCAL DECREASED GLUCOSE; Start 07/18/18 at 09 :30 Docusate Sodium (Colace) 100 mg BID PO Last administered on 07/18/18at 12:02; Admin Dose 100 MG; Start 07/18/18 at 10:00 Enoxaparin Sodium (Lovenox) 30 mg DAILY SC Last administered on 07/18/18at 12:05; Admin Dose 30 MG; Start 07/18/18 at 10:00 Famotidine (Pepcid Iv) 20 mg BID IV ; Start 07/19/18 at 09:00 Miscellaneous Information (*Rx Drug Level Order Reminder*) VANCO TROUGH @ 1,400 1400 ONCE XX ; Start 07/19/18 at 14:00; Stop 07/19/18 at 14:01 SONU RENO July 18, 2018 14:25
[2018-07-18] MEDS ORDERED: LACTULOSE 30ML CUP PO SCH (15:00)
[2018-07-18] MEDS: LACTULOSE 30ML CUP GTB SCH ×4 (15:26→21:59)
[2018-07-18] MEDS: VANCOMYCIN 750 MG (PMX) 250 ML IVPB SCH (15:27)
[2018-07-18] MEDS ORDERED: MINERAL OIL 133 ML ENEMA PR ONE (16:00)
--- NOTE | 2018-07-18 18:27 | CONS ---
Assessment/Plan Assessment/Plan Hospital Course (Demo Recall) 52-year-old male known to de for many years. He does have a history of neurogenic bladder and he had severe urethral strictures that may does put a suprapubic tube for him many years ago. His suprapubic tube has been changed in the intermediate facility. Patient was admitted to the hospital with gross hematuria. CT scan of the abdomen and pelvis showed that the suprapubic tube he has is pushed into the urethra. I will have to change the suprapubic tube and the hematuria is most likely related to his infection. Consultation Date/Type/Reason Admit Date/Time Date of Consultation: July 18, 2018 Type of Consult Urology Reason for Consultation Gross hematuria Requesting Provider: MERARY SORENSEN Date/Time of Note DATE: 07/18/18 TIME: 18:22 Hx of Present Illness 52-year-old male known to de for many years. He does have a history of neurogenic bladder and he had severe urethral strictures that may does put a márquez prapubic tube for him many years ago. His suprapubic tube has been changed in the intermediate facility. Patient was admitted to the hospital with gross hematuria. CT scan of the abdomen and pelvis showed that the suprapubic tube he has is pushed into the urethra. Subjective hx not possible: pt non-verbal Past Medical History Home Meds Reported Medications Insulin Aspart* (Novolog Insulin Pen*) 100 Unit/Ml Soln, 0 SC .SLIDING SCALE AC, EA 70-150 =0 units 151-200 = 2 units 201-250 = 4 units 251-300 - 6 units 301-350 = 8 units 351-400 =10 units under 60 or over 400 call 07/18/18 Zinc Sulfate* (Zinc Sulfate*) 220 Mg Tablet, 220 MG GTB DAILY, TAB 07/18/18 Amino Acids/Protein Hydrolys (PRO-STAT LIQUID) 30 Ml Liquid.pkt, 30 ML PO BID 07/18/18 Metformin Hcl* (Metformin Hcl*) 500 Mg Tablet, 500 MG GTB WITH BREAKFAST DINNE, #60 TAB 07/18/18 Multivitamins* (Theragran*) 1 Tab Tab, 1 TAB GTB DAILY, TAB 07/18/18 Insulin Glargine* (Lantus*) 100 Unit/Ml Soln, 35 UNIT SC QHS, #1 VIAL 07/18/18 Ipratropium-Albuterol (Ipratropium-Albuterol) 0.5-3 Mg/3 Ml Ampul.neb, 3 ML INHALATION Q4 PRN for WHEEZING AND SOB, #30 VIAL 07/18/18 Folic Acid* (Folic Acid*) 1 Mg Tablet, 1 MG GTB DAILY, TAB 07/18/18 Discontinued Reported Medications Hydrocodone Bit-Acetaminophen ([place]) 1 Tab Tablet, PRN 05/03/12 Oxybutynin Chloride* (Ditropan*) 5 Mg Tab, DAILY 05/03/12 Polyethylene Glycol (Miralax) 17 Gm/Pkt Liq, DAILY 05/03/12 Docusate Sodium* (Colace*) 50 Mg Capsule, 100 MG DAILY 05/03/12 Ascorbic Acid (Ascorbic Acid) 1 Gm Granules, 500 MG DAILY 05/03/12 Gemfibrozil* (Lopid*) 600 Mg Tablet, DAILY 05/03/12 [Prostat] No Conflict Check, 30 ML DAILY 05/03/12 [Multivitamins With Minerals] No Conflict Check, 1 TAB DAILY 05/03/12 Ipratropium Glynn* (Atrovent*) 2.5 Ml Nebu, PRN 05/03/12 Albuterol Sulfate* (Proventil* Neb) 0.5 Ml Nebu, PRN 05/03/12 Insulin Detemir* (Levemir*) 100 U/Ml Insuln.pen, 70 UNITS SQ DAILY 05/03/12 Aspirin (Adult Low Dose Aspirin) 81 Mg Tablet.dr, DAILY, 0 Refills 03/09/09 Multivitamins* (Multivitamins*) 1 Tab Tablet 03/09/09 Medications Current Medications Ondansetron HCl (Zofran Inj) 4 mg Q6H PRN IV NAUSEA AND/OR VOMITING; Start 07/18/18 at 01:30 Acetaminophen (Tylenol Liquid) 650 mg Q6H PRN GTB PAIN LEVEL 1-3 OR FEVER; Start 07/18/18 at 01:30 Morphine Sulfate (morphine) 2 mg Q4H PRN IV PAIN LEVEL 7-10 Last administered on 07/18/18at 08:44; Admin Dose 2 MG; Start 07/18/18 at 01:30 Dextrose 1,000 ml @ 80 mls/hr [id number] IV Last administered on 07/18/18at 13:41; Admin Dose 80 MLS/HR; Start 07/18/18 at 01:30; Stop 07/19/18 at 01:29 Vancomycin HCl (Vanco Iv Per Pharmacy) VANCOMYCIN PER PHARMACY PER PROTOCOL XX ; Start 07/18/18 at 01:30 Norepinephrine 250 ml @ 1.875 mls/ hr TITRATE IV Last administered on 07/18/18at 03:44; Admin Dose 1.875 MLS/HR; Start 07/18/18 at 02:30 Vancomycin/Sodium Chloride 250 ml @ 125 mls/hr Q12H IVPB Last administered on 07/18/18at 15:27; Admin Dose 125 MLS/HR; Start 07/18/18 at 15:00 Piperacillin Sod/ Tazobactam Sod 100 ml @ 200 mls/hr Q6H IVPB Last administered on 07/18/18at 16:16; Admin Dose 200 MLS/HR; Start 07/18/18 at 09:30 Diagnostic Test (Pha) (Accu-Chek) 1 ea 02 XX ; Start 07/19/18 at 02:00 Insulin Aspart (Novolog Insulin Pen) NOVOLOG *MILD* ALGORI... Q4 SC ; Start 07/18/18 at 13:00 Miscellaneous Information 1 ea NOTE XX ; Start 07/18/18 at 09:30 Glucose (Glutose) 15 gm Q15M PRN PO DECREASED GLUCOSE; Start 07/18/18 at 09:30 Glucose (Glutose) 22.5 gm Q15M PRN PO DECREASED GLUCOSE; Start 07/18/18 at 09:30 Dextrose (D50w Syringe) 25 ml Q15M PRN IV DECREASED GLUCOSE; Start 07/18/18 at 09:30 Dextrose (D50w Syringe) 50 ml Q15M PRN IV DECREASED GLUCOSE Last administered on 07/18/18at 17:21; Admin Dose 50 ML; Start 07/18/18 at 09:30 Glucagon (Glucagen) 1 mg Q15M PRN IM DECREASED GLUCOSE; Start 07/18/18 at 09:30 Glucose (Glutose) 15 gm Q15M PRN BUCCAL DECREASED GLUCOSE; Start 07/18/18 at 09:30 Docusate Sodium (Colace) 100 mg BID PO Last administered on 07/18/18at 12:02; Admin Dose 100 MG; Start 07/18/18 at 10:00 Enoxaparin Sodium (Lovenox) 30 mg DAILY SC Last administered on 07/18/18at 12:05; Admin Dose 30 MG; Start 07/18/18 at 10:00 Famotidine (Pepcid Iv) 20 mg BID IV ; Start 07/19/18 at 09:00 Miscellaneous Information (*Rx Drug Level Order Reminder*) VANCO TROUGH @ 1,400 1400 ONCE XX ; Start 07/19/18 at 14:00; Stop 07/19/18 at 14:01 Lactulose (Enulose) 20 gm Q2 GTB Last administered on 07/18/18at 17:30; Admin Dose 20 GM; Start 07/18/18 at 15:00; Stop 07/18/18 at 21:01 Allergies: Coded Allergies: imipenem (Verified Allergy, Unknown, 07/18/18) Past Surgical History Past Surgical Hx: other Social History Smoking Status: Unknown if ever smoked Exam/Review of Systems Exam Vitals Vital Signs Date Temp Pulse Resp B/P (MAP) Pulse Ox O2 O2 Flow FiO2 Time Delivery Rate 07/18/18 72 16:00 07/18/18 19 118/77 97 15:15 (91) 07/18/18 Nasal 12:00 Cannula 07/18/18 97.5 12:00 07/18/18 2.0 08:15 Results Result Diagram: 07/18/18 0423 07/18/18 0423 Results 24hrs Laboratory Tests Test 07/17/18 22:22 07/17/18 22:29 07/18/18 00:23 07/18/18 02:18 Hemoglobin A1c 4.9 White Blood Count 10.8 # Red Blood Count 5.37 # Hemoglobin 13.9 #L Hematocrit 47.1 # Mean Corpuscular 87.7 Volume Mean Corpuscular 25.9 L Hemoglobin Mean Corpuscular 29.5 L Hemoglobin Concent Red Cell 16.8 H Distribution Width Platelet Count 190 Mean Platelet Volume 11.3 H Immature 0.700 H Granulocytes % Neutrophils % 94.6 H Lymphocytes % 4.2 L Monocytes % 0.2 Eosinophils % 0.0 Basophils % 0.3 Nucleated Red Blood 0.0 Cells % Immature 0.080 H Granulocytes # Neutrophils # 10.3 H Lymphocytes # 0.5 L Monocytes # 0.0 L Eosinophils # 0.0 Basophils # 0.0 Nucleated Red Blood 0.0 Cells # Prothrombin Time 12.8 Prothrombin Time 1.0 Ratio INR International 0.95 Normalized Ratio Activated 26.6 Partial Thromboplast Time Sodium Level 149 H Potassium Level 4.6 Chloride Level 110 Carbon Dioxide Level 26 Anion Gap 13 Blood Urea Nitrogen 45 H Creatinine 1.18 Est Glomerular > 60 Filtrat Rate mL/min Glucose Level 106 Calcium Level 9.8 Total Bilirubin 0.6 Direct Bilirubin 0.00 Indirect Bilirubin 0.6 Aspartate Amino 23 Transf (AST/SGOT) Alanine 26 Aminotransferase (AL T/SGPT) Alkaline Phosphatase 140 H Troponin I 0.014 Total Protein 8.3 H Albumin 4.3 Globulin 4.00 H Albumin/Globulin 1.07 Ratio Lipase 130 POC Venous Lactate 6.1 *H Lactic Acid Level 5.7 *H Test 07/18/18 04:23 07/18/18 08:28 07/18/18 13:35 07/18/18 17:14 White Blood Count 34.2 #H Red Blood Count 3.82 #L Hemoglobin 10.1 #L Hematocrit 33.3 #L Mean Corpuscular 87.2 Volume Mean Corpuscular 26.4 L Hemoglobin Mean Corpuscular 30.3 L Hemoglobin Concent Red Cell 17.0 H Distribution Width Platelet Count 150 # Mean Platelet Volume 12.4 H Immature 1.000 H Granulocytes % Neutrophils % Segmented 47 Neutrophils % (Manual) Band Neutrophils % 45 H (Manual) Lymphocytes % Lymphocytes % 2 L (Manual) Monocytes % Monocytes % (Manual) 3 Eosinophils % Eosinophils % 2 (Manual) Basophils % Metamyelocytes % 1 H (manual) Nucleated Red Blood 0.0 Cells % Immature 0.350 H Granulocytes # Neutrophils # Neutrophils # 21.3 H (Manual) Band Neutrophils # 15.3 H Lymphocytes (Manual) 0.6 L Lymphocytes # Monocytes # Monocytes # (Manual) 1.0 H Eosinophils # Basophils # Metamyelocytes # 0.3 H Nucleated Red Blood Cells # Platelet Estimate NORMAL Polychromasia 2+ Anisocytosis 2+ Microcytosis 2+ Sodium Level 147 H Potassium Level 3.2 L Chloride Level 116 H Carbon Dioxide Level 23 Anion Gap 8 Blood Urea Nitrogen 44 H Creatinine 1.35 H Est Glomerular 56 L Filtrat Rate mL/min Glucose Level 52 #L Lactic Acid Level 4.7 *H Calcium Level 8.1 L Magnesium Level 1.9 Total Bilirubin 0.5 Direct Bilirubin 0.00 Indirect Bilirubin 0.5 Aspartate Amino 22 Transf (AST/SGOT) Alanine 16 Aminotransferase (AL T/SGPT) Alkaline Phosphatase 62 # Total Protein 5.7 #L Albumin 2.9 #L Globulin 2.80 Albumin/Globulin 1.03 Ratio Triglycerides Level 196 H Cholesterol Level 90 L LDL Cholesterol, 29 Calculated HDL Cholesterol 22 L Cholesterol/HDL 4.0 Ratio Thyroid Stimulating 1.010 Hormone (TSH) Bedside Glucose 90 83 50 L Test 07/18/18 17:45 Bedside Glucose 105 Medications Medication Current Medications Ondansetron HCl (Zofran Inj) 4 mg Q6H PRN IV NAUSEA AND/OR VOMITING; Start 07/18/18 at 01:30 Acetaminophen (Tylenol Liquid) 650 mg Q6H PRN GTB PAIN LEVEL 1-3 OR FEVER; Start 07/18/18 at 01:30 Morphine Sulfate (morphine) 2 mg Q4H PRN IV PAIN LEVEL 7-10 Last administered on 07/18/18at 08:44; Admin Dose 2 MG; Start 07/18/18 at 01:30 Dextrose 1,000 ml @ 80 mls/hr [id number] IV Last administered on 07/18/18at 13:41; Admin Dose 80 MLS/HR; Start 07/18/18 at 01:30; Stop 07/19/18 at 01:29 Vancomycin HCl (Vanco Iv Per Pharmacy) VANCOMYCIN PER PHARMACY PER PROTOCOL XX ; Start 07/18/18 at 01:30 Norepinephrine 250 ml @ 1.875 mls/ hr TITRATE IV Last administered on 07/18/18at 03:44; Admin Dose 1.875 MLS/HR; Start 07/18/18 at 02:30 Vancomycin/Sodium Chloride 250 ml @ 125 mls/hr Q12H IVPB Last administered on 07/18/18at 15:27; Admin Dose 125 MLS/HR; Start 07/18/18 at 15:00 Piperacillin Sod/ Tazobactam Sod 100 ml @ 200 mls/hr Q6H IVPB Last administered on 07/18/18at 16:16; Admin Dose 200 MLS/HR; Start 07/18/18 at 09:30 Diagnostic Test (Pha) (Accu-Chek) 1 02 XX ; Start 07/19/18 at 02:00 Insulin Aspart (Novolog Insulin Pen) NOVOLOG *MILD* ALGORI... Q4 SC ; Start 07/18/18 at 13:00 Miscellaneous Information 1 ea NOTE XX ; Start 07/18/18 at 09:30 Glucose (Glutose) 15 gm Q15M PRN PO DECREASED GLUCOSE; Start 07/18/18 at 09:30 Glucose (Glutose) 22.5 gm Q15M PRN PO DECREASED GLUCOSE; Start 07/18/18 at 09:30 Dextrose (D50w Syringe) 25 ml Q15M PRN IV DECREASED GLUCOSE; Start 07/18/18 at 09:30 Dextrose (D50w Syringe) 50 ml Q15M PRN IV DECREASED GLUCOSE Last administered on 07/18/18at 17:21; Admin Dose 50 ML; Start 07/18/18 at 09:30 Glucagon (Glucagen) 1 mg Q15M PRN IM DECREASED GLUCOSE; Start 07/18/18 at 09:30 Glucose (Glutose) 15 gm Q15M PRN BUCCAL DECREASED GLUCOSE; Start 07/18/18 at 09:30 Docusate Sodium (Colace) 100 mg BID PO Last administered on 07/18/18at 12:02; Admin Dose 100 MG; Start 07/18/18 at 10:00 Enoxaparin Sodium (Lovenox) 30 mg DAILY SC Last administered on 07/18/18at 12:05; Admin Dose 30 MG; Start 07/18/18 at 10:00 Famotidine (Pepcid Iv) 20 mg BID IV ; Start 07/19/18 at 09:00 Miscellaneous Information (*Rx Drug Level Order Reminder*) VANCO TROUGH @ 1,400 1400 ONCE XX ; Start 07/19/18 at 14:00; Stop 07/19/18 at 14:01 Lactulose (Enulose) 20 gm Q2 GTB Last administered on 07/18/18at 17:30; Admin Dose 20 GM; Start 07/18/18 at 15:00; Stop 07/18/18 at 21:01 ASHLEY COLEMAN MD July 18, 2018 18:27
[2018-07-19] VITALS (36 sets, daily range): BP systolic 101–145; BP diastolic 57–84; PULSE 72–96; RESP 12–32
[2018-07-19] MEDS: INSULIN ASPART [NOVOLOG] 3 ML PEN SC SCH ×6 (01:00→20:34)
[2018-07-19] MEDS: ACCU-CHEK XX SCH (02:20)
[2018-07-19] MEDS: VANCOMYCIN 750 MG (PMX) 250 ML IVPB SCH ×2 (03:34→16:13)
[2018-07-19] MEDS: PIPER-TAZO 3.375 GM IV (PMX) 100 ML IVPB SCH ×4 (03:36→21:30)
--- NOTE | 2018-07-19 07:01 | CONS ---
Assessment/Plan Assessment/Plan Hospital Course (Demo Recall) 1) UTI with sepsis in pt with suprapubic cath due to neurogenic bladder pt was in hospital in april of this year with urosepsis and had e.coli +ESBL and MRSA present continue with vanco, change aztreanom to zosyn (e.coli was sensitive to it) await final ID and sensi's of urine CT abd did not show hydronephrosis but there is some mass/cyst around the L kidney, u/s could not visualize the L kidney 07/19 - urine cx and blood cx are NGTD continue with vanco/zosyn at present, improved temps and WBC 2) L base effusion with atelectasis vs consolidation check procalcitonin and get nasal for MRSA vanco/zosyn should cover but pt does not seem to have respiratory distress and is resting comfortable without cough on 2L of O2 07/19 - stable, procalcitonin is pending 3) sacral ulcer get wound cx vanco/zosyn will cover 07/19 - stage III ulcer, cx is pending wound care to see pt 4) TBI with quadriplegia 5) DM 6) constipation with enlarged colon and to my eyes some thickening of colon wall pt will likely need bowel evacuants vanco/zosyn will cover for lower GI infection if present 07/19 - no abd pain and lots of stool in last 24 hours 7) ARF likely due to sepsis this has been his pattern with infection and his creatinine goes back to bas thang 07/19 - improved creatinine 8) hypernatremia again this is not uncommon for this pt and it had resolved in the past with D5W Consultation Date/Type/Reason Admit Date/Time July 18, 2018 at 00:56 Initial Consult Date 07/18/18 Type of Consult ID Requesting Provider: MERARY SORENSEN Date/Time of Note DATE: 07/19/18 TIME: 06:57 24 HR Interval Summary Free Text/Dictation pt denies pain but seems to say no to everything nurse reports lots of stool formed and liquid no V Exam/Review of Systems Exam Vitals Vital Signs Date Temp Pulse Resp B/P (MAP) Pulse Ox O2 O2 Flow FiO2 Time Delivery Rate 07/19/18 82 20 112/67 97 Nasal 06:00 (82) Cannula 07/19/18 98.5 04:00 07/18/18 2.0 20:00 Intake and Output 07/18/18 07/18/18 07/19/18 1515:00 23:00 07:00 IntakeIntake Total 160 ml 660 ml OutputOutput Total 1175 ml 495 ml 360 ml BalanceBalance -1015 ml 165 ml -360 ml Constitutional: alert Eyes: nl sclera ENMT: mucosa pink and moist Respiratory: clear to auscultation Cardiovascular: regular rate and rhythm Gastrointestinal: soft, non-tender Results Result Diagram: 07/19/18 0439 07/19/18 0439 Results 24hrs Laboratory Tests Test 07/18/18 08:28 07/18/18 13:35 07/18/18 17:14 07/18/18 17:45 Bedside Glucose 90 83 50 L 105 Test 07/18/18 18:00 07/18/18 18:34 07/18/18 22:00 07/19/18 01:16 Urine Color YELLOW Urine Clarity CLEAR Urine pH 7.0 Urine Specific 1.013 Howe Urine Ketones NEGATIVE Urine Nitrite NEGATIVE Urine Bilirubin NEGATIVE Urine NEGATIVE Urobilinogen Urine Leukocyte 2+ H Esterase Urine Microscopic 136 H RBC Urine Microscopic 26 H WBC Urine FEW A Transitional Epithelial Cells Urine Bacteria FEW A Urine Hemoglobin 3+ H Urine Glucose NEGATIVE Urine Total 2+ H Protein Bedside Glucose 106 91 90 Blood Gas Blood arterial Specimen Source Arterial Blood 07/18/2018 3:05:1 Date Drawn 3 PM Arterial Blood pH 7.363 (Temp corrected) Arterial Blood 36.9 pCO2 (Temp correct) Arterial Blood 84.7 pO2 (Temp corrected) Arterial Blood 20.5 L HCO3 Arterial Blood -4.3 L Base Excess Arterial Blood 96.5 Oxygen Saturation Yazan Test ACCEPTAB Arterial Blood Right Radial Gas Puncture Site Arterial 0.1 Blood Carboxyhemo globin Arterial Blood 0.4 Methemoglobin Blood Gas A-a O2 64.2 H Differential Oxyhemoglobin 96.0 Percent Blood Gas 37.0 Temperature Blood Gas Actual 20 Respiration Rate Blood Gas NASAL CANNULA Modality FiO2 27.0 Blood Gas RDIX Notified Whom Blood Gas 07/18/2018 3:20:1 Notified Time 8 PM Test 07/19/18 04:39 07/19/18 05:21 White Blood Count 20.1 #H Red Blood Count 4.08 L Hemoglobin 10.7 L Hematocrit 35.7 L Mean Corpuscular 87.5 Volume Mean Corpuscular 26.2 L Hemoglobin Mean Corpuscular 30.0 L Hemoglobin Concen t Red Cell 17.2 H Distribution Width Platelet Count 139 L Mean Platelet 12.8 H Volume Immature 0.500 H Granulocytes % Neutrophils % 88.9 H Lymphocytes % 4.8 L Monocytes % 4.2 Eosinophils % 1.4 Basophils % 0.2 Nucleated Red 0.0 Blood Cells % Immature 0.110 H Granulocytes # Neutrophils # 17.9 H Lymphocytes # 1.0 Monocytes # 0.8 Eosinophils # 0.3 Basophils # 0.1 Nucleated Red 0.0 Blood Cells # Sodium Level 152 H Potassium Level 3.4 L Chloride Level 122 H Carbon Dioxide 22 Level Anion Gap 8 Blood Urea 28 #H Nitrogen Creatinine 1.12 Est Glomerular > 60 Filtrat Rate mL/min Glucose Level 90 Lactic Acid Level 0.8 Calcium Level 8.3 L Total Bilirubin 0.5 Direct Bilirubin 0.00 Indirect 0.5 Bilirubin Aspartate Amino 23 Transf (AST/SGOT) Alanine 13 Aminotransferase (ALT/SGPT) Alkaline 82 Phosphatase Total Protein 6.9 # Albumin 3.2 L Globulin 3.70 H Albumin/Globulin 0.86 Ratio Bedside Glucose 98 Medications Medication Current Medications Ondansetron HCl (Zofran Inj) 4 mg Q6H PRN IV NAUSEA AND/OR VOMITING; Start 07/18/18 at 01:30 Acetaminophen (Tylenol Liquid) 650 mg Q6H PRN GTB PAIN LEVEL 1-3 OR FEVER; Start 07/18/18 at 01:30 Morphine Sulfate (morphine) 2 mg Q4H PRN IV PAIN LEVEL 7-10 Last administered on 07/18/18at 18:48; Admin Dose 2 MG; Start 07/18/18 at 01:30 Vancomycin HCl (Vanco Iv Per Pharmacy) VANCOMYCIN PER PHARMACY PER PROTOCOL XX ; Start 07/18/18 at 01:30 Norepinephrine 250 ml @ 1.875 mls/ hr TITRATE IV Last administered on 07/18/18at 03:44; Admin Dose 1.875 MLS/HR; Start 07/18/18 at 02:30 Vancomycin/Sodium Chloride 250 ml @ 125 mls/hr Q12H IVPB Last administered on 07/19/18at 03:34; Admin Dose 125 MLS/HR; Start 07/18/18 at 15:00 Piperacillin Sod/ Tazobactam Sod 100 ml @ 200 mls/hr Q6H IVPB Last administered on 07/19/18at 03:36; Admin Dose 200 MLS/HR; Start 07/18/18 at 09:30 Diagnostic Test (Pha) (Accu-Chek) 1 ea 02 XX Last administered on 07/19/18at 02:20; Admin Dose 1 EA; Start 07/19/18 at 02:00 Insulin Aspart (Novolog Insulin Pen) NOVOLOG *MILD* ALGORI... Q4 SC ; Start 07/18/18 at 13:00 Miscellaneous Information 1 ea NOTE XX ; Start 07/18/18 at 09:30 Glucose (Glutose) 15 gm Q15M PRN PO DECREASED GLUCOSE; Start 07/18/18 at 09:30 Glucose (Glutose) 22.5 gm Q15M PRN PO DECREASED GLUCOSE; Start 07/18/18 at 09:30 Dextrose (D50w Syringe) 25 ml Q15M PRN IV DECREASED GLUCOSE; Start 07/18/18 at 09:30 Dextrose (D50w Syringe) 50 ml Q15M PRN IV DECREASED GLUCOSE Last administered on 07/18/18at 17:21; Admin Dose 50 ML; Start 07/18/18 at 09:30 Glucagon (Glucagen) 1 mg Q15M PRN IM DECREASED GLUCOSE; Start 07/18/18 at 09:30 Glucose (Glutose) 15 gm Q15M PRN BUCCAL DECREASED GLUCOSE; Start 07/18/18 at 09:30 Docusate Sodium (Colace) 100 mg BID PO Last administered on 07/18/18at 21:58; A dmin Dose 100 MG; Start 07/18/18 at 10:00 Enoxaparin Sodium (Lovenox) 30 mg DAILY SC Last administered on 07/18/18at 12:05; Admin Dose 30 MG; Start 07/18/18 at 10:00 Famotidine (Pepcid Iv) 20 mg BID IV ; Start 07/19/18 at 09:00 Miscellaneous Information (*Rx Drug Level Order Reminder*) VANCO TROUGH @ 1,400 1400 ONCE XX ; Start 07/19/18 at 14:00; Stop 07/19/18 at 14:01 ZAHEER ENGLE MD July 19, 2018 07:01
[2018-07-19] MEDS: FAMOTIDINE 20 MG INJ IV SCH ×2 (08:28→20:44)
[2018-07-19] MEDS: DOCUSATE SODIUM 100 MG CAP PO SCH ×2 (08:28→20:44)
[2018-07-19] MEDS: ENOXAPARIN 30 MG/0.3 ML SYG SC SCH (08:29)
--- NOTE | 2018-07-19 10:10 | PN ---
Date/Time of Note Date/Time of Note DATE: 07/19/18 TIME: 10:06 Assessment/Plan VTE Prophylaxis Risk score (from Nsg)>0 risk: 13 SCD applied (from Nsg): Yes Pharmacological prophylaxis: other (scds) Lines/Catheters IV Catheter Type (from Nrsg): Central Line Central line still needed: Yes (meds) Urinary Cath still in place: Yes Reason Cath still needed: other (indicate) (monitor output) Assessment/Plan Hospital Course Summary Assessment and Plan: Assessment: Fecal impaction - Abundant retained stool throughout the colon. Stool distended sigmoid colon measuring up to 10 cm in diameter consistent with fecal impaction -Many BM's during the night Sepsis // to UTI/Bacteremia (gram negative) -Leukocytosis -Elevated Lactic acid -Tachycardia on arrival- now HR WNL Query left lung base PNA CXR findings compatible with atelectasis or pneumonia. 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 De Dios Subjective: Course reviewed with nursing staff Patient interviewed and examined All labs, imaging and other results reviewed The patient remains in ICU- rectal tube in place- yells intermittently- until spoken to, pt with chronic encephalopathy No apparent distress, abd softer today. Continue to monitor PHYSICAL EXAMINATION: GENERAL: Well developed, well nourished, alert & oriented x 1 SKIN: decubitus wounds HEAD: Normocephalic, atraumatic, no tenderness. EYES: Pupils equal reactive to light and accommodation, no discharge. EARS/NOSE AND THROAT: Ears normal, nose normal. NECK: Supple, no masses. CHEST: Inspection within normal limits. CARDIOVASCULAR: Heart: Regular rate and rhythm RESPIRATORY: Lungs clear to auscultation GASTROINTESTINAL AND LIVER: Abdomen: Soft, non tenderness, mildly distended, no hernias, no masses, no organomegaly, normoactive bowel sounds. Rectal: Deferred. EXTREMITIES: No cyanosis, clubbing or edema. Result Diagram: 07/19/18 0439 07/19/18 0439 Results 24hrs Laboratory Tests Test 07/18/18 13:35 07/18/18 17:14 07/18/18 17:45 07/18/18 18:00 Bedside Glucose 83 50 L 105 Urine Color YELLOW Urine Clarity CLEAR Urine pH 7.0 Urine Specific 1.013 [place] Urine Ketones NEGATIVE Urine Nitrite NEGATIVE Urine Bilirubin NEGATIVE Urine NEGATIVE Urobilinogen Urine Leukocyte 2+ H Esterase Urine Microscopic 136 H RBC Urine Microscopic 26 H WBC Urine FEW A Transitional Epithelial Cells Urine Bacteria FEW A Urine Hemoglobin 3+ H Urine Glucose NEGATIVE Urine Total 2+ H Protein Test 07/18/18 18:34 07/18/18 22:00 07/19/18 01:16 07/19/18 04:39 Bedside Glucose 106 91 90 Blood Gas Blood arterial Specimen Source Arterial Blood 07/18/2018 3:05:1 Date Drawn 3 PM Arterial Blood pH 7.363 (Temp corrected) Arterial Blood 36.9 pCO2 (Temp correct) Arterial Blood 84.7 pO2 (Temp corrected) Arterial Blood 20.5 L HCO3 Arterial Blood -4.3 L Base Excess Arterial Blood 96.5 Oxygen Saturation Yazan Test ACCEPTAB Arterial Blood Right Radial Gas Puncture Site Arterial 0.1 Blood Carboxyhemo globin Arterial Blood 0.4 Methemoglobin Blood Gas A-a O2 64.2 H Differential Oxyhemoglobin 96.0 Percent Blood Gas 37.0 Temperature Blood Gas Actual 20 Respiration Rate Blood Gas NASAL CANNULA Modality FiO2 27.0 Blood Gas RDIX Notified Whom Blood Gas 07/18/2018 3:20:1 Notified Time 8 PM White Blood Count 20.1 #H Red Blood Count 4.08 L Hemoglobin 10.7 L Hematocrit 35.7 L Mean Corpuscular 87.5 Volume Mean Corpuscular 26.2 L Hemoglobin Mean Corpuscular 30.0 L Hemoglobin Concen t Red Cell 17.2 H Distribution Width Platelet Count 139 L Mean Platelet 12.8 H Volume Immature 0.500 H Granulocytes % Neutrophils % 88.9 H Lymphocytes % 4.8 L Monocytes % 4.2 Eosinophils % 1.4 Basophils % 0.2 Nucleated Red 0.0 Blood Cells % Immature 0.110 H Granulocytes # Neutrophils # 17.9 H Lymphocytes # 1.0 Monocytes # 0.8 Eosinophils # 0.3 Basophils # 0.1 Nucleated Red 0.0 Blood Cells # Sodium Level 152 H Potassium Level 3.4 L Chloride Level 122 H Carbon Dioxide 22 Level Anion Gap 8 Blood Urea 28 #H Nitrogen Creatinine 1.12 Est Glomerular > 60 Filtrat Rate mL/min Glucose Level 90 Lactic Acid Level 0.8 Calcium Level 8.3 L Total Bilirubin 0.5 Direct Bilirubin 0.00 Indirect 0.5 Bilirubin Aspartate Amino 23 Transf (AST/SGOT) Alanine 13 Aminotransferase (ALT/SGPT) Alkaline 82 Phosphatase Total Protein 6.9 # Albumin 3.2 L Globulin 3.70 H Albumin/Globulin 0.86 Ratio Test 07/19/18 05:21 07/19/18 09:07 Bedside Glucose 98 109 Exam/Review of Systems Exam Vitals Vital Signs Date Temp Pulse Resp B/P (MAP) Pulse Ox O2 O2 Flow FiO2 Time Delivery Rate 07/19/18 83 08:00 07/19/18 98.9 23 133/76 99 Nasal 2.0 07:00 (95) Cannula Intake and Output 07/18/18 07/18/18 07/19/18 1515:00 23:00 07:00 IntakeIntake Total 160 ml 660 ml OutputOutput Total 1175 ml 495 ml 360 ml BalanceBalance -1015 ml 165 ml -360 ml Results Results 24hrs Laboratory Tests Test 07/18/18 13:35 07/18/18 17:14 07/18/18 17:45 07/18/18 18:00 Bedside Glucose 83 50 L 105 Urine Color YELLOW Urine Clarity CLEAR Urine pH 7.0 Urine Specific 1.013 [place] Urine Ketones NEGATIVE Urine Nitrite NEGATIVE Urine Bilirubin NEGATIVE Urine NEGATIVE Urobilinogen Urine Leukocyte 2+ H Esterase Urine Microscopic 136 H RBC Urine Microscopic 26 H WBC Urine FEW A Transitional Epithelial Cells Urine Bacteria FEW A Urine Hemoglobin 3+ H Urine Glucose NEGATIVE Urine Total 2+ H Protein Test 07/18/18 18:34 07/18/18 22:00 07/19/18 01:16 07/19/18 04:39 Bedside Glucose 106 91 90 Blood Gas Blood arterial Specimen Source Arterial Blood 07/18/2018 3:05:1 Date Drawn 3 PM Arterial Blood pH 7.363 (Temp corrected) Arterial Blood 36.9 pCO2 (Temp correct) Arterial Blood 84.7 pO2 (Temp corrected) Arterial Blood 20.5 L HCO3 Arterial Blood -4.3 L Base Excess Arterial Blood 96.5 Oxygen Saturation Yazan Test ACCEPTAB Arterial Blood Right Radial Gas Puncture Site Arterial 0.1 Blood Carboxyhemo globin Arterial Blood 0.4 Methemoglobin Blood Gas A-a O2 64.2 H Differential Oxyhemoglobin 96.0 Percent Blood Gas 37.0 Temperature Blood Gas Actual 20 Respiration Rate Blood Gas NASAL CANNULA Modality FiO2 27.0 Blood Gas RDIX Notified Whom Blood Gas 07/18/2018 3:20:1 Notified Time 8 PM White Blood Count 20.1 #H Red Blood Count 4.08 L Hemoglobin 10.7 L Hematocrit 35.7 L Mean Corpuscular 87.5 Volume Mean Corpuscular 26.2 L Hemoglobin Mean Corpuscular 30.0 L Hemoglobin Concen t Red Cell 17.2 H Distribution Width Platelet Count 139 L Mean Platelet 12.8 H Volume Immature 0.500 H Granulocytes % Neutrophils % 88.9 H Lymphocytes % 4.8 L Monocytes % 4.2 Eosinophils % 1.4 Basophils % 0.2 Nucleated Red 0.0 Blood Cells % Immature 0.110 H Granulocytes # Neutrophils # 17.9 H Lymphocytes # 1.0 Monocytes # 0.8 Eosinophils # 0.3 Basophils # 0.1 Nucleated Red 0.0 Blood Cells # Sodium Level 152 H Potassium Level 3.4 L Chloride Level 122 H Carbon Dioxide 22 Level Anion Gap 8 Blood Urea 28 #H Nitrogen Creatinine 1.12 Est Glomerular > 60 Filtrat Rate mL/min Glucose Level 90 Lactic Acid Level 0.8 Calcium Level 8.3 L Total Bilirubin 0.5 Direct Bilirubin 0.00 Indirect 0.5 Bilirubin Aspartate Amino 23 Transf (AST/SGOT) Alanine 13 Aminotransferase (ALT/SGPT) Alkaline 82 Phosphatase Total Protein 6.9 # Albumin 3.2 L Globulin 3.70 H Albumin/Globulin 0.86 Ratio Test 07/19/18 05:21 07/19/18 09:07 Bedside Glucose 98 109 Medications Medication Current Medications Ondansetron HCl (Zofran Inj) 4 mg Q6H PRN IV NAUSEA AND/OR VOMITING; Start 07/18/18 at 01:30 Acetaminophen (Tylenol Liquid) 650 mg Q6H PRN GTB PAIN LEVEL 1-3 OR FEVER; Start 07/18/18 at 01:30 Morphine Sulfate (morphine) 2 mg Q4H PRN IV PAIN LEVEL 7-10 Last administered on 07/18/18at 18:48; Admin Dose 2 MG; Start 07/18/18 at 01:30 Vancomycin HCl (Vanco Iv Per Pharmacy) VANCOMYCIN PER PHARMACY PER PROTOCOL XX ; Start 07/18/18 at 01:30 Norepinephrine 250 ml @ 1.875 mls/ hr TITRATE IV Last administered on 07/18/18at 03:44; Admin Dose 1.875 MLS/HR; Start 07/18/18 at 02:30 Vancomycin/Sodium Chloride 250 ml @ 125 mls/hr Q12H IVPB Last administered on 07/19/18at 03:34; Admin Dose 125 MLS/HR; Start 07/18/18 at 15:00 Piperacillin Sod/ Tazobactam Sod 100 ml @ 200 mls/hr Q6H IVPB Last administered on 07/19/18at 08:28; Admin Dose 200 MLS/HR; Start 07/18/18 at 09:30 Diagnostic Test (Pha) (Accu-Chek) 1 ea 02 XX Last administered on 07/19/18at 02:20; Admin Dose 1 EA; Start 07/19/18 at 02:00 Insulin Aspart (Novolog Insulin Pen) NOVOLOG *MILD* ALGORI... Q4 SC ; Start 07/18/18 at 13:00 Miscellaneous Information 1 ea NOTE XX ; Start 07/18/18 at 09:30 Glucose (Glutose) 15 gm Q15M PRN PO DECREASED GLUCOSE; Start 07/18/18 at 09:30 Glucose (Glutose) 22.5 gm Q15M PRN PO DECREASED GLUCOSE; Start 07/18/18 at 09:30 Dextrose (D50w Syringe) 25 ml Q15M PRN IV DECREASED GLUCOSE; Start 07/18/18 at 09:30 Dextrose (D50w Syringe) 50 ml Q15M PRN IV DECREASED GLUCOSE Last administered on 07/18/18at 17:21; Admin Dose 50 ML; Start 07/18/18 at 09:30 Glucagon (Glucagen) 1 mg Q15M PRN IM DECREASED GLUCOSE; Start 07/18/18 at 09:30 Glucose (Glutose) 15 gm Q15M PRN BUCCAL DECREASED GLUCOSE; Start 07/18/18 at 09:30 Docusate Sodium (Colace) 100 mg BID PO Last administered on 07/19/18at 08:28; Admin Dose 100 MG; Start 07/18/18 at 10:00 Enoxaparin Sodium (Lovenox) 30 mg DAILY SC Last administered on 07/19/18at 08:29; Admin Dose 30 MG; Start 07/18/18 at 10:00 Famotidine (Pepcid Iv) 20 mg BID IV Last administered on 07/19/18at 08:28; Admin Dose 20 MG; Start 07/19/18 at 09:00 Miscellaneous Information (*Rx Drug Level Order Reminder*) VANCO TROUGH @ 1,400 1400 ONCE XX ; Start 07/19/18 at 14:00; Stop 07/19/18 at 14:01 SONU RENO July 19, 2018 10:10
--- NOTE | 2018-07-19 20:18 | CONS ---
Consult Date/Type/Reason Admit Date/Time July 18, 2018 at 00:56 Initial Consult Date 07/18/18 Type of Consultation: Urology Reason for Consultation Urinary tract infection, neurogenic bladder and suprapubic tube Requesting Provider: MERARY SORENSEN Date/Time of Note DATE: 07/19/18 TIME: 20:14 Subjective Patient was seen today in the telemetry floor. He is awake and he recognized me as I have taking care of him many times for many years. He appears to be comfortable and in no pain Objective Vitals Vital Signs Date Temp Pulse Resp B/P (MAP) Pulse Ox O2 O2 Flow FiO2 Time Delivery Rate 07/19/18 79 20:09 07/19/18 98.4 20 114/69 98 Room Air 19:14 (84) 07/19/18 2.0 16:00 Intake and Output 07/18/18 07/18/18 07/19/18 1515:00 23:00 07:00 IntakeIntake Total 160 ml 660 ml OutputOutput Total 1175 ml 495 ml 440 ml BalanceBalance -1015 ml 165 ml -440 ml Exam The patient has a scar in his neck from his old tracheostomy. His suprapubic tube is draining blood tinged urine and I did deflate the balloon and readjusted the suprapubic tube. Results/Medications Result Diagram: 07/19/18 0439 07/19/18 0439 Results 24 hrs Laboratory Tests Test 07/18/18 22:00 07/19/18 01:16 07/19/18 04:39 07/19/18 05:21 Blood Gas Blood arterial Specimen Source Arterial Blood 07/18/2018 3:05:1 Date Drawn 3 PM Arterial Blood pH 7.363 (Temp corrected) Arterial Blood 36.9 pCO2 (Temp correct) Arterial Blood 84.7 pO2 (Temp corrected) Arterial Blood 20.5 L HCO3 Arterial Blood -4.3 L Base Excess Arterial Blood 96.5 Oxygen Saturation Yazan Test ACCEPTAB Arterial Blood Right Radial Gas Puncture Site Arterial 0.1 Blood Carboxyhemo globin Arterial Blood 0.4 Methemoglobin Blood Gas A-a O2 64.2 H Differential Oxyhemoglobin 96.0 Percent Blood Gas 37.0 Temperature Blood Gas Actual 20 Respiration Rate Blood Gas NASAL CANNULA Modality FiO2 27.0 Blood Gas RDIX Notified Whom Blood Gas 07/18/2018 3:20:1 Notified Time 8 PM Bedside Glucose 91 90 98 White Blood Count 20.1 #H Red Blood Count 4.08 L Hemoglobin 10.7 L Hematocrit 35.7 L Mean Corpuscular 87.5 Volume Mean Corpuscular 26.2 L Hemoglobin Mean Corpuscular 30.0 L Hemoglobin Concen t Red Cell 17.2 H Distribution Width Platelet Count 139 L Mean Platelet 12.8 H Volume Immature 0.500 H Granulocytes % Neutrophils % 88.9 H Lymphocytes % 4.8 L Monocytes % 4.2 Eosinophils % 1.4 Basophils % 0.2 Nucleated Red 0.0 Blood Cells % Immature 0.110 H Granulocytes # Neutrophils # 17.9 H Lymphocytes # 1.0 Monocytes # 0.8 Eosinophils # 0.3 Basophils # 0.1 Nucleated Red 0.0 Blood Cells # Sodium Level 152 H Potassium Level 3.4 L Chloride Level 122 H Carbon Dioxide 22 Level Anion Gap 8 Blood Urea 28 #H Nitrogen Creatinine 1.12 Est Glomerular > 60 Filtrat Rate mL/min Glucose Level 90 Lactic Acid Level 0.8 Calcium Level 8.3 L Total Bilirubin 0.5 Direct Bilirubin 0.00 Indirect 0.5 Bilirubin Aspartate Amino 23 Transf (AST/SGOT) Alanine 13 Aminotransferase (ALT/SGPT) Alkaline 82 Phosphatase Total Protein 6.9 # Albumin 3.2 L Globulin 3.70 H Albumin/Globulin 0.86 Ratio Procalcitonin 103.20 H Test 07/19/18 09:07 07/19/18 12:56 07/19/18 14:18 07/19/18 17:24 Bedside Glucose 109 118 106 Vancomycin Level 17.0 Trough Home Meds Reported Medications Insulin Aspart* (Novolog Insulin Pen*) 100 Unit/Ml Soln, 0 SC .SLIDING SCALE AC, EA 70-150 =0 units 151-200 = 2 units 201-250 = 4 units 251-300 - 6 units 301-350 = 8 units 351-400 =10 units under 60 or over 400 call 07/18/18 Zinc Sulfate* (Zinc Sulfate*) 220 Mg Tablet, 220 MG GTB DAILY, TAB 07/18/18 Amino Acids/Protein Hydrolys (PRO-STAT LIQUID) 30 Ml Liquid.pkt, 30 ML PO BID 07/18/18 Metformin Hcl* (Metformin Hcl*) 500 Mg Tablet, 500 MG GTB WITH BREAKFAST DINNE, #60 TAB 07/18/18 Multivitamins* (Theragran*) 1 Tab Tab, 1 TAB GTB DAILY, TAB 07/18/18 Insulin Glargine* (Lantus*) 100 Unit/Ml Soln, 35 UNIT SC QHS, #1 VIAL 07/18/18 Ipratropium-Albuterol (Ipratropium-Albuterol) 0.5-3 Mg/3 Ml Ampul.neb, 3 ML INHALATION Q4 PRN for WHEEZING AND SOB, #30 VIAL 07/18/18 Folic Acid* (Folic Acid*) 1 Mg Tablet, 1 MG GTB DAILY, TAB 07/18/18 Discontinued Reported Medications Hydrocodone Bit-Acetaminophen ([place]) 1 Tab Tablet, PRN 05/03/12 Oxybutynin Chloride* (Ditropan*) 5 Mg Tab, DAILY 05/03/12 Polyethylene Glycol (Miralax) 17 Gm/Pkt Liq, DAILY 05/03/12 Docusate Sodium* (Colace*) 50 Mg Capsule, 100 MG DAILY 05/03/12 Ascorbic Acid (Ascorbic Acid) 1 Gm Granules, 500 MG DAILY 05/03/12 Gemfibrozil* (Lopid*) 600 Mg Tablet, DAILY 05/03/12 [Prostat] No Conflict Check, 30 ML DAILY 05/03/12 [Multivitamins With Minerals] No Conflict Check, 1 TAB DAILY 05/03/12 Ipratropium [place]* (Atrovent*) 2.5 Ml Nebu, PRN 05/03/12 Albuterol Sulfate* (Proventil* Neb) 0.5 Ml Nebu, PRN 05/03/12 Insulin Detemir* (Levemir*) 100 U/Ml Insuln.pen, 70 UNITS SQ DAILY 05/03/12 Aspirin (Adult Low Dose Aspirin) 81 Mg Tablet.dr, DAILY, 0 Refills 03/09/09 Multivitamins* (Multivitamins*) 1 Tab Tablet 03/09/09 Medications Current Medications Ondansetron HCl (Zofran Inj) 4 mg Q6H PRN IV NAUSEA AND/OR VOMITING; Start 07/18/18 at 01:30 Acetaminophen (Tylenol Liquid) 650 mg Q6H PRN GTB PAIN LEVEL 1-3 OR FEVER; Start 07/18/18 at 01:30 Morphine Sulfate (morphine) 2 mg Q4H PRN IV PAIN LEVEL 7-10 Last administered on 07/18/18at 18:48; Admin Dose 2 MG; Start 07/18/18 at 01:30 Vancomycin HCl (Vanco Iv Per Pharmacy) VANCOMYCIN PER PHARMACY PER PROTOCOL XX ; Start 07/18/18 at 01:30 Vancomycin/Sodium Chloride 250 ml @ 125 mls/hr Q12H IVPB Last administered on 07/19/18at 16:13; Admin Dose 125 MLS/HR; Start 07/18/18 at 15:00 Piperacillin Sod/ Tazobactam Sod 100 ml @ 200 mls/hr Q6H IVPB Last administered on 07/19/18at 16:12; Admin Dose 200 MLS/HR; Start 07/18/18 at 09:30 Diagnostic Test (Pha) (Accu-Chek) 1 ea 02 XX Last administered on 07/19/18at 02:20; Admin Dose 1 EA; Start 07/19/18 at 02:00 Insulin Aspart (Novolog Insulin Pen) NOVOLOG *MILD* ALGORI... Q4 SC ; Start 07/18/18 at 13:00 Miscellaneous Information 1 ea NOTE XX ; Start 07/18/18 at 09:30 Glucose (Glutose) 15 gm Q15M PRN PO DECREASED GLUCOSE; Start 07/18/18 at 09:30 Glucose (Glutose) 22.5 gm Q15M PRN PO DECREASED GLUCOSE; Start 07/18/18 at 09:30 Dextrose (D50w Syringe) 25 ml Q15M PRN IV DECREASED GLUCOSE; Start 07/18/18 at 09:30 Dextrose (D50w Syringe) 50 ml Q15M PRN IV DECREASED GLUCOSE Last administered on 07/18/18at 17:21; Admin Dose 50 ML; Start 07/18/18 at 09:30 Glucagon (Glucagen) 1 mg Q15M PRN IM DECREASED GLUCOSE; Start 07/18/18 at 09:30 Glucose (Glutose) 15 gm Q15M PRN BUCCAL DECREASED GLUCOSE; Start 07/18/18 at 09:30 Docusate Sodium (Colace) 100 mg BID PO Last administered on 07/19/18at 08:28; Admin Dose 100 MG; Start 07/18/18 at 10:00 Enoxaparin Sodium (Lovenox) 30 mg DAILY SC Last administered on 07/19/18at 08: 29; Admin Dose 30 MG; Start 07/18/18 at 10:00 Famotidine (Pepcid Iv) 20 mg BID IV Last administered on 07/19/18at 08:28; Admin Dose 20 MG; Start 07/19/18 at 09:00 Lactulose (Enulose) 20 gm DAILY GTB ; Start 07/20/18 at 09:00 Ascorbic Acid (Vitamin C) 500 mg DAILY GTB ; Start 07/20/18 at 09:00 Folic Acid (Folic Acid) 1 mg DAILY GTB ; Start 07/20/18 at 09:00 Zinc Sulfate (Zinc Sulfate) 220 mg DAILY GTB ; Start 07/20/18 at 09:00 Assessment/Plan Hospital Course (Demo Recall) 52-year-old male known to me for many years. He does have a history of neurogenic bladder and he had severe urethral strictures that led to putting a suprapubic tube for him many years ago. His suprapubic tube has been changed in the detention facility. Patient was admitted to the hospital with gross hematuria. CT scan of the abdomen and pelvis showed that the suprapubic tube he has is pushed into the urethra. I did readjust the suprapubic tube and it is draining well. The hematuria could be also related to his urinary tract infection. Continue the antibiotics at the present time. ASHLEY COLEMAN MD July 19, 2018 20:18
[2018-07-19] MEDS: morphine 2 MG INJ IV PRN (20:29)
[2018-07-19] MEDS: BALSAM PERU/CASTOR OIL 60 GM TUBE TOP SCH (20:45)
[2018-07-20] VITALS (11 sets, daily range): BP systolic 112–138; BP diastolic 62–76; PULSE 62–88; RESP 17–20
[2018-07-20] MEDS: INSULIN ASPART [NOVOLOG] 3 ML PEN SC SCH ×6 (01:00→20:46)
[2018-07-20] MEDS: ACCU-CHEK XX SCH (01:51)
[2018-07-20] MEDS: morphine 2 MG INJ IV PRN (02:41)
[2018-07-20] MEDS: VANCOMYCIN 750 MG (PMX) 250 ML IVPB SCH ×2 (05:32→14:45)
[2018-07-20] MEDS: PIPER-TAZO 3.375 GM IV (PMX) 100 ML IVPB SCH ×4 (05:32→21:26)
--- NOTE | 2018-07-20 08:05 | CONS ---
Assessment/Plan Assessment/Plan Hospital Course (Demo Recall) 1) UTI with sepsis in pt with suprapubic cath due to neurogenic bladder pt was in hospital in april of this year with urosepsis and had e.coli +ESBL and MRSA present continue with vanco, change aztreanom to zosyn (e.coli was sensitive to it) await final ID and sensi's of urine CT abd did not show hydronephrosis but there is some mass/cyst around the L kidney, u/s could not visualize the L kidney 07/19 - urine cx and blood cx are NGTD continue with vanco/zosyn at present, improved temps and WBC 07/20 - urine cx is neg blood cx has e.coli in it, continue with zosyn, d/c vanco 2) L base effusion with atelectasis vs consolidation check procalcitonin and get nasal for MRSA vanco/zosyn should cover but pt does not seem to have respiratory distress and is resting comfortable without cough on 2L of O2 07/19 - stable, procalcitonin is pending 07/20 - with bacteremia, impossible to interpret elevated procalcitonin for pneumonia nasal has MRSA but doubt he has pneumonia d/c vanco but continue with zosyn 3) sacral ulcer get wound cx vanco/zosyn will cover 07/19 - stage III ulcer, cx is pending wound care to see pt 07/20 - pt has proteus and pseudomonas in sacral cx, not c/w e.coli in the blood continue with zosyn, d/c vanco, check ESR 4) TBI with quadriplegia 5) DM 6) constipation with enlarged colon and to my eyes some thickening of colon wall pt will likely need bowel evacuants vanco/zosyn will cover for lower GI infection if present 07/19 - no abd pain and lots of stool in last 24 hours 07/20 - E.coli could have coming from the colon d/c vanco and continue with zosyn pt has rectal tube with watery brown fluid, doubt c.dif in light of improving WBC and fever 7) ARF likely due to sepsis this has been his pattern with infection and his creatinine goes back to baseline 07/19 - improved creatinine 07/20 - resolved 8) hypernatremia again this is not uncommon for this pt and it had resolved in the past with D5W 07/20 - improved 9) e.coli bacteremia 07/20 - source could be the urine but urine cx was neg he has gallstones but no sign of GB obstruction he has some haziness at the L lung base but doubt lung is the source elevated procalcitonin is also present in bacteremia and does not mean he has a lung infection He had large amount of retained stool with distended colon and this is more l ikely the source of the infection continue with zosyn Consultation Date/Type/Reason Admit Date/Time July 18, 2018 at 00:56 Initial Consult Date 07/18/18 Type of Consult ID Requesting Provider: MERARY SORENSEN Date/Time of Note DATE: 07/20/18 TIME: 07:53 24 HR Interval Summary Free Text/Dictation pt has rectal tube with watery brown fluid tolerating TF Exam/Review of Systems Exam Vitals Vital Signs Date Temp Pulse Resp B/P (MAP) Pulse Ox O2 O2 Flow FiO2 Time Delivery Rate 07/20/18 97.8 74 19 119/73 99 Room Air 07:27 (88) 07/19/18 2.0 16:00 Intake and Output 07/19/18 07/19/18 07/20/18 1515:00 23:00 07:00 IntakeIntake Total 120 ml 130 ml OutputOutput Total 665 ml 70 ml BalanceBalance -545 ml 60 ml Exam asleep Respiratory: clear to auscultation Cardiovascular: regular rate and rhythm Gastrointestinal: soft, non-tender Results Result Diagram: 07/20/18 0606 07/20/18 0606 Results 24hrs Laboratory Tests Test 07/19/18 09:07 07/19/18 12:56 07/19/18 14:18 07/19/18 17:24 Bedside Glucose 109 118 106 Vancomycin Level 17.0 Trough Test 07/19/18 20:33 07/20/18 01:41 07/20/18 05:40 07/20/18 06:06 Bedside Glucose 86 95 147 White Blood Count 11.8 #H Red Blood Count 3.76 L Hemoglobin 9.8 L Hematocrit 32.4 L Mean Corpuscular 86.2 Volume Mean Corpuscular 26.1 L Hemoglobin Mean Corpuscular 30.2 L Hemoglobin Concent Red Cell 17.2 H Distribution Width Platelet Count 135 L Mean Platelet Volume 14.0 H Immature 0.400 Granulocytes % Neutrophils % 81.9 H Lymphocytes % 10.4 L Monocytes % 4.0 Eosinophils % 3.0 Basophils % 0.3 Nucleated Red Blood 0.0 Cells % Immature 0.050 H Granulocytes # Neutrophils # 9.6 H Lymphocytes # 1.2 Monocytes # 0.5 Eosinophils # 0.4 Basophils # 0.0 Nucleated Red Blood 0.0 Cells # Sodium Level 146 H Potassium Level 3.5 Chloride Level 119 H Carbon Dioxide Level 21 Anion Gap 6 Blood Urea Nitrogen 16 # Creatinine 0.95 Est Glomerular > 60 Filtrat Rate mL/min Glucose Level 144 # Calcium Level 8.4 Total Bilirubin 0.6 Direct Bilirubin 0.00 Indirect Bilirubin 0.6 Aspartate Amino 23 Transf (AST/SGOT) Alanine 19 Aminotransferase (AL T/SGPT) Alkaline Phosphatase 84 Total Protein 6.7 Albumin 3.2 L Globulin 3.50 H Albumin/Globulin 0.91 Ratio Medications Medication Current Medications Ondansetron HCl (Zofran Inj) 4 mg Q6H PRN IV NAUSEA AND/OR VOMITING; Start 07/18/18 at 01:30 Acetaminophen (Tylenol Liquid) 650 mg Q6H PRN GTB PAIN LEVEL 1-3 OR FEVER; Start 07/18/18 at 01:30 Morphine Sulfate (morphine) 2 mg Q4H PRN IV PAIN LEVEL 7-10 Last administered on 07/20/18at 02:41; Admin Dose 2 MG; Start 07/18/18 at 01:30 Vancomycin HCl (Vanco Iv Per Pharmacy) VANCOMYCIN PER PHARMACY PER PROTOCOL XX ; Start 07/18/18 at 01:30 Vancomycin/Sodium Chloride 250 ml @ 125 mls/hr Q12H IVPB Last administered on 07/20/18at 05:32; Admin Dose 125 MLS/HR; Start 07/18/18 at 15:00 Piperacillin Sod/ Tazobactam Sod 100 ml @ 200 mls/hr Q6H IVPB Last administered on 07/20/18at 05:32; Admin Dose 200 MLS/HR; Start 07/18/18 at 09:30 Diagnostic Test (Pha) (Accu-Chek) 1 ea 02 XX Last administered on 07/19/18at 02:20; Admin Dose 1 EA; Start 07/19/18 at 02:00 Insulin Aspart (Novolog Insulin Pen) NOVOLOG *MILD* ALGORI... Q4 SC Last administered on 07/20/18at 06:00; Admin Dose 1 UNIT; Start 07/18/18 at 13:00 Miscellaneous Information 1 ea NOTE XX ; Start 07/18/18 at 09:30 Glucose (Glutose) 15 gm Q15M PRN PO DECREASED GLUCOSE; Start 07/18/18 at 09:30 Glucose (Glutose) 22.5 gm Q15M PRN PO DECREASED GLUCOSE; Start 07/18/18 at 09:30 Dextrose (D50w Syringe) 25 ml Q15M PRN IV DECREASED GLUCOSE; Start 07/18/18 at 09:30 Dextrose (D50w Syringe) 50 ml Q15M PRN IV DECREASED GLUCOSE Last administered on 07/18/18at 17:21; Admin Dose 50 ML; Start 07/18/18 at 09:30 Glucagon (Glucagen) 1 mg Q15M PRN IM DECREASED GLUCOSE; Start 07/18/18 at 09:30 Glucose (Glutose) 15 gm Q15M PRN BUCCAL DECREASED GLUCOSE; Start 07/18/18 at 09:30 Docusate Sodium (Colace) 100 mg BID PO Last administered on 07/19/18at 20:44; Admin Dose 100 MG; Start 07/18/18 at 10:00 Enoxaparin Sodium (Lovenox) 30 mg DAILY SC Last administered on 07/19/18at 08:29; Admin Dose 30 MG; Start 07/18/18 at 10:00 Famotidine (Pepcid Iv) 20 mg BID IV Last administered on 07/19/18at 20:44; Admin Dose 20 MG; Start 07/19/18 at 09:00 Lactulose (Enulose) 20 gm DAILY GTB ; Start 07/20/18 at 09:00 Ascorbic Acid (Vitamin C) 500 mg DAILY GTB ; Start 07/20/18 at 09:00 Folic Acid (Folic Acid) 1 mg DAILY GTB ; Start 07/20/18 at 09:00 Zinc Sulfate (Zinc Sulfate) 220 mg DAILY GTB ; Start 07/20/18 at 09:00 ZAHEER ENGLE MD July 20, 2018 08:03
[2018-07-20] MEDS: FOLIC ACID 1 MG TAB GTB SCH (08:27)
[2018-07-20] MEDS: ASCORBIC ACID 500 MG TAB GTB SCH (08:27)
[2018-07-20] MEDS: BALSAM PERU/CASTOR OIL 60 GM TUBE TOP SCH ×2 (08:27→20:48)
[2018-07-20] MEDS: LACTULOSE 30ML CUP GTB SCH (08:27)
[2018-07-20] MEDS: DOCUSATE SODIUM 100 MG CAP PO SCH ×2 (08:27→21:00)
[2018-07-20] MEDS: ZINC SULFATE 220 MG CAP GTB SCH (08:27)
[2018-07-20] MEDS: ENOXAPARIN 30 MG/0.3 ML SYG SC SCH (08:30)
[2018-07-20] MEDS: FAMOTIDINE 20 MG INJ IV SCH ×2 (08:35→20:47)
--- NOTE | 2018-07-20 13:27 | PN ---
Date/Time of Note Date/Time of Note DATE: 07/20/18 TIME: 13:18 Assessment/Plan VTE Prophylaxis Risk score (from Nsg)>0 risk: 8 SCD applied (from Nsg): Yes Pharmacological prophylaxis: other (scds) Lines/Catheters IV Catheter Type (from Nrsg): Central Line Central line still needed: Yes (meds) Urinary Cath still in place: Yes (suprapubic cath) Reason Cath still needed: other (indicate) (monitor output) Assessment/Plan Hospital Course Summary Assessment and Plan: Assessment: Fecal impaction - Abundant retained stool throughout the colon. Stool distended sigmoid colon measuring up to 10 cm in diameter consistent with fecal impaction -Many BM's during the night Sepsis 2// to UTI/Bacteremia (gram negative) -Leukocytosis- improved -Elevated Lactic acid - resolved -Tachycardia on arrival- now HR WNL Query left lung base PNA CXR findings compatible with atelectasis or pneumonia. 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 De Dios Subjective: Course reviewed with nursing staff Patient interviewed and examined All labs, imaging and other results reviewed Pt transferred to 6th floor. Currently does not appear to be in any distress. No longer yelling intermittently. Abd is soft with objective pain PHYSICAL EXAMINATION: GENERAL: Well developed, well nourished, alert & oriented x 1 SKIN: decubitus wounds HEAD: Normocephalic, atraumatic, no tenderness. EYES: Pupils equal reactive to light and accommodation, no discharge. EARS/NOSE AND THROAT: Ears normal, nose normal. NECK: Supple, no masses. CHEST: Inspection within normal limits. CARDIOVASCULAR: Heart: Regular rate and rhythm RESPIRATORY: Lungs clear to auscultation GASTROINTESTINAL AND LIVER: Abdomen: Soft, non tenderness, mildly distended- improved , no hernias, no masses, no organomegaly, normoactive bowel sounds. Rectal: Deferred. Result Diagram: 07/20/18 0606 07/20/18 0606 Results 24hrs Laboratory Tests Test 07/19/18 14:18 07/19/18 17:24 07/19/18 20:33 07/20/18 01:41 Vancomycin Level 17.0 Trough Bedside Glucose 106 86 95 Test 07/20/18 05:40 07/20/18 06:06 07/20/18 08:07 07/20/18 12:14 Bedside Glucose 147 231 H 203 White Blood Count 11.8 #H Red Blood Count 3.76 L Hemoglobin 9.8 L Hematocrit 32.4 L Mean Corpuscular 86.2 Volume Mean Corpuscular 26.1 L Hemoglobin Mean Corpuscular 30.2 L Hemoglobin Concent Red Cell 17.2 H Distribution Width Platelet Count 135 L Mean Platelet Volume 14.0 H Immature 0.400 Granulocytes % Neutrophils % 81.9 H Lymphocytes % 10.4 L Monocytes % 4.0 Eosinophils % 3.0 Basophils % 0.3 Nucleated Red Blood 0.0 Cells % Immature 0.050 H Granulocytes # Neutrophils # 9.6 H Lymphocytes # 1.2 Monocytes # 0.5 Eosinophils # 0.4 Basophils # 0.0 Nucleated Red Blood 0.0 Cells # Sodium Level 146 H Potassium Level 3.5 Chloride Level 119 H Carbon Dioxide Level 21 Anion Gap 6 Blood Urea Nitrogen 16 # Creatinine 0.95 Est Glomerular > 60 Filtrat Rate mL/min Glucose Level 144 # Calcium Level 8.4 Total Bilirubin 0.6 Direct Bilirubin 0.00 Indirect Bilirubin 0.6 Aspartate Amino 23 Transf (AST/SGOT) Alanine 19 Aminotransferase (AL T/SGPT) Alkaline Phosphatase 84 Total Protein 6.7 Albumin 3.2 L Globulin 3.50 H Albumin/Globulin 0.91 Ratio Exam/Review of Systems Exam Vitals Vital Signs Date Temp Pulse Resp B/P (MAP) Pulse Ox O2 O2 Flow FiO2 Time Delivery Rate 07/20/18 73 12:24 07/20/18 98.0 17 138/76 98 11:32 (96) 07/20/18 Room Air 07:27 07/19/18 2.0 16:00 Intake and Output 07/19/18 07/19/18 07/20/18 1515:00 23:00 07:00 IntakeIntake Total 120 ml 130 ml OutputOutput Total 665 ml 70 ml BalanceBalance -545 ml 60 ml Results Results 24hrs Laboratory Tests Test 07/19/18 14:18 07/19/18 17:24 07/19/18 20:33 07/20/18 01:41 Vancomycin Level 17.0 Trough Bedside Glucose 106 86 95 Test 07/20/18 05:40 07/20/18 06:06 07/20/18 08:07 07/20/18 12:14 Bedside Glucose 147 231 H 203 White Blood Count 11.8 #H Red Blood Count 3.76 L Hemoglobin 9.8 L Hematocrit 32.4 L Mean Corpuscular 86.2 Volume Mean Corpuscular 26.1 L Hemoglobin Mean Corpuscular 30.2 L Hemoglobin Concent Red Cell 17.2 H Distribution Width Platelet Count 135 L Mean Platelet Volume 14.0 H Immature 0.400 Granulocytes % Neutrophils % 81.9 H Lymphocytes % 10.4 L Monocytes % 4.0 Eosinophils % 3.0 Basophils % 0.3 Nucleated Red Blood 0.0 Cells % Immature 0.050 H Granulocytes # Neutrophils # 9.6 H Lymphocytes # 1.2 Monocytes # 0.5 Eosinophils # 0.4 Basophils # 0.0 Nucleated Red Blood 0.0 Cells # Sodium Level 146 H Potassium Level 3.5 Chloride Level 119 H Carbon Dioxide Level 21 Anion Gap 6 Blood Urea Nitrogen 16 # Creatinine 0.95 Est Glomerular > 60 Filtrat Rate mL/min Glucose Level 144 # Calcium Level 8.4 Total Bilirubin 0.6 Direct Bilirubin 0.00 Indirect Bilirubin 0.6 Aspartate Amino 23 Transf (AST/SGOT) Alanine 19 Aminotransferase (AL T/SGPT) Alkaline Phosphatase 84 Total Protein 6.7 Albumin 3.2 L Globulin 3.50 H Albumin/Globulin 0.91 Ratio Medications Medication Current Medications Ondansetron HCl (Zofran Inj) 4 mg Q6H PRN IV NAUSEA AND/OR VOMITING; Start 07/18/18 at 01:30 Acetaminophen (Tylenol Liquid) 650 mg Q6H PRN GTB PAIN LEVEL 1-3 OR FEVER; St art 07/18/18 at 01:30 Morphine Sulfate (morphine) 2 mg Q4H PRN IV PAIN LEVEL 7-10 Last administered on 07/20/18at 02:41; Admin Dose 2 MG; Start 07/18/18 at 01:30 Vancomycin HCl (Vanco Iv Per Pharmacy) VANCOMYCIN PER PHARMACY PER PROTOCOL XX ; Start 07/18/18 at 01:30 Vancomycin/Sodium Chloride 250 ml @ 125 mls/hr Q12H IVPB Last administered on 07/20/18at 05:32; Admin Dose 125 MLS/HR; Start 07/18/18 at 15:00 Piperacillin Sod/ Tazobactam Sod 100 ml @ 200 mls/hr Q6H IVPB Last administered on 07/20/18at 08:47; Admin Dose 200 MLS/HR; Start 07/18/18 at 09:30 Diagnostic Test (Pha) (Accu-Chek) 1 ea 02 XX Last administered on 07/19/18at 02:20; Admin Dose 1 EA; Start 07/19/18 at 02:00 Insulin Aspart (Novolog Insulin Pen) NOVOLOG *MILD* ALGORI... Q4 SC Last administered on 07/20/18at 12:18; Admin Dose 2 UNIT; Start 07/18/18 at 13:00 Miscellaneous Information 1 ea NOTE XX ; Start 07/18/18 at 09:30 Glucose (Glutose) 15 gm Q15M PRN PO DECREASED GLUCOSE; Start 07/18/18 at 09:30 Glucose (Glutose) 22.5 gm Q15M PRN PO DECREASED GLUCOSE; Start 07/18/18 at 09:30 Dextrose (D50w Syringe) 25 ml Q15M PRN IV DECREASED GLUCOSE; Start 07/18/18 at 09:30 Dextrose (D50w Syringe) 50 ml Q15M PRN IV DECREASED GLUCOSE Last administered on 07/18/18at 17:21; Admin Dose 50 ML; Start 07/18/18 at 09:30 Glucagon (Glucagen) 1 mg Q15M PRN IM DECREASED GLUCOSE; Start 07/18/18 at 09:30 Glucose (Glutose) 15 gm Q15M PRN BUCCAL DECREASED GLUCOSE; Start 07/18/18 at 09:30 Docusate Sodium (Colace) 100 mg BID PO Last administered on 07/20/18at 08:27; Admin Dose 100 MG; Start 07/18/18 at 10:00 Enoxaparin Sodium (Lovenox) 30 mg DAILY SC Last administered on 07/20/18 08:30; Admin Dose 30 MG; Start 07/18/18 at 10:00 Famotidine (Pepcid Iv) 20 mg BID IV Last administered on 07/20/18 08:35; Admin Dose 20 MG; Start 07/19/18 at 09:00 Lactulose (Enulose) 20 gm DAILY GTB Last administered on 07/20/18 08:27; Admin Dose 20 GM; Start 07/20/18 at 09:00 Ascorbic Acid (Vitamin C) 500 mg DAILY GTB Last administered on 07/20/18 08:27; Admin Dose 500 MG; Start 07/20/18 at 09:00 Folic Acid (Folic Acid) 1 mg DAILY GTB Last administered on 07/20/18 08:27; Admin Dose 1 MG; Start 07/20/18 at 09:00 Zinc Sulfate (Zinc Sulfate) 220 mg DAILY GTB Last administered on 07/20/18 08:27; Admin Dose 220 MG; Start 07/20/18 at 09:00 SONU RENO July 20, 2018 13:27
--- NOTE | 2018-07-20 14:22 | PN ---
Date/Time of Note Date/Time of Note DATE: 07/20/18 TIME: 14:19 Assessment/Plan VTE Prophylaxis Risk score (from Ns)>0 risk: 8 SCD applied (from Ns): Yes Pharmacological prophylaxis: heparin Lines/Catheters IV Catheter Type (from Nrs): Central Line Central line still needed: Yes Urinary Cath still in place: Yes (suprapubic cath) Reason Cath still needed: urinary retention Assessment/Plan Hospital Course Alert Smiling Appears comfortable Breathing comfortably Quadraplegia with spastic limbs Clear lungs RRR Abodmen soft nt Suprapubic catheter 52 yo male with quadraplegia and chronic encephelopathy presents with sepsis Sepsis: - Abx per ID Hypernatremia and MICHELINE: - IV fluids - Resolving Quadraplegia - Stable Constipation: - Laxatives Dc planning Result Diagram: 07/20/18 0606 07/20/18 0606 Results 24hrs Laboratory Tests Test 07/19/18 17:24 07/19/18 20:33 07/20/18 01:41 07/20/18 05:40 Bedside Glucose 106 86 95 147 Test 07/20/18 06:06 07/20/18 08:07 07/20/18 12:14 White Blood Count 11.8 #H Red Blood Count 3.76 L Hemoglobin 9.8 L Hematocrit 32.4 L Mean Corpuscular 86.2 Volume Mean Corpuscular 26.1 L Hemoglobin Mean Corpuscular 30.2 L Hemoglobin Concent Red Cell 17.2 H Distribution Width Platelet Count 135 L Mean Platelet Volume 14.0 H Immature 0.400 Granulocytes % Neutrophils % 81.9 H Lymphocytes % 10.4 L Monocytes % 4.0 Eosinophils % 3.0 Basophils % 0.3 Nucleated Red Blood 0.0 Cells % Immature 0.050 H Granulocytes # Neutrophils # 9.6 H Lymphocytes # 1.2 Monocytes # 0.5 Eosinophils # 0.4 Basophils # 0.0 Nucleated Red Blood 0.0 Cells # Sodium Level 146 H Potassium Level 3.5 Chloride Level 119 H Carbon Dioxide Level 21 Anion Gap 6 Blood Urea Nitrogen 16 # Creatinine 0.95 Est Glomerular > 60 Filtrat Rate mL/min Glucose Level 144 # Calcium Level 8.4 Total Bilirubin 0.6 Direct Bilirubin 0.00 Indirect Bilirubin 0.6 Aspartate Amino 23 Transf (AST/SGOT) Alanine 19 Aminotransferase (AL T/SGPT) Alkaline Phosphatase 84 Total Protein 6.7 Albumin 3.2 L Globulin 3.50 H Albumin/Globulin 0.91 Ratio Bedside Glucose 231 H 203 Subjective 24 Hr Interval Summary Free Text/Dictation Many BMs Appears comfortable Breathing normal Micheline resolved Exam/Review of Systems Exam Vitals Vital Signs Date Temp Pulse Resp B/P (MAP) Pulse Ox O2 O2 Flow FiO2 Time Delivery Rate 07/20/18 73 12:24 07/20/18 98.0 17 138/76 98 11:32 (96) 07/20/18 Room Air 07:27 07/19/18 2.0 16:00 Intake and Output 07/19/18 07/19/18 07/20/18 1515:00 23:00 07:00 IntakeIntake Total 120 ml 130 ml OutputOutput Total 665 ml 70 ml BalanceBalance -545 ml 60 ml Results Results 24hrs Laboratory Tests Test 07/19/18 17:24 07/19/18 20:33 07/20/18 01:41 07/20/18 05:40 Bedside Glucose 106 86 95 147 Test 07/20/18 06:06 07/20/18 08:07 07/20/18 12:14 White Blood Count 11.8 #H Red Blood Count 3.76 L Hemoglobin 9.8 L Hematocrit 32.4 L Mean Corpuscular 86.2 Volume Mean Corpuscular 26.1 L Hemoglobin Mean Corpuscular 30.2 L Hemoglobin Concent Red Cell 17.2 H Distribution Width Platelet Count 135 L Mean Platelet Volume 14.0 H Immature 0.400 Granulocytes % Neutrophils % 81.9 H Lymphocytes % 10.4 L Monocytes % 4.0 Eosinophils % 3.0 Basophils % 0.3 Nucleated Red Blood 0.0 Cells % Immature 0.050 H Granulocytes # Neutrophils # 9.6 H Lymphocytes # 1.2 Monocytes # 0.5 Eosinophils # 0.4 Basophils # 0.0 Nucleated Red Blood 0.0 Cells # Sodium Level 146 H Potassium Level 3.5 Chloride Level 119 H Carbon Dioxide Level 21 Anion Gap 6 Blood Urea Nitrogen 16 # Creatinine 0.95 Est Glomerular > 60 Filtrat Rate mL/min Glucose Level 144 # Calcium Level 8.4 Total Bilirubin 0.6 Direct Bilirubin 0.00 Indirect Bilirubin 0.6 Aspartate Amino 23 Transf (AST/SGOT) Alanine 19 Aminotransferase (AL T/SGPT) Alkaline Phosphatase 84 Total Protein 6.7 Albumin 3.2 L Globulin 3.50 H Albumin/Globulin 0.91 Ratio Bedside Glucose 231 H 203 Medications Medication Current Medications Ondansetron HCl (Zofran Inj) 4 mg Q6H PRN IV NAUSEA AND/OR VOMITING; Start 07/18/18 at 01:30 Acetaminophen (Tylenol Liquid) 650 mg Q6H PRN GTB PAIN LEVEL 1-3 OR FEVER; Start 07/18/18 at 01:30 Morphine Sulfate (morphine) 2 mg Q4H PRN IV PAIN LEVEL 7-10 Last administered on 07/20/18at 02:41; Admin Dose 2 MG; Start 07/18/18 at 01:30 Vancomycin HCl (Vanco Iv Per Pharmacy) VANCOMYCIN PER PHARMACY PER PROTOCOL XX ; Start 07/18/18 at 01:30 Vancomycin/Sodium Chloride 250 ml @ 125 mls/hr Q12H IVPB Last administered on 07/20/18at 05:32; Admin Dose 125 MLS/HR; Start 07/18/18 at 15:00 Piperacillin Sod/ Tazobactam Sod 100 ml @ 200 mls/hr Q6H IVPB Last administered on 07/20/18at 08:47; Admin Dose 200 MLS/HR; Start 07/18/18 at 09:30 Diagnostic Test (Pha) (Accu-Chek) 1 ea 02 XX Last administered on 07/19/18at 02:20; Admin Dose 1 EA; Start 07/19/18 at 02:00 Insulin Aspart (Novolog Insulin Pen) NOVOLOG *MILD* ALGORI... Q4 SC Last admini stered on 07/20/18at 12:18; Admin Dose 2 UNIT; Start 07/18/18 at 13:00 Miscellaneous Information 1 ea NOTE XX ; Start 07/18/18 at 09:30 Glucose (Glutose) 15 gm Q15M PRN PO DECREASED GLUCOSE; Start 07/18/18 at 09:30 Glucose (Glutose) 22.5 gm Q15M PRN PO DECREASED GLUCOSE; Start 07/18/18 at 09:30 Dextrose (D50w Syringe) 25 ml Q15M PRN IV DECREASED GLUCOSE; Start 07/18/18 at 09:30 Dextrose (D50w Syringe) 50 ml Q15M PRN IV DECREASED GLUCOSE Last administered on 07/18/18at 17:21; Admin Dose 50 ML; Start 07/18/18 at 09:30 Glucagon (Glucagen) 1 mg Q15M PRN IM DECREASED GLUCOSE; Start 07/18/18 at 09:30 Glucose (Glutose) 15 gm Q15M PRN BUCCAL DECREASED GLUCOSE; Start 07/18/18 at 09:30 Docusate Sodium (Colace) 100 mg BID PO Last administered on 07/20/18 08:27; Admin Dose 100 MG; Start 07/18/18 at 10:00 Enoxaparin Sodium (Lovenox) 30 mg DAILY SC Last administered on 07/20/18 08:30; Admin Dose 30 MG; Start 07/18/18 at 10:00 Famotidine (Pepcid Iv) 20 mg BID IV Last administered on 07/20/18 08:35; Admin Dose 20 MG; Start 07/19/18 at 09:00 Lactulose (Enulose) 20 gm DAILY GTB Last administered on 07/20/18 08:27; Admin Dose 20 GM; Start 07/20/18 at 09:00 Ascorbic Acid (Vitamin C) 500 mg DAILY GTB Last administered on 07/20/18 08:27; Admin Dose 500 MG; Start 07/20/18 at 09:00 Folic Acid (Folic Acid) 1 mg DAILY GTB Last administered on 07/20/18 08:27; Admin Dose 1 MG; Start 07/20/18 at 09:00 Zinc Sulfate (Zinc Sulfate) 220 mg DAILY GTB Last administered on 07/20/18 08:27; Admin Dose 220 MG; Start 07/20/18 at 09:00 PEGGY RODRIGUEZ MD July 20, 2018 14:22
[2018-07-21] MEDS: INSULIN ASPART [NOVOLOG] 3 ML PEN SC SCH ×5 (01:00→21:04)
[2018-07-21 02:00] VITALS: BP 142/69; PULSE 71; RESP 18
[2018-07-21] MEDS: ACCU-CHEK XX SCH (02:00)
[2018-07-21] MEDS: VANCOMYCIN 750 MG (PMX) 250 ML IVPB SCH (03:16)
[2018-07-21] MEDS: PIPER-TAZO 3.375 GM IV (PMX) 100 ML IVPB SCH ×4 (03:17→22:29)
[2018-07-21] MEDS: ENOXAPARIN 30 MG/0.3 ML SYG SC SCH (08:17)
[2018-07-21] MEDS: DOCUSATE SODIUM 100 MG CAP PO SCH (08:18)
[2018-07-21] MEDS: LACTULOSE 30ML CUP GTB SCH ×2 (08:18→22:29)
[2018-07-21] MEDS: FOLIC ACID 1 MG TAB GTB SCH (08:18)
[2018-07-21] MEDS: FAMOTIDINE 20 MG INJ IV SCH (08:19)
[2018-07-21] MEDS: ASCORBIC ACID 500 MG TAB GTB SCH (08:19)
[2018-07-21] MEDS: ZINC SULFATE 220 MG CAP GTB SCH (08:19)
[2018-07-21] MEDS: BALSAM PERU/CASTOR OIL 60 GM TUBE TOP SCH ×2 (08:19→22:29)
--- NOTE | 2018-07-21 08:20 | CONS ---
Assessment/Plan Assessment/Plan Hospital Course (Demo Recall) 1) UTI with sepsis in pt with suprapubic cath due to neurogenic bladder pt was in hospital in april of this year with urosepsis and had e.coli +ESBL and MRSA present continue with vanco, change aztreanom to zosyn (e.coli was sensitive to it) await final ID and sensi's of urine CT abd did not show hydronephrosis but there is some mass/cyst around the L kidney, u/s could not visualize the L kidney 07/19 - urine cx and blood cx are NGTD continue with vanco/zosyn at present, improved temps and WBC 07/20 - urine cx is neg blood cx has e.coli in it, continue with zosyn, d/c vanco 07/21 - normal WBC 2) L base effusion with atelectasis vs consolidation check procalcitonin and get nasal for MRSA vanco/zosyn should cover but pt does not seem to have respiratory distress and is resting comfortable without cough on 2L of O2 07/19 - stable, procalcitonin is pending 07/20 - with bacteremia, impossible to interpret elevated procalcitonin for pneumonia nasal has MRSA but doubt he has pneumonia d/c vanco but continue with zosyn 07/21 - doubt pt has pneumonia but zosyn should cover 3) sacral ulcer get wound cx vanco/zosyn will cover 07/19 - stage III ulcer, cx is pending wound care to see pt 07/20 - pt has proteus and pseudomonas in sacral cx, not c/w e.coli in the blood continue with zosyn, d/c vanco, check ESR 07/21 - pseudomonas and proteus are sensitive to the zosyn 4) TBI with quadriplegia 5) DM 6) constipation with enlarged colon and to my eyes some thickening of colon wall pt will likely need bowel evacuants vanco/zosyn will cover for lower GI infection if present 07/19 - no abd pain and lots of stool in last 24 hours 07/20 - E.coli could have coming from the colon d/c vanco and continue with zosyn pt has rectal tube with watery brown fluid, doubt c.dif in light of improving WBC and fever 07/21 - continue with zosyn for a two week course (thru 07/31) repeat abd x-ray, pt only has watery stools in rectal tube concern would be that he still has stool impaction 7) ARF likely due to sepsis this has been his pattern with infection and his creatinine goes back to baseline 07/19 - improved creatinine 07/20 - resolved 8) hypernatremia again this is not uncommon for this pt and it had resolved in the past with D5W 07/20 - improved 9) e.coli bacteremia 07/20 - source could be the urine but urine cx was neg he has gallstones but no sign of GB obstruction he has some haziness at the L lung base but doubt lung is the source elevated procalcitonin is also present in bacteremia and does not mean he has a lung infection He had large amount of retained stool with distended colon and this is more likely the source of the infection continue with zosyn 07/21 - improved fever and WBC is WNL continue zosyn thru 07/31/18 I suspect the source is his fecal impaction that caused bowel distension Consultation Date/Type/Reason Admit Date/Time July 18, 2018 at 00:56 Initial Consult Date 07/18/18 Type of Consult ID Requesting Provider: MERARY SORENSEN Date/Time of Note DATE: 07/21/18 TIME: 08:15 24 HR Interval Summary Free Text/Dictation spoke to nurse good stool output via rectal tube but it is all liquid tolerating TF well Exam/Review of Systems Exam Vitals Vital Signs Date Temp Pulse Resp B/P (MAP) Pulse Ox O2 O2 Flow FiO2 Time Delivery Rate 07/21/18 97.5 71 18 142/69 95 02:00 (93) 07/20/18 Room Air 07:27 07/19/18 2.0 16:00 Intake and Output 07/20/18 07/20/18 07/21/18 1515:00 23:00 07:00 IntakeIntake Total 100 ml 350 ml BalanceBalance 100 ml 350 ml Constitutional: non-verbal Respiratory: clear to auscultation Gastrointestinal: soft, non-tender Results Result Diagram: 07/21/18 0556 07/21/18 0556 Results 24hrs Laboratory Tests Test 07/20/18 12:14 07/20/18 17:17 07/20/18 20:45 07/21/18 01:32 Bedside Glucose 203 132 126 110 Test 07/21/18 05:56 07/21/18 07:58 White Blood Count 6.8 # Red Blood Count 3.39 L Hemoglobin 8.8 L Hematocrit 29.4 L Mean Corpuscular 86.7 Volume Mean Corpuscular 26.0 L Hemoglobin Mean Corpuscular 29.9 L Hemoglobin Concent Red Cell 17.1 H Distribution Width Platelet Count 122 L Mean Platelet Volume 12.9 H Immature 0.400 Granulocytes % Neutrophils % 71.7 Lymphocytes % 19.2 Monocytes % 5.6 Eosinophils % 2.8 Basophils % 0.3 Nucleated Red Blood 0.0 Cells % Immature 0.030 Granulocytes # Neutrophils # 4.9 Lymphocytes # 1.3 Monocytes # 0.4 Eosinophils # 0.2 Basophils # 0.0 Nucleated Red Blood 0.0 Cells # Sodium Level 148 H Potassium Level 3.4 L Chloride Level 121 H Carbon Dioxide Level 23 Anion Gap 4 L Blood Urea Nitrogen 12 Creatinine 0.98 Est Glomerular > 60 Filtrat Rate mL/min Glucose Level 224 H Calcium Level 8.3 L Total Bilirubin 0.4 Direct Bilirubin 0.00 Indirect Bilirubin 0.4 Aspartate Amino 16 Transf (AST/SGOT) Alanine 17 Aminotransferase (AL T/SGPT) Alkaline Phosphatase 62 Total Protein 6.3 Albumin 2.9 L Globulin 3.40 H Albumin/Globulin 0.85 Ratio Bedside Glucose 264 H Medications Medication Current Medications Ondansetron HCl (Zofran Inj) 4 mg Q6H PRN IV NAUSEA AND/OR VOMITING; Start 07/18/18 at 01:30 Acetaminophen (Tylenol Liquid) 650 mg Q6H PRN GTB PAIN LEVEL 1-3 OR FEVER; Start 07/18/18 at 01:30 Morphine Sulfate (morphine) 2 mg Q4H PRN IV PAIN LEVEL 7-10 Last administered on 07/20/18at 02:41; Admin Dose 2 MG; Start 07/18/18 at 01:30 Vancomycin HCl (Vanco Iv Per Pharmacy) VANCOMYCIN PER PHARMACY PER PROTOCOL XX ; Start 07/18/18 at 01:30 Vancomycin/Sodium Chloride 250 ml @ 125 mls/hr Q12H IVPB Last administered on 07/21/18at 03:16; Admin Dose 125 MLS/HR; Start 07/18/18 at 15:00 Piperacillin Sod/ Tazobactam Sod 100 ml @ 200 mls/hr Q6H IVPB Last administered on 07/21/18 03:17; Admin Dose 200 MLS/HR; Start 07/18/18 at 09:30 Diagnostic Test (Pha) (Accu-Chek) 1 ea 02 XX Last administered on 07/19/18at 02:20; Admin Dose 1 EA; Start 07/19/18 at 02:00 Miscellaneous Information 1 ea NOTE XX ; Start 07/18/18 at 09:30 Glucose (Glutose) 15 gm Q15M PRN PO DECREASED GLUCOSE; Start 07/18/18 at 09:30 Glucose (Glutose) 22.5 gm Q15M PRN PO DECREASED GLUCOSE; Start 07/18/18 at 09:30 Dextrose (D50w Syringe) 25 ml Q15M PRN IV DECREASED GLUCOSE; Start 07/18/18 at 09:30 Dextrose (D50w Syringe) 50 ml Q15M PRN IV DECREASED GLUCOSE Last administered on 07/18/18at 17:21; Admin Dose 50 ML; Start 07/18/18 at 09:30 Glucagon (Glucagen) 1 mg Q15M PRN IM DECREASED GLUCOSE; Start 07/18/18 at 09:30 Glucose (Glutose) 15 gm Q15M PRN BUCCAL DECREASED GLUCOSE; Start 07/18/18 at 09:30 Docusate Sodium (Colace) 100 mg BID PO Last administered on 07/20/18 08:27; Admin Dose 100 MG; Start 07/18/18 at 10:00 Enoxaparin Sodium (Lovenox) 30 mg DAILY SC Last administered on 07/20/18 08:30; Admin Dose 30 MG; Start 07/18/18 at 10:00 Famotidine (Pepcid Iv) 20 mg BID IV Last administered on 07/20/18at 20:47; Admin Dose 20 MG; Start 07/19/18 at 09:00 Lactulose (Enulose) 20 gm DAILY GTB Last administered on 07/20/18 08:27; Admin Dose 20 GM; Start 07/20/18 at 09:00 Ascorbic Acid (Vitamin C) 500 mg DAILY GTB Last administered on 07/20/18 08:27; Admin Dose 500 MG; Start 07/20/18 at 09:00 Folic Acid (Folic Acid) 1 mg DAILY GTB Last administered on 07/20/18 08:27; Admin Dose 1 MG; Start 07/20/18 at 09:00 Zinc Sulfate (Zinc Sulfate) 220 mg DAILY GTB Last administered on 07/20/18at 08:27; Admin Dose 220 MG; Start 07/20/18 at 09:00 Insulin Aspart (Novolog Insulin Pen) NOVOLOG *MILD* ALGORITHM WITH MEALS BEDTIME SC ; Start 07/21/18 at 08:00 ZAHEER ENGLE MD July 21, 2018 08:20
[2018-07-21] MEDS ORDERED: POTASSIUM CHLORIDE 20 MEQ POWDER FOR ORAL SOLN GTB ONE (08:30)
[2018-07-21 10:21] VITALS: BP 156/74; PULSE 67; RESP 18
[2018-07-21 14:28] VITALS: BP 160/72; PULSE 68; RESP 18
--- NOTE | 2018-07-21 16:56 | PN ---
Date/Time of Note Date/Time of Note DATE: 07/21/18 TIME: 16:56 Assessment/Plan VTE Prophylaxis Risk score (from Ns)>0 risk: 5 SCD applied (from Ns): Yes Pharmacological prophylaxis: heparin Lines/Catheters [facility] Central line still needed: Yes Urinary Cath still in place: Yes Reason Cath still needed: urinary retention Assessment/Plan Hospital Course Alert Smiling Appears comfortable Breathing comfortably Quadraplegia with spastic limbs Clear lungs RRR Abodmen soft nt Suprapubic catheter 52 yo male with quadraplegia and chronic encephelopathy presents with sepsis Fecal impaction: - Laxatives, enema Sepsis: - Abx per ID Hypernatremia and NINA: - IV fluids - Resolving Quadraplegia - stable Dc planning Result Diagram: 07/21/18 0556 07/21/18 0556 Results 24hrs Laboratory Tests Test 07/20/18 17:17 07/20/18 20:45 07/21/18 01:32 07/21/18 05:56 Bedside Glucose 132 126 110 White Blood Count 6.8 # Red Blood Count 3.39 L Hemoglobin 8.8 L Hematocrit 29.4 L Mean Corpuscular 86.7 Volume Mean Corpuscular 26.0 L Hemoglobin Mean Corpuscular 29.9 L Hemoglobin Concent Red Cell 17.1 H Distribution Width Platelet Count 122 L Mean Platelet Volume 12.9 H Immature 0.400 Granulocytes % Neutrophils % 71.7 Lymphocytes % 19.2 Monocytes % 5.6 Eosinophils % 2.8 Basophils % 0.3 Nucleated Red Blood 0.0 Cells % Immature 0.030 Granulocytes # Neutrophils # 4.9 Lymphocytes # 1.3 Monocytes # 0.4 Eosinophils # 0.2 Basophils # 0.0 Nucleated Red Blood 0.0 Cells # Erythrocyte 72 H Sedimentation Rate Sodium Level 148 H Potassium Level 3.4 L Chloride Level 121 H Carbon Dioxide Level 23 Anion Gap 4 L Blood Urea Nitrogen 12 Creatinine 0.98 Est Glomerular > 60 Filtrat Rate mL/min Glucose Level 224 H Calcium Level 8.3 L Total Bilirubin 0.4 Direct Bilirubin 0.00 Indirect Bilirubin 0.4 Aspartate Amino 16 Transf (AST/SGOT) Alanine 17 Aminotransferase (AL T/SGPT) Alkaline Phosphatase 62 Total Protein 6.3 Albumin 2.9 L Globulin 3.40 H Albumin/Globulin 0.85 Ratio Test 07/21/18 07:58 07/21/18 11:47 Bedside Glucose 264 H 199 Subjective 24 Hr Interval Summary Free Text/Dictation Still with fecal impaction on XR Exam/Review of Systems Exam Vitals Vital Signs Date Temp Pulse Resp B/P (MAP) Pulse Ox O2 O2 Flow FiO2 Time Delivery Rate 07/21/18 98.1 68 18 160/72 95 Room Air 14:28 (101) Mask 07/19/18 2.0 16:00 Intake and Output 07/20/18 07/20/18 07/21/18 1515:00 23:00 07:00 IntakeIntake Total 100 ml 350 ml BalanceBalance 100 ml 350 ml Results Results 24hrs Laboratory Tests Test 07/20/18 17:17 07/20/18 20:45 07/21/18 01:32 07/21/18 05:56 Bedside Glucose 132 126 110 White Blood Count 6.8 # Red Blood Count 3.39 L Hemoglobin 8.8 L Hematocrit 29.4 L Mean Corpuscular 86.7 Volume Mean Corpuscular 26.0 L Hemoglobin Mean Corpuscular 29.9 L Hemoglobin Concent Red Cell 17.1 H Distribution Width Platelet Count 122 L Mean Platelet Volume 12.9 H Immature 0.400 Granulocytes % Neutrophils % 71.7 Lymphocytes % 19.2 Monocytes % 5.6 Eosinophils % 2.8 Basophils % 0.3 Nucleated Red Blood 0.0 Cells % Immature 0.030 Granulocytes # Neutrophils # 4.9 Lymphocytes # 1.3 Monocytes # 0.4 Eosinophils # 0.2 Basophils # 0.0 Nucleated Red Blood 0.0 Cells # Erythrocyte 72 H Sedimentation Rate Sodium Level 148 H Potassium Level 3.4 L Chloride Level 121 H Carbon Dioxide Level 23 Anion Gap 4 L Blood Urea Nitrogen 12 Creatinine 0.98 Est Glomerular > 60 Filtrat Rate mL/min Glucose Level 224 H Calcium Level 8.3 L Total Bilirubin 0.4 Direct Bilirubin 0.00 Indirect Bilirubin 0.4 Aspartate Amino 16 Transf (AST/SGOT) Alanine 17 Aminotransferase (AL T/SGPT) Alkaline Phosphatase 62 Total Protein 6.3 Albumin 2.9 L Globulin 3.40 H Albumin/Globulin 0.85 Ratio Test 07/21/18 07:58 07/21/18 11:47 Bedside Glucose 264 H 199 Medications Medication Current Medications Ondansetron HCl (Zofran Inj) 4 mg Q6H PRN IV NAUSEA AND/OR VOMITING; Start 07/18/18 at 01:30 Acetaminophen (Tylenol Liquid) 650 mg Q6H PRN GTB PAIN LEVEL 1-3 OR FEVER; Start 07/18/18 at 01:30 Morphine Sulfate (morphine) 2 mg Q4H PRN IV PAIN LEVEL 7-10 Last administered on 07/20/18at 02:41; Admin Dose 2 MG; Start 07/18/18 at 01:30 Piperacillin Sod/ Tazobactam Sod 100 ml @ 200 mls/hr Q6H IVPB Last administered on 07/21/18at 15:45; Admin Dose 200 MLS/HR; Start 07/18/18 at 09:30 Diagnostic Test (Pha) (Accu-Chek) 1 ea 02 XX Last administered on 07/19/18at 02:20; Admin Dose 1 EA; Start 07/19/18 at 02:00 Miscellaneous Information 1 ea NOTE XX ; Start 07/18/18 at 09:30 Glucose (Glutose) 15 gm Q15M PRN PO DECREASED GLUCOSE; Start 07/18/18 at 09:30 Glucose (Glutose) 22.5 gm Q15M PRN PO DECREASED GLUCOSE; Start 07/18/18 at 09:30 Dextrose (D50w Syringe) 25 ml Q15M PRN IV DECREASED GLUCOSE; Start 07/18/18 at 09:30 Dextrose (D50w Syringe) 50 ml Q15M PRN IV DECREASED GLUCOSE Last administered on 07/18/18at 17:21; Admin Dose 50 ML; Start 07/18/18 at 09:30 Glucagon (Glucagen) 1 mg Q15M PRN IM DECREASED GLUCOSE; Start 07/18/18 at 09:30 Glucose (Glutose) 15 gm Q15M PRN BUCCAL DECREASED GLUCOSE; Start 07/18/18 at 09:30 Docusate Sodium (Colace) 100 mg BID PO Last administered on 07/21/18at 08:18; Admin Dose 100 MG; Start 07/18/18 at 10:00 Enoxaparin Sodium (Lovenox) 30 mg DAILY SC Last administered on 07/21/18at 08:17; Admin Dose 30 MG; Start 07/18/18 at 10:00 Famotidine (Pepcid Iv) 20 mg BID IV Last administered on 07/21/18at 08:19; Admin Dose 20 MG; Start 07/19/18 at 09:00 Lactulose (Enulose) 20 gm DAILY GTB Last administered on 07/21/18at 08:18; Admin Dose 20 GM; Start 07/20/18 at 09:00 Ascorbic Acid (Vitamin C) 500 mg DAILY GTB Last administered on 07/21/18at 08:19; Admin Dose 500 MG; Start 07/20/18 at 09:00 Folic Acid (Folic Acid) 1 mg DAILY GTB Last administered on 07/21/18at 08:18; Admin Dose 1 MG; Start 07/20/18 at 09:00 Zinc Sulfate (Zinc Sulfate) 220 mg DAILY GTB Last administered on 07/21/18at 08:19; Admin Dose 220 MG; Start 07/20/18 at 09:00 Insulin Aspart (Novolog Insulin Pen) NOVOLOG *MILD* ALGORITHM WITH MEALS BEDTIME SC Last administered on 07/21/18at 11:55; Admin Dose 2 UNIT; Start 07/21/18 at 08:00 Insulin Glargine (Lantus) 10 units DAILY@2000 SC ; Start 07/21/18 at 20:00 PEGGY RODRIGUEZ MD July 21, 2018 16:56
[2018-07-21] MEDS ORDERED: NA PHOSPHATE/BIPHOS 133 ML ENEMA PR ONE (17:00)
--- NOTE | 2018-07-21 17:06 | PN ---
Date/Time of Note Date/Time of Note DATE: 07/21/18 TIME: 16:59 Assessment/Plan VTE Prophylaxis Risk score (from Nsg)>0 risk: 5 SCD applied (from Nsg): Yes Pharmacological prophylaxis: heparin Lines/Catheters IV Catheter Type (from Nrsg): Central Line Central line still needed: Yes Urinary Cath still in place: Yes Reason Cath still needed: urinary retention Assessment/Plan Assessment/Plan Assessment: Fecal impaction - Abundant retained stool throughout the colon. Stool distended sigmoid colon measuring up to 10 cm in diameter consistent with fecal impaction -Many BM's during the night Sepsis 03/25/ to UTI/Bacteremia (gram negative) -Leukocytosis- improved -Elevated Lactic acid - resolved -Tachycardia on arrival- now HR WNL Query left lung base PNA CXR findings compatible with atelectasis or pneumonia. Neurogenic bladder with suprapubic catheter Chronic encephalopathy secondary to TBI -Status post prior left frontotemporal craniectomy/cranioplasty - Right frontal approach [employer] shunt with tip anterolateral to the third vent ricle TBI with quadriplegia NINA- resolved Soft tissue mass-like structure of the left kidney which may represent complex cyst versus mass -Work-up per hospitalist Sacral ulcer- wound consult- ordered -Wound cx- proteus and pseudomonas - per ID Plan: Continue bowel regimen Continue advancing TF to goal rate PEG care BID Antibiotics per ID Patient seen in collaboration with Dr. De Dios Subjective: Course reviewed with nursing staff Patient interviewed and examined All labs, imaging and other results reviewed Patient is having continuous loose stools in the rectal bag and leaking around the rectal bag. He is currently on lactulose. KUB reviewed with findings of re ctal fecal impaction. Team present bowel regimen. Consider removing rectal tube if continues to malfunction. Tube feeding at 50 cc/h with moderate residuals. Continue observation. PHYSICAL EXAMINATION: GENERAL: Well developed, well nourished, alert & oriented x 1 SKIN: decubitus wounds HEAD: Normocephalic, atraumatic, no tenderness. EYES: Pupils equal reactive to light and accommodation, no discharge. EARS/NOSE AND THROAT: Ears normal, nose normal. NECK: Supple, no masses. CHEST: Inspection within normal limits. CARDIOVASCULAR: Heart: Regular rate and rhythm RESPIRATORY: Lungs clear to auscultation GASTROINTESTINAL AND LIVER: Abdomen: Soft, non tenderness, mildly distended- improved , no hernias, no masses, no organomegaly, normoactive bowel sounds. Rectal: Deferred. Result Diagram: 07/21/18 0556 07/21/18 0556 Results 24hrs Laboratory Tests Test 07/20/18 17:17 07/20/18 20:45 07/21/18 01:32 07/21/18 05:56 Bedside Glucose 132 126 110 White Blood Count 6.8 # Red Blood Count 3.39 L Hemoglobin 8.8 L Hematocrit 29.4 L Mean Corpuscular 86.7 Volume Mean Corpuscular 26.0 L Hemoglobin Mean Corpuscular 29.9 L Hemoglobin Concent Red Cell 17.1 H Distribution Width Platelet Count 122 L Mean Platelet Volume 12.9 H Immature 0.400 Granulocytes % Neutrophils % 71.7 Lymphocytes % 19.2 Monocytes % 5.6 Eosinophils % 2.8 Basophils % 0.3 Nucleated Red Blood 0.0 Cells % Immature 0.030 Granulocytes # Neutrophils # 4.9 Lymphocytes # 1.3 Monocytes # 0.4 Eosinophils # 0.2 Basophils # 0.0 Nucleated Red Blood 0.0 Cells # Erythrocyte 72 H Sedimentation Rate Sodium Level 148 H Potassium Level 3.4 L Chloride Level 121 H Carbon Dioxide Level 23 Anion Gap 4 L Blood Urea Nitrogen 12 Creatinine 0.98 Est Glomerular > 60 Filtrat Rate mL/min Glucose Level 224 H Calcium Level 8.3 L Total Bilirubin 0.4 Direct Bilirubin 0.00 Indirect Bilirubin 0.4 Aspartate Amino 16 Transf (AST/SGOT) Alanine 17 Aminotransferase (AL T/SGPT) Alkaline Phosphatase 62 Total Protein 6.3 Albumin 2.9 L Globulin 3.40 H Albumin/Globulin 0.85 Ratio Test 07/21/18 07:58 07/21/18 11:47 07/21/18 16:54 Bedside Glucose 264 H 199 207 CC: CLARK DE DIOS MD ; Exam/Review of Systems Exam Vitals Vital Signs Date Temp Pulse Resp B/P (MAP) Pulse Ox O2 O2 Flow FiO2 Time Delivery Rate 07/21/18 98.1 68 18 160/72 95 Room Air 14:28 (101) Mask 07/19/18 2.0 16:00 Intake and Output 07/20/18 07/20/18 07/21/18 1515:00 23:00 07:00 IntakeIntake Total 100 ml 350 ml BalanceBalance 100 ml 350 ml Results Results 24hrs Laboratory Tests Test 07/20/18 17:17 07/20/18 20:45 07/21/18 01:32 07/21/18 05:56 Bedside Glucose 132 126 110 White Blood Count 6.8 # Red Blood Count 3.39 L Hemoglobin 8.8 L Hematocrit 29.4 L Mean Corpuscular 86.7 Volume Mean Corpuscular 26.0 L Hemoglobin Mean Corpuscular 29.9 L Hemoglobin Concent Red Cell 17.1 H Distribution Width Platelet Count 122 L Mean Platelet Volume 12.9 H Immature 0.400 Granulocytes % Neutrophils % 71.7 Lymphocytes % 19.2 Monocytes % 5.6 Eosinophils % 2.8 Basophils % 0.3 Nucleated Red Blood 0.0 Cells % Immature 0.030 Granulocytes # Neutrophils # 4.9 Lymphocytes # 1.3 Monocytes # 0.4 Eosinophils # 0.2 Basophils # 0.0 Nucleated Red Blood 0.0 Cells # Erythrocyte 72 H Sedimentation Rate Sodium Level 148 H Potassium Level 3.4 L Chloride Level 121 H Carbon Dioxide Level 23 Anion Gap 4 L Blood Urea Nitrogen 12 Creatinine 0.98 Est Glomerular > 60 Filtrat Rate mL/min Glucose Level 224 H Calcium Level 8.3 L Total Bilirubin 0.4 Direct Bilirubin 0.00 Indirect Bilirubin 0.4 Aspartate Amino 16 Transf (AST/SGOT) Alanine 17 Aminotransferase (AL T/SGPT) Alkaline Phosphatase 62 Total Protein 6.3 Albumin 2.9 L Globulin 3.40 H Albumin/Globulin 0.85 Ratio Test 07/21/18 07:58 07/21/18 11:47 07/21/18 16:54 Bedside Glucose 264 H 199 207 Medications Medication Current Medications Ondansetron HCl (Zofran Inj) 4 mg Q6H PRN IV NAUSEA AND/OR VOMITING; Start 07/18/18 at 01:30 Acetaminophen (Tylenol Liquid) 650 mg Q6H PRN GTB PAIN LEVEL 1-3 OR FEVER; Start 07/18/18 at 01:30 Morphine Sulfate (morphine) 2 mg Q4H PRN IV PAIN LEVEL 7-10 Last administered on 07/20/18at 02:41; Admin Dose 2 MG; Start 07/18/18 at 01:30 Piperacillin Sod/ Tazobactam Sod 100 ml @ 200 mls/hr Q6H IVPB Last administered on 07/21/18at 15:45; Admin Dose 200 MLS/HR; Start 07/18/18 at 09:30 Miscellaneous Information 1 ea NOTE XX ; Start 07/18/18 at 09:30 Glucose (Glutose) 15 gm Q15M PRN PO DECREASED GLUCOSE; Start 07/18/18 at 09:30 Glucose (Glutose) 22.5 gm Q15M PRN PO DECREASED GLUCOSE; Start 07/18/18 at 09:30 Dextrose (D50w Syringe) 25 ml Q15M PRN IV DECREASED GLUCOSE; Start 07/18/18 at 09:30 Dextrose (D50w Syringe) 50 ml Q15M PRN IV DECREASED GLUCOSE Last administered on 07/18/18at 17:21; Admin Dose 50 ML; Start 07/18/18 at 09:30 Glucagon (Glucagen) 1 mg Q15M PRN IM DECREASED GLUCOSE; Start 07/18/18 at 09:30 Glucose (Glutose) 15 gm Q15M PRN BUCCAL DECREASED GLUCOSE; Start 07/18/18 at 09:30 Docusate Sodium (Colace) 100 mg BID PO Last administered on 07/21/18at 08:18; Admin Dose 100 MG; Start 07/18/18 at 10:00 Enoxaparin Sodium (Lovenox) 30 mg DAILY SC Last administered on 07/21/18at 08:17; Admin Dose 30 MG; Start 07/18/18 at 10:00 Famotidine (Pepcid Iv) 20 mg BID IV Last administered on 07/21/18at 08:19; Admin Dose 20 MG; Start 07/19/18 at 09:00 Ascorbic Acid (Vitamin C) 500 mg DAILY GTB Last administered on 07/21/18at 08:19; Admin Dose 500 MG; Start 07/20/18 at 09:00 Folic Acid (Folic Acid) 1 mg DAILY GTB Last administered on 07/21/18 08:18; Admin Dose 1 MG; Start 07/20/18 at 09:00 Zinc Sulfate (Zinc Sulfate) 220 mg DAILY GTB Last administered on 07/21/18 08:19; Admin Dose 220 MG; Start 07/20/18 at 09:00 Insulin Aspart (Novolog Insulin Pen) NOVOLOG *MILD* ALGORITHM WITH MEALS BEDTIME SC Last administered on 07/21/18at 11:55; Admin Dose 2 UNIT; Start 07/21/18 at 08:00 Insulin Glargine (Lantus) 10 units DAILY@2000 SC ; Start 07/21/18 at 20:00 Lactulose (Enulose) 20 gm TID GTB ; Start 07/21/18 at 21:00 Sodium Biphosphate/ Sodium Phosphate (Fleet Enema) 133 ml ONCE ONCE IA ; Start 07/21/18 at 17:00; Stop 07/21/18 at 17:01 SHERRIE PAREDES NP July 21, 2018 17:06
[2018-07-21 20:00] VITALS: BP 136/70; PULSE 68; RESP 18
[2018-07-21] MEDS ORDERED: INSULIN GLARGINE [LANTus] (100 UNITS/ML) SYG SC SCH (20:00)
[2018-07-21] MEDS ORDERED: FAMOTIDINE 20 MG TAB GTB SCH (21:00)
[2018-07-21] MEDS: DOCUSATE SODIUM 10 MG/ML (10ML CUP) GTB SCH (22:28)
[2018-07-22 02:00] VITALS: BP 158/72; PULSE 70; RESP 18
[2018-07-22] MEDS: PIPER-TAZO 3.375 GM IV (PMX) 100 ML IVPB SCH ×4 (03:24→21:55)
--- NOTE | 2018-07-22 08:03 | CONS ---
Assessment/Plan Assessment/Plan Hospital Course (Demo Recall) 1) UTI with sepsis in pt with suprapubic cath due to neurogenic bladder pt was in hospital in april of this year with urosepsis and had e.coli +ESBL and MRSA present continue with vanco, change aztreanom to zosyn (e.coli was sensitive to it) await final ID and sensi's of urine CT abd did not show hydronephrosis but there is some mass/cyst around the L kidney, u/s could not visualize the L kidney 07/19 - urine cx and blood cx are NGTD continue with vanco/zosyn at present, improved temps and WBC 07/20 - urine cx is neg blood cx has e.coli in it, continue with zosyn, d/c vanco 07/21 - normal WBC 2) L base effusion with atelectasis vs consolidation check procalcitonin and get nasal for MRSA vanco/zosyn should cover but pt does not seem to have respiratory distress and is resting comfortable without cough on 2L of O2 07/19 - stable, procalcitonin is pending 07/20 - with bacteremia, impossible to interpret elevated procalcitonin for pneumonia nasal has MRSA but doubt he has pneumonia d/c vanco but continue with zosyn 07/21 - doubt pt has pneumonia but zosyn should cover 3) sacral ulcer get wound cx vanco/zosyn will cover 07/19 - stage III ulcer, cx is pending wound care to see pt 07/20 - pt has proteus and pseudomonas in sacral cx, not c/w e.coli in the blood continue with zosyn, d/c vanco, check ESR 07/21 - pseudomonas and proteus are sensitive to the zosyn 07/22 - ESR is moderately elevated I will order MRI of sacral area to determine length of IV antibiotic therapy 4) TBI with quadriplegia 5) DM 6) constipation with enlarged colon and to my eyes some thickening of colon wall pt will likely need bowel evacuants vanco/zosyn will cover for lower GI infection if present 07/19 - no abd pain and lots of stool in last 24 hours 07/20 - E.coli could have coming from the colon d/c vanco and continue with zosyn pt has rectal tube with watery brown fluid, doubt c.dif in light of improving WBC and fever 07/21 - continue with zosyn for a two week course (thru 07/31) repeat abd x-ray, pt only has watery stools in rectal tube concern would be that he still has stool impaction 07/22 - abd xray still shows fecal impaction, spoke to nurse regarding removing rectal tube 7) ARF likely due to sepsis this has been his pattern with infection and his creatinine goes back to baseline 07/19 - improved creatinine 07/20 - resolved 8) hypernatremia again this is not uncommon for this pt and it had resolved in the past with D5W 07/20 - improved 9) e.coli bacteremia 07/20 - source could be the urine but urine cx was neg he has gallstones but no sign of GB obstruction he has some haziness at the L lung base but doubt lung is the source elevated procalcitonin is also present in bacteremia and does not mean he has a lung infection He had large amount of retained stool with distended colon and this is more likely the source of the infection continue with zosyn 07/21 - improved fever and WBC is WNL continue zosyn thru 07/31/18 I suspect the source is his fecal impaction that caused bowel distension Consultation Date/Type/Reason Admit Date/Time July 18, 2018 at 00:56 Initial Consult Date 07/18/18 Type of Consult ID Requesting Provider: MERARY SORENSEN Date/Time of Note DATE: 07/22/18 TIME: 07:56 24 HR Interval Summary Free Text/Dictation pt smiles freely he denies pain to abd on exam Exam/Review of Systems Exam Vitals Vital Signs Date Temp Pulse Resp B/P (MAP) Pulse Ox O2 O2 Flow FiO2 Time Delivery Rate 07/22/18 98.5 70 18 158/72 98 02:00 (100) 07/21/18 Room Air 14:28 Mask 07/19/18 2.0 16:00 Intake and Output 07/21/18 07/21/18 07/22/18 1515:00 23:00 07:00 IntakeIntake Total 100 ml 100 ml OutputOutput Total 650 ml 400 ml BalanceBalance -550 ml -300 ml Constitutional: alert Respiratory: clear to auscultation Cardiovascular: regular rate and rhythm Gastrointestinal: soft, non-tender Results Result Diagram: 07/21/18 0556 07/21/18 0556 Results 24hrs Laboratory Tests Test 07/21/18 07:58 07/21/18 11:47 07/21/18 16:54 07/21/18 20:12 Bedside Glucose 264 H 199 207 235 H Medications Medication Current Medications Ondansetron HCl (Zofran Inj) 4 mg Q6H PRN IV NAUSEA AND/OR VOMITING; Start 07/18/18 at 01:30 Acetaminophen (Tylenol Liquid) 650 mg Q6H PRN GTB PAIN LEVEL 1-3 OR FEVER; Start 07/18/18 at 01:30 Morphine Sulfate (morphine) 2 mg Q4H PRN IV PAIN LEVEL 7-10 Last administered on 07/20/18at 02:41; Admin Dose 2 MG; Start 07/18/18 at 01:30 Piperacillin Sod/ Tazobactam Sod 100 ml @ 200 mls/hr Q6H IVPB Last administered on 07/22/18at 03:24; Admin Dose 200 MLS/HR; Start 07/18/18 at 09:30 Miscellaneous Information 1 ea NOTE XX ; Start 07/18/18 at 09:30 Glucose (Glutose) 15 gm Q15M PRN PO DECREASED GLUCOSE; Start 07/18/18 at 09:30 Glucose (Glutose) 22.5 gm Q15M PRN PO DECREASED GLUCOSE; Start 07/18/18 at 09:30 Dextrose (D50w Syringe) 25 ml Q15M PRN IV DECREASED GLUCOSE; Start 07/18/18 at 09:30 Dextrose (D50w Syringe) 50 ml Q15M PRN IV DECREASED GLUCOSE Last administered on 07/18/18at 17:21; Admin Dose 50 ML; Start 07/18/18 at 09:30 Glucagon (Glucagen) 1 mg Q15M PRN IM DECREASED GLUCOSE; Start 07/18/18 at 09:30 Glucose (Glutose) 15 gm Q15M PRN BUCCAL DECREASED GLUCOSE; Start 07/18/18 at 09:30 Enoxaparin Sodium (Lovenox) 30 mg DAILY SC Last administered on 07/21/18at 08:17; Admin Dose 30 MG; Start 07/18/18 at 10:00 Ascorbic Acid (Vitamin C) 500 mg DAILY GTB Last administered on 07/21/18at 08:19; Admin Dose 500 MG; Start 07/20/18 at 09:00 Folic Acid (Folic Acid) 1 mg DAILY GTB Last administered on 07/21/18 08:18; Admin Dose 1 MG; Start 07/20/18 at 09:00 Zinc Sulfate (Zinc Sulfate) 220 mg DAILY GTB Last administered on 07/21/18 08:19; Admin Dose 220 MG; Start 07/20/18 at 09:00 Insulin Aspart (Novolog Insulin Pen) NOVOLOG *MILD* ALGORITHM WITH MEALS BEDTIME SC Last administered on 07/21/18 21:04; Admin Dose 2 UNIT; Start 07/21/18 at 08:00 Insulin Glargine (Lantus) 10 units DAILY@2000 SC Last administered on 07/21/18 21:05; Admin Dose 10 UNITS; Start 07/21/18 at 20:00 Lactulose (Enulose) 20 gm TID GTB Last administered on 07/21/18 22:29; Admin Dose 20 GM; Start 07/21/18 at 21:00 Docusate Sodium (Colace Liquid Cup) 20 mg BID GTB Last administered on 07/21/18 22:28; Admin Dose 20 MG; Start 07/21/18 at 21:00 ZAHEER ENGLE MD Jul 22, 2018 08:02
[2018-07-22 08:05] VITALS: BP 120/64; PULSE 69; RESP 20
[2018-07-22] MEDS: INSULIN ASPART [NOVOLOG] 3 ML PEN SC SCH ×4 (08:23→20:56)
[2018-07-22] MEDS: ENOXAPARIN 30 MG/0.3 ML SYG SC SCH (08:23)
[2018-07-22] MEDS: ASCORBIC ACID 500 MG TAB GTB SCH (09:24)
[2018-07-22] MEDS: FOLIC ACID 1 MG TAB GTB SCH (09:24)
[2018-07-22] MEDS: LACTULOSE 30ML CUP GTB SCH ×3 (09:24→20:54)
[2018-07-22] MEDS: BALSAM PERU/CASTOR OIL 60 GM TUBE TOP SCH ×2 (09:24→20:57)
[2018-07-22] MEDS: DOCUSATE SODIUM 10 MG/ML (10ML CUP) GTB SCH ×2 (09:24→20:54)
[2018-07-22] MEDS: ZINC SULFATE 220 MG CAP GTB SCH (09:24)
[2018-07-22] MEDS ORDERED: BISACODYL 10 MG SUPP PR PRN (10:30)
--- NOTE | 2018-07-22 13:29 | PN ---
Date/Time of Note Date/Time of Note DATE: 07/22/18 TIME: 13:25 Assessment/Plan VTE Prophylaxis Risk score (from Nsg)>0 risk: 5 SCD applied (from Nsg): Yes Pharmacological prophylaxis: heparin Lines/Catheters IV Catheter Type (from Nrsg): Central Line Central line still needed: Yes Urinary Cath still in place: Yes (SUPRAPUBIC CATHETER) Reason Cath still needed: other (indicate) Assessment/Plan Assessment/Plan Assessment: Fecal impaction - Abundant retained stool throughout the colon. Stool distended sigmoid colon measuring up to 10 cm in diameter consistent with fecal impaction -Many BM's during the night Sepsis // to UTI/Bacteremia (gram negative) -Leukocytosis- improved -Elevated Lactic acid - resolved -Tachycardia on arrival- now HR WNL Query left lung base PNA CXR findings compatible with atelectasis or pneumonia. Neurogenic bladder with suprapubic catheter Chronic encephalopathy secondary to TBI -Status post prior left frontotemporal craniectomy/cranioplasty - Right frontal approach [employer] shunt with tip anterolateral to the third ventricle TBI with quadriplegia NINA- resolved Soft tissue mass-like structure of the left kidney which may represent complex cyst versus mass -Work-up per hospitalist Sacral ulcer- wound consult- ordered -Wound cx- proteus and pseudomonas - per ID Plan: GoLYTELY 4 L KUB in a.m. Continue advancing TF to goal rate PEG care BID Antibiotics per ID Patient seen in collaboration with Dr. De Dios Subjective: Course reviewed with nursing staff Patient interviewed and examined All labs, imaging and other results reviewed Patient had rectal tube removed. No bowel movement since yesterday. Patient is receiving continuous tube feeding at 60 cc/h. Will order GoLYTELY 4 L for constipation/impaction. Continue observation. PHYSICAL EXAMINATION: GENERAL: Well developed, well nourished, alert & oriented x 1 SKIN: decubitus wounds HEAD: Normocephalic, atraumatic, no tenderness. EYES: Pupils equal reactive to light and accommodation, no discharge. EARS/NOSE AND THROAT: Ears normal, nose normal. NECK: Supple, no masses. CHEST: Inspection within normal limits. CARDIOVASCULAR: Heart: Regular rate and rhythm RESPIRATORY: Lungs clear to auscultation GASTROINTESTINAL AND LIVER: Abdomen: Soft, non tenderness, non distended, no hernias, no masses, no organomegaly, normoactive bowel sounds. Rectal: Deferred. Result Diagram: 07/21/18 0556 07/21/18 0556 Results 24hrs Laboratory Tests Test 07/21/18 16:54 07/21/18 20:12 07/22/18 08:20 07/22/18 12:42 Bedside Glucose 207 235 H 284 H 268 H CC: CLARK DE DIOS MD ; Exam/Review of Systems Exam Vitals Vital Signs Date Temp Pulse Resp B/P (MAP) Pulse Ox O2 O2 Flow FiO2 Time Delivery Rate 07/22/18 99.6 69 20 120/64 99 08:05 (82) 07/21/18 Room Air 14:28 Mask 07/19/18 2.0 16:00 Intake and Output 07/21/18 07/21/18 07/22/18 1515:00 23:00 07:00 IntakeIntake Total 100 ml 100 ml OutputOutput Total 650 ml 400 ml BalanceBalance -550 ml -300 ml Results Results 24hrs Laboratory Tests Test 07/21/18 16:54 07/21/18 20:12 07/22/18 08:20 07/22/18 12:42 Bedside Glucose 207 235 H 284 H 268 H Medications Medication Current Medications Ondansetron HCl (Zofran Inj) 4 mg Q6H PRN IV NAUSEA AND/OR VOMITING; Start 07/18/18 at 01:30 Acetaminophen (Tylenol Liquid) 650 mg Q6H PRN GTB PAIN LEVEL 1-3 OR FEVER; Start 07/18/18 at 01:30 Morphine Sulfate (morphine) 2 mg Q4H PRN IV PAIN LEVEL 7-10 Last administered on 07/20/18at 02:41; Admin Dose 2 MG; Start 07/18/18 at 01:30 Piperacillin Sod/ Tazobactam Sod 100 ml @ 200 mls/hr Q6H IVPB Last administered on 07/22/18at 09:23; Admin Dose 200 MLS/HR; Start 07/18/18 at 09:30 Miscellaneous Information 1 ea NOTE XX ; Start 07/18/18 at 09:30 Glucose (Glutose) 15 gm Q15M PRN PO DECREASED GLUCOSE; Start 07/18/18 at 09:30 Glucose (Glutose) 22.5 gm Q15M PRN PO DECREASED GLUCOSE; Start 07/18/18 at 09:30 Dextrose (D50w Syringe) 25 ml Q15M PRN IV DECREASED GLUCOSE; Start 07/18/18 at 09:30 Dextrose (D50w Syringe) 50 ml Q15M PRN IV DECREASED GLUCOSE Last administered o n 07/18/18at 17:21; Admin Dose 50 ML; Start 07/18/18 at 09:30 Glucagon (Glucagen) 1 mg Q15M PRN IM DECREASED GLUCOSE; Start 07/18/18 at 09:30 Glucose (Glutose) 15 gm Q15M PRN BUCCAL DECREASED GLUCOSE; Start 07/18/18 at 09:30 Enoxaparin Sodium (Lovenox) 30 mg DAILY SC Last administered on 07/22/18 08:23; Admin Dose 30 MG; Start 07/18/18 at 10:00 Ascorbic Acid (Vitamin C) 500 mg DAILY GTB Last administered on 07/22/18 09:24; Admin Dose 500 MG; Start 07/20/18 at 09:00 Folic Acid (Folic Acid) 1 mg DAILY GTB Last administered on 07/22/18 09:24; Admin Dose 1 MG; Start 07/20/18 at 09:00 Zinc Sulfate (Zinc Sulfate) 220 mg DAILY GTB Last administered on 07/22/18 09:24; Admin Dose 220 MG; Start 07/20/18 at 09:00 Insulin Aspart (Novolog Insulin Pen) NOVOLOG *MILD* ALGORITHM WITH MEALS BEDTIME SC Last administered on 07/22/18 12:49; Admin Dose 4 UNIT; Start 07/21/18 at 08:00 Insulin Glargine (Lantus) 10 units DAILY@2000 SC Last administered on 07/21/18at 21:05; Admin Dose 10 UNITS; Start 07/21/18 at 20:00 Lactulose (Enulose) 20 gm TID GTB Last administered on 07/22/18 12:49; Admin Dose 20 GM; Start 07/21/18 at 21:00 Docusate Sodium (Colace Liquid Cup) 20 mg BID GTB Last administered on 07/22/18 09:24; Admin Dose 20 MG; Start 07/21/18 at 21:00 Bisacodyl (Dulcolax Supp) 10 mg DAILY PRN [place] CONSTIPATION; Start 07/22/18 at 10:30 Insulin Glargine (Lantus) 35 units QHS SC ; Start 07/22/18 at 21:00 SHERRIE PAREDES NP Jul 22, 2018 13:29
[2018-07-22 14:27] VITALS: BP 111/62; PULSE 73; RESP 20
[2018-07-22] MEDS ORDERED: PEG/ELECTROLYTES 4L BTL PO ONE (15:00)
--- NOTE | 2018-07-22 15:15 | PN ---
Date/Time of Note Date/Time of Note DATE: 07/22/18 TIME: 15:13 Assessment/Plan VTE Prophylaxis Risk score (from Nsg)>0 risk: 5 SCD applied (from Nsg): Yes Pharmacological prophylaxis: heparin Lines/Catheters IV Catheter Type (from Nrsg): Central Line Central line still needed: Yes Urinary Cath still in place: Yes (SUPRAPUBIC CATHETER) Reason Cath still needed: urinary retention Assessment/Plan Hospital Course Alert Smiling Appears comfortable Breathing comfortably Quadraplegia with spastic limbs Clear lungs RRR Abodmen soft nt Suprapubic catheter 52 yo male with quadraplegia and chronic encephelopathy presents with sepsis Constipation: - Laxatives, enema Sepsis: - Abx per ID Hypernatremia and NINA: - IV fluids - Resolving Quadraplegia - stable DMII: - Wosrening hyperglycemia. Increase lantus. Add metfomrin Dc planning Result Diagram: 07/21/18 0556 07/21/18 0556 Results 24hrs Laboratory Tests Test 07/21/18 16:54 07/21/18 20:12 07/22/18 08:20 07/22/18 12:42 Bedside Glucose 207 235 H 284 H 268 H Subjective 24 Hr Interval Summary Free Text/Dictation Doing well Gwen attempted disempaction but none there Having liquid stool Exam/Review of Systems Exam Vitals Vital Signs Date Temp Pulse Resp B/P (MAP) Pulse Ox O2 O2 Flow FiO2 Time Delivery Rate 07/22/18 98.8 73 20 111/62 98 14:27 (78) 07/21/18 Room Air 14:28 Mask 07/19/18 2.0 16:00 Intake and Output 07/21/18 07/21/18 07/22/18 1515:00 23:00 07:00 IntakeIntake Total 100 ml 100 ml OutputOutput Total 650 ml 400 ml BalanceBalance -550 ml -300 ml Results Results 24hrs Laboratory Tests Test 07/21/18 16:54 07/21/18 20:12 07/22/18 08:20 07/22/18 12:42 Bedside Glucose 207 235 H 284 H 268 H Medications Medication Current Medications Ondansetron HCl (Zofran Inj) 4 mg Q6H PRN IV NAUSEA AND/OR VOMITING; Start 07/18/18 at 01:30 Acetaminophen (Tylenol Liquid) 650 mg Q6H PRN GTB PAIN LEVEL 1-3 OR FEVER; Start 07/18/18 at 01:30 Morphine Sulfate (morphine) 2 mg Q4H PRN IV PAIN LEVEL 7-10 Last administered on 07/20/18at 02:41; Admin Dose 2 MG; Start 07/18/18 at 01:30 Piperacillin Sod/ Tazobactam Sod 100 ml @ 200 mls/hr Q6H IVPB Last administered on 07/22/18at 09:23; Admin Dose 200 MLS/HR; Start 07/18/18 at 09:30 Miscellaneous Information 1 ea NOTE XX ; Start 07/18/18 at 09:30 Glucose (Glutose) 15 gm Q15M PRN PO DECREASED GLUCOSE; Start 07/18/18 at 09:30 Glucose (Glutose) 22.5 gm Q15M PRN PO DECREASED GLUCOSE; Start 07/18/18 at 09:30 Dextrose (D50w Syringe) 25 ml Q15M PRN IV DECREASED GLUCOSE; Start 07/18/18 at 09:30 Dextrose (D50w Syringe) 50 ml Q15M PRN IV DECREASED GLUCOSE Last administered on 07/18/18at 17:21; Admin Dose 50 ML; Start 07/18/18 at 09:30 Glucagon (Glucagen) 1 mg Q15M PRN IM DECREASED GLUCOSE; Start 07/18/18 at 09:30 Glucose (Glutose) 15 gm Q15M PRN BUCCAL DECREASED GLUCOSE; Start 07/18/18 at 09:30 Enoxaparin Sodium (Lovenox) 30 mg DAILY SC Last administered on 07/22/18at 08:23; Admin Dose 30 MG; Start 07/18/18 at 10:00 Ascorbic Acid (Vitamin C) 500 mg DAILY GTB Last administered on 07/22/18 09:24; Admin Dose 500 MG; Start 07/20/18 at 09:00 Folic Acid (Folic Acid) 1 mg DAILY GTB Last administered on 07/22/18 09:24; Admin Dose 1 MG; Start 07/20/18 at 09:00 Zinc Sulfate (Zinc Sulfate) 220 mg DAILY GTB Last administered on 07/22/18 09:24; Admin Dose 220 MG; Start 07/20/18 at 09:00 Insulin Aspart (Novolog Insulin Pen) NOVOLOG *MILD* ALGORITHM WITH MEALS BEDTIME SC Last administered on 07/22/18at 12:49; Admin Dose 4 UNIT; Start 07/21/18 at 08:00 Lactulose (Enulose) 20 gm TID GTB Last administered on 07/22/18at 12:49; Admin Dose 20 GM; Start 07/21/18 at 21:00 Docusate Sodium (Colace Liquid Cup) 20 mg BID GTB Last administered on 07/22/18at 09:24; Admin Dose 20 MG; Start 07/21/18 at 21:00 Bisacodyl (Dulcolax Supp) 10 mg DAILY PRN [place] CONSTIPATION; Start 07/22/18 at 10:30 Insulin Glargine (Lantus) 20 units DAILY@2000 SC ; Start 07/22/18 at 20:00; Status UNV Metformin HCl (Glucophage) 850 mg BID WITH MEALS GTB ; Start 07/22/18 at 18:05; Status UNV PEGGY RODRIGUEZ MD Jul 22, 2018 15:15
--- NOTE | 2018-07-22 16:31 | CONS ---
Consult Date/Type/Reason Admit Date/Time July 18, 2018 at 00:56 Initial Consult Date 07/18/18 Type of Consultation: Urology Reason for Consultation Gross hematuria ,suprapubic tube and urinary tract infection Requesting Provider: MERARY SORENSEN Date/Time of Note DATE: 07/22/18 TIME: 16:27 Subjective The patient is awake and alert. He even asked me how am I doing Objective Vitals Vital Signs Date Temp Pulse Resp B/P (MAP) Pulse Ox O2 O2 Flow FiO2 Time Delivery Rate 07/22/18 98.8 73 20 111/62 98 14:27 (78) 07/21/18 Room Air 14:28 Mask 07/19/18 2.0 16:00 Intake and Output 07/21/18 07/21/18 07/22/18 1515:00 23:00 07:00 IntakeIntake Total 100 ml 100 ml OutputOutput Total 650 ml 400 ml BalanceBalance -550 ml -300 ml Exam The suprapubic tube is draining clear urine. Results/Medications Result Diagram: 07/21/18 0556 07/21/18 0556 Results 24 hrs Laboratory Tests Test 07/21/18 16:54 07/21/18 20:12 07/22/18 08:20 07/22/18 12:42 Bedside Glucose 207 235 H 284 H 268 H Home Meds Reported Medications Insulin Aspart* (Novolog Insulin Pen*) 100 Unit/Ml Soln, 0 SC .SLIDING SCALE SHEA EA 70-150 =0 units 151-200 = 2 units 201-250 = 4 units 251-300 - 6 units 301-350 = 8 units 351-400 =10 units under 60 or over 400 call 07/18/18 Zinc Sulfate* (Zinc Sulfate*) 220 Mg Tablet, 220 MG GTB DAILY, TAB 07/18/18 Amino Acids/Protein Hydrolys (PRO-STAT LIQUID) 30 Ml Liquid.pkt, 30 ML PO BID 07/18/18 Metformin Hcl* (Metformin Hcl*) 500 Mg Tablet, 500 MG GTB WITH BREAKFAST DINNE, #60 TAB 07/18/18 Multivitamins* (Theragran*) 1 Tab Tab, 1 TAB GTB DAILY, TAB 07/18/18 Insulin Glargine* (Lantus*) 100 Unit/Ml Soln, 35 UNIT SC QHS, #1 VIAL 07/18/18 Ipratropium-Albuterol (Ipratropium-Albuterol) 0.5-3 Mg/3 Ml Ampul.neb, 3 ML INHALATION Q4 PRN for WHEEZING AND SOB, #30 VIAL 07/18/18 Folic Acid* (Folic Acid*) 1 Mg Tablet, 1 MG GTB DAILY, TAB 07/18/18 Discontinued Reported Medications Hydrocodone Bit-Acetaminophen ([place]) 1 Tab Tablet, PRN 05/03/12 Oxybutynin Chloride* (Ditropan*) 5 Mg Tab, DAILY 05/03/12 Polyethylene Glycol (Miralax) 17 Gm/Pkt Liq, DAILY 05/03/12 Docusate Sodium* (Colace*) 50 Mg Capsule, 100 MG DAILY 05/03/12 Ascorbic Acid (Ascorbic Acid) 1 Gm Granules, 500 MG DAILY 05/03/12 Gemfibrozil* (Lopid*) 600 Mg Tablet, DAILY 05/03/12 [Prostat] No Conflict Check, 30 ML DAILY 05/03/12 [Multivitamins With Minerals] No Conflict Check, 1 TAB DAILY 05/03/12 Ipratropium [place]* (Atrovent*) 2.5 Ml Nebu, PRN 05/03/12 Albuterol Sulfate* (Proventil* Neb) 0.5 Ml Nebu, PRN 05/03/12 Insulin Detemir* (Levemir*) 100 U/Ml Insuln.pen, 70 UNITS SQ DAILY 05/03/12 Aspirin (Adult Low Dose Aspirin) 81 Mg Tablet.dr, DAILY, 0 Refills 03/09/09 Multivitamins* (Multivitamins*) 1 Tab Tablet 03/09/09 Medications Current Medications Ondansetron HCl (Zofran Inj) 4 mg Q6H PRN IV NAUSEA AND/OR VOMITING; Start 07/18/18 at 01:30 Acetaminophen (Tylenol Liquid) 650 mg Q6H PRN GTB PAIN LEVEL 1-3 OR FEVER; Start 07/18/18 at 01:30 Morphine Sulfate (morphine) 2 mg Q4H PRN IV PAIN LEVEL 7-10 Last administered on 07/20/18at 02:41; Admin Dose 2 MG; Start 07/18/18 at 01:30 Piperacillin Sod/ Tazobactam Sod 100 ml @ 200 mls/hr Q6H IVPB Last administered on 07/22/18 09:23; Admin Dose 200 MLS/HR; Start 07/18/18 at 09:30 Miscellaneous Information 1 ea NOTE XX ; Start 07/18/18 at 09:30 Glucose (Glutose) 15 gm Q15M PRN PO DECREASED GLUCOSE; Start 07/18/18 at 09:30 Glucose (Glutose) 22.5 gm Q15M PRN PO DECREASED GLUCOSE; Start 07/18/18 at 09:30 Dextrose (D50w Syringe) 25 ml Q15M PRN IV DECREASED GLUCOSE; Start 07/18/18 at 09:30 Dextrose (D50w Syringe) 50 ml Q15M PRN IV DECREASED GLUCOSE Last administered on 07/18/18at 17:21; Admin Dose 50 ML; Start 07/18/18 at 09:30 Glucagon (Glucagen) 1 mg Q15M PRN IM DECREASED GLUCOSE; Start 07/18/18 at 09:30 Glucose (Glutose) 15 gm Q15M PRN BUCCAL DECREASED GLUCOSE; Start 07/18/18 at 09:30 Enoxaparin Sodium (Lovenox) 30 mg DAILY SC Last administered on 07/22/18 08:23; Admin Dose 30 MG; Start 07/18/18 at 10:00 Ascorbic Acid (Vitamin C) 500 mg DAILY GTB Last administered on 07/22/18 09:24; Admin Dose 500 MG; Start 07/20/18 at 09:00 Folic Acid (Folic Acid) 1 mg DAILY GTB Last administered on 07/22/18at 09:24; Admin Dose 1 MG; Start 07/20/18 at 09:00 Zinc Sulfate (Zinc Sulfate) 220 mg DAILY GTB Last administered on 07/22/18 09:24; Admin Dose 220 MG; Start 07/20/18 at 09:00 Lactulose (Enulose) 20 gm TID GTB Last administered on 07/22/18at 12:49; Admin Dose 20 GM; Start 07/21/18 at 21:00 Docusate Sodium (Colace Liquid Cup) 20 mg BID GTB Last administered on 07/22/18 09:24; Admin Dose 20 MG; Start 07/21/18 at 21:00 Bisacodyl (Dulcolax Supp) 10 mg DAILY PRN [place] CONSTIPATION; Start 07/22/18 at 10:30 Insulin Glargine (Lantus) 20 units DAILY@2000 SC ; Start 07/22/18 at 20:00 Metformin HCl (Glucophage) 850 mg BID WITH MEALS GTB ; Start 07/22/18 at 18:05 Insulin Aspart (Novolog Insulin Pen) NOVOLOG *MODERATE* ALGORITHM WITH MEALS BEDTIME SC ; Start 07/22/18 at 18:05 Assessment/Plan Hospital Course (Demo Recall) 52-year-old male known to me for many years. He does have a history of neurogenic bladder and he had severe urethral strictures that led to putting a suprapubic tube for him many years ago. His suprapubic tube has been changed in the alf facility. Patient was admitted to the hospital with gross hematuria. CT scan of the abdomen and pelvis showed that the suprapubic tube he has is pushed into the urethra. I did readjust the suprapubic tube and it is draining well. The urine is now clear. Urologically observe ASHLEY COLEMAN MD Jul 22, 2018 16:31
[2018-07-22] MEDS: metFORMIN 850 MG TAB GTB SCH (17:44)
[2018-07-22] MEDS ORDERED: INSULIN GLARGINE [LANTus] (100 UNITS/ML) SYG SC SCH ×2 (20:00→21:00)
[2018-07-22 20:56] VITALS: BP 149/70; PULSE 56; RESP 18
[2018-07-23 02:00] VITALS: BP 142/74; PULSE 70; RESP 20
[2018-07-23] MEDS: PIPER-TAZO 3.375 GM IV (PMX) 100 ML IVPB SCH ×4 (03:10→22:44)
[2018-07-23 07:45] VITALS: BP 134/65; PULSE 58; RESP 16
[2018-07-23] MEDS: INSULIN ASPART [NOVOLOG] 3 ML PEN SC SCH ×4 (09:11→20:22)
[2018-07-23] MEDS: ENOXAPARIN 30 MG/0.3 ML SYG SC SCH (09:11)
[2018-07-23] MEDS: ZINC SULFATE 220 MG CAP GTB SCH (09:15)
[2018-07-23] MEDS: metFORMIN 850 MG TAB GTB SCH ×2 (09:15→18:00)
[2018-07-23] MEDS: FOLIC ACID 1 MG TAB GTB SCH (09:15)
[2018-07-23] MEDS: ASCORBIC ACID 500 MG TAB GTB SCH (09:15)
[2018-07-23] MEDS: LACTULOSE 30ML CUP GTB SCH ×3 (09:16→20:25)
[2018-07-23] MEDS: DOCUSATE SODIUM 10 MG/ML (10ML CUP) GTB SCH ×2 (09:16→20:25)
[2018-07-23] MEDS: BALSAM PERU/CASTOR OIL 60 GM TUBE TOP SCH ×2 (14:27→20:27)
--- NOTE | 2018-07-23 14:51 | PN ---
Date/Time of Note Date/Time of Note DATE: 07/23/18 TIME: 14:48 Assessment/Plan VTE Prophylaxis Risk score (from Nsg)>0 risk: 6 SCD applied (from Nsg): Yes Pharmacological prophylaxis: heparin Lines/Catheters IV Catheter Type (from Nrsg): Central Line Central line still needed: Yes Urinary Cath still in place: Yes (suprapubic ) Reason Cath still needed: urinary retention Assessment/Plan Assessment/Plan Assessment: Fecal impaction - Abundant retained stool throughout the colon. Stool distended sigmoid colon measuring up to 10 cm in diameter consistent with fecal impaction -Many BM's during the night Sepsis 03/25/ to UTI/Bacteremia (gram negative) -Leukocytosis- improved -Elevated Lactic acid - resolved -Tachycardia on arrival- now HR WNL Query left lung base PNA CXR findings compatible with atelectasis or pneumonia. 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 De Dios Subjective: Course reviewed with nursing staff Patient interviewed and examined All labs, imaging and other results reviewed Patient had multiple bowel movements with GoLYTELY prep. Abdominal KUB shows decrease in amount of stool in the rectum and increase of gas in the sigmoid colon. Continue bowel regimen with GoLYTELY. PHYSICAL EXAMINATION: GENERAL: Well developed, well nourished, alert & oriented x 1 SKIN: decubitus wounds HEAD: Normocephalic, atraumatic, no tenderness. EYES: Pupils equal reactive to light and accommodation, no discharge. EARS/NOSE AND THROAT: Ears normal, nose normal. NECK: Supple, no masses. CHEST: Inspection within normal limits. CARDIOVASCULAR: Heart: Regular rate and rhythm RESPIRATORY: Lungs clear to auscultation GASTROINTESTINAL AND LIVER: Abdomen: Soft, non tenderness, slightly distended, suprapubic catheter in place, no hernias, no masses, no organomegaly, normoactive bowel sounds. Rectal: Deferred. Result Diagram: 07/23/18 0517 07/23/18 0517 Results 24hrs Laboratory Tests Test 07/22/18 17:43 07/22/18 20:51 07/23/18 05:17 07/23/18 09:07 Bedside Glucose 206 145 281 H White Blood Count 6.8 Red Blood Count 3.67 L Hemoglobin 9.6 L Hematocrit 30.7 L Mean Corpuscular Volume 83.7 Mean Corpuscular 26.2 L Hemoglobin Mean Corpuscular 31.3 L Hemoglobin Concent Red Cell Distribution 16.6 H Width Platelet Count 144 Mean Platelet Volume 13.0 H Immature Granulocytes % 0.900 H Neutrophils % 60.5 Lymphocytes % 25.8 Monocytes % 7.3 Eosinophils % 5.1 Basophils % 0.4 Nucleated Red Blood 0.0 Cells % Immature Granulocytes # 0.060 H Neutrophils # 4.1 Lymphocytes # 1.8 Monocytes # 0.5 Eosinophils # 0.4 Basophils # 0.0 Nucleated Red Blood 0.0 Cells # Sodium Level 150 H Potassium Level 3.5 Chloride Level 119 H Carbon Dioxide Level 24 Anion Gap 7 Blood Urea Nitrogen 10 Creatinine 0.80 Est Glomerular Filtrat > 60 Rate mL/min Glucose Level 246 H Calcium Level 8.2 L Test 07/23/18 12:33 Bedside Glucose 247 H CC: CLARK DE DIOS MD ; Exam/Review of Systems Exam Vitals Vital Signs Date Temp Pulse Resp B/P (MAP) Pulse Ox O2 O2 Flow FiO2 Time Delivery Rate 07/23/18 97.8 58 16 134/65 98 07:45 (88) 07/21/18 Room Air 14:28 Mask 07/19/18 2.0 16:00 Intake and Output 07/22/18 07/22/18 07/23/18 1515:00 23:00 07:00 IntakeIntake Total 100 ml 200 ml 850 ml OutputOutput Total 2100 ml 400 ml 500 ml BalanceBalance -2000 ml -200 ml 350 ml Results Results 24hrs Laboratory Tests Test 07/22/18 17:43 07/22/18 20:51 07/23/18 05:17 07/23/18 09:07 Bedside Glucose 206 145 281 H White Blood Count 6.8 Red Blood Count 3.67 L Hemoglobin 9.6 L Hematocrit 30.7 L Mean Corpuscular Volume 83.7 Mean Corpuscular 26.2 L Hemoglobin Mean Corpuscular 31.3 L Hemoglobin Concent Red Cell Distribution 16.6 H Width Platelet Count 144 Mean Platelet Volume 13.0 H Immature Granulocytes % 0.900 H Neutrophils % 60.5 Lymphocytes % 25.8 Monocytes % 7.3 Eosinophils % 5.1 Basophils % 0.4 Nucleated Red Blood 0.0 Cells % Immature Granulocytes # 0.060 H Neutrophils # 4.1 Lymphocytes # 1.8 Monocytes # 0.5 Eosinophils # 0.4 Basophils # 0.0 Nucleated Red Blood 0.0 Cells # Sodium Level 150 H Potassium Level 3.5 Chloride Level 119 H Carbon Dioxide Level 24 Anion Gap 7 Blood Urea Nitrogen 10 Creatinine 0.80 Est Glomerular Filtrat > 60 Rate mL/min Glucose Level 246 H Calcium Level 8.2 L Test 07/23/18 12:33 Bedside Glucose 247 H Medications Medication Current Medications Ondansetron HCl (Zofran Inj) 4 mg Q6H PRN IV NAUSEA AND/OR VOMITING; Start 07/18/18 at 01:30 Acetaminophen (Tylenol Liquid) 650 mg Q6H PRN GTB PAIN LEVEL 1-3 OR FEVER; Start 07/18/18 at 01:30 Morphine Sulfate (morphine) 2 mg Q4H PRN IV PAIN LEVEL 7-10 Last administered on 07/20/18at 02:41; Admin Dose 2 MG; Start 07/18/18 at 01:30 Piperacillin Sod/ Tazobactam Sod 100 ml @ 200 mls/hr Q6H IVPB Last a dministered on 07/23/18at 09:15; Admin Dose 200 MLS/HR; Start 07/18/18 at 09:30 Miscellaneous Information 1 ea NOTE XX ; Start 07/18/18 at 09:30 Glucose (Glutose) 15 gm Q15M PRN PO DECREASED GLUCOSE; Start 07/18/18 at 09:30 Glucose (Glutose) 22.5 gm Q15M PRN PO DECREASED GLUCOSE; Start 07/18/18 at 0 9:30 Dextrose (D50w Syringe) 25 ml Q15M PRN IV DECREASED GLUCOSE; Start 07/18/18 at 09:30 Dextrose (D50w Syringe) 50 ml Q15M PRN IV DECREASED GLUCOSE Last administered on 07/18/18at 17:21; Admin Dose 50 ML; Start 07/18/18 at 09:30 Glucagon (Glucagen) 1 mg Q15M PRN IM DECREASED GLUCOSE; Start 07/18/18 at 09:30 Glucose (Glutose) 15 gm Q15M PRN BUCCAL DECREASED GLUCOSE; Start 07/18/18 at 09:30 Enoxaparin Sodium (Lovenox) 30 mg DAILY SC Last administered on 07/23/18 09:11; Admin Dose 30 MG; Start 07/18/18 at 10:00 Ascorbic Acid (Vitamin C) 500 mg DAILY GTB Last administered on 07/23/18 09:15; Admin Dose 500 MG; Start 07/20/18 at 09:00 Folic Acid (Folic Acid) 1 mg DAILY GTB Last administered on 07/23/18 09:15; Admin Dose 1 MG; Start 07/20/18 at 09:00 Zinc Sulfate (Zinc Sulfate) 220 mg DAILY GTB Last administered on 07/23/18 09:15; Admin Dose 220 MG; Start 07/20/18 at 09:00 Lactulose (Enulose) 20 gm TID GTB Last administered on 07/23/18 12:35; Admin Dose 20 GM; Start 07/21/18 at 21:00 Docusate Sodium (Colace Liquid Cup) 20 mg BID GTB Last administered on 07/23/18 09:16; Admin Dose 20 MG; Start 07/21/18 at 21:00 Bisacodyl (Dulcolax Supp) 10 mg DAILY PRN [place] CONSTIPATION; Start 07/22/18 at 10:30 Insulin Glargine (Lantus) 20 units DAILY@2000 SC Last administered on 07/22/18 20:56; Admin Dose 20 UNITS; Start 07/22/18 at 20:00 Metformin HCl (Glucophage) 850 mg BID WITH MEALS GTB Last administered on 07/23/18 09:15; Admin Dose 850 MG; Start 07/22/18 at 18:05 Insulin Aspart (Novolog Insulin Pen) NOVOLOG *MODERATE* ALGORITHM WITH MEALS BEDTIME SC Last administered on 07/23/18 12:36; Admin Dose 6 UNIT; Start 07/22/18 at 18:05 SHERRIE PAREDES NP Jul 23, 2018 14:51
--- NOTE | 2018-07-23 15:35 | PN ---
Date/Time of Note Date/Time of Note DATE: 07/23/18 TIME: 15:34 Assessment/Plan VTE Prophylaxis Risk score (from Ns)>0 risk: 6 SCD applied (from Ns): Yes Pharmacological prophylaxis: heparin Lines/Catheters IV Catheter Type (from Nrsg): Central Line Central line still needed: Yes Urinary Cath still in place: Yes (suprapubic ) Reason Cath still needed: urinary retention Assessment/Plan Hospital Course Alert Smiling Appears comfortable Breathing comfortably Quadraplegia with spastic limbs Clear lungs RRR Abodmen soft nt Suprapubic catheter 52 yo male with quadraplegia and chronic encephelopathy presents with sepsis Hypernatremia: - Increase free water flushes Constipation: - Laxatives, enema Sepsis: - Abx per ID NINA: - IV fluids - Resolving Quadraplegia - stable DMII: - Wosrening hyperglycemia. Increase lantus. Added metfomrin Dc planning Result Diagram: 07/23/18 0517 07/23/18 0517 Results 24hrs Laboratory Tests Test 07/22/18 17:43 07/22/18 20:51 07/23/18 05:17 07/23/18 09:07 Bedside Glucose 206 145 281 H White Blood Count 6.8 Red Blood Count 3.67 L Hemoglobin 9.6 L Hematocrit 30.7 L Mean Corpuscular Volume 83.7 Mean Corpuscular 26.2 L Hemoglobin Mean Corpuscular 31.3 L Hemoglobin Concent Red Cell Distribution 16.6 H Width Platelet Count 144 Mean Platelet Volume 13.0 H Immature Granulocytes % 0.900 H Neutrophils % 60.5 Lymphocytes % 25.8 Monocytes % 7.3 Eosinophils % 5.1 Basophils % 0.4 Nucleated Red Blood 0.0 Cells % Immature Granulocytes # 0.060 H Neutrophils # 4.1 Lymphocytes # 1.8 Monocytes # 0.5 Eosinophils # 0.4 Basophils # 0.0 Nucleated Red Blood 0.0 Cells # Sodium Level 150 H Potassium Level 3.5 Chloride Level 119 H Carbon Dioxide Level 24 Anion Gap 7 Blood Urea Nitrogen 10 Creatinine 0.80 Est Glomerular Filtrat > 60 Rate mL/min Glucose Level 246 H Calcium Level 8.2 L Test 07/23/18 12:33 Bedside Glucose 247 H Subjective 24 Hr Interval Summary Free Text/Dictation Having copious stool Exam/Review of Systems Exam Vitals Vital Signs Date Temp Pulse Resp B/P (MAP) Pulse Ox O2 O2 Flow FiO2 Time Delivery Rate 07/23/18 97.8 58 16 134/65 98 07:45 (88) 07/21/18 Room Air 14:28 Mask 07/19/18 2.0 16:00 Intake and Output 07/22/18 07/22/18 07/23/18 1515:00 23:00 07:00 IntakeIntake Total 100 ml 200 ml 850 ml OutputOutput Total 2100 ml 400 ml 500 ml BalanceBalance -2000 ml -200 ml 350 ml Results Results 24hrs Laboratory Tests Test 07/22/18 17:43 07/22/18 20:51 07/23/18 05:17 07/23/18 09:07 Bedside Glucose 206 145 281 H White Blood Count 6.8 Red Blood Count 3.67 L Hemoglobin 9.6 L Hematocrit 30.7 L Mean Corpuscular Volume 83.7 Mean Corpuscular 26.2 L Hemoglobin Mean Corpuscular 31.3 L Hemoglobin Concent Red Cell Distribution 16.6 H Width Platelet Count 144 Mean Platelet Volume 13.0 H Immature Granulocytes % 0.900 H Neutrophils % 60.5 Lymphocytes % 25.8 Monocytes % 7.3 Eosinophils % 5.1 Basophils % 0.4 Nucleated Red Blood 0.0 Cells % Immature Granulocytes # 0.060 H Neutrophils # 4.1 Lymphocytes # 1.8 Monocytes # 0.5 Eosinophils # 0.4 Basophils # 0.0 Nucleated Red Blood 0.0 Cells # Sodium Level 150 H Potassium Level 3.5 Chloride Level 119 H Carbon Dioxide Level 24 Anion Gap 7 Blood Urea Nitrogen 10 Creatinine 0.80 Est Glomerular Filtrat > 60 Rate mL/min Glucose Level 246 H Calcium Level 8.2 L Test 07/23/18 12:33 Bedside Glucose 247 H Medications Medication Current Medications Ondansetron HCl (Zofran Inj) 4 mg Q6H PRN IV NAUSEA AND/OR VOMITING; Start 07/18/18 at 01:30 Acetaminophen (Tylenol Liquid) 650 mg Q6H PRN GTB PAIN LEVEL 1-3 OR FEVER; Start 07/18/18 at 01:30 Morphine Sulfate (morphine) 2 mg Q4H PRN IV PAIN LEVEL 7-10 Last administered on 07/20/18at 02:41; Admin Dose 2 MG; Start 07/18/18 at 01:30 Piperacillin Sod/ Tazobactam Sod 100 ml @ 200 mls/hr Q6H IVPB Last administered on 07/23/18 09:15; Admin Dose 200 MLS/HR; Start 07/18/18 at 09:30 Miscellaneous Information 1 ea NOTE XX ; Start 07/18/18 at 09:30 Glucose (Glutose) 15 gm Q15M PRN PO DECREASED GLUCOSE; Start 07/18/18 at 09:30 Glucose (Glutose) 22.5 gm Q15M PRN PO DECREASED GLUCOSE; Start 07/18/18 at 09:30 Dextrose (D50w Syringe) 25 ml Q15M PRN IV DECREASED GLUCOSE; Start 07/18/18 at 09:30 Dextrose (D50w Syringe) 50 ml Q15M PRN IV DECREASED GLUCOSE Last administered on 07/18/18at 17:21; Admin Dose 50 ML; Start 07/18/18 at 09:30 Glucagon (Glucagen) 1 mg Q15M PRN IM DECREASED GLUCOSE; Start 07/18/18 at 09:30 Glucose (Glutose) 15 gm Q15M PRN BUCCAL DECREASED GLUCOSE; Start 07/18/18 at 09:30 Enoxaparin Sodium (Lovenox) 30 mg DAILY SC Last administered on 07/23/18 09:11; Admin Dose 30 MG; Start 07/18/18 at 10:00 Ascorbic Acid (Vitamin C) 500 mg DAILY GTB Last administered on 07/23/18 09:15; Admin Dose 500 MG; Start 07/20/18 at 09:00 Folic Acid (Folic Acid) 1 mg DAILY GTB Last administered on 07/23/18 09:15; Admin Dose 1 MG; Start 07/20/18 at 09:00 Zinc Sulfate (Zinc Sulfate) 220 mg DAILY GTB Last administered on 07/23/18 09:15; Admin Dose 220 MG; Start 07/20/18 at 09:00 Lactulose (Enulose) 20 gm TID GTB Last administered on 07/23/18at 12:35; Admin Dose 20 GM; Start 07/21/18 at 21:00 Docusate Sodium (Colace Liquid Cup) 20 mg BID GTB Last administered on 07/23/18 09:16; Admin Dose 20 MG; Start 07/21/18 at 21:00 Bisacodyl (Dulcolax Supp) 10 mg DAILY PRN [place] CONSTIPATION; Start 07/22/18 at 10:30 Insulin Glargine (Lantus) 20 units DAILY@2000 SC Last administered on 07/22/18at 20:56; Admin Dose 20 UNITS; Start 07/22/18 at 20:00 Metformin HCl (Glucophage) 850 mg BID WITH MEALS GTB Last administered on 07/23/18at 09:15; Admin Dose 850 MG; Start 07/22/18 at 18:05 Insulin Aspart (Novolog Insulin Pen) NOVOLOG *MODERATE* ALGORITHM WITH MEALS BEDTIME SC Last administered on 07/23/18at 12:36; Admin Dose 6 UNIT; Start 07/22/18 at 18:05 PEGGY RODRIGUEZ MD Jul 23, 2018 15:35
--- NOTE | 2018-07-23 17:21 | CONS ---
Consult Date/Type/Reason Admit Date/Time July 18, 2018 at 00:56 Initial Consult Date 07/18/18 Type of Consultation: Urology Reason for Consultation Hematuria from the suprapubic tube Requesting Provider: MERARY SORENSEN Date/Time of Note DATE: 07/23/18 TIME: 17:20 Subjective Patient states he is hungry Objective Vitals Vital Signs Date Temp Pulse Resp B/P (MAP) Pulse Ox O2 O2 Flow FiO2 Time Delivery Rate 07/23/18 97.8 58 16 134/65 98 07:45 (88) 07/21/18 Room Air 14:28 Mask 07/19/18 2.0 16:00 Intake and Output 07/22/18 07/22/18 07/23/18 1515:00 23:00 07:00 IntakeIntake Total 100 ml 200 ml 850 ml OutputOutput Total 2100 ml 400 ml 500 ml BalanceBalance -2000 ml -200 ml 350 ml Exam The suprapubic tube is draining clear urine Results/Medications Result Diagram: 07/23/18 0517 07/23/18 0517 Results 24 hrs Laboratory Tests Test 07/22/18 17:43 07/22/18 20:51 07/23/18 05:17 07/23/18 09:07 Bedside Glucose 206 145 281 H White Blood Count 6.8 Red Blood Count 3.67 L Hemoglobin 9.6 L Hematocrit 30.7 L Mean Corpuscular Volume 83.7 Mean Corpuscular 26.2 L Hemoglobin Mean Corpuscular 31.3 L Hemoglobin Concent Red Cell Distribution 16.6 H Width Platelet Count 144 Mean Platelet Volume 13.0 H Immature Granulocytes % 0.900 H Neutrophils % 60.5 Lymphocytes % 25.8 Monocytes % 7.3 Eosinophils % 5.1 Basophils % 0.4 Nucleated Red Blood 0.0 Cells % Immature Granulocytes # 0.060 H Neutrophils # 4.1 Lymphocytes # 1.8 Monocytes # 0.5 Eosinophils # 0.4 Basophils # 0.0 Nucleated Red Blood 0.0 Cells # Sodium Level 150 H Potassium Level 3.5 Chloride Level 119 H Carbon Dioxide Level 24 Anion Gap 7 Blood Urea Nitrogen 10 Creatinine 0.80 Est Glomerular Filtrat > 60 Rate mL/min Glucose Level 246 H Calcium Level 8.2 L Test 07/23/18 12:33 Bedside Glucose 247 H Home Meds Reported Medications Insulin Aspart* (Novolog Insulin Pen*) 100 Unit/Ml Soln, 0 SC .SLIDING SCALE AC, EA 70-150 =0 units 151-200 = 2 units 201-250 = 4 units 251-300 - 6 units 301-350 = 8 units 351-400 =10 units under 60 or over 400 call 07/18/18 Zinc Sulfate* (Zinc Sulfate*) 220 Mg Tablet, 220 MG GTB DAILY, TAB 07/18/18 Amino Acids/Protein Hydrolys (PRO-STAT LIQUID) 30 Ml Liquid.pkt, 30 ML PO BID 07/18/18 Metformin Hcl* (Metformin Hcl*) 500 Mg Tablet, 500 MG GTB WITH BREAKFAST DINNE, #60 TAB 07/18/18 Multivitamins* (Theragran*) 1 Tab Tab, 1 TAB GTB DAILY, TAB 07/18/18 Insulin Glargine* (Lantus*) 100 Unit/Ml Soln, 35 UNIT SC QHS, #1 VIAL 07/18/18 Ipratropium-Albuterol (Ipratropium-Albuterol) 0.5-3 Mg/3 Ml Ampul.neb, 3 ML INHALATION Q4 PRN for WHEEZING AND SOB, #30 VIAL 07/18/18 Folic Acid* (Folic Acid*) 1 Mg Tablet, 1 MG GTB DAILY, TAB 07/18/18 Discontinued Reported Medications Hydrocodone Bit-Acetaminophen ([place]) 1 Tab Tablet, PRN 05/03/12 Oxybutynin Chloride* (Ditropan*) 5 Mg Tab, DAILY 05/03/12 Polyethylene Glycol (Miralax) 17 Gm/Pkt Liq, DAILY 05/03/12 Docusate Sodium* (Colace*) 50 Mg Capsule, 100 MG DAILY 05/03/12 Ascorbic Acid (Ascorbic Acid) 1 Gm Granules, 500 MG DAILY 05/03/12 Gemfibrozil* (Lopid*) 600 Mg Tablet, DAILY 05/03/12 [Prostat] No Conflict Check, 30 ML DAILY 05/03/12 [Multivitamins With Minerals] No Conflict Check, 1 TAB DAILY 05/03/12 Ipratropium [place]* (Atrovent*) 2.5 Ml Nebu, PRN 05/03/12 Albuterol Sulfate* (Proventil* Neb) 0.5 Ml Nebu, PRN 05/03/12 Insulin Detemir* (Levemir*) 100 U/Ml Insuln.pen, 70 UNITS SQ DAILY 05/03/12 Aspirin (Adult Low Dose Aspirin) 81 Mg Tablet.dr, DAILY, 0 Refills 03/09/09 Multivitamins* (Multivitamins*) 1 Tab Tablet 03/09/09 Medications Current Medications Ondansetron HCl (Zofran Inj) 4 mg Q6H PRN IV NAUSEA AND/OR VOMITING; Start 07/18/18 at 01:30 Acetaminophen (Tylenol Liquid) 650 mg Q6H PRN GTB PAIN LEVEL 1-3 OR FEVER; Start 07/18/18 at 01:30 Morphine Sulfate (morphine) 2 mg Q4H PRN IV PAIN LEVEL 7-10 Last administered on 07/20/18at 02:41; Admin Dose 2 MG; Start 07/18/18 at 01:30 Piperacillin Sod/ Tazobactam Sod 100 ml @ 200 mls/hr Q6H IVPB Last a dministered on 07/23/18at 15:33; Admin Dose 200 MLS/HR; Start 07/18/18 at 09:30 Miscellaneous Information 1 ea NOTE XX ; Start 07/18/18 at 09:30 Glucose (Glutose) 15 gm Q15M PRN PO DECREASED GLUCOSE; Start 07/18/18 at 09:30 Glucose (Glutose) 22.5 gm Q15M PRN PO DECREASED GLUCOSE; Start 07/18/18 at 0 9:30 Dextrose (D50w Syringe) 25 ml Q15M PRN IV DECREASED GLUCOSE; Start 07/18/18 at 09:30 Dextrose (D50w Syringe) 50 ml Q15M PRN IV DECREASED GLUCOSE Last administered on 07/18/18at 17:21; Admin Dose 50 ML; Start 07/18/18 at 09:30 Glucagon (Glucagen) 1 mg Q15M PRN IM DECREASED GLUCOSE; Start 07/18/18 at 09:30 Glucose (Glutose) 15 gm Q15M PRN BUCCAL DECREASED GLUCOSE; Start 07/18/18 at 09:30 Enoxaparin Sodium (Lovenox) 30 mg DAILY SC Last administered on 07/23/18at 09:11; Admin Dose 30 MG; Start 07/18/18 at 10:00 Ascorbic Acid (Vitamin C) 500 mg DAILY GTB Last administered on 07/23/18 09:15; Admin Dose 500 MG; Start 07/20/18 at 09:00 Folic Acid (Folic Acid) 1 mg DAILY GTB Last administered on 07/23/18 09:15; Admin Dose 1 MG; Start 07/20/18 at 09:00 Zinc Sulfate (Zinc Sulfate) 220 mg DAILY GTB Last administered on 07/23/18 09:15; Admin Dose 220 MG; Start 07/20/18 at 09:00 Lactulose (Enulose) 20 gm TID GTB Last administered on 07/23/18 12:35; Admin Dose 20 GM; Start 07/21/18 at 21:00 Docusate Sodium (Colace Liquid Cup) 20 mg BID GTB Last administered on 07/23/18 09:16; Admin Dose 20 MG; Start 07/21/18 at 21:00 Bisacodyl (Dulcolax Supp) 10 mg DAILY PRN [place] CONSTIPATION; Start 07/22/18 at 10:30 Metformin HCl (Glucophage) 850 mg BID WITH MEALS GTB Last administered on 07/23/18 09:15; Admin Dose 850 MG; Start 07/22/18 at 18:05 Insulin Aspart (Novolog Insulin Pen) NOVOLOG *MODERATE* ALGORITHM WITH MEALS BEDTIME SC Last administered on 07/23/18 12:36; Admin Dose 6 UNIT; Start 07/22/18 at 18:05 Insulin Glargine (Lantus) 35 units DAILY@2000 SC ; Start 07/23/18 at 20:00 Assessment/Plan Hospital Course (Demo Recall) 52-year-old male known to me for many years. He does have a history of neurogenic bladder and he had severe urethral strictures that led to putting a suprapubic tube for him many years ago. His suprapubic tube has been changed in the long term facility. Patient was admitted to the hospital with gross hematuria. CT scan of the abdomen and pelvis showed that the suprapubic tube he has is pushed into the urethra. I did readjust the suprapubic tube and it is draining well. The urine is now clear. Urologically the patient is stable. Continue present treatment ASHLEY COLEMAN MD Jul 23, 2018 17:21
[2018-07-23] MEDS: INSULIN GLARGINE [LANTus] (100 UNITS/ML) SYG SC SCH (20:26)
[2018-07-23 20:51] VITALS: BP 159/71; PULSE 56; RESP 16
[2018-07-24 04:00] VITALS: BP 144/69; PULSE 67; RESP 18
[2018-07-24] MEDS: PIPER-TAZO 3.375 GM IV (PMX) 100 ML IVPB SCH ×4 (04:27→21:05)
[2018-07-24 08:00] VITALS: BP 162/74; PULSE 82; RESP 19
[2018-07-24] MEDS: LACTULOSE 30ML CUP GTB SCH ×3 (08:05→20:20)
[2018-07-24] MEDS: DOCUSATE SODIUM 10 MG/ML (10ML CUP) GTB SCH ×2 (08:05→20:20)
[2018-07-24] MEDS: INSULIN ASPART [NOVOLOG] 3 ML PEN SC SCH ×4 (08:06→20:24)
[2018-07-24] MEDS: FOLIC ACID 1 MG TAB GTB SCH (08:07)
[2018-07-24] MEDS: ASCORBIC ACID 500 MG TAB GTB SCH (08:07)
[2018-07-24] MEDS: ZINC SULFATE 220 MG CAP GTB SCH (08:07)
[2018-07-24] MEDS: metFORMIN 850 MG TAB GTB SCH ×2 (08:07→18:11)
[2018-07-24] MEDS: ENOXAPARIN 30 MG/0.3 ML SYG SC SCH (08:08)
[2018-07-24] MEDS: BALSAM PERU/CASTOR OIL 60 GM TUBE TOP SCH ×2 (08:08→20:26)
--- NOTE | 2018-07-24 08:08 | CONS ---
Assessment/Plan Assessment/Plan Hospital Course (Demo Recall) 1) UTI with sepsis in pt with suprapubic cath due to neurogenic bladder pt was in hospital in april of this year with urosepsis and had e.coli +ESBL and MRSA present continue with vanco, change aztreanom to zosyn (e.coli was sensitive to it) await final ID and sensi's of urine CT abd did not show hydronephrosis but there is some mass/cyst around the L kidney, u/s could not visualize the L kidney 07/19 - urine cx and blood cx are NGTD continue with vanco/zosyn at present, improved temps and WBC 07/20 - urine cx is neg blood cx has e.coli in it, continue with zosyn, d/c vanco 07/21 - normal WBC 2) L base effusion with atelectasis vs consolidation check procalcitonin and get nasal for MRSA vanco/zosyn should cover but pt does not seem to have respiratory distress and is resting comfortable without cough on 2L of O2 07/19 - stable, procalcitonin is pending 07/20 - with bacteremia, impossible to interpret elevated procalcitonin for pneumonia nasal has MRSA but doubt he has pneumonia d/c vanco but continue with zosyn 07/21 - doubt pt has pneumonia but zosyn should cover 3) sacral ulcer get wound cx vanco/zosyn will cover 07/19 - stage III ulcer, cx is pending wound care to see pt 07/20 - pt has proteus and pseudomonas in sacral cx, not c/w e.coli in the blood continue with zosyn, d/c vanco, check ESR 07/21 - pseudomonas and proteus are sensitive to the zosyn 07/22 - ESR is moderately elevated I will order MRI of sacral area to determine length of IV antibiotic therapy 07/24 - MRI just ordered now continue wit hzosyn 4) TBI with quadriplegia 5) DM 6) constipation with enlarged colon and to my eyes some thickening of colon wall pt will likely need bowel evacuants vanco/zosyn will cover for lower GI infection if present 07/19 - no abd pain and lots of stool in last 24 hours 07/20 - E.coli could have coming from the colon d/c vanco and continue with zosyn pt has rectal tube with watery brown fluid, doubt c.dif in light of improving WBC and fever 07/21 - continue with zosyn for a two week course (thru 07/31) repeat abd x-ray, pt only has watery stools in rectal tube concern would be that he still has stool impaction 07/22 - abd xray still shows fecal impaction, spoke to nurse regarding removing rectal tube 07/24 - pt had a good amount of stool and repeat abd xray shows less stool but more air in bowels pt has no pain to abd though continue with zosyn thru 07/31 7) ARF likely due to sepsis this has been his pattern with infection and his creatinine goes back to baseline 07/19 - improved creatinine 07/20 - resolved 8) hypernatremia again this is not uncommon for this pt and it had resolved in the past with D5W 07/20 - improved 9) e.coli bacteremia 07/20 - source could be the urine but urine cx was neg he has gallstones but no sign of GB obstruction he has some haziness at the L lung base but doubt lung is the source elevated procalcitonin is also present in bacteremia and does not mean he has a lung infection He had large amount of retained stool with distended colon and this is more likely the source of the infection continue with zosyn 07/21 - improved fever and WBC is WNL continue zosyn thru 07/31/18 I suspect the source is his fecal impaction that caused bowel distension 07/24 - continue with zosyn thru 07/31 unless MRI shows osteo of sacrum then extend another 4 weeks Consultation Date/Type/Reason Admit Date/Time July 18, 2018 at 00:56 Initial Consult Date 07/18/18 Type of Consult ID Requesting Provider: MERARY SORENSEN Date/Time of Note DATE: 07/24/18 TIME: 08:03 24 HR Interval Summary Free Text/Dictation pt is smiling again he denies abd pain with exam no N, V Exam/Review of Systems Exam Vitals Vital Signs Date Temp Pulse Resp B/P (MAP) Pulse Ox O2 O2 Flow FiO2 Time Delivery Rate 07/24/18 97.7 67 18 144/69 98 04:00 (94) 07/21/18 Room Air 14:28 Mask Intake and Output 07/23/18 07/23/18 07/24/18 1414:59 22:59 06:59 IntakeIntake Total 1640 ml 200 ml OutputOutput Total 500 ml 550 ml BalanceBalance 1140 ml -350 ml Constitutional: alert Eyes: nl sclera ENMT: mucosa pink and moist Respiratory: clear to auscultation Cardiovascular: regular rate and rhythm Gastrointestinal: soft Results Result Diagram: 07/23/18 0517 07/23/18 0517 Results 24hrs Laboratory Tests Test 07/23/18 09:07 07/23/18 12:33 07/23/18 18:00 07/23/18 20:21 Bedside Glucose 281 H 247 H 169 176 Medications Medication Current Medications Ondansetron HCl (Zofran Inj) 4 mg Q6H PRN IV NAUSEA AND/OR VOMITING; Start 07/18/18 at 01:30 Acetaminophen (Tylenol Liquid) 650 mg Q6H PRN GTB PAIN LEVEL 1-3 OR FEVER; Start 07/18/18 at 01:30 Morphine Sulfate (morphine) 2 mg Q4H PRN IV PAIN LEVEL 7-10 Last administered on 07/20/18at 02:41; Admin Dose 2 MG; Start 07/18/18 at 01:30 Piperacillin Sod/ Tazobactam Sod 100 ml @ 200 mls/hr Q6H IVPB Last administered on 07/24/18at 04:27; Admin Dose 200 MLS/HR; Start 07/18/18 at 09:30 Miscellaneous Information 1 ea NOTE XX ; Start 07/18/18 at 09:30 Glucose (Glutose) 15 gm Q15M PRN PO DECREASED GLUCOSE; Start 07/18/18 at 09:30 Glucose (Glutose) 22.5 gm Q15M PRN PO DECREASED GLUCOSE; Start 07/18/18 at 09:30 Dextrose (D50w Syringe) 25 ml Q15M PRN IV DECREASED GLUCOSE; Start 07/18/18 at 09:30 Dextrose (D50w Syringe) 50 ml Q15M PRN IV DECREASED GLUCOSE Last administered on 07/18/18at 17:21; Admin Dose 50 ML; Start 07/18/18 at 09:30 Glucagon (Glucagen) 1 mg Q15M PRN IM DECREASED GLUCOSE; Start 07/18/18 at 09:30 Glucose (Glutose) 15 gm Q15M PRN BUCCAL DECREASED GLUCOSE; Start 07/18/18 at 0 9:30 Enoxaparin Sodium (Lovenox) 30 mg DAILY SC Last administered on 07/23/18 09:11; Admin Dose 30 MG; Start 07/18/18 at 10:00 Ascorbic Acid (Vitamin C) 500 mg DAILY GTB Last administered on 07/23/18 09:15; Admin Dose 500 MG; Start 07/20/18 at 09:00 Folic Acid (Folic Acid) 1 mg DAILY GTB Last administered on 07/23/18 09:15; Admin Dose 1 MG; Start 07/20/18 at 09:00 Zinc Sulfate (Zinc Sulfate) 220 mg DAILY GTB Last administered on 07/23/18 09:15; Admin Dose 220 MG; Start 07/20/18 at 09:00 Lactulose (Enulose) 20 gm TID GTB Last administered on 07/23/18 20:25; Admin Dose 20 GM; Start 07/21/18 at 21:00 Docusate Sodium (Colace Liquid Cup) 20 mg BID GTB Last administered on 07/23/18 20:25; Admin Dose 20 MG; Start 07/21/18 at 21:00 Bisacodyl (Dulcolax Supp) 10 mg DAILY PRN [place] CONSTIPATION; Start 07/22/18 at 10:30 Metformin HCl (Glucophage) 850 mg BID WITH MEALS GTB Last administered on 18:00; Admin Dose 850 MG; Start 07/22/18 at 18:05 Insulin Aspart (Novolog Insulin Pen) NOVOLOG *MODERATE* ALGORITHM WITH MEALS BEDTIME SC Last administered on 07/23/18 18:04; Admin Dose 2 UNIT; Start 07/22/18 at 18:05 Insulin Glargine (Lantus) 35 units DAILY@2000 SC Last administered on 07/23/18 20:26; Admin Dose 35 UNITS; Start 07/23/18 at 20:00 ZAHEER ENGLE MD Jul 24, 2018 08:08
[2018-07-24] MEDS: morphine 2 MG INJ IV PRN ×2 (08:14→13:32)
[2018-07-24 14:00] VITALS: BP 158/76; PULSE 54; RESP 18
--- NOTE | 2018-07-24 14:06 | PN ---
Date/Time of Note Date/Time of Note DATE: 07/24/18 TIME: 14:03 Assessment/Plan VTE Prophylaxis Risk score (from Nsg)>0 risk: 5 SCD applied (from Nsg): Yes Pharmacological prophylaxis: heparin Lines/Catheters IV Catheter Type (from Nrsg): Central Line Central line still needed: Yes Urinary Cath still in place: Yes (suprapubic catheter ) Reason Cath still needed: urinary retention Assessment/Plan Hospital Course Alert Smiling Appears comfortable Breathing comfortably Quadraplegia with spastic limbs Clear lungs RRR Abodmen soft nt Suprapubic catheter 52 yo male with quadraplegia and chronic encephelopathy presents with sepsis Hypernatremia: - Increase free water flushes Constipation: - Laxatives, enema Sacral decubitus ulceration: - MRI of sacrum to determine if OM is present Sepsis: - Abx per ID NINA: - IV fluids - Resolving Quadraplegia - stable DMII: - Wosrening hyperglycemia. Increase lantus. Added sandra delgadillo Dc planning Result Diagram: 07/23/18 0517 07/24/18 0935 Results 24hrs Laboratory Tests Test 07/23/18 18:00 07/23/18 20:21 07/24/18 08:04 07/24/18 09:35 Bedside Glucose 169 176 246 H Sodium Level 147 H Potassium Level 3.6 Chloride Level 117 H Carbon Dioxide Level 24 Anion Gap 6 Blood Urea Nitrogen 13 Creatinine 0.86 Est Glomerular Filtrat > 60 Rate mL/min Glucose Level 308 H Calcium Level 8.1 L Test 07/24/18 12:41 Bedside Glucose 223 H Subjective 24 Hr Interval Summary Free Text/Dictation Doing well, no change to clinical status Exam/Review of Systems Exam Vitals Vital Signs Date Temp Pulse Resp B/P (MAP) Pulse Ox O2 O2 Flow FiO2 Time Delivery Rate 07/24/18 98.0 82 19 162/74 100 Room Air 08:00 (103) Intake and Output 07/23/18 07/23/18 07/24/18 1515:00 23:00 07:00 IntakeIntake Total 1640 ml 200 ml OutputOutput Total 500 ml 550 ml BalanceBalance 1140 ml -350 ml Results Results 24hrs Laboratory Tests Test 07/23/18 18:00 07/23/18 20:21 07/24/18 08:04 07/24/18 09:35 Bedside Glucose 169 176 246 H Sodium Level 147 H Potassium Level 3.6 Chloride Level 117 H Carbon Dioxide Level 24 Anion Gap 6 Blood Urea Nitrogen 13 Creatinine 0.86 Est Glomerular Filtrat > 60 Rate mL/min Glucose Level 308 H Calcium Level 8.1 L Test 07/24/18 12:41 Bedside Glucose 223 H Medications Medication Current Medications Ondansetron HCl (Zofran Inj) 4 mg Q6H PRN IV NAUSEA AND/OR VOMITING; Start 07/18/18 at 01:30 Acetaminophen (Tylenol Liquid) 650 mg Q6H PRN GTB PAIN LEVEL 1-3 OR FEVER; Start 07/18/18 at 01:30 Morphine Sulfate (morphine) 2 mg Q4H PRN IV PAIN LEVEL 7-10 Last administered on 07/24/18at 13:32; Admin Dose 2 MG; Start 07/18/18 at 01:30 Piperacillin Sod/ Tazobactam Sod 100 ml @ 200 mls/hr Q6H IVPB Last administered on 07/24/18at 08:13; Admin Dose 200 MLS/HR; Start 07/18/18 at 09:30 Miscellaneous Information 1 ea NOTE XX ; Start 07/18/18 at 09:30 Glucose (Glutose) 15 gm Q15M PRN PO DECREASED GLUCOSE; Start 07/18/18 at 09:30 Glucose (Glutose) 22.5 gm Q15M PRN PO DECREASED GLUCOSE; Start 07/18/18 at 09:30 Dextrose (D50w Syringe) 25 ml Q15M PRN IV DECREASED GLUCOSE; Start 07/18/18 at 09:30 Dextrose (D50w Syringe) 50 ml Q15M PRN IV DECREASED GLUCOSE Last administered on 07/18/18at 17:21; Admin Dose 50 ML; Start 07/18/18 at 09:30 Glucagon (Glucagen) 1 mg Q15M PRN IM DECREASED GLUCOSE; Start 07/18/18 at 09:30 Glucose (Glutose) 15 gm Q15M PRN BUCCAL DECREASED GLUCOSE; Start 07/18/18 at 09:30 Enoxaparin Sodium (Lovenox) 30 mg DAILY SC Last administered on 07/24/18at 08:08; Admin Dose 30 MG; Start 07/18/18 at 10:00 Ascorbic Acid (Vitamin C) 500 mg DAILY GTB Last administered on 07/24/18 08:07; Admin Dose 500 MG; Start 07/20/18 at 09:00 Folic Acid (Folic Acid) 1 mg DAILY GTB Last administered on 07/24/18 08:07; Admin Dose 1 MG; Start 07/20/18 at 09:00 Zinc Sulfate (Zinc Sulfate) 220 mg DAILY GTB Last administered on 07/24/18 08:07; Admin Dose 220 MG; Start 07/20/18 at 09:00 Lactulose (Enulose) 20 gm TID GTB Last administered on 07/24/18 13:31; Admin Dose 20 GM; Start 07/21/18 at 21:00 Docusate Sodium (Colace Liquid Cup) 20 mg BID GTB Last administered on 07/24/18 08:05; Admin Dose 20 MG; Start 07/21/18 at 21:00 Bisacodyl (Dulcolax Supp) 10 mg DAILY PRN [place] CONSTIPATION; Start 07/22/18 at 10:30 Metformin HCl (Glucophage) 850 mg BID WITH MEALS GTB Last administered on 07/24/18 08:07; Admin Dose 850 MG; Start 07/22/18 at 18:05 Insulin Aspart (Novolog Insulin Pen) NOVOLOG *MODERATE* ALGORITHM WITH MEALS BEDTIME SC Last administered on 07/24/18 13:28; Admin Dose 6 UNIT; Start 07/22/18 at 18:05 Insulin Glargine (Lantus) 35 units DAILY@2000 SC Last administered on 07/23/18 20:26; Admin Dose 35 UNITS; Start 07/23/18 at 20:00 PEGGY RODRIGUEZ MD Jul 24, 2018 14:06
[2018-07-24] MEDS: LINAGLIPTIN 5 MG TABLET PO SCH (14:30)
--- NOTE | 2018-07-24 16:25 | PN ---
Date/Time of Note Date/Time of Note DATE: 07/24/18 TIME: 16:21 Assessment/Plan VTE Prophylaxis Risk score (from Nsg)>0 risk: 5 SCD applied (from Nsg): Yes Pharmacological prophylaxis: other (scds) Lines/Catheters IV Catheter Type (from Nrsg): Central Line Central line still needed: Yes (meds) Urinary Cath still in place: Yes (suprapubic catheter ) Reason Cath still needed: other (indicate) (monitor output) Assessment/Plan Hospital Course Assessment/Plan Assessment: Fecal impaction - Abundant retained stool throughout the colon. Stool distended sigmoid colon measuring up to 10 cm in diameter consistent with fecal impaction -Many BM's during the night Sepsis // to UTI/Bacteremia (gram negative) -Leukocytosis- improved -Elevated Lactic acid - resolved -Tachycardia on arrival- now HR WNL Query left lung base PNA CXR findings compatible with atelectasis or pneumonia. Neurogenic bladder with suprapubic catheter Chronic encephalopathy secondary to TBI -Status post prior left frontotemporal craniectomy/cranioplasty - Right frontal approach [employer] shunt with tip anterolateral to the third ventricle TBI with quadriplegia NINA- resolved Soft tissue mass-like structure of the left kidney which may represent complex cyst versus mass -Work-up per hospitalist Sacral ulcer- wound consult- ordered -Wound cx- proteus and pseudomonas - per ID Plan: TF to goal rate Continue bowel regimen PEG care BID Antibiotics per ID GI will sign off but will be available upon reconsult as neede Patient seen in collaboration with Dr. De Dios Subjective: Course reviewed with nursing staff Patient interviewed and examined All labs, imaging and other results reviewed Pt continues to have multiple BMs- abd soft, pt does not appear to be in any pain or discomfort Continue Bowel regimen, and TF as tolerated. No over night events noted. PHYSICAL EXAMINATION: GENERAL: Well developed, well nourished, alert & oriented x 1 SKIN: decubitus wounds HEAD: Normocephalic, atraumatic, no tenderness. EYES: Pupils equal reactive to light and accommodation, no discharge. EARS/NOSE AND THROAT: Ears normal, nose normal. NECK: Supple, no masses. CHEST: Inspection within normal limits. CARDIOVASCULAR: Heart: Regular rate and rhythm RESPIRATORY: Lungs clear to auscultation GASTROINTESTINAL AND LIVER: Abdomen: Soft, non tenderness, slightly distended, suprapubic catheter in place, no hernias, no masses, no organomegaly, no rmoactive bowel sounds. Rectal: Deferred. Result Diagram: 07/23/18 0517 07/24/18 0935 Results 24hrs Laboratory Tests Test 07/23/18 18:00 07/23/18 20:21 07/24/18 08:04 07/24/18 09:35 Bedside Glucose 169 176 246 H Sodium Level 147 H Potassium Level 3.6 Chloride Level 117 H Carbon Dioxide Level 24 Anion Gap 6 Blood Urea Nitrogen 13 Creatinine 0.86 Est Glomerular Filtrat > 60 Rate mL/min Glucose Level 308 H Calcium Level 8.1 L Test 07/24/18 12:41 Bedside Glucose 223 H Exam/Review of Systems Exam Vitals Vital Signs Date Temp Pulse Resp B/P (MAP) Pulse Ox O2 O2 Flow FiO2 Time Delivery Rate 07/24/18 98.0 54 18 158/76 100 Room Air 14:00 (103) Intake and Output 07/23/18 07/23/18 07/24/18 1515:00 23:00 07:00 IntakeIntake Total 1640 ml 200 ml OutputOutput Total 500 ml 550 ml BalanceBalance 1140 ml -350 ml Results Results 24hrs Laboratory Tests Test 07/23/18 18:00 07/23/18 20:21 07/24/18 08:04 07/24/18 09:35 Bedside Glucose 169 176 246 H Sodium Level 147 H Potassium Level 3.6 Chloride Level 117 H Carbon Dioxide Level 24 Anion Gap 6 Blood Urea Nitrogen 13 Creatinine 0.86 Est Glomerular Filtrat > 60 Rate mL/min Glucose Level 308 H Calcium Level 8.1 L Test 07/24/18 12:41 Bedside Glucose 223 H Medications Medication Current Medications Ondansetron HCl (Zofran Inj) 4 mg Q6H PRN IV NAUSEA AND/OR VOMITING; Start 07/18/18 at 01:30 Acetaminophen (Tylenol Liquid) 650 mg Q6H PRN GTB PAIN LEVEL 1-3 OR FEVER; Start 07/18/18 at 01:30 Morphine Sulfate (morphine) 2 mg Q4H PRN IV PAIN LEVEL 7-10 Last administered on 07/24/18at 13:32; Admin Dose 2 MG; Start 07/18/18 at 01:30 Piperacillin Sod/ Tazobactam Sod 100 ml @ 200 mls/hr Q6H IVPB Last administered on 07/24/18 08:13; Admin Dose 200 MLS/HR; Start 07/18/18 at 09:30 Miscellaneous Information 1 ea NOTE XX ; Start 07/18/18 at 09:30 Glucose (Glutose) 15 gm Q15M PRN PO DECREASED GLUCOSE; Start 07/18/18 at 09:30 Glucose (Glutose) 22.5 gm Q15M PRN PO DECREASED GLUCOSE; Start 07/18/18 at 09:30 Dextrose (D50w Syringe) 25 ml Q15M PRN IV DECREASED GLUCOSE; Start 07/18/18 at 09:30 Dextrose (D50w Syringe) 50 ml Q15M PRN IV DECREASED GLUCOSE Last administered on 07/18/18at 17:21; Admin Dose 50 ML; Start 07/18/18 at 09:30 Glucagon (Glucagen) 1 mg Q15M PRN IM DECREASED GLUCOSE; Start 07/18/18 at 09:30 Glucose (Glutose) 15 gm Q15M PRN BUCCAL DECREASED GLUCOSE; Start 07/18/18 at 09:30 Enoxaparin Sodium (Lovenox) 30 mg DAILY SC Last administered on 07/24/18 08:08; Admin Dose 30 MG; Start 07/18/18 at 10:00 Ascorbic Acid (Vitamin C) 500 mg DAILY GTB Last administered on 07/24/18 08:07; Admin Dose 500 MG; Start 07/20/18 at 09:00 Folic Acid (Folic Acid) 1 mg DAILY GTB Last administered on 07/24/18at 08:07; Admin Dose 1 MG; Start 07/20/18 at 09:00 Zinc Sulfate (Zinc Sulfate) 220 mg DAILY GTB Last administered on 07/24/18 08:07; Admin Dose 220 MG; Start 07/20/18 at 09:00 Lactulose (Enulose) 20 gm TID GTB Last administered on 07/24/18 13:31; Admin Dose 20 GM; Start 07/21/18 at 21:00 Docusate Sodium (Colace Liquid Cup) 20 mg BID GTB Last administered on 07/24/18 08:05; Admin Dose 20 MG; Start 07/21/18 at 21:00 Bisacodyl (Dulcolax Supp) 10 mg DAILY PRN [place] CONSTIPATION; Start 07/22/18 at 10:30 Metformin HCl (Glucophage) 850 mg BID WITH MEALS GTB Last administered on 07/24/18at 08:07; Admin Dose 850 MG; Start 07/22/18 at 18:05 Insulin Aspart (Novolog Insulin Pen) NOVOLOG *MODERATE* ALGORITHM WITH MEALS BEDTIME SC Last administered on 07/24/18at 13:28; Admin Dose 6 UNIT; Start 07/22/18 at 18:05 Insulin Glargine (Lantus) 35 units DAILY@2000 SC Last administered on 07/23/18at 20:26; Admin Dose 35 UNITS; Start 07/23/18 at 20:00 Insulin Glargine (Lantus) 15 units DAILY@0800 SC ; Start 07/25/18 at 08:00 Linagliptin (Tradjenta) 5 mg DAILY PO ; Start 07/24/18 at 14:30 SONU RENO Jul 24, 2018 16:25
[2018-07-24 19:54] VITALS: BP 123/58; PULSE 52; RESP 17
[2018-07-24] MEDS: INSULIN GLARGINE [LANTus] (100 UNITS/ML) SYG SC SCH (20:23)
[2018-07-25] MEDS: morphine 2 MG INJ IV PRN ×2 (00:57→08:31)
[2018-07-25 02:26] VITALS: BP 124/58; PULSE 65; RESP 17
[2018-07-25] MEDS: PIPER-TAZO 3.375 GM IV (PMX) 100 ML IVPB SCH ×4 (02:33→21:58)
--- NOTE | 2018-07-25 06:23 | CONS ---
Assessment/Plan Assessment/Plan Hospital Course (Demo Recall) 1) UTI with sepsis in pt with suprapubic cath due to neurogenic bladder pt was in hospital in april of this year with urosepsis and had e.coli +ESBL and MRSA present continue with vanco, change aztreanom to zosyn (e.coli was sensitive to it) await final ID and sensi's of urine CT abd did not show hydronephrosis but there is some mass/cyst around the L kidney, u/s could not visualize the L kidney 07/19 - urine cx and blood cx are NGTD continue with vanco/zosyn at present, improved temps and WBC 07/20 - urine cx is neg blood cx has e.coli in it, continue with zosyn, d/c vanco 07/21 - normal WBC 2) L base effusion with atelectasis vs consolidation check procalcitonin and get nasal for MRSA vanco/zosyn should cover but pt does not seem to have respiratory distress and is resting comfortable without cough on 2L of O2 07/19 - stable, procalcitonin is pending 07/20 - with bacteremia, impossible to interpret elevated procalcitonin for pneumonia nasal has MRSA but doubt he has pneumonia d/c vanco but continue with zosyn 07/21 - doubt pt has pneumonia but zosyn should cover 3) sacral ulcer get wound cx vanco/zosyn will cover 07/19 - stage III ulcer, cx is pending wound care to see pt 07/20 - pt has proteus and pseudomonas in sacral cx, not c/w e.coli in the blood continue with zosyn, d/c vanco, check ESR 07/21 - pseudomonas and proteus are sensitive to the zosyn 07/22 - ESR is moderately elevated I will order MRI of sacral area to determine length of IV antibiotic therapy 07/24 - MRI just ordered now continue with zosyn 07/25 - have written orders for ativan 1mg IV prior to MRI on zosyn If MRI is neg for sacral osteo then continue thru 07/31 4) TBI with quadriplegia 5) DM 6) constipation with enlarged colon and to my eyes some thickening of colon wall pt will likely need bowel evacuants vanco/zosyn will cover for lower GI infection if present 07/19 - no abd pain and lots of stool in last 24 hours 07/20 - E.coli could have coming from the colon d/c vanco and continue with zosyn pt has rectal tube with watery brown fluid, doubt c.dif in light of improving WBC and fever 07/21 - continue with zosyn for a two week course (thru 07/31) repeat abd x-ray, pt only has watery stools in rectal tube concern would be that he still has stool impaction 07/22 - abd xray still shows fecal impaction, spoke to nurse regarding removing rectal tube 07/24 - pt had a good amount of stool and repeat abd xray shows less stool but more air in bowels pt has no pain to abd though continue with zosyn thru 07/31 7) ARF likely due to sepsis this has been his pattern with infection and his creatinine goes back to baseline 07/19 - improved creatinine 07/20 - resolved 8) hypernatremia again this is not uncommon for this pt and it had resolved in the past with D5W 07/20 - improved 9) e.coli bacteremia 07/20 - source could be the urine but urine cx was neg he has gallstones but no sign of GB obstruction he has some haziness at the L lung base but doubt lung is the source elevated procalcitonin is also present in bacteremia and does not mean he has a lung infection He had large amount of retained stool with distended colon and this is more likely the source of the infection continue with zosyn 07/21 - improved fever and WBC is WNL continue zosyn thru 07/31/18 I suspect the source is his fecal impaction that caused bowel distension 07/24 - continue with zosyn thru 07/31 unless MRI shows osteo of sacrum then extend another 4 weeks Consultation Date/Type/Reason Admit Date/Time July 18, 2018 at 00:56 Initial Consult Date 07/18/18 Type of Consult ID Requesting Provider: MERARY SORENSEN Date/Time of Note DATE: 07/25/18 TIME: 06:17 24 HR Interval Summary Free Text/Dictation no change pt was yelling overnight unable to get MRI done due to agitation Exam/Review of Systems Exam Vitals Vital Signs Date Temp Pulse Resp B/P (MAP) Pulse Ox O2 O2 Flow FiO2 Time Delivery Rate 07/25/18 98.1 65 17 124/58 98 02:26 (80) 07/24/18 Room Air 14:00 Intake and Output 07/24/18 07/24/18 07/25/18 1515:00 23:00 07:00 IntakeIntake Total 100 ml 200 ml 100 ml OutputOutput Total 800 ml BalanceBalance 100 ml -600 ml 100 ml Results Result Diagram: 07/23/18 0517 07/24/18 0935 Results 24hrs Laboratory Tests Test 07/24/18 08:04 07/24/18 09:35 07/24/18 12:41 07/24/18 17:58 Bedside Glucose 246 H 223 H 233 H Sodium Level 147 H Potassium Level 3.6 Chloride Level 117 H Carbon Dioxide Level 24 Anion Gap 6 Blood Urea Nitrogen 13 Creatinine 0.86 Est Glomerular Filtrat > 60 Rate mL/min Glucose Level 308 H Calcium Level 8.1 L Test 07/24/18 20:12 07/25/18 02:37 Bedside Glucose 245 H 205 Medications Medication Current Medications Ondansetron HCl (Zofran Inj) 4 mg Q6H PRN IV NAUSEA AND/OR VOMITING; Start 07/18/18 at 01:30 Acetaminophen (Tylenol Liquid) 650 mg Q6H PRN GTB PAIN LEVEL 1-3 OR FEVER; Start 07/18/18 at 01:30 Morphine Sulfate (morphine) 2 mg Q4H PRN IV PAIN LEVEL 7-10 Last administered on 07/25/18at 00:57; Admin Dose 2 MG; Start 07/18/18 at 01:30 Piperacillin Sod/ Tazobactam Sod 100 ml @ 200 mls/hr Q6H IVPB Last administered on 07/25/18at 02:33; Admin Dose 200 MLS/HR; Start 07/18/18 at 09:30 Miscellaneous Information 1 ea NOTE XX ; Start 07/18/18 at 09:30 Glucose (Glutose) 15 gm Q15M PRN PO DECREASED GLUCOSE; Start 07/18/18 at 09:30 Glucose (Glutose) 22.5 gm Q15M PRN PO DECREASED GLUCOSE; Start 07/18/18 at 09:30 Dextrose (D50w Syringe) 25 ml Q15M PRN IV DECREASED GLUCOSE; Start 07/18/18 at 09:30 Dextrose (D50w Syringe) 50 ml Q15M PRN IV DECREASED GLUCOSE Last administered on 07/18/18 17:21; Admin Dose 50 ML; Start 07/18/18 at 09:30 Glucagon (Glucagen) 1 mg Q15M PRN IM DECREASED GLUCOSE; Start 07/18/18 at 09:30 Glucose (Glutose) 15 gm Q15M PRN BUCCAL DECREASED GLUCOSE; Start 07/18/18 at 09:30 Enoxaparin Sodium (Lovenox) 30 mg DAILY SC Last administered on 07/24/18 08:08; Admin Dose 30 MG; Start 07/18/18 at 10:00 Ascorbic Acid (Vitamin C) 500 mg DAILY GTB Last administered on 07/24/18 08:07; Admin Dose 500 MG; Start 07/20/18 at 09:00 Folic Acid (Folic Acid) 1 mg DAILY GTB Last administered on 07/24/18 08:07; A dmin Dose 1 MG; Start 07/20/18 at 09:00 Zinc Sulfate (Zinc Sulfate) 220 mg DAILY GTB Last administered on 07/24/18 08:07; Admin Dose 220 MG; Start 07/20/18 at 09:00 Lactulose (Enulose) 20 gm TID GTB Last administered on 07/24/18 20:20; Admin Dose 20 GM; Start 07/21/18 at 21:00 Docusate Sodium (Colace Liquid Cup) 20 mg BID GTB Last administered on 07/24/18 20:20; Admin Dose 20 MG; Start 07/21/18 at 21:00 Bisacodyl (Dulcolax Supp) 10 mg DAILY PRN [place] CONSTIPATION; Start 07/22/18 at 10:30 Metformin HCl (Glucophage) 850 mg BID WITH MEALS GTB Last administered on 07/24/18 18:11; Admin Dose 850 MG; Start 07/22/18 at 18:05 Insulin Aspart (Novolog Insulin Pen) NOVOLOG *MODERATE* ALGORITHM WITH MEALS BEDTIME SC Last administered on 07/24/18 20:24; Admin Dose 2 UNIT; Start 07/22/18 at 18:05 Insulin Glargine (Lantus) 35 units DAILY@2000 SC Last administered on 07/24/18 20:23; Admin Dose 35 UNITS; Start 07/23/18 at 20:00 Insulin Glargine (Lantus) 15 units DAILY@0800 SC ; Start 07/25/18 at 08:00 Linagliptin (Tradjenta) 5 mg DAILY PO ; Start 07/24/18 at 14:30 Lorazepam (Ativan) 1 mg ONCE ONCE IV ; Start 07/25/18 at 06:30; Stop 07/25/18 at 06:31; Status UNV ZAHEER ENGLE MD Jul 25, 2018 06:23
[2018-07-25] MEDS ORDERED: LORAZEPAM 2 MG INJ IV ONE (06:30)
[2018-07-25] MEDS: ASCORBIC ACID 500 MG TAB GTB SCH (08:28)
[2018-07-25] MEDS: ZINC SULFATE 220 MG CAP GTB SCH (08:28)
[2018-07-25] MEDS: metFORMIN 850 MG TAB GTB SCH ×2 (08:28→17:55)
[2018-07-25] MEDS: FOLIC ACID 1 MG TAB GTB SCH (08:28)
[2018-07-25] MEDS: LINAGLIPTIN 5 MG TABLET PO SCH (08:29)
[2018-07-25] MEDS: DOCUSATE SODIUM 10 MG/ML (10ML CUP) GTB SCH ×2 (08:29→20:37)
[2018-07-25] MEDS: LACTULOSE 30ML CUP GTB SCH ×3 (08:29→20:36)
[2018-07-25] MEDS: INSULIN ASPART [NOVOLOG] 3 ML PEN SC SCH ×4 (08:30→20:39)
[2018-07-25] MEDS: ENOXAPARIN 30 MG/0.3 ML SYG SC SCH (08:31)
[2018-07-25 08:39] VITALS: BP 158/69; PULSE 64; RESP 20
[2018-07-25] MEDS: BALSAM PERU/CASTOR OIL 60 GM TUBE TOP SCH ×2 (09:10→21:59)
[2018-07-25] MEDS: INSULIN GLARGINE [LANTus] (100 UNITS/ML) SYG SC SCH ×2 (09:10→20:37)
--- NOTE | 2018-07-25 13:48 | PN ---
Date/Time of Note Date/Time of Note DATE: 07/25/18 TIME: 13:47 Assessment/Plan VTE Prophylaxis Risk score (from Nsg)>0 risk: 7 SCD applied (from Nsg): Yes Pharmacological prophylaxis: heparin Lines/Catheters IV Catheter Type (from Nrsg): Central Line Central line still needed: Yes Urinary Cath still in place: Yes (SUPRAPUBIC CATHETER) Reason Cath still needed: urinary retention Assessment/Plan Hospital Course Alert Smiling Appears comfortable Breathing comfortably Quadraplegia with spastic limbs Clear lungs RRR Abodmen soft nt Suprapubic catheter 52 yo male with quadraplegia and chronic encephelopathy presents with sepsis Hypernatremia: - Increase free water flushes Constipation: - Laxatives, enema Sacral decubitus ulceration: - MRI of sacrum to determine if OM is present Sepsis: - Abx per ID NINA: - IV fluids - Resolving Quadraplegia - stable DMII: - Continue basal/bolus insulin with metformin and tradjenda added Dc planning Result Diagram: 07/23/18 0517 07/25/18 0433 Results 24hrs Laboratory Tests Test 07/24/18 17:58 07/24/18 20:12 07/25/18 02:37 07/25/18 04:33 Bedside Glucose 233 H 245 H 205 Sodium Level 146 H Potassium Level 3.8 Chloride Level 115 H Carbon Dioxide Level 22 Anion Gap 9 Blood Urea Nitrogen 12 Creatinine 0.71 Est Glomerular Filtrat > 60 Rate mL/min Glucose Level 205 # Calcium Level 7.9 L Test 07/25/18 08:27 07/25/18 12:59 Bedside Glucose 173 138 Subjective 24 Hr Interval Summary Free Text/Dictation Sugars better controlled today with tradjenda added No complaints Comfortable Exam/Review of Systems Exam Vitals Vital Signs Date Temp Pulse Resp B/P (MAP) Pulse Ox O2 O2 Flow FiO2 Time Delivery Rate 07/25/18 97.9 64 20 158/69 100 Room Air 08:39 (98) Intake and Output 07/24/18 07/24/18 07/25/18 1515:00 23:00 07:00 IntakeIntake Total 100 ml 200 ml 100 ml OutputOutput Total 800 ml 800 ml BalanceBalance 100 ml -600 ml -700 ml Results Results 24hrs Laboratory Tests Test 07/24/18 17:58 07/24/18 20:12 07/25/18 02:37 07/25/18 04:33 Bedside Glucose 233 H 245 H 205 Sodium Level 146 H Potassium Level 3.8 Chloride Level 115 H Carbon Dioxide Level 22 Anion Gap 9 Blood Urea Nitrogen 12 Creatinine 0.71 Est Glomerular Filtrat > 60 Rate mL/min Glucose Level 205 # Calcium Level 7.9 L Test 07/25/18 08:27 07/25/18 12:59 Bedside Glucose 173 138 Medications Medication Current Medications Ondansetron HCl (Zofran Inj) 4 mg Q6H PRN IV NAUSEA AND/OR VOMITING; Start 07/18/18 at 01:30 Acetaminophen (Tylenol Liquid) 650 mg Q6H PRN GTB PAIN LEVEL 1-3 OR FEVER; Start 07/18/18 at 01:30 Morphine Sulfate (morphine) 2 mg Q4H PRN IV PAIN LEVEL 7-10 Last administered on 07/25/18at 08:31; Admin Dose 2 MG; Start 07/18/18 at 01:30 Piperacillin Sod/ Tazobactam Sod 100 ml @ 200 mls/hr Q6H IVPB Last administered on 07/25/18at 09:11; Admin Dose 200 MLS/HR; Start 07/18/18 at 09:30 Miscellaneous Information 1 ea NOTE XX ; Start 07/18/18 at 09:30 Glucose (Glutose) 15 gm Q15M PRN PO DECREASED GLUCOSE; Start 07/18/18 at 09:30 Glucose (Glutose) 22.5 gm Q15M PRN PO DECREASED GLUCOSE; Start 07/18/18 at 09:30 Dextrose (D50w Syringe) 25 ml Q15M PRN IV DECREASED GLUCOSE; Start 07/18/18 at 09:30 Dextrose (D50w Syringe) 50 ml Q15M PRN IV DECREASED GLUCOSE Last administered on 07/18/18at 17:21; Admin Dose 50 ML; Start 07/18/18 at 09:30 Glucagon (Glucagen) 1 mg Q15M PRN IM DECREASED GLUCOSE; Start 07/18/18 at 09:30 Glucose (Glutose) 15 gm Q15M PRN BUCCAL DECREASED GLUCOSE; Start 07/18/18 at 09:30 Enoxaparin Sodium (Lovenox) 30 mg DAILY SC Last administered on 07/25/18at 08:31; Admin Dose 30 MG; Start 07/18/18 at 10:00 Ascorbic Acid (Vitamin C) 500 mg DAILY GTB Last administered on 07/25/18 08:28; Admin Dose 500 MG; Start 07/20/18 at 09:00 Folic Acid (Folic Acid) 1 mg DAILY GTB Last administered on 07/25/18 08:28; Admin Dose 1 MG; Start 07/20/18 at 09:00 Zinc Sulfate (Zinc Sulfate) 220 mg DAILY GTB Last administered on 07/25/18 08:28; Admin Dose 220 MG; Start 07/20/18 at 09:00 Lactulose (Enulose) 20 gm TID GTB Last administered on 07/25/18 13:00; Admin Dose 20 GM; Start 07/21/18 at 21:00 Docusate Sodium (Colace Liquid Cup) 20 mg BID GTB Last administered on 07/25/18 08:29; Admin Dose 20 MG; Start 07/21/18 at 21:00 Bisacodyl (Dulcolax Supp) 10 mg DAILY PRN [place] CONSTIPATION; Start 07/22/18 at 10:30 Metformin HCl (Glucophage) 850 mg BID WITH MEALS GTB Last administered on 07/25/18 08:28; Admin Dose 850 MG; Start 07/22/18 at 18:05 Insulin Aspart (Novolog Insulin Pen) NOVOLOG *MODERATE* ALGORITHM WITH MEALS BEDTIME SC Last administered on 07/25/18 08:30; Admin Dose 2 UNIT; Start 07/22/18 at 18:05 Insulin Glargine (Lantus) 35 units DAILY@2000 SC Last administered on 07/24/18 20:23; Admin Dose 35 UNITS; Start 07/23/18 at 20:00 Insulin Glargine (Lantus) 15 units DAILY@0800 SC Last administered on 07/25/18 09:10; Admin Dose 15 UNITS; Start 07/25/18 at 08:00 Linagliptin (Tradjenta) 5 mg DAILY PO Last administered on 07/25/18 08:29; Admin Dose 5 MG; Start 07/24/18 at 14:30 PEGGY RODRIGUEZ MD Jul 25, 2018 13:48
[2018-07-25 20:00] VITALS: BP 137/68; PULSE 82; RESP 18
[2018-07-26 02:00] VITALS: BP 131/64; PULSE 71; RESP 17
[2018-07-26] MEDS: PIPER-TAZO 3.375 GM IV (PMX) 100 ML IVPB SCH ×4 (04:16→21:35)
--- NOTE | 2018-07-26 08:09 | CONS ---
Assessment/Plan Assessment/Plan Hospital Course (Demo Recall) 1) UTI with sepsis in pt with suprapubic cath due to neurogenic bladder pt was in hospital in april of this year with urosepsis and had e.coli +ESBL and MRSA present continue with vanco, change aztreanom to zosyn (e.coli was sensitive to it) await final ID and sensi's of urine CT abd did not show hydronephrosis but there is some mass/cyst around the L kidney, u/s could not visualize the L kidney 07/19 - urine cx and blood cx are NGTD continue with vanco/zosyn at present, improved temps and WBC 07/20 - urine cx is neg blood cx has e.coli in it, continue with zosyn, d/c vanco 07/21 - normal WBC 2) L base effusion with atelectasis vs consolidation check procalcitonin and get nasal for MRSA vanco/zosyn should cover but pt does not seem to have respiratory distress and is resting comfortable without cough on 2L of O2 07/19 - stable, procalcitonin is pending 07/20 - with bacteremia, impossible to interpret elevated procalcitonin for pneumonia nasal has MRSA but doubt he has pneumonia d/c vanco but continue with zosyn 07/21 - doubt pt has pneumonia but zosyn should cover 3) sacral ulcer get wound cx vanco/zosyn will cover 07/19 - stage III ulcer, cx is pending wound care to see pt 07/20 - pt has proteus and pseudomonas in sacral cx, not c/w e.coli in the blood continue with zosyn, d/c vanco, check ESR 07/21 - pseudomonas and proteus are sensitive to the zosyn 07/22 - ESR is moderately elevated I will order MRI of sacral area to determine length of IV antibiotic therapy 07/24 - MRI just ordered now continue with zosyn 07/25 - have written orders for ativan 1mg IV prior to MRI on zosyn If MRI is neg for sacral osteo then continue thru 07/31 07/26 - MRI was neg for osteo continue with just zosyn thru 07/31 4) TBI with quadriplegia 5) DM 6) constipation with enlarged colon and to my eyes some thickening of colon wall pt will likely need bowel evacuants vanco/zosyn will cover for lower GI infection if present 07/19 - no abd pain and lots of stool in last 24 hours 07/20 - E.coli could have coming from the colon d/c vanco and continue with zosyn pt has rectal tube with watery brown fluid, doubt c.dif in light of improving WBC and fever 07/21 - continue with zosyn for a two week course (thru 07/31) repeat abd x-ray, pt only has watery stools in rectal tube concern would be that he still has stool impaction 07/22 - abd xray still shows fecal impaction, spoke to nurse regarding removing rectal tube 07/24 - pt had a good amount of stool and repeat abd xray shows less stool but more air in bowels pt has no pain to abd though continue with zosyn thru 07/31 7) ARF likely due to sepsis this has been his pattern with infection and his creatinine goes back to baseline 07/19 - improved creatinine 07/20 - resolved 8) hypernatremia again this is not uncommon for this pt and it had resolved in the past with D5W 07/20 - improved 9) e.coli bacteremia 07/20 - source could be the urine but urine cx was neg he has gallstones but no sign of GB obstruction he has some haziness at the L lung base but doubt lung is the source elevated procalcitonin is also present in bacteremia and does not mean he has a lung infection He had large amount of retained stool with distended colon and this is more likely the source of the infection continue with zosyn 07/21 - improved fever and WBC is WNL continue zosyn thru 07/31/18 I suspect the source is his fecal impaction that caused bowel distension 07/24 - continue with zosyn thru 07/31 unless MRI shows osteo of sacrum then extend another 4 weeks Consultation Date/Type/Reason Admit Date/Time July 18, 2018 at 00:56 Initial Consult Date 07/18/18 Type of Consult ID Requesting Provider: MERARY SORENSEN Date/Time of Note DATE: 07/26/18 TIME: 08:04 24 HR Interval Summary Free Text/Dictation pt smiling and wants tortilla no V, D breathing is stable Exam/Review of Systems Exam Vitals Vital Signs Date Temp Pulse Resp B/P (MAP) Pulse Ox O2 O2 Flow FiO2 Time Delivery Rate 07/26/18 98.6 71 17 131/64 97 02:00 (86) 07/25/18 Room Air 08:39 Intake and Output 07/25/18 07/25/18 07/26/18 1515:00 23:00 07:00 IntakeIntake Total 1760 ml 100 ml 100 ml OutputOutput Total 850 ml 300 ml 1200 ml BalanceBalance 910 ml -200 ml -1100 ml Constitutional: alert ENMT: mucosa pink and moist Respiratory: clear to auscultation Cardiovascular: regular rate and rhythm Gastrointestinal: soft, non-tender Results Result Diagram: 07/23/18 0517 07/25/18 0433 Results 24hrs Laboratory Tests Test 07/25/18 08:27 07/25/18 12:59 07/25/18 17:54 07/25/18 20:35 Bedside Glucose 173 138 139 183 Test 07/26/18 01:55 Bedside Glucose 196 Medications Medication Current Medications Ondansetron HCl (Zofran Inj) 4 mg Q6H PRN IV NAUSEA AND/OR VOMITING; Start 07/18/18 at 01:30 Acetaminophen (Tylenol Liquid) 650 mg Q6H PRN GTB PAIN LEVEL 1-3 OR FEVER; Start 07/18/18 at 01:30 Morphine Sulfate (morphine) 2 mg Q4H PRN IV PAIN LEVEL 7-10 Last administered on 07/25/18at 08:31; Admin Dose 2 MG; Start 07/18/18 at 01:30 Piperacillin Sod/ Tazobactam Sod 100 ml @ 200 mls/hr Q6H IVPB Last administered on 07/26/18at 04:16; Admin Dose 200 MLS/HR; Start 07/18/18 at 09:30 Miscellaneous Information 1 ea NOTE XX ; Start 07/18/18 at 09:30 Glucose (Glutose) 15 gm Q15M PRN PO DECREASED GLUCOSE; Start 07/18/18 at 09:30 Glucose (Glutose) 22.5 gm Q15M PRN PO DECREASED GLUCOSE; Start 07/18/18 at 09:30 Dextrose (D50w Syringe) 25 ml Q15M PRN IV DECREASED GLUCOSE; Start 07/18/18 at 09:30 Dextrose (D50w Syringe) 50 ml Q15M PRN IV DECREASED GLUCOSE Last administered on 07/18/18 17:21; Admin Dose 50 ML; Start 07/18/18 at 09:30 Glucagon (Glucagen) 1 mg Q15M PRN IM DECREASED GLUCOSE; Start 07/18/18 at 09:30 Glucose (Glutose) 15 gm Q15M PRN BUCCAL DECREASED GLUCOSE; Start 07/18/18 at 09:30 Enoxaparin Sodium (Lovenox) 30 mg DAILY SC Last administered on 07/25/18 08:31; Admin Dose 30 MG; Start 07/18/18 at 10:00 Ascorbic Acid (Vitamin C) 500 mg DAILY GTB Last administered on 07/25/18 08:28; Admin Dose 500 MG; Start 07/20/18 at 09:00 Folic Acid (Folic Acid) 1 mg DAILY GTB Last administered on 07/25/18 08:28; Admin Dose 1 MG; Start 07/20/18 at 09:00 Zinc Sulfate (Zinc Sulfate) 220 mg DAILY GTB Last administered on 07/25/18 08:28; Admin Dose 220 MG; Start 07/20/18 at 09:00 Lactulose (Enulose) 20 gm TID GTB Last administered on 07/25/18 20:36; Admin Dose 20 GM; Start 07/21/18 at 21:00 Docusate Sodium (Colace Liquid Cup) 20 mg BID GTB Last administered on 07/25/18 20:37; Admin Dose 20 MG; Start 07/21/18 at 21:00 Bisacodyl (Dulcolax Supp) 10 mg DAILY PRN [place] CONSTIPATION; Start 07/22/18 at 10:30 Metformin HCl (Glucophage) 850 mg BID WITH MEALS GTB Last administered on 07/25/18 17:55; Admin Dose 850 MG; Start 07/22/18 at 18:05 Insulin Aspart (Novolog Insulin Pen) NOVOLOG *MODERATE* ALGORITHM WITH MEALS BEDTIME SC Last administered on 07/25/18 20:39; Admin Dose 1 UNIT; Start 07/22/18 at 18:05 Insulin Glargine (Lantus) 35 units DAILY@2000 SC Last administered on 07/25/18 20:37; Admin Dose 35 UNITS; Start 07/23/18 at 20:00 Insulin Glargine (Lantus) 15 units DAILY@0800 SC Last administered on 07/25/18 09:10; Admin Dose 15 UNITS; Start 07/25/18 at 08:00 Linagliptin (Tradjenta) 5 mg DAILY PO Last administered on 07/25/18at 08:29; Admin Dose 5 MG; Start 07/24/18 at 14:30 ZAHEER ENGLE MD Jul 26, 2018 08:09
[2018-07-26] MEDS: LACTULOSE 30ML CUP GTB SCH ×3 (08:25→21:34)
[2018-07-26] MEDS: ASCORBIC ACID 500 MG TAB GTB SCH (08:25)
[2018-07-26] MEDS: FOLIC ACID 1 MG TAB GTB SCH (08:25)
[2018-07-26] MEDS: DOCUSATE SODIUM 10 MG/ML (10ML CUP) GTB SCH ×2 (08:25→21:34)
[2018-07-26] MEDS: metFORMIN 850 MG TAB GTB SCH ×2 (08:26→17:23)
[2018-07-26] MEDS: ZINC SULFATE 220 MG CAP GTB SCH (08:26)
[2018-07-26] MEDS: LINAGLIPTIN 5 MG TABLET PO SCH (08:26)
[2018-07-26] MEDS: INSULIN ASPART [NOVOLOG] 3 ML PEN SC SCH ×4 (08:30→21:00)
[2018-07-26] MEDS: INSULIN GLARGINE [LANTus] (100 UNITS/ML) SYG SC SCH ×2 (08:31→20:06)
[2018-07-26] MEDS: ENOXAPARIN 30 MG/0.3 ML SYG SC SCH (08:32)
[2018-07-26] MEDS: BALSAM PERU/CASTOR OIL 60 GM TUBE TOP SCH ×2 (08:32→21:38)
[2018-07-26 08:45] VITALS: BP 188/81; PULSE 76; RESP 20
[2018-07-26] MEDS: LOSARTAN 25 MG TAB PO SCH ×2 (09:39→21:34)
[2018-07-26 12:30] VITALS: BP 148/70; PULSE 80; RESP 20
[2018-07-26 15:16] VITALS: BP 148/70; PULSE 80; RESP 20
--- NOTE | 2018-07-26 15:35 | PN ---
Date/Time of Note Date/Time of Note DATE: 07/26/18 TIME: 15:32 Assessment/Plan VTE Prophylaxis Risk score (from Nsg)>0 risk: 5 SCD applied (from Nsg): Yes Pharmacological prophylaxis: LMWH Lines/Catheters IV Catheter Type (from Nrsg): Saline Lock Urinary Cath still in place: Yes (suprapubic cath) Reason Cath still needed: urinary retention Assessment/Plan Hospital Course SUBJECTIVE: Continues to scream for unclear reasons. OBJECTIVE: Physical Exam General: Adequately build 52 year-old male lying in bed in no apparent distress. HEENT: Normocephalic, atraumatic. Eyes: Anicteric sclerae, conjunctivae clear. ENT: Nasal septum midline, oral mucosa moist. Neck supple, no JVD noticed. Scar from tracheostomy. Respiratory: Bilaterally diminished breath sounds. No use of accessory muscles of respiration. No adventitious breath sounds. Cardiovascular: S1, S2 heard. Regular rate and rhythm. Abdomen: Soft, nontender, and nondistended. Bowel sounds positive in all 4 quadrants. G-tube in place. Genitourinary: Deferred. Extremities: No cyanosis, no clubbing, no edema. Bilateral lower extremity foot drop. Peripheral pulses palpable. Neurologic: The patient is awake and alert. Oriented to himself. Labs & Vitals per chart ASSESSMENT & PLAN 52-year-old male with traumatic brain injury quadriplegia, chronic, dysphagia, chronic respiratory failure status post tracheostomy placement and d ecannulation, neurogenic bladder, and diabetes mellitus was brought in from [facility] visit today with concern for hematuria was found to have evidence of underlying sepsis with fevers, tachycardia, leukocytosis, and bandemia, who was admitted to inpatient setting for further treatment and roya luation. 1. Sepsis with underlying septic shock. Etiology could be secondary to underlying infected decubitus ulcer and Gram- negative bacteremia. Continue antimicrobials as per ID. 2. Infected sacral ulcer. Wound culture positive for polymicrobials. Continue antimicrobials as per ID. Continue to monitor the patient every 2 hours. Local wound care. 3. Hematuria. Status post evaluation by urology. Resolved. 4. Acute kidney injury. Probably secondary to underlying sepsis. Resolved. 5. Normocytic anemia. Most probably anemia of chronic illness. Monitor H&H closely. 6. Diabetes mellitus. Hemoglobin A1c 4.9. Continue sliding scale insulin along with basal insulin, metformin, and DPP 4 inhibitors. 7. Dysphagia. Continue G-tube feedings. Continue aspiration precautions. 8. Hypertension. Continue antihypertensives. 9. Constipation. Continue bowel regimen. 10. DVT prophylaxis. Subcutaneous Lovenox. 11. Fluids, electrolytes, and nutrition. G-tube feedings. 12. Plan. Continue antimicrobials as per ID. Continue local wound care. Await clinical improvement before discharging the patient back to [facility] facility. The patient was seen in collaboration with Dr. Neely. Result Diagram: 07/23/18 0517 07/26/18 0945 Results 24hrs Laboratory Tests Test 07/25/18 17:54 07/25/18 20:35 07/26/18 01:55 07/26/18 07:55 Bedside Glucose 139 183 196 227 H Test 07/26/18 09:45 07/26/18 12:09 Sodium Level 143 Potassium Level 4.0 Chloride Level 112 H Carbon Dioxide Level 24 Anion Gap 7 Blood Urea Nitrogen 13 Creatinine 0.80 Est Glomerular Filtrat > 60 Rate mL/min Glucose Level 199 Calcium Level 8.5 Procalcitonin 1.01 H Bedside Glucose 142 Exam/Review of Systems Exam Vitals Vital Signs Date Temp Pulse Resp B/P (MAP) Pulse Ox O2 O2 Flow FiO2 Time Delivery Rate 07/26/18 97.9 80 20 148/70 97 Room Air 15:16 (96) Intake and Output 07/25/18 07/25/18 07/26/18 1515:00 23:00 07:00 IntakeIntake Total 1760 ml 100 ml 100 ml OutputOutput Total 850 ml 300 ml 1200 ml BalanceBalance 910 ml -200 ml -1100 ml Results Results 24hrs Laboratory Tests Test 07/25/18 17:54 07/25/18 20:35 07/26/18 01:55 07/26/18 07:55 Bedside Glucose 139 183 196 227 H Test 07/26/18 09:45 07/26/18 12:09 Sodium Level 143 Potassium Level 4.0 Chloride Level 112 H Carbon Dioxide Level 24 Anion Gap 7 Blood Urea Nitrogen 13 Creatinine 0.80 Est Glomerular Filtrat > 60 Rate mL/min Glucose Level 199 Calcium Level 8.5 Procalcitonin 1.01 H Bedside Glucose 142 Medications Medication Current Medications Ondansetron HCl (Zofran Inj) 4 mg Q6H PRN IV NAUSEA AND/OR VOMITING; Start 07/18/18 at 01:30 Acetaminophen (Tylenol Liquid) 650 mg Q6H PRN GTB PAIN LEVEL 1-3 OR FEVER; Start 07/18/18 at 01:30 Morphine Sulfate (morphine) 2 mg Q4H PRN IV PAIN LEVEL 7-10 Last administered on 07/25/18 08:31; Admin Dose 2 MG; Start 07/18/18 at 01:30 Piperacillin Sod/ Tazobactam Sod 100 ml @ 200 mls/hr Q6H IVPB Last administered on 07/26/18at 14:58; Admin Dose 200 MLS/HR; Start 07/18/18 at 09:30 Miscellaneous Information 1 ea NOTE XX ; Start 07/18/18 at 09:30 Glucose (Glutose) 15 gm Q15M PRN PO DECREASED GLUCOSE; Start 07/18/18 at 09:30 Glucose (Glutose) 22.5 gm Q15M PRN PO DECREASED GLUCOSE; Start 07/18/18 at 09:30 Dextrose (D50w Syringe) 25 ml Q15M PRN IV DECREASED GLUCOSE; Start 07/18/18 at 09:30 Dextrose (D50w Syringe) 50 ml Q15M PRN IV DECREASED GLUCOSE Last administered on 07/18/18at 17:21; Admin Dose 50 ML; Start 07/18/18 at 09:30 Glucagon (Glucagen) 1 mg Q15M PRN IM DECREASED GLUCOSE; Start 07/18/18 at 09:30 Glucose (Glutose) 15 gm Q15M PRN BUCCAL DECREASED GLUCOSE; Start 07/18/18 at 09:30 Enoxaparin Sodium (Lovenox) 30 mg DAILY SC Last administered on 07/26/18at 08:32; Admin Dose 30 MG; Start 07/18/18 at 10:00 Ascorbic Acid (Vitamin C) 500 mg DAILY GTB Last administered on 07/26/18 08:25; Admin Dose 500 MG; Start 07/20/18 at 09:00 Folic Acid (Folic Acid) 1 mg DAILY GTB Last administered on 07/26/18at 08:25; Admin Dose 1 MG; Start 07/20/18 at 09:00 Zinc Sulfate (Zinc Sulfate) 220 mg DAILY GTB Last administered on 07/26/18at 08:26; Admin Dose 220 MG; Start 07/20/18 at 09:00 Lactulose (Enulose) 20 gm TID GTB Last administered on 07/26/18 12:13; Admin Dose 20 GM; Start 07/21/18 at 21:00 Docusate Sodium (Colace Liquid Cup) 20 mg BID GTB Last administered on 07/26/18 08:25; Admin Dose 20 MG; Start 07/21/18 at 21:00 Bisacodyl (Dulcolax Supp) 10 mg DAILY PRN [place] CONSTIPATION; Start 07/22/18 at 10:30 Metformin HCl (Glucophage) 850 mg BID WITH MEALS GTB Last administered on 07/26/18 08:26; Admin Dose 850 MG; Start 07/22/18 at 18:05 Insulin Aspart (Novolog Insulin Pen) NOVOLOG *MODERATE* ALGORITHM WITH MEALS BEDTIME SC Last administered on 07/26/18 12:11; Admin Dose 2 UNIT; Start 07/22/18 at 18:05 Insulin Glargine (Lantus) 35 units DAILY@2000 SC Last administered on 07/25/18 20:37; Admin Dose 35 UNITS; Start 07/23/18 at 20:00 Insulin Glargine (Lantus) 15 units DAILY@0800 SC Last administered on 07/26/18 08:31; Admin Dose 15 UNITS; Start 07/25/18 at 08:00 Linagliptin (Tradjenta) 5 mg DAILY PO Last administered on 07/26/18 08:26; Admin Dose 5 MG; Start 07/24/18 at 14:30 Losartan Potassium (Cozaar) 25 mg BID PO Last administered on 07/26/18 09:39; Admin Dose 25 MG; Start 07/26/18 at 09:30 ANGELA PASCAL NP Jul 26, 2018 15:35
[2018-07-26 20:00] VITALS: BP 146/71; PULSE 89; RESP 18
[2018-07-27 02:00] VITALS: BP 125/75; PULSE 75; RESP 18
[2018-07-27] MEDS: PIPER-TAZO 3.375 GM IV (PMX) 100 ML IVPB SCH ×4 (04:58→21:26)
[2018-07-27] MEDS: DOCUSATE SODIUM 10 MG/ML (10ML CUP) GTB SCH ×2 (08:32→21:26)
[2018-07-27] MEDS: metFORMIN 850 MG TAB GTB SCH ×2 (08:32→17:31)
[2018-07-27] MEDS: LACTULOSE 30ML CUP GTB SCH ×3 (08:32→21:26)
[2018-07-27] MEDS: ASCORBIC ACID 500 MG TAB GTB SCH (08:32)
[2018-07-27] MEDS: LINAGLIPTIN 5 MG TABLET PO SCH (08:34)
[2018-07-27] MEDS: ZINC SULFATE 220 MG CAP GTB SCH (08:34)
[2018-07-27] MEDS: FOLIC ACID 1 MG TAB GTB SCH (08:34)
[2018-07-27] MEDS: LOSARTAN 25 MG TAB PO SCH ×2 (08:34→21:26)
[2018-07-27] MEDS: ENOXAPARIN 30 MG/0.3 ML SYG SC SCH (08:35)
[2018-07-27] MEDS: INSULIN GLARGINE [LANTus] (100 UNITS/ML) SYG SC SCH ×2 (08:36→20:22)
[2018-07-27] MEDS: INSULIN ASPART [NOVOLOG] 3 ML PEN SC SCH ×4 (08:36→21:00)
[2018-07-27] MEDS: BALSAM PERU/CASTOR OIL 60 GM TUBE TOP SCH ×2 (08:44→21:27)
[2018-07-27 08:46] VITALS: BP 145/64; PULSE 75; RESP 17
--- NOTE | 2018-07-27 12:27 | PN ---
Date/Time of Note Date/Time of Note DATE: 07/27/18 TIME: 12:27 Assessment/Plan VTE Prophylaxis Risk score (from Nsg)>0 risk: 5 SCD applied (from Nsg): Yes Pharmacological prophylaxis: LMWH Lines/Catheters IV Catheter Type (from Nrs): Saline Lock Assessment/Plan Hospital Course SUBJECTIVE: Continues to scream for unclear reasons. OBJECTIVE: Physical Exam General: Adequately build 52 year-old male lying in bed in no apparent distress. HEENT: Normocephalic, atraumatic. Eyes: Anicteric sclerae, conjunctivae clear. ENT: Nasal septum midline, oral mucosa moist. Neck supple, no JVD noticed. Scar from tracheostomy. Respiratory: Bilaterally diminished breath sounds. No use of accessory muscles of respiration. No adventitious breath sounds. Cardiovascular: S1, S2 heard. Regular rate and rhythm. Abdomen: Soft, nontender, and nondistended. Bowel sounds positive in all 4 quadrants. G-tube in place. Genitourinary: Deferred. Extremities: No cyanosis, no clubbing, no edema. Bilateral lower extremity foot drop. Peripheral pulses palpable. Neurologic: The patient is awake and alert. Oriented to himself. Labs & Vitals per chart ASSESSMENT & PLAN 52-year-old male with traumatic brain injury quadriplegia, chronic, dysphagia, chronic respiratory failure status post tracheostomy placement and decannulation, neurogenic bladder, and diabetes mellitus was brought in from [facility] visit today with concern for hematuria was found to have evidence of underlying sepsis with fevers, tachycardia, leukocytosis, and bandemia, who was admitted to inpatient setting for further treatment and evaluation. 1. Sepsis with underlying septic shock. Etiology could be secondary to underlying infected decubitus ulcer and Gram- negative bacteremia. Continue antimicrobials as per ID. 2. Infected sacral ulcer. Wound culture positive for polymicrobials. Continue antimicrobials as per ID. Continue to monitor the patient every 2 hours. Local wound care. 3. Hematuria. Status post evaluation by urology. Resolved. 4. Acute kidney injury. Probably secondary to underlying sepsis. Resolved. 5. Normocytic anemia. Most probably anemia of chronic illness. Monitor H&H closely. 6. Diabetes mellitus. Hemoglobin A1c 4.9. Continue sliding scale insulin along with basal insulin, metformin, and DPP 4 inhibitors. 7. Dysphagia. Continue G-tube feedings. Continue aspiration precautions. 8. Hypertension. Continue antihypertensives. 9. Constipation. Continue bowel regimen. 10. DVT prophylaxis. Subcutaneous Lovenox. 11. Fluids, electrolytes, and nutrition. G-tube feedings. 12. Plan. Continue antimicrobials as per ID. Continue local wound care. Await clinical improvement before discharging the patient back to [facility]. The patient was seen in collaboration with Dr. Neely. Result Diagram: 07/27/1827 07/27/18526 Results 24hrs Laboratory Tests Test 07/26/18 17:22 07/26/18 20:04 07/26/18 21:37 07/27/18 05:27 Bedside Glucose 107 125 133 White Blood Count 6.9 Red Blood Count 3.72 L Hemoglobin 9.6 L Hematocrit 31.9 L Mean Corpuscular Volume 85.8 Mean Corpuscular 25.8 L Hemoglobin Mean Corpuscular 30.1 L Hemoglobin Concent Red Cell Distribution 17.2 H Width Platelet Count 189 # Mean Platelet Volume 12.8 H Immature Granulocytes % 1.000 H Neutrophils % 73.2 Lymphocytes % 17.5 Monocytes % 4.8 Eosinophils % 3.2 Basophils % 0.3 Nucleated Red Blood 0.0 Cells % Immature Granulocytes # 0.070 H Neutrophils # 5.0 Lymphocytes # 1.2 Monocytes # 0.3 Eosinophils # 0.2 Basophils # 0.0 Nucleated Red Blood 0.0 Cells # Sodium Level 144 Potassium Level 4.3 Chloride Level 115 H Carbon Dioxide Level 22 Anion Gap 7 Blood Urea Nitrogen 15 Creatinine 0.79 Est Glomerular Filtrat > 60 Rate mL/min Glucose Level 196 Calcium Level 8.4 Phosphorus Level 3.7 Magnesium Level 2.0 Test 07/27/18 07:56 07/27/18 11:47 Bedside Glucose 195 168 Exam/Review of Systems Exam Vitals Vital Signs Date Temp Pulse Resp B/P (MAP) Pulse Ox O2 O2 Flow FiO2 Time Delivery Rate 07/27/18 98.8 75 17 145/64 99 08:46 (91) 07/27/18 Room Air 02:00 Intake and Output 07/26/18 07/26/18 07/27/18 1515:00 23:00 07:00 IntakeIntake Total 100 ml 300 ml 1340 ml OutputOutput Total 1100 ml 1300 ml BalanceBalance 100 ml -800 ml 40 ml Results Results 24hrs Laboratory Tests Test 07/26/18 17:22 07/26/18 20:04 07/26/18 21:37 07/27/18 05:27 Bedside Glucose 107 125 133 White Blood Count 6.9 Red Blood Count 3.72 L Hemoglobin 9.6 L Hematocrit 31.9 L Mean Corpuscular Volume 85.8 Mean Corpuscular 25.8 L Hemoglobin Mean Corpuscular 30.1 L Hemoglobin Concent Red Cell Distribution 17.2 H Width Platelet Count 189 # Mean Platelet Volume 12.8 H Immature Granulocytes % 1.000 H Neutrophils % 73.2 Lymphocytes % 17.5 Monocytes % 4.8 Eosinophils % 3.2 Basophils % 0.3 Nucleated Red Blood 0.0 Cells % Immature Granulocytes # 0.070 H Neutrophils # 5.0 Lymphocytes # 1.2 Monocytes # 0.3 Eosinophils # 0.2 Basophils # 0.0 Nucleated Red Blood 0.0 Cells # Sodium Level 144 Potassium Level 4.3 Chloride Level 115 H Carbon Dioxide Level 22 Anion Gap 7 Blood Urea Nitrogen 15 Creatinine 0.79 Est Glomerular Filtrat > 60 Rate mL/min Glucose Level 196 Calcium Level 8.4 Phosphorus Level 3.7 Magnesium Level 2.0 Test 07/27/18 07:56 07/27/18 11:47 Bedside Glucose 195 168 Medications Medication Current Medications Ondansetron HCl (Zofran Inj) 4 mg Q6H PRN IV NAUSEA AND/OR VOMITING; Start 07/18/18 at 01:30 Acetaminophen (Tylenol Liquid) 650 mg Q6H PRN GTB PAIN LEVEL 1-3 OR FEVER; Start 07/18/18 at 01:30 Morphine Sulfate (morphine) 2 mg Q4H PRN IV PAIN LEVEL 7-10 Last administered on 07/25/18at 08:31; Admin Dose 2 MG; Start 07/18/18 at 01:30 Piperacillin Sod/ Tazobactam Sod 100 ml @ 200 mls/hr Q6H IVPB Last administered on 07/27/18at 10:39; Admin Dose 200 MLS/HR; Start 07/18/18 at 09:30 Miscellaneous Information 1 ea NOTE XX ; Start 07/18/18 at 09:30 Glucose (Glutose) 15 gm Q15M PRN PO DECREASED GLUCOSE; Start 07/18/18 at 09:30 Glucose (Glutose) 22.5 gm Q15M PRN PO DECREASED GLUCOSE; Start 07/18/18 at 09:30 Dextrose (D50w Syringe) 25 ml Q15M PRN IV DECREASED GLUCOSE; Start 07/18/18 at 09:30 Dextrose (D50w Syringe) 50 ml Q15M PRN IV DECREASED GLUCOSE Last administered on 07/18/18 17:21; Admin Dose 50 ML; Start 07/18/18 at 09:30 Glucagon (Glucagen) 1 mg Q15M PRN IM DECREASED GLUCOSE; Start 07/18/18 at 09:30 Glucose (Glutose) 15 gm Q15M PRN BUCCAL DECREASED GLUCOSE; Start 07/18/18 at 09:30 Enoxaparin Sodium (Lovenox) 30 mg DAILY SC Last administered on 07/27/18 08:35; Admin Dose 30 MG; Start 07/18/18 at 10:00 Ascorbic Acid (Vitamin C) 500 mg DAILY GTB Last administered on 07/27/18 08:32; Admin Dose 500 MG; Start 07/20/18 at 09:00 Folic Acid (Folic Acid) 1 mg DAILY GTB Last administered on 07/27/18 08:34; Admin Dose 1 MG; Start 07/20/18 at 09:00 Zinc Sulfate (Zinc Sulfate) 220 mg DAILY GTB Last administered on 07/27/18 08:34; Admin Dose 220 MG; Start 07/20/18 at 09:00 Lactulose (Enulose) 20 gm TID GTB Last administered on 07/27/18 12:10; Admin Dose 20 GM; Start 07/21/18 at 21:00 Docusate Sodium (Colace Liquid Cup) 20 mg BID GTB Last administered on 07/27/18 08:32; Admin Dose 20 MG; Start 07/21/18 at 21:00 Bisacodyl (Dulcolax Supp) 10 mg DAILY PRN [place] CONSTIPATION; Start 07/22/18 at 10:30 Metformin HCl (Glucophage) 850 mg BID WITH MEALS GTB Last administered on 07/27/18 08:32; Admin Dose 850 MG; Start 07/22/18 at 18:05 Insulin Aspart (Novolog Insulin Pen) NOVOLOG *MODERATE* ALGORITHM WITH MEALS BEDTIME SC Last administered on 07/27/18 11:57; Admin Dose 2 UNIT; Start 07/22/18 at 18:05 Insulin Glargine (Lantus) 35 units DAILY@2000 SC Last administered on 07/26/18 20:06; Admin Dose 35 UNITS; Start 07/23/18 at 20:00 Insulin Glargine (Lantus) 15 units DAILY@0800 SC Last administered on 07/27/18at 08:36; Admin Dose 15 UNITS; Start 07/25/18 at 08:00 Linagliptin (Tradjenta) 5 mg DAILY PO Last administered on 07/27/18 08:34; Admin Dose 5 MG; Start 07/24/18 at 14:30 Losartan Potassium (Cozaar) 25 mg BID PO Last administered on 07/27/18 08:34; Admin Dose 25 MG; Start 07/26/18 at 09:30 ANGELA PASCAL NP Jul 27, 2018 12:27
[2018-07-27 15:07] VITALS: BP 141/71; PULSE 74; RESP 18
[2018-07-27 20:00] VITALS: BP 149/73; PULSE 74; RESP 18
[2018-07-28 02:00] VITALS: BP 142/65; PULSE 77; RESP 18
[2018-07-28] MEDS: PIPER-TAZO 3.375 GM IV (PMX) 100 ML IVPB SCH ×4 (03:34→21:24)
[2018-07-28 08:50] VITALS: BP 143/70; PULSE 74; RESP 17
[2018-07-28] MEDS: INSULIN ASPART [NOVOLOG] 3 ML PEN SC SCH ×4 (08:58→21:03)
[2018-07-28] MEDS: ACETAMINOPHEN 650MG/20.3ML CUP GTB PRN ×2 (09:00→16:28)
[2018-07-28] MEDS: ENOXAPARIN 30 MG/0.3 ML SYG SC SCH (09:01)
[2018-07-28] MEDS: LACTULOSE 30ML CUP GTB SCH ×3 (09:01→21:03)
[2018-07-28] MEDS: DOCUSATE SODIUM 10 MG/ML (10ML CUP) GTB SCH ×2 (09:01→21:04)
[2018-07-28] MEDS: INSULIN GLARGINE [LANTus] (100 UNITS/ML) SYG SC SCH ×2 (09:01→21:02)
[2018-07-28] MEDS: FOLIC ACID 1 MG TAB GTB SCH (09:02)
[2018-07-28] MEDS: ASCORBIC ACID 500 MG TAB GTB SCH (09:02)
[2018-07-28] MEDS: metFORMIN 850 MG TAB GTB SCH ×2 (09:02→18:47)
[2018-07-28] MEDS: ZINC SULFATE 220 MG CAP GTB SCH (09:02)
[2018-07-28] MEDS: LOSARTAN 25 MG TAB PO SCH ×2 (09:03→21:05)
[2018-07-28] MEDS: LINAGLIPTIN 5 MG TABLET PO SCH (09:03)
[2018-07-28] MEDS: BALSAM PERU/CASTOR OIL 60 GM TUBE TOP SCH ×2 (09:04→21:05)
--- NOTE | 2018-07-28 12:34 | CONS ---
Assessment/Plan Assessment/Plan Hospital Course (Demo Recall) 1) UTI with sepsis in pt with suprapubic cath due to neurogenic bladder pt was in hospital in april of this year with urosepsis and had e.coli +ESBL and MRSA present continue with vanco, change aztreanom to zosyn (e.coli was sensitive to it) await final ID and sensi's of urine CT abd did not show hydronephrosis but there is some mass/cyst around the L kidney, u/s could not visualize the L kidney 07/19 - urine cx and blood cx are NGTD continue with vanco/zosyn at present, improved temps and WBC 07/20 - urine cx is neg blood cx has e.coli in it, continue with zosyn, d/c vanco 07/21 - normal WBC 2) L base effusion with atelectasis vs consolidation check procalcitonin and get nasal for MRSA vanco/zosyn should cover but pt does not seem to have respiratory distress and is resting comfortable without cough on 2L of O2 07/19 - stable, procalcitonin is pending 07/20 - with bacteremia, impossible to interpret elevated procalcitonin for pneumonia nasal has MRSA but doubt he has pneumonia d/c vanco but continue with zosyn 07/21 - doubt pt has pneumonia but zosyn should cover 3) sacral ulcer get wound cx vanco/zosyn will cover 07/19 - stage III ulcer, cx is pending wound care to see pt 07/20 - pt has proteus and pseudomonas in sacral cx, not c/w e.coli in the blood continue with zosyn, d/c vanco, check ESR 07/21 - pseudomonas and proteus are sensitive to the zosyn 07/22 - ESR is moderately elevated I will order MRI of sacral area to determine length of IV antibiotic therapy 07/24 - MRI just ordered now continue with zosyn 07/25 - have written orders for ativan 1mg IV prior to MRI on zosyn If MRI is neg for sacral osteo then continue thru 07/31 07/26 - MRI was neg for osteo continue with just zosyn thru 07/31 07/28 - stable on zosyn, continue thru 07/31 start probiotic 4) TBI with quadriplegia 5) DM 6) constipation with enlarged colon and to my eyes some thickening of colon wall pt will likely need bowel evacuants vanco/zosyn will cover for lower GI infection if present 07/19 - no abd pain and lots of stool in last 24 hours 07/20 - E.coli could have coming from the colon d/c vanco and continue with zosyn pt has rectal tube with watery brown fluid, doubt c.dif in light of improving WBC and fever 07/21 - continue with zosyn for a two week course (thru 07/31) repeat abd x-ray, pt only has watery stools in rectal tube concern would be that he still has stool impaction 07/22 - abd xray still shows fecal impaction, spoke to nurse regarding removing rectal tube 07/24 - pt had a good amount of stool and repeat abd xray shows less stool but more air in bowels pt has no pain to abd though continue with zosyn thru 07/31 7) ARF likely due to sepsis this has been his pattern with infection and his creatinine goes back to baseline 07/19 - improved creatinine 07/20 - resolved 8) hypernatremia again this is not uncommon for this pt and it had resolved in the past with D5W 07/20 - improved 9) e.coli bacteremia 07/20 - source could be the urine but urine cx was neg he has gallstones but no sign of GB obstruction he has some haziness at the L lung base but doubt lung is the source elevated procalcitonin is also present in bacteremia and does not mean he has a lung infection He had large amount of retained stool with distended colon and this is more likely the source of the infection continue with zosyn 07/21 - improved fever and WBC is WNL continue zosyn thru 07/31/18 I suspect the source is his fecal impaction that caused bowel distension 07/24 - continue with zosyn thru 07/31 unless MRI shows osteo of sacrum then extend another 4 weeks Consultation Date/Type/Reason Admit Date/Time July 18, 2018 at 00:56 Initial Consult Date 07/18/18 Type of Consult ID Requesting Provider: MERARY SORENSEN Date/Time of Note DATE: 07/28/18 TIME: 12:31 24 HR Interval Summary Free Text/Dictation pt wants tortilla loose stool x1 this day no V, on TF Exam/Review of Systems Exam Vitals Vital Signs Date Temp Pulse Resp B/P (MAP) Pulse Ox O2 O2 Flow FiO2 Time Delivery Rate 07/28/18 98.6 74 17 143/70 99 08:50 (94) 07/27/18 Room Air 02:00 Intake and Output 07/27/18 07/27/18 07/28/18 1515:00 23:00 07:00 IntakeIntake Total 100 ml 200 ml 1340 ml OutputOutput Total 1000 ml 950 ml 1400 ml BalanceBalance -900 ml -750 ml -60 ml Constitutional: alert, oriented ENMT: mucosa pink and moist Respiratory: clear to auscultation Cardiovascular: regular rate and rhythm Gastrointestinal: soft, non-tender Results Result Diagram: 07/28/18 0824 07/28/18 0610 Results 24hrs Laboratory Tests Test 07/27/18 17:28 07/27/18 20:20 07/27/18 21:33 07/28/18 06:10 Bedside Glucose 109 148 139 Sodium Level 143 Potassium Level 4.5 Chloride Level 113 H Carbon Dioxide Level 22 Anion Gap 8 Blood Urea Nitrogen 14 Creatinine 0.81 Est Glomerular Filtrat > 60 Rate mL/min Glucose Level 163 Calcium Level 8.4 Phosphorus Level 3.2 Magnesium Level 2.1 Test 07/28/18 08:24 07/28/18 08:55 07/28/18 12:07 White Blood Count 9.7 # Red Blood Count 3.96 L Hemoglobin 10.3 L Hematocrit 33.3 L Mean Corpuscular Volume 84.1 Mean Corpuscular 26.0 L Hemoglobin Mean Corpuscular 30.9 L Hemoglobin Concent Red Cell Distribution 17.1 H Width Platelet Count 137 #L Mean Platelet Volume Immature Granulocytes % 1.100 H Neutrophils % 74.6 Lymphocytes % 15.7 Monocytes % 4.9 Eosinophils % 3.2 Basophils % 0.5 Nucleated Red Blood 0.0 Cells % Immature Granulocytes # 0.110 H Neutrophils # 7.2 Lymphocytes # 1.5 Monocytes # 0.5 Eosinophils # 0.3 Basophils # 0.1 Nucleated Red Blood 0.0 Cells # Bedside Glucose 204 182 Medications Medication Current Medications Ondansetron HCl (Zofran Inj) 4 mg Q6H PRN IV NAUSEA AND/OR VOMITING; Start 07/18/18 at 01:30 Acetaminophen (Tylenol Liquid) 650 mg Q6H PRN GTB PAIN LEVEL 1-3 OR FEVER Last administered on 07/28/18 09:00; Admin Dose 650 MG; Start 07/18/18 at 01:30 Morphine Sulfate (morphine) 2 mg Q4H PRN IV PAIN LEVEL 7-10 Last administered on 07/25/18 08:31; Admin Dose 2 MG; Start 07/18/18 at 01:30 Piperacillin Sod/ Tazobactam Sod 100 ml @ 200 mls/hr Q6H IVPB Last administered on 07/28/18 09:04; Admin Dose 200 MLS/HR; Start 07/18/18 at 09:30 Miscellaneous Information 1 ea NOTE XX ; Start 07/18/18 at 09:30 Glucose (Glutose) 15 gm Q15M PRN PO DECREASED GLUCOSE; Start 07/18/18 at 09:30 Glucose (Glutose) 22.5 gm Q15M PRN PO DECREASED GLUCOSE; Start 07/18/18 at 09:30 Dextrose (D50w Syringe) 25 ml Q15M PRN IV DECREASED GLUCOSE; Start 07/18/18 at 09:30 Dextrose (D50w Syringe) 50 ml Q15M PRN IV DECREASED GLUCOSE Last administered on 07/18/18at 17:21; Admin Dose 50 ML; Start 07/18/18 at 09:30 Glucagon (Glucagen) 1 mg Q15M PRN IM DECREASED GLUCOSE; Start 07/18/18 at 09:30 Glucose (Glutose) 15 gm Q15M PRN BUCCAL DECREASED GLUCOSE; Start 07/18/18 at 09:30 Enoxaparin Sodium (Lovenox) 30 mg DAILY SC Last administered on 07/28/18at 09:01; Admin Dose 30 MG; Start 07/18/18 at 10:00 Ascorbic Acid (Vitamin C) 500 mg DAILY GTB Last administered on 07/28/18 09:02; Admin Dose 500 MG; Start 07/20/18 at 09:00 Folic Acid (Folic Acid) 1 mg DAILY GTB Last administered on 07/28/18 09:02; Admin Dose 1 MG; Start 07/20/18 at 09:00 Zinc Sulfate (Zinc Sulfate) 220 mg DAILY GTB Last administered on 07/28/18 09:02; Admin Dose 220 MG; Start 07/20/18 at 09:00 Lactulose (Enulose) 20 gm TID GTB Last administered on 07/28/18 09:01; Admin Dose 20 GM; Start 07/21/18 at 21:00 Docusate Sodium (Colace Liquid Cup) 20 mg BID GTB Last administered on 07/28/18 09:01; Admin Dose 20 MG; Start 07/21/18 at 21:00 Bisacodyl (Dulcolax Supp) 10 mg DAILY PRN [place] CONSTIPATION; Start 07/22/18 at 10:30 Metformin HCl (Glucophage) 850 mg BID WITH MEALS GTB Last administered on 07/28/18 09:02; Admin Dose 850 MG; Start 07/22/18 at 18:05 Insulin Aspart (Novolog Insulin Pen) NOVOLOG *MODERATE* ALGORITHM WITH MEALS BEDTIME SC Last administered on 07/28/18 12:08; Admin Dose 4 UNIT; Start 07/22/18 at 18:05 Insulin Glargine (Lantus) 35 units DAILY@2000 SC Last administered on 07/27/18 20:22; Admin Dose 35 UNITS; Start 07/23/18 at 20:00 Insulin Glargine (Lantus) 15 units DAILY@0800 SC Last administered on 07/28/18 09:01; Admin Dose 15 UNITS; Start 07/25/18 at 08:00 Linagliptin (Tradjenta) 5 mg DAILY PO Last administered on 07/28/18 09:03; Admin Dose 5 MG; Start 07/24/18 at 14:30 Losartan Potassium (Cozaar) 25 mg BID PO Last administered on 07/28/18 09:03; Admin Dose 25 MG; Start 07/26/18 at 09:30 ZAHEER ENGLE MD Jul 28, 2018 12:34
[2018-07-28 14:57] VITALS: BP 141/75; PULSE 79; RESP 18
[2018-07-28] MEDS: MULTIVITAMINS 30 ML CUP GTB SCH (16:28)
--- NOTE | 2018-07-28 17:13 | PN ---
Date/Time of Note Date/Time of Note DATE: 07/28/18 TIME: 17:11 Assessment/Plan VTE Prophylaxis Risk score (from Ns)>0 risk: 5 SCD applied (from Ns): Yes SCD contraindicated: low risk/ambulating Pharmacological prophylaxis: LMWH Lines/Catheters IV Catheter Type (from [facility]): Saline [facility] Assessment/Plan Hospital Course Assessment and plan 1. Sepsis likely urinary in origin stable, finish antibiotics 2. Acute complicated cystitis. 3. Suprapubic catheter status 4. Neurogenic bladder 5. History of traumatic brain injury/quadriplegia/ 6. Malnutrition dysphagia status post PEG 7. History of tracheostomy 8. Diabetes/metabolic syndrome 9. MRSA nares status 10. Decubitus ulcer 11. Sacral stage III ulcer, rule out osteomyelitis Subjective: No distress. No fever Objective: Vital signs stable Physical exam No pallor Regular no mrg Clear Bowel sounds present nontender nondistended no RRG PEG CDI Hypotonia; no edema edema Result Diagram: 07/28/18 0824 07/28/18 0610 Results 24hrs Laboratory Tests Test 07/27/18 17:28 07/27/18 20:20 07/27/18 21:33 07/28/18 06:10 Bedside Glucose 109 148 139 Sodium Level 143 Potassium Level 4.5 Chloride Level 113 H Carbon Dioxide Level 22 Anion Gap 8 Blood Urea Nitrogen 14 Creatinine 0.81 Est Glomerular Filtrat > 60 Rate mL/min Glucose Level 163 Calcium Level 8.4 Phosphorus Level 3.2 Magnesium Level 2.1 Test 07/28/18 08:24 07/28/18 08:55 07/28/18 12:07 White Blood Count 9.7 # Red Blood Count 3.96 L Hemoglobin 10.3 L Hematocrit 33.3 L Mean Corpuscular Volume 84.1 Mean Corpuscular 26.0 L Hemoglobin Mean Corpuscular 30.9 L Hemoglobin Concent Red Cell Distribution 17.1 H Width Platelet Count 137 #L Mean Platelet Volume Immature Granulocytes % 1.100 H Neutrophils % 74.6 Lymphocytes % 15.7 Monocytes % 4.9 Eosinophils % 3.2 Basophils % 0.5 Nucleated Red Blood 0.0 Cells % Immature Granulocytes # 0.110 H Neutrophils # 7.2 Lymphocytes # 1.5 Monocytes # 0.5 Eosinophils # 0.3 Basophils # 0.1 Nucleated Red Blood 0.0 Cells # Bedside Glucose 204 182 Exam/Review of Systems Exam Vitals Vital Signs Date Temp Pulse Resp B/P (MAP) Pulse Ox O2 O2 Flow FiO2 Time Delivery Rate 07/28/18 97.8 79 18 141/75 98 14:57 (97) 07/27/18 Room Air 02:00 Intake and Output 07/27/18 07/27/18 07/28/18 1515:00 23:00 07:00 IntakeIntake Total 100 ml 200 ml 1340 ml OutputOutput Total 1000 ml 950 ml 1400 ml BalanceBalance -900 ml -750 ml -60 ml Results Results 24hrs Laboratory Tests Test 07/27/18 17:28 07/27/18 20:20 07/27/18 21:33 07/28/18 06:10 Bedside Glucose 109 148 139 Sodium Level 143 Potassium Level 4.5 Chloride Level 113 H Carbon Dioxide Level 22 Anion Gap 8 Blood Urea Nitrogen 14 Creatinine 0.81 Est Glomerular Filtrat > 60 Rate mL/min Glucose Level 163 Calcium Level 8.4 Phosphorus Level 3.2 Magnesium Level 2.1 Test 07/28/18 08:24 07/28/18 08:55 07/28/18 12:07 White Blood Count 9.7 # Red Blood Count 3.96 L Hemoglobin 10.3 L Hematocrit 33.3 L Mean Corpuscular Volume 84.1 Mean Corpuscular 26.0 L Hemoglobin Mean Corpuscular 30.9 L Hemoglobin Concent Red Cell Distribution 17.1 H Width Platelet Count 137 #L Mean Platelet Volume Immature Granulocytes % 1.100 H Neutrophils % 74.6 Lymphocytes % 15.7 Monocytes % 4.9 Eosinophils % 3.2 Basophils % 0.5 Nucleated Red Blood 0.0 Cells % Immature Granulocytes # 0.110 H Neutrophils # 7.2 Lymphocytes # 1.5 Monocytes # 0.5 Eosinophils # 0.3 Basophils # 0.1 Nucleated Red Blood 0.0 Cells # Bedside Glucose 204 182 Medications Medication Current Medications Ondansetron HCl (Zofran Inj) 4 mg Q6H PRN IV NAUSEA AND/OR VOMITING; Start 07/18/18 at 01:30 Acetaminophen (Tylenol Liquid) 650 mg Q6H PRN GTB PAIN LEVEL 1-3 OR FEVER Last administered on 07/28/18at 16:28; Admin Dose 650 MG; Start 07/18/18 at 01:30 Morphine Sulfate (morphine) 2 mg Q4H PRN IV PAIN LEVEL 7-10 Last administered on 07/25/18 08:31; Admin Dose 2 MG; Start 07/18/18 at 01:30 Piperacillin Sod/ Tazobactam Sod 100 ml @ 200 mls/hr Q6H IVPB Last admini stered on 07/28/18at 14:09; Admin Dose 200 MLS/HR; Start 07/18/18 at 09:30 Miscellaneous Information 1 ea NOTE XX ; Start 07/18/18 at 09:30 Glucose (Glutose) 15 gm Q15M PRN PO DECREASED GLUCOSE; Start 07/18/18 at 09:30 Glucose (Glutose) 22.5 gm Q15M PRN PO DECREASED GLUCOSE; Start 07/18/18 at 09:30 Dextrose (D50w Syringe) 25 ml Q15M PRN IV DECREASED GLUCOSE; Start 07/18/18 at 09:30 Dextrose (D50w Syringe) 50 ml Q15M PRN IV DECREASED GLUCOSE Last administered on 07/18/18at 17:21; Admin Dose 50 ML; Start 07/18/18 at 09:30 Glucagon (Glucagen) 1 mg Q15M PRN IM DECREASED GLUCOSE; Start 07/18/18 at 09:30 Glucose (Glutose) 15 gm Q15M PRN BUCCAL DECREASED GLUCOSE; Start 07/18/18 at 09:30 Enoxaparin Sodium (Lovenox) 30 mg DAILY SC Last administered on 07/28/18 09:01; Admin Dose 30 MG; Start 07/18/18 at 10:00 Ascorbic Acid (Vitamin C) 500 mg DAILY GTB Last administered on 07/28/18 09:02; Admin Dose 500 MG; Start 07/20/18 at 09:00 Folic Acid (Folic Acid) 1 mg DAILY GTB Last administered on 07/28/18 09:02; Admin Dose 1 MG; Start 07/20/18 at 09:00 Zinc Sulfate (Zinc Sulfate) 220 mg DAILY GTB Last administered on 07/28/18 09:02; Admin Dose 220 MG; Start 07/20/18 at 09:00 Lactulose (Enulose) 20 gm TID GTB Last administered on 07/28/18 13:28; Admin Dose 20 GM; Start 07/21/18 at 21:00 Docusate Sodium (Colace Liquid Cup) 20 mg BID GTB Last administered on 07/28/18 09:01; Admin Dose 20 MG; Start 07/21/18 at 21:00 Bisacodyl (Dulcolax Supp) 10 mg DAILY PRN [place] CONSTIPATION; Start 07/22/18 at 10:30 Metformin HCl (Glucophage) 850 mg BID WITH MEALS GTB Last administered on 07/28/18 09:02; Admin Dose 850 MG; Start 07/22/18 at 18:05 Insulin Aspart (Novolog Insulin Pen) NOVOLOG *MODERATE* ALGORITHM WITH MEALS BEDTIME SC Last administered on 07/28/18 12:08; Admin Dose 4 UNIT; Start 07/22 at 18:05 Insulin Glargine (Lantus) 35 units DAILY@2000 SC Last administered on 07/27/18 20:22; Admin Dose 35 UNITS; Start 07/23/18 at 20:00 Insulin Glargine (Lantus) 15 units DAILY@0800 SC Last administered on 07/28/18 09:01; Admin Dose 15 UNITS; Start 07/25/18 at 08:00 Linagliptin (Tradjenta) 5 mg DAILY PO Last administered on 07/28/18 09:03; Admin Dose 5 MG; Start 07/24/18 at 14:30 Losartan Potassium (Cozaar) 25 mg BID PO Last administered on 07/28/18 09:03; Admin Dose 25 MG; Start 07/26/18 at 09:30 Lactobacillus Acidophilus (Florajen3 Capsule) 1 each BID GTB ; Start 07/28/18 at 21:00 Multivitamins (Multivitamin) 30 ml DAILY GTB Last administered on 07/28/18 16:28; Admin Dose 30 ML; Start 07/28/18 at 15:30 DA QUIROGA MD Jul 28, 2018 17:13
[2018-07-28] MEDS: morphine 2 MG INJ IV PRN (18:27)
[2018-07-28 20:00] VITALS: BP 135/67; PULSE 74; RESP 18
[2018-07-28] MEDS: L ACIDOPHIL/B LACTIS/B LONGUM CAPSULE GTB SCH (21:03)
[2018-07-29] MEDS ORDERED: ACCU-CHEK XX SCH (02:00)
[2018-07-29] MEDS: INSULIN ASPART [NOVOLOG] 3 ML PEN SC SCH ×6 (02:24→22:01)
[2018-07-29 02:45] VITALS: BP 131/71; PULSE 73; RESP 18
[2018-07-29] MEDS: PIPER-TAZO 3.375 GM IV (PMX) 100 ML IVPB SCH ×4 (03:42→22:02)
[2018-07-29 08:26] VITALS: BP 150/74; PULSE 73; RESP 20
[2018-07-29] MEDS: INSULIN GLARGINE [LANTus] (100 UNITS/ML) SYG SC SCH ×3 (09:30→22:01)
[2018-07-29] MEDS: LACTULOSE 30ML CUP GTB SCH (10:08)
[2018-07-29] MEDS: FOLIC ACID 1 MG TAB GTB SCH (10:08)
[2018-07-29] MEDS: DOCUSATE SODIUM 10 MG/ML (10ML CUP) GTB SCH (10:08)
--- NOTE | 2018-07-29 10:10 | PN ---
Date/Time of Note Date/Time of Note DATE: 07/29/18 TIME: 10:07 Assessment/Plan VTE Prophylaxis Risk score (from Nsg)>0 risk: 6 SCD applied (from Nsg): Yes SCD contraindicated: low risk/ambulating Pharmacological prophylaxis: LMWH Lines/Catheters IV Catheter Type (from Nrsg): Saline Lock Urinary Cath still in place: Yes (suprapubic cath) Reason Cath still needed: urinary retention Assessment/Plan Hospital Course Assessment and plan 1. Sepsis, likely urinary in origin stable, finish antibiotics 2. Acute complicated cystitis. 3. Suprapubic catheter status 4. Neurogenic bladder 5. History of TBI/quadriplegia 6. Malnutrition/ dysphagia, status post PEG, cont feeds 7. History of tracheostomy 8. Diabetes II/ metabolic syndrome 9. MRSA nares status 10. Decubitus ulcer 11. Sacral stage III ulcer, rule out osteomyelitis S: 07/28 No distress. No fever 07/29: Awake alert no distress. Refusing labs? Insight/judgment/capacity is questionable O: Vital signs stable PE No pallor Reg no mrg Clear Bs+ nt nd; no RRG. PEG CDI Hypotonia; no edema Result Diagram: 07/28/18 0824 07/28/18 0610 Results 24hrs Laboratory Tests Test 07/28/18 12:07 07/28/18 18:44 07/28/18 21:00 07/29/18 01:58 Bedside Glucose 182 157 194 225 H Test 07/29/18 05:16 07/29/18 09:35 Bedside Glucose 142 228 H Exam/Review of Systems Exam Vitals Vital Signs Date Temp Pulse Resp B/P (MAP) Pulse Ox O2 O2 Flow FiO2 Time Delivery Rate 07/29/18 98.8 73 20 150/74 97 08:26 (99) 07/27/18 Room Air 02:00 Intake and Output 07/28/18 07/28/18 07/29/18 1414:59 22:59 06:59 IntakeIntake Total 200 ml 1440 ml 100 ml OutputOutput Total 350 ml 975 ml BalanceBalance 200 ml 1090 ml -875 ml Results Results 24hrs Laboratory Tests Test 07/28/18 12:07 07/28/18 18:44 07/28/18 21:00 07/29/18 01:58 Bedside Glucose 182 157 194 225 H Test 07/29/18 05:16 07/29/18 09:35 Bedside Glucose 142 228 H Medications Medication Current Medications Ondansetron HCl (Zofran Inj) 4 mg Q6H PRN IV NAUSEA AND/OR VOMITING; Start 07/18/18 at 01:30 Acetaminophen (Tylenol Liquid) 650 mg Q6H PRN GTB PAIN LEVEL 1-3 OR FEVER Last administered on 07/28/18 16:28; Admin Dose 650 MG; Start 07/18/18 at 01:30 Morphine Sulfate (morphine) 2 mg Q4H PRN IV PAIN LEVEL 7-10 Last administered on 07/28/18 18:27; Admin Dose 2 MG; Start 07/18/18 at 01:30 Piperacillin Sod/ Tazobactam Sod 100 ml @ 200 mls/hr Q6H IVPB Last administered on 07/29/18at 03:42; Admin Dose 200 MLS/HR; Start 07/18/18 at 09:30 Miscellaneous Information 1 ea NOTE XX ; Start 07/18/18 at 09:30 Glucose (Glutose) 15 gm Q15M PRN PO DECREASED GLUCOSE; Start 07/18/18 at 09:30 Glucose (Glutose) 22.5 gm Q15M PRN PO DECREASED GLUCOSE; Start 07/18/18 at 09:30 Dextrose (D50w Syringe) 25 ml Q15M PRN IV DECREASED GLUCOSE; Start 07/18/18 at 09:30 Dextrose (D50w Syringe) 50 ml Q15M PRN IV DECREASED GLUCOSE Last administered on 07/18/18at 17:21; Admin Dose 50 ML; Start 07/18/18 at 09:30 Glucagon (Glucagen) 1 mg Q15M PRN IM DECREASED GLUCOSE; Start 07/18/18 at 09:30 Glucose (Glutose) 15 gm Q15M PRN BUCCAL DECREASED GLUCOSE; Start 07/18/18 at 09:30 Enoxaparin Sodium (Lovenox) 30 mg DAILY SC Last administered on 07/28/18at 09:01; Admin Dose 30 MG; Start 07/18/18 at 10:00 Ascorbic Acid (Vitamin C) 500 mg DAILY GTB Last administered on 07/28/18at 09:02; Admin Dose 500 MG; Start 07/20/18 at 09:00 Folic Acid (Folic Acid) 1 mg DAILY GTB Last administered on 07/28/18 09:02; Admin Dose 1 MG; Start 07/20/18 at 09:00 Zinc Sulfate (Zinc Sulfate) 220 mg DAILY GTB Last administered on 07/28/18 09:02; Admin Dose 220 MG; Start 07/20/18 at 09:00 Lactulose (Enulose) 20 gm TID GTB Last administered on 07/28/18 21:03; Admin Dose 20 GM; Start 07/21/18 at 21:00 Docusate Sodium (Colace Liquid Cup) 20 mg BID GTB Last administered on 07/28/18 21:04; Admin Dose 20 MG; Start 07/21/18 at 21:00 Bisacodyl (Dulcolax Supp) 10 mg DAILY PRN [place] CONSTIPATION; Start 07/22/18 at 10:30 Metformin HCl (Glucophage) 850 mg BID WITH MEALS GTB Last administered on 07/28/18 18:47; Admin Dose 850 MG; Start 07/22/18 at 18:05 Insulin Glargine (Lantus) 35 units DAILY@2000 SC Last administered on 07/28/18 21:02; Admin Dose 35 UNITS; Start 07/23/18 at 20:00 Linagliptin (Tradjenta) 5 mg DAILY PO Last administered on 07/28/18 09:03; Admin Dose 5 MG; Start 07/24/18 at 14:30 Losartan Potassium (Cozaar) 25 mg BID PO Last administered on 07/28/18 21:05; Admin Dose 25 MG; Start 07/26/18 at 09:30 Lactobacillus Acidophilus (Florajen3 Capsule) 1 each BID GTB Last administered on 07/28/18 21:03; Admin Dose 1 EACH; Start 07/28/18 at 21:00 Multivitamins (Multivitamin) 30 ml DAILY GTB Last administered on 07/28/18 16:28; Admin Dose 30 ML; Start 07/28/18 at 15:30 Insulin Glargine (Lantus) 25 units DAILY@0800 SC ; Start 07/29/18 at 08:00 Insulin Aspart (Novolog Insulin Pen) NOVOLOG *MODERATE* ALGORI... Q4 SC Last administered on 07/29/18 09:47; Admin Dose 6 UNIT; Start 6/8/19 at 01:00 DA QUIROGA MD Jul 29, 2018 10:10
[2018-07-29] MEDS: LOSARTAN 25 MG TAB PO SCH ×2 (10:22→22:02)
[2018-07-29] MEDS: metFORMIN 850 MG TAB GTB SCH ×2 (10:22→18:56)
[2018-07-29] MEDS: ZINC SULFATE 220 MG CAP GTB SCH (10:22)
[2018-07-29] MEDS: LINAGLIPTIN 5 MG TABLET PO SCH (10:22)
[2018-07-29] MEDS: MULTIVITAMINS 30 ML CUP GTB SCH (10:23)
[2018-07-29] MEDS: morphine 2 MG INJ IV PRN ×2 (10:23→16:24)
[2018-07-29] MEDS: ENOXAPARIN 30 MG/0.3 ML SYG SC SCH (10:25)
[2018-07-29] MEDS: BALSAM PERU/CASTOR OIL 60 GM TUBE TOP SCH ×2 (10:28→22:02)
[2018-07-29] MEDS: L ACIDOPHIL/B LACTIS/B LONGUM CAPSULE GTB SCH ×2 (10:28→21:58)
[2018-07-29] MEDS: ASCORBIC ACID 500 MG TAB GTB SCH (10:29)
[2018-07-29 14:48] VITALS: BP 140/75; PULSE 75; RESP 18
[2018-07-29 20:00] VITALS: BP 140/73; PULSE 71; RESP 18
[2018-07-29] MEDS: FAMOTIDINE 20 MG TAB GTB SCH (21:59)
[2018-07-30] MEDS: INSULIN ASPART [NOVOLOG] 3 ML PEN SC SCH ×6 (01:14→23:07)
[2018-07-30 02:00] VITALS: BP 132/67; PULSE 71; RESP 18
[2018-07-30] MEDS: PIPER-TAZO 3.375 GM IV (PMX) 100 ML IVPB SCH ×4 (03:10→23:10)
[2018-07-30 08:09] VITALS: BP 139/70; PULSE 62; RESP 18
[2018-07-30] MEDS: DOCUSATE SODIUM 10 MG/ML (10ML CUP) GTB SCH (09:53)
[2018-07-30] MEDS: metFORMIN 850 MG TAB GTB SCH ×2 (09:53→18:50)
[2018-07-30] MEDS: INSULIN GLARGINE [LANTus] (100 UNITS/ML) SYG SC SCH ×2 (09:54→23:08)
[2018-07-30] MEDS: ENOXAPARIN 30 MG/0.3 ML SYG SC SCH (09:55)
[2018-07-30] MEDS: L ACIDOPHIL/B LACTIS/B LONGUM CAPSULE GTB SCH ×2 (09:56→23:05)
[2018-07-30] MEDS: ZINC SULFATE 220 MG CAP GTB SCH (09:56)
[2018-07-30] MEDS: FOLIC ACID 1 MG TAB GTB SCH (09:56)
[2018-07-30] MEDS: LACTULOSE 30ML CUP GTB SCH (09:56)
[2018-07-30] MEDS: MULTIVITAMINS 30 ML CUP GTB SCH (09:56)
[2018-07-30] MEDS: ASCORBIC ACID 500 MG TAB GTB SCH (09:56)
[2018-07-30] MEDS: LINAGLIPTIN 5 MG TABLET PO SCH (09:56)
[2018-07-30] MEDS: LOSARTAN 25 MG TAB PO SCH ×2 (09:57→23:08)
[2018-07-30] MEDS: BALSAM PERU/CASTOR OIL 60 GM TUBE TOP SCH ×2 (09:58→23:11)
[2018-07-30] MEDS: morphine 2 MG INJ IV PRN (12:09)
[2018-07-30 14:16] VITALS: BP 136/71; PULSE 62; RESP 18
--- NOTE | 2018-07-30 18:13 | PN ---
Date/Time of Note Date/Time of Note DATE: 07/30/18 TIME: 18:11 Assessment/Plan VTE Prophylaxis Risk score (from Nsg)>0 risk: 6 SCD applied (from Nsg): Yes SCD contraindicated: low risk/ambulating Pharmacological prophylaxis: LMWH Lines/Catheters IV Catheter Type (from Nrsg): Saline Lock Urinary Cath still in place: Yes (Suprapubic catheter) Reason Cath still needed: urinary retention Assessment/Plan Hospital Course Assessment and plan 1. Sepsis, likely urinary in origin stable, finish antibiotics 2. Acute complicated cystitis. 3. Suprapubic catheter status 4. Neurogenic bladder 5. History of TBI/quadriplegia 6. Malnutrition/ dysphagia, status post PEG, cont feeds 7. History of tracheostomy 8. Diabetes II/ metabolic syndrome 9. MRSA nares status 10. Decubitus ulcer offload, appreciate nursing assistance 11. Sacral stage III ulcer, continue wound care. Ruled out osteomyelitis 12. Failure to thrive, stable discharge back to SNF S: 07/28 No distress. No fever 07/29: Awake alert no distress. Refusing labs? Insight/judgment/capacity is questionable 07/30: No distress. Apparently MRI was mislabeled as x-ray. O: Vital signs stable MRI IMPRESSION: 1. Attenuation of the skin and soft tissues to the left of midline at the level of the coccyx which may be from a chronic ulcer with a small focus of calcification within the underlying soft tissues and mild soft tissue edema. No evidence for osteomyelitis. 2. Osseous fusion of the bilateral sacroiliac joints likely from ankylosing spondylitis. 3. Mild presacral soft tissue edema. 4. Mild degenerative disc disease at L5-S1. 5. Wall thickening of the rectosigmoid colon with distension of the colon which can be seen with inflammation with constipation. PE No pallor Reg no mrg Clear Bs+ nt nd; no RRG. PEG CDI Hypotonia; no edema Result Diagram: 07/29/18204507/29/181999 Results 24hrs Laboratory Tests Test 07/29/18 18:44 07/29/18 20:00 07/29/18 20:46 07/29/18 21:57 Bedside Glucose 191 150 Sodium Level 141 Potassium Level 4.6 Chloride Level 111 H Carbon Dioxide Level 23 Anion Gap 7 Blood Urea Nitrogen 18 Creatinine 0.89 Est Glomerular Filtrat > 60 Rate mL/min Glucose Level 168 Calcium Level 8.6 Phosphorus Level 3.7 Magnesium Level 2.3 White Blood Count 9.0 Red Blood Count 3.77 L Hemoglobin 9.8 L Hematocrit 32.2 L Mean Corpuscular Volume 85.4 Mean Corpuscular 26.0 L Hemoglobin Mean Corpuscular 30.4 L Hemoglobin Concent Red Cell Distribution 17.2 H Width Platelet Count 265 # Mean Platelet Volume 11.8 H Immature Granulocytes % 1.000 H Neutrophils % 66.5 Lymphocytes % 20.8 Monocytes % 6.8 Eosinophils % 4.3 Basophils % 0.6 Nucleated Red Blood 0.0 Cells % Immature Granulocytes # 0.090 H Neutrophils # 6.0 Lymphocytes # 1.9 Monocytes # 0.6 Eosinophils # 0.4 Basophils # 0.1 Nucleated Red Blood 0.0 Cells # Test 07/30/18 01:08 07/30/18 06:16 07/30/18 09:51 07/30/18 12:58 Bedside Glucose 150 131 205 169 Exam/Review of Systems Exam Vitals Vital Signs Date Temp Pulse Resp B/P (MAP) Pulse Ox O2 O2 Flow FiO2 Time Delivery Rate 07/30/18 98.2 62 18 136/71 99 14:16 (92) 07/30/18 Room Air 02:00 Intake and Output 07/29/18 07/29/18 07/30/18 1515:00 23:00 07:00 IntakeIntake Total 100 ml 1440 ml 100 ml OutputOutput Total 925 ml 1000 ml 2000 ml BalanceBalance -825 ml 440 ml -1900 ml Results Results 24hrs Laboratory Tests Test 07/29/18 18:44 07/29/18 20:00 07/29/18 20:46 07/29/18 21:57 Bedside Glucose 191 150 Sodium Level 141 Potassium Level 4.6 Chloride Level 111 H Carbon Dioxide Level 23 Anion Gap 7 Blood Urea Nitrogen 18 Creatinine 0.89 Est Glomerular Filtrat > 60 Rate mL/min Glucose Level 168 Calcium Level 8.6 Phosphorus Level 3.7 Magnesium Level 2.3 White Blood Count 9.0 Red Blood Count 3.77 L Hemoglobin 9.8 L Hematocrit 32.2 L Mean Corpuscular Volume 85.4 Mean Corpuscular 26.0 L Hemoglobin Mean Corpuscular 30.4 L Hemoglobin Concent Red Cell Distribution 17.2 H Width Platelet Count 265 # Mean Platelet Volume 11.8 H Immature Granulocytes % 1.000 H Neutrophils % 66.5 Lymphocytes % 20.8 Monocytes % 6.8 Eosinophils % 4.3 Basophils % 0.6 Nucleated Red Blood 0.0 Cells % Immature Granulocytes # 0.090 H Neutrophils # 6.0 Lymphocytes # 1.9 Monocytes # 0.6 Eosinophils # 0.4 Basophils # 0.1 Nucleated Red Blood 0.0 Cells # Test 07/30/18 01:08 07/30/18 06:16 07/30/18 09:51 07/30/18 12:58 Bedside Glucose 150 131 205 169 Medications Medication Current Medications Ondansetron HCl (Zofran Inj) 4 mg Q6H PRN IV NAUSEA AND/OR VOMITING; Start 07/18/18 at 01:30 Acetaminophen (Tylenol Liquid) 650 mg Q6H PRN GTB PAIN LEVEL 1-3 OR FEVER Last administered on 07/28/18at 16:28; Admin Dose 650 MG; Start 07/18/18 at 01:30 Morphine Sulfate (morphine) 2 mg Q4H PRN IV PAIN LEVEL 7-10 Last administered on 07/30/18at 12:09; Admin Dose 2 MG; Start 07/18/18 at 01:30 Piperacillin Sod/ Tazobactam Sod 100 ml @ 200 mls/hr Q6H IVPB Last administere d on 07/30/18at 16:30; Admin Dose 200 MLS/HR; Start 07/18/18 at 09:30 Miscellaneous Information 1 ea NOTE XX ; Start 07/18/18 at 09:30 Glucose (Glutose) 15 gm Q15M PRN PO DECREASED GLUCOSE; Start 07/18/18 at 09:30 Glucose (Glutose) 22.5 gm Q15M PRN PO DECREASED GLUCOSE; Start 07/18/18 at 09:30 Dextrose (D50w Syringe) 25 ml Q15M PRN IV DECREASED GLUCOSE; Start 07/18/18 at 09:30 Dextrose (D50w Syringe) 50 ml Q15M PRN IV DECREASED GLUCOSE Last administered on 07/18/18at 17:21; Admin Dose 50 ML; Start 07/18/18 at 09:30 Glucagon (Glucagen) 1 mg Q15M PRN IM DECREASED GLUCOSE; Start 07/18/18 at 09:30 Glucose (Glutose) 15 gm Q15M PRN BUCCAL DECREASED GLUCOSE; Start 07/18/18 at 09:30 Enoxaparin Sodium (Lovenox) 30 mg DAILY SC Last administered on 07/30/18 09:55; Admin Dose 30 MG; Start 07/18/18 at 10:00 Ascorbic Acid (Vitamin C) 500 mg DAILY GTB Last administered on 07/30/18 09:56; Admin Dose 500 MG; Start 07/20/18 at 09:00 Folic Acid (Folic Acid) 1 mg DAILY GTB Last administered on 07/30/18 09:56; Admin Dose 1 MG; Start 07/20/18 at 09:00 Zinc Sulfate (Zinc Sulfate) 220 mg DAILY GTB Last administered on 07/30/18 09:56; Admin Dose 220 MG; Start 07/20/18 at 09:00 Bisacodyl (Dulcolax Supp) 10 mg DAILY PRN [place] CONSTIPATION; Start 07/22/18 at 10:30 Metformin HCl (Glucophage) 850 mg BID WITH MEALS GTB Last administered on 07/30/18 09:53; Admin Dose 850 MG; Start 07/22/18 at 18:05 Insulin Glargine (Lantus) 35 units DAILY@2000 SC Last administered on 07/29/18 22:01; Admin Dose 35 UNITS; Start 07/23/18 at 20:00 Linagliptin (Tradjenta) 5 mg DAILY PO Last administered on 07/30/18 09:56; Admin Dose 5 MG; Start 07/24/18 at 14:30 Losartan Potassium (Cozaar) 25 mg BID PO Last administered on 07/30/18 09:57; Admin Dose 25 MG; Start 07/26/18 at 09:30 Lactobacillus Acidophilus (Florajen3 Capsule) 1 each BID GTB Last administered on 07/30/18 09:56; Admin Dose 1 EACH; Start 07/28/18 at 21:00 Multivitamins (Multivitamin) 30 ml DAILY GTB Last administered on 07/30/18 09:56; Admin Dose 30 ML; Start 07/28/18 at 15:30 Insulin Glargine (Lantus) 25 units DAILY@0800 SC Last administered on 07/30/18 09:54; Admin Dose 25 UNITS; Start 07/29/18 at 08:00 Insulin Aspart (Novolog Insulin Pen) NOVOLOG *MODERATE* ALGORI... Q4 SC Last administered on 07/30/18 13:00; Admin Dose 2 UNIT; Start 07/29/18 at 01:00 Docusate Sodium (Colace Liquid Cup) 20 mg DAILY GTB Last administered on 07/30/18 09:53; Admin Dose 20 MG; Start 07/30/18 at 09:00 Lactulose (Enulose) 20 gm DAILY GTB Last administered on 07/30/18 09:56; Admin Dose 20 GM; Start 07/30/18 at 09:00 Famotidine (Pepcid) 20 mg HS GTB Last administered on 07/29/18 21:59; Admin Dose 20 MG; Start 07/29/18 at 21:00 DA QUIROGA MD Jul 30, 2018 18:13
[2018-07-30 20:14] VITALS: BP 137/65; PULSE 70; RESP 18
[2018-07-30] MEDS: FAMOTIDINE 20 MG TAB GTB SCH (23:05)
[2018-07-31] MEDS: INSULIN ASPART [NOVOLOG] 3 ML PEN SC SCH ×5 (01:18→17:00)
[2018-07-31 02:26] VITALS: BP 139/79; PULSE 74; RESP 16
[2018-07-31] MEDS: PIPER-TAZO 3.375 GM IV (PMX) 100 ML IVPB SCH ×3 (02:34→16:25)
[2018-07-31] MEDS: morphine 2 MG INJ IV PRN ×2 (02:34→10:07)
--- NOTE | 2018-07-31 07:20 | CONS ---
Assessment/Plan Assessment/Plan Hospital Course (Demo Recall) 1) UTI with sepsis in pt with suprapubic cath due to neurogenic bladder pt was in hospital in april of this year with urosepsis and had e.coli +ESBL and MRSA present continue with vanco, change aztreanom to zosyn (e.coli was sensitive to it) await final ID and sensi's of urine CT abd did not show hydronephrosis but there is some mass/cyst around the L kidney, u/s could not visualize the L kidney 07/19 - urine cx and blood cx are NGTD continue with vanco/zosyn at present, improved temps and WBC 07/20 - urine cx is neg blood cx has e.coli in it, continue with zosyn, d/c vanco 07/21 - normal WBC 2) L base effusion with atelectasis vs consolidation check procalcitonin and get nasal for MRSA vanco/zosyn should cover but pt does not seem to have respiratory distress and is resting comfortable without cough on 2L of O2 07/19 - stable, procalcitonin is pending 07/20 - with bacteremia, impossible to interpret elevated procalcitonin for pneumonia nasal has MRSA but doubt he has pneumonia d/c vanco but continue with zosyn 07/21 - doubt pt has pneumonia but zosyn should cover 3) sacral ulcer get wound cx vanco/zosyn will cover 07/19 - stage III ulcer, cx is pending wound care to see pt 07/20 - pt has proteus and pseudomonas in sacral cx, not c/w e.coli in the blood continue with zosyn, d/c vanco, check ESR 07/21 - pseudomonas and proteus are sensitive to the zosyn 07/22 - ESR is moderately elevated I will order MRI of sacral area to determine length of IV antibiotic therapy 07/24 - MRI just ordered now continue with zosyn 07/25 - have written orders for ativan 1mg IV prior to MRI on zosyn If MRI is neg for sacral osteo then continue thru 07/31 07/26 - MRI was neg for osteo continue with just zosyn thru 07/31 07/28 - stable on zosyn, continue thru 07/31 start probiotic 07/31 - d/c zosyn after today's doses 4) TBI with quadriplegia 5) DM 6) constipation with enlarged colon and to my eyes some thickening of colon wall pt will likely need bowel evacuants vanco/zosyn will cover for lower GI infection if present 07/19 - no abd pain and lots of stool in last 24 hours 07/20 - E.coli could have coming from the colon d/c vanco and continue with zosyn pt has rectal tube with watery brown fluid, doubt c.dif in light of improving WBC and fever 07/21 - continue with zosyn for a two week course (thru 07/31) repeat abd x-ray, pt only has watery stools in rectal tube concern would be that he still has stool impaction 07/22 - abd xray still shows fecal impaction, spoke to nurse regarding removing rectal tube 07/24 - pt had a good amount of stool and repeat abd xray shows less stool but more air in bowels pt has no pain to abd though continue with zosyn thru 07/31 7) ARF likely due to sepsis this has been his pattern with infection and his creatinine goes back to baseline 07/19 - improved creatinine 07/20 - resolved 8) hypernatremia again this is not uncommon for this pt and it had resolved in the past with D5W 07/20 - improved 9) e.coli bacteremia 07/20 - source could be the urine but urine cx was neg he has gallstones but no sign of GB obstruction he has some haziness at the L lung base but doubt lung is the source elevated procalcitonin is also present in bacteremia and does not mean he has a lung infection He had large amount of retained stool with distended colon and this is more likely the source of the infection continue with zosyn 07/21 - improved fever and WBC is WNL continue zosyn thru 07/31/18 I suspect the source is his fecal impaction that caused bowel distension 07/24 - continue with zosyn thru 07/31 unless MRI shows osteo of sacrum then extend another 4 weeks 07/31 - no osteo as per MRI d/c zosyn after today's doses Consultation Date/Type/Reason Admit Date/Time July 18, 2018 at 00:56 Initial Consult Date 07/18/18 Type of Consult ID Requesting Provider: MERARY SORENSEN Date/Time of Note DATE: 07/31/18 TIME: 07:16 24 HR Interval Summary Free Text/Dictation stable no V, D breathing is good Exam/Review of Systems Exam Vitals Vital Signs Date Temp Pulse Resp B/P (MAP) Pulse Ox O2 O2 Flow FiO2 Time Delivery Rate 07/31/18 97.5 74 16 139/79 94 02:26 (99) 07/30/18 Room Air 02:00 Intake and Output 07/30/18 07/30/18 07/31/18 1515:00 23:00 07:00 IntakeIntake Total 100 ml 1740 ml 200 ml OutputOutput Total 1200 ml 1100 ml BalanceBalance 100 ml 540 ml -900 ml Constitutional: alert ENMT: mucosa pink and moist Respiratory: clear to auscultation Cardiovascular: regular rate and rhythm Gastrointestinal: soft, non-tender Results Result Diagram: 07/29/18204507/29/181999 Results 24hrs Laboratory Tests Test 07/30/18 09:51 07/30/18 12:58 07/30/18 18:48 07/30/18 23:03 Bedside Glucose 205 169 200 146 Test 07/31/18 01:10 07/31/18 05:36 Bedside Glucose 189 174 Medications Medication Current Medications Ondansetron HCl (Zofran Inj) 4 mg Q6H PRN IV NAUSEA AND/OR VOMITING; Start 07/18/18 at 01:30 Acetaminophen (Tylenol Liquid) 650 mg Q6H PRN GTB PAIN LEVEL 1-3 OR FEVER Last administered on 07/28/18at 16:28; Admin Dose 650 MG; Start 07/18/18 at 01:30 Morphine Sulfate (morphine) 2 mg Q4H PRN IV PAIN LEVEL 7-10 Last administered on 07/31/18at 02:34; Admin Dose 2 MG; Start 07/18/18 at 01:30 Piperacillin Sod/ Tazobactam Sod 100 ml @ 200 mls/hr Q6H IVPB Last adm inistered on 07/31/18at 02:34; Admin Dose 200 MLS/HR; Start 07/18/18 at 09:30; Stop 07/31/18 at 19:00 Miscellaneous Information 1 ea NOTE XX ; Start 07/18/18 at 09:30 Glucose (Glutose) 15 gm Q15M PRN PO DECREASED GLUCOSE; Start 07/18/18 at 09:30 Glucose (Glutose) 22.5 gm Q15M PRN PO DECREASED GLUCOSE; Start 07/18/18 at 09:30 Dextrose (D50w Syringe) 25 ml Q15M PRN IV DECREASED GLUCOSE; Start 07/18/18 at 09:30 Dextrose (D50w Syringe) 50 ml Q15M PRN IV DECREASED GLUCOSE Last administered on 07/18/18at 17:21; Admin Dose 50 ML; Start 07/18/18 at 09:30 Glucagon (Glucagen) 1 mg Q15M PRN IM DECREASED GLUCOSE; Start 07/18/18 at 09:30 Glucose (Glutose) 15 gm Q15M PRN BUCCAL DECREASED GLUCOSE; Start 07/18/18 at 09:30 Ascorbic Acid (Vitamin C) 500 mg DAILY GTB Last administered on 07/30/18 09:56; Admin Dose 500 MG; Start 07/20/18 at 09:00 Folic Acid (Folic Acid) 1 mg DAILY GTB Last administered on 07/30/18 09:56; Admin Dose 1 MG; Start 07/20/18 at 09:00 Zinc Sulfate (Zinc Sulfate) 220 mg DAILY GTB Last administered on 07/30/18 09:56; Admin Dose 220 MG; Start 07/20/18 at 09:00 Bisacodyl (Dulcolax Supp) 10 mg DAILY PRN MS CONSTIPATION; Start 07/22/18 at 10:30 Metformin HCl (Glucophage) 850 mg BID WITH MEALS GTB Last administered on 07/30/18 18:50; Admin Dose 850 MG; Start 07/22/18 at 18:05 Insulin Glargine (Lantus) 35 units DAILY@2000 SC Last administered on 07/30/18 23:08; Admin Dose 35 UNITS; Start 07/23/18 at 20:00 Linagliptin (Tradjenta) 5 mg DAILY PO Last administered on 07/30/18 09:56; Admin Dose 5 MG; Start 07/24/18 at 14:30 Losartan Potassium (Cozaar) 25 mg BID PO Last administered on 07/30/18 23:08; Admin Dose 25 MG; Start 07/26/18 at 09:30 Lactobacillus Acidophilus (Florajen3 Capsule) 1 each BID GTB Last administered on 07/30/18 23:05; Admin Dose 1 EACH; Start 07/28/18 at 21:00 Multivitamins (Multivitamin) 30 ml DAILY GTB Last administered on 07/30/18 09:56; Admin Dose 30 ML; Start 07/28/18 at 15:30 Insulin Glargine (Lantus) 25 units DAILY@0800 SC Last administered on 07/30/18 09:54; Admin Dose 25 UNITS; Start 07/29/18 at 08:00 Insulin Aspart (Novolog Insulin Pen) NOVOLOG *MODERATE* ALGORI... Q4 SC Last administered on 07/31/18 05:56; Admin Dose 2 UNIT; Start 07/29/18 at 01:00 Docusate Sodium (Colace Liquid Cup) 20 mg DAILY GTB Last administered on 9at 09:53; Admin Dose 20 MG; Start 07/30/18 at 09:00 Lactulose (Enulose) 20 gm DAILY GTB Last administered on 07/30/18 09:56; Admin Dose 20 GM; Start 07/30/18 at 09:00 Famotidine (Pepcid) 20 mg HS GTB Last administered on 07/30/18 23:05; Admin Dose 20 MG; Start 07/29/18 at 21:00 Enoxaparin Sodium (Lovenox) 40 mg DAILY SC ; Start 07/31/18 at 09:00 ZAHEER ENGLE MD Jul 31, 2018 07:20
[2018-07-31 08:21] VITALS: BP 114/67; PULSE 66; RESP 17
[2018-07-31] MEDS: INSULIN GLARGINE [LANTus] (100 UNITS/ML) SYG SC SCH (08:52)
[2018-07-31] MEDS: metFORMIN 850 MG TAB GTB SCH ×2 (08:54→17:38)
[2018-07-31] MEDS: LINAGLIPTIN 5 MG TABLET PO SCH (08:54)
[2018-07-31] MEDS: LACTULOSE 30ML CUP GTB SCH (08:54)
[2018-07-31] MEDS: MULTIVITAMINS 30 ML CUP GTB SCH (08:54)
[2018-07-31] MEDS: L ACIDOPHIL/B LACTIS/B LONGUM CAPSULE GTB SCH (08:54)
[2018-07-31] MEDS: LOSARTAN 25 MG TAB PO SCH (08:55)
[2018-07-31] MEDS: DOCUSATE SODIUM 10 MG/ML (10ML CUP) GTB SCH (08:55)
[2018-07-31] MEDS: ZINC SULFATE 220 MG CAP GTB SCH (08:55)
[2018-07-31] MEDS: FOLIC ACID 1 MG TAB GTB SCH (08:55)
[2018-07-31] MEDS: ASCORBIC ACID 500 MG TAB GTB SCH (08:55)
[2018-07-31] MEDS: BALSAM PERU/CASTOR OIL 60 GM TUBE TOP SCH (08:56)
[2018-07-31] MEDS ORDERED: ENOXAPARIN 40 MG/0.4 ML SYG SC SCH (09:00)
[2018-07-31] MEDS ORDERED: DOCU50LI11 GTB (12:23)
[2018-07-31] MEDS ORDERED: Insulin Glargine SC (12:23)
[2018-07-31] MEDS ORDERED: ASC500 GTB (12:23)
[2018-07-31] MEDS ORDERED: BALS60OI TOP (12:23)
[2018-07-31] MEDS ORDERED: LOSA25TA2 PO (12:23)
[2018-07-31] MEDS ORDERED: METF-480 GTB (12:23)
[2018-07-31] MEDS ORDERED: QUET25TA PO (12:23)
[2018-07-31] MEDS ORDERED: LINA5TAB PO (12:23)
[2018-07-31] MEDS ORDERED: L.AC460C GTB (12:23)
[2018-07-31 15:16] VITALS: BP 144/74; PULSE 77; RESP 19
--- NOTE | 2018-08-06 16:59 | DS ---
DATE OF ADMISSION: 07/18/2018 DATE OF DISCHARGE: 07/31/2018 ADDENDUM FINAL DIAGNOSES: 1. Sepsis secondary to urinary tract infection, on antibiotics. 2. Chronic neurogenic bladder, status post suprapubic catheter placement. 3. History of quadriplegia with reported ____. 4. Chronic dysphagia, status post percutaneous endoscopic gastrostomy ____ most likely neurogenic in origin. 5. History of tracheostomy. 6. Diabetes mellitus. 7. ____. 8. Chronic decubiti, osteomyelitis ruled out. 9. The patient was also noted to have some pneumonia. 10. Acute renal insufficiency secondary to sepsis that has resolved. 11. E. Coli bacteremia. CONSULTANTS: normal, without consults on the case, Dr. Cristian Gauthier, for Infectious Disease. DISPOSITION: The patient will be discharged back to retirement facility with Infectious Disease recommendations. DISCHARGE MEDICATIONS: For complete list of discharge medications, please review the patient's chart . DISCHARGE CONDITION: Stable. DIET: Recommended diet is ____. ACTIVITY: The patient has a chronic quadriplegia in bed exercises. SHORT HOSPITALIZATION COURSE: Full details are available in chart for review. In summary, the patie nt was sent to us from retirement facility and was found to be in septic shock from the causes n oted above as well as severe dehydration with hyponatremia and renal failure. He was treated accordi ngly and has done well and at this time actually was cleared for discharge back to the nursing facili ty by my partner ____ discharge was delayed today due to logistics and the patient is to be discharge d today as per prior instructions. Dictated By: VENITA BRADSHAW MD BA/NTS Conf#: [id number] DID#: [id number] CC: MERARY SORENSEN MD;*EndCC*
== END 2018-07-31 19:30 | DRG 698 ==
LOC: E/R 21:51 → ICU 07-18 00:56 → EDBEDREQSVC 07-18 04:11 → ICU 07-18 08:10 → 6WM 07-19 16:27 → PP2 07-20 18:31
PROVIDERS: ADMIT Family Medicine; ATTEND Internal Medicine
DX: T83.518A Infection and inflammatory reaction due to other urinary catheter, initial encounter (principal); A41.51 Sepsis due to Escherichia coli [E. coli]; R65.21 Severe sepsis with septic shock; L89.153 Pressure ulcer of sacral region, stage 3; G82.50 Quadriplegia, unspecified; J18.9 Pneumonia, unspecified organism; E87.0 Hyperosmolality and hypernatremia; N17.9 Acute kidney failure, unspecified; G93.49 Other encephalopathy; N30.01 Acute cystitis with hematuria; E46 Unspecified protein-calorie malnutrition; T83.83XA Hemorrhage due to genitourinary prosthetic devices, implants and grafts, initial encounter; Z93.1 Gastrostomy status; N31.9 Neuromuscular dysfunction of bladder, unspecified; E11.9 Type 2 diabetes mellitus without complications; E86.0 Dehydration; K56.41 Fecal impaction; S06.9X0S Unspecified intracranial injury without loss of consciousness, sequela; X58.XXXS Exposure to other specified factors, sequela; R13.10 Dysphagia, unspecified; Z68.22 Body mass index [BMI] 22.0-22.9, adult; R62.7 Adult failure to thrive
CPT/HCPCS: 36600; 70450; 71045; 72196; 74018; 74176; 76775; 80048; 80053; 80061; 80202; 81001; 82803; 82962; 83036; 83605; 83690; 83735; 84100; 84145; 84443; 84484; 85025; 85610; 85651; 85730; 87045; 87070; 87081; 87086; 93005; 96374; A4310; J1650; J1815; J2060; J2270; J2543; J3370; J3480; J7030; J7040; J7070